=== PATIENT | female | born 1940 | race Caucasian/White ===

== ENCOUNTER → 2017-06-14 | Outpatient (CLI) | payer MEDICARE, BC ==
[2017-06-14 16:27] LABS: Blood Urea Nitrogen 26 mg/dL (7-17)
--- NOTE | 2017-06-14 17:20 | CT ---
EXAMINATION TYPE: CT angio chest DATE OF EXAM: 06/14/2017 4:57 PM COMPARISON: NONE HISTORY: BP discrepancy, hx of COPD CT DLP: 424.7 mGycm Automated exposure control for dose reduction was used. CONTRAST: CTA scan of the thorax is performed with IV Contrast, patient injected with 69 mL of Omnipaque 350, p ulmonary embolism protocol. There are 3-D post processed images.. FINDINGS: The lungs are clear of consolidation. There is a mild 1.5 cm reticular subpleural density in the supe rior segment left lower lobe adjacent to the pleura. There is mild linear density in the lingula left upper lobe and in the right middle lobe. There is no pleural effusion. There is no pericardial effus ion. Heart size is normal. There is a small hiatal hernia. I see no filling defects in the pulmonary arteries. There is no evidence of aortic aneurysm or dissec tion. There is no mediastinal adenopathy. There is mild atherosclerotic calcification in the thoracic aorta. There is some spurring in the thoracic spine. IMPRESSION: ATHEROSCLEROTIC VASCULAR DISEASE. NO EVIDENCE OF PULMONARY EMBOLISM. MILD PULMONARY DENSITIES CONSIST ENT WITH FIBROSIS.
== END | disposition home or self-care (01) ==
LOC: RADCTMAIN 15:34
PROVIDERS: ATTEND Family Medicine
DX: I25.10 Atherosclerotic heart disease of native coronary artery without angina pectoris (principal); R91.8 Other nonspecific abnormal finding of lung field; R03.0 Elevated blood-pressure reading, without diagnosis of hypertension
CPT/HCPCS: 82565; 84520; 71275; 36415; Q9967

== ENCOUNTER → 2018-01-23 | Outpatient (CLI) | payer MEDICARE, BC ==
--- NOTE | 2018-01-23 22:46 | BD ---
EXAMINATION TYPE: Axial Bone Density DATE OF EXAM: 01/23/2018 CLINICAL HISTORY: Postmenopausal female. Height: 60 inches Weight: 180 FRAX RISK QUESTIONS: Alcohol (3 or more units per day): no Family History (Parent hip fracture): yes, father Glucocorticoids (More than 3mos): yes (Ex: prednisone, prednisolone, methylprednisolone, dexamethasone, and hydrocortisone). History of Fracture in Adulthood: no Secondary Osteoporosis: 1. Type 1 Diabetes: no 2. Hyperthyroidism: no 3. Menopause before 45: yes 4. Malnutrition: no 5. Chronic liver disease: no Rheumatoid Arthritis: no Current Tobacco Use: no RISK FACTORS HISTORY OF: Surgery to Spine: yes, lower back bone graft & fusion about area of L-5 When: 1970 Family History of Osteoporosis: unsure Active: somewhat Diet low in dairy products/other sources of calcium: at least one serving a day Postmenopausal woman: yes Take estrogen and/or progesterone medications: no Lost more than 2 inches in height since high school: no Frequent falls: no Poor Health: somewhat Hyperparathyroidism: unsure Adrenal Insufficiency: no MEDICATIONS: Prednisone or other steroids: yes, inhaler-Albuterol How Long: about 3-4 years Thyroid Medications: no Osteoporosis Medications: no Additional Medications: multivitamin, lovastatin, singular, blood pressure meds Additional History: COPD & asthma EXAM MEASUREMENTS: Bone mineral densitometry was performed using the [employer] System. Bone mineral density NOT measured about the Lumbar spine due to previous Lumbar Spine surgery Bone mineral density about the R hip (g/cm2): 0.759 Bone mineral density about the L hip (g/cm2): 0.762 T Score values are as follows: -----R Neck: -2.0 -----L Neck: -2.0 -----R Total: -1.0 -----L Total: -0.8 Bone mineral density not previously done at this facility-previous at physician office Bone mineral density about the L Wrist (g/cm2): 0.519 T Score values are as follows: -----Dist. R+U: -1.7 -----Prox. R+U: -2.0 -----Radius total: -2.6 Bone mineral density not previously done at this facility IMPRESSION: Osteopenia (T Score between -2.5 and -1) in the left forearm and bilateral hips. There is slightly increased risk of fracture and the patient may be considered for treatment. Re-Screen 2-5 years. NOTE: T-SCORE=SD OF THE YOUNG ADULT MEAN.
--- NOTE | 2018-01-24 10:44 | ECHOF ---
Referral Reason:H34.832 G45.3 MEASUREMENTS -------- HEIGHT: 152.4 cm WEIGHT: 82.1 kg BP: 138/66 RVIDd: 3.6 cm (< 3.3) IVSd: 0.8 cm (0.6 - 1.1) LVIDd: 3.7 cm (3.9 - 5.3) LVPWd: 1.1 cm (0.6 - 1.1) IVSs: 1.7 cm LVIDs: 2.3 cm LVPWs: 1.5 cm LA Diam: 3.0 cm (2.7 - 3.8) LAESV Index (A-L): 20.64 ml/m Ao Diam: 3.2 cm (2.0 - 3.7) AV Cusp: 2.2 cm (1.5 - 2.6) MV EXCURSION: 14.230 mm (> 18.000) MV EF SLOPE: 31 mm/s (70 - 150) EPSS: 0.8 cm MV E Clinton: 0.55 m/s MV DecT: 236 ms MV A Clinton: 0.92 m/s MV E/A Ratio: 0.60 RAP: 5.00 mmHg RVSP: 73.18 mmHg FINDINGS -------- Undetermined rhythm. This was a technically adequate study. The left ventricular size is normal. There is borderline concentric left ventricular hypertrophy. Overall left ventricular systolic function is normal with, an EF between 60 - 65 %. The right ventricle is mildly enlarged. Normal LA size by volume 22+/-6 ml/m2. The right atrium is normal in size. The aortic valve is trileaflet and appears structurally normal. There is trace to mild mitral regurgitation. Mild tricuspid regurgitation present. There is moderate to severe pulmonary hypertension. The rig ht ventricular systolic pressure, as measured by Doppler, is about 60 mm of Hg. Trace/mild (physiologic) pulmonic regurgitation. The aortic root size is normal. Normal inferior vena cava with normal inspiratory collapse consistent with estimated right atrial pre ssure of 5 mmHg. There is no pericardial effusion. CONCLUSIONS -------- 1. Undetermined rhythm. 2. This was a technically adequate study. 3. The left ventricular size is normal. 4. There is borderline concentric left ventricular hypertrophy. 5. Overall left ventricular systolic function is normal with, an EF between 60 - 65 %. 6. The right ventricle is mildly enlarged. 7. Normal LA size by volume 22+/-6 ml/m2. 8. The right atrium is normal in size. 9. The aortic valve is trileaflet and appears structurally normal. 10. There is trace to mild mitral regurgitation. 11. Mild tricuspid regurgitation present. 12. The right ventricular systolic pressure, as measured by Doppler, is 73.18mmHg. 13. Trace/mild (physiologic) pulmonic regurgitation. 14. The aortic root size is normal. 15. Normal inferior vena cava with normal inspiratory collapse consistent with estimated right atrial pressure of 5 mmHg. 16. There is no pericardial effusion. LEATHER SPRAYER: Maylin Lemus RDCS
--- NOTE | 2018-01-24 11:38 | MM ---
Reason for exam: screening (asymptomatic). Last mammogram was performed 2 years and 11 months ago. History: Patient is postmenopausal and history of other cancer. Physical Findings: A clinical breast exam by your physician is recommended on an annual basis and results should be correlated with mammographic findings. MG 3D Screening Mammo W/Cad Bilateral CC and MLO view(s) were taken. Prior study comparison: February 26, 2015, right breast MG 3d work up w/cad RT. February 18, 2015, bilateral MG screening mammo w CAD. There are scattered fibroglandular densities. No significant changes when compared with prior studies. ASSESSMENT: Benign, BI-RAD 2 RECOMMENDATION: Routine screening mammogram of both breasts in 1 year.
== END ==
LOC: RADMAMWWP 13:25
PROVIDERS: ATTEND Family Medicine
DX: Z12.31 Encounter for screening mammogram for malignant neoplasm of breast (principal); M85.832 Other specified disorders of bone density and structure, left forearm; M85.851 Other specified disorders of bone density and structure, right thigh; M85.852 Other specified disorders of bone density and structure, left thigh
CPT/HCPCS: 77063; 77067; 77080; 93306

== ENCOUNTER 2018-04-12 14:12 | Inpatient (IN) | payer MEDICARE, BC ==
[2018-04-12] MEDS ORDERED: IPRATROPIUM 0.5 MG/2.5 ML NEBU INHALATION STA (14:52)
[2018-04-12] MEDS ORDERED: ALBUTEROL NEBULIZED 2.5 MG/3 ML INHALATION STA (14:52)
[2018-04-12] MEDS ORDERED: DEXAMETHASONE SOD PHOSPHATE 10 MG/ML 1 ML VIAL IV STA (14:52)
--- NOTE | 2018-04-12 15:06 | ED ---
General Adult HPI - General Chief complaint: Shortness of Breath Stated complaint: SOB Time Seen by Provider: 04/12/18 14:32 Source: patient, RN notes reviewed, old records reviewed Mode of arrival: ambulatory Limitations: no limitations - History of Present Illness Initial comments: 77-year-old female history of COPD on home oxygen presents for 3 days of worsening cough and dyspnea. Patient's cough is productive white yellow sputum. Patient has had some URI symptoms and known sick contacts. Denies fever or chills. Denies significant chest pain. She hasn't mild chest pain with cough. No abdominal pain nausea vomiting. No lower extremity swelling or pain. - Related Data Home Medications Medication Instructions Recorded Confirmed Acyclovir [Zovirax] 400 mg PO BID 04/12/18 04/12/18 Albuterol Inhaler [Ventolin Hfa 2 puff INHALATION RT-Q6H PRN 04/12/18 04/12/18 Inhaler] Albuterol Nebulized [Ventolin 2.5 mg INHALATION RT-TID 04/12/18 04/12/18 Nebulized] Budesonide [Pulmicort] 0.5 mg INHALATION RT-BID 04/12/18 04/12/18 Calcium Carbonate [Calcium] 600 mg PO BID 04/12/18 04/12/18 Furosemide [Lasix] 20 mg PO DAILY 04/12/18 04/12/18 L.acidoph,Paracasei, B.lactis 1 cap PO DAILY 04/12/18 04/12/18 [Probiotic] Lovastatin [Mevacor] 20 mg PO HS 04/12/18 04/12/18 Montelukast [Singulair] 10 mg PO DAILY 04/12/18 04/12/18 Multivitamins, Thera [Multivitamin 1 tab PO DAILY 04/12/18 04/12/18 (formulary)] Omeprazole 20 mg PO DAILY 04/12/18 04/12/18 Potassium Chloride ER [K-Dur 10] 10 meq PO DAILY 04/12/18 04/12/18 Roflumilast [Daliresp] 250 mcg PO DAILY 04/12/18 04/12/18 predniSONE See Taper PO DAILY 04/12/18 04/12/18 Allergies Allergy/AdvReac Type Severity Reaction Status Date / Time amoxicillin [From Augmentin] Allergy Unknown Verified 04/12/18 15:14 clavulanic acid Allergy Unknown Verified 04/12/18 15:14 [From Augmentin] erythromycin base Allergy Unknown Verified 04/12/18 15:14 Review of Systems ROS Statement: Those systems with pertinent positive or pertinent negative responses have been documented in the HPI. ROS Other: All systems not noted in ROS Statement are negative. Past Medical History Past Medical History: Coronary Artery Disease (CAD), Heart Failure, COPD, GERD/ Reflux, Hyperlipidemia History of Any Multi-Drug Resistant Organisms: None Reported Past Surgical History: Back Surgery Past Psychological History: No Psychological Hx Reported Smoking Status: Former smoker Past Alcohol Use History: None Reported Past Drug Use History: None Reported General Exam Limitations: no limitations General appearance: alert, in no apparent distress Head exam: Present: atraumatic, normocephalic Eye exam: Present: normal appearance, PERRL ENT exam: Present: normal exam Neck exam: Present: normal inspection. Absent: tenderness, meningismus Respiratory exam: Present: respiratory distress, wheezes, rhonchi, accessory muscle use, decreased breath sounds, prolonged expiratory Cardiovascular Exam: Present: regular rate, normal rhythm GI/Abdominal exam: Present: soft. Absent: distended, tenderness, guarding Extremities exam: Present: normal inspection, normal capillary refill. Absent: pedal edema, calf tenderness Neurological exam: Present: alert, oriented X3, CN II-XII intact. Absent: motor sensory deficit Psychiatric exam: Present: normal affect, normal mood Skin exam: Present: warm, intact, diaphoretic Course Vital Signs 04/12/18 04/12/18 04/12/18 14:25 14:46 15:12 Temperature 97.7 F Pulse Rate 100 Respiratory 32 H 46 H 30 H Rate Blood Pressure 93/63 O2 Sat by Pulse 80 L 78 L Oximetry 04/12/18 04/12/18 04/12/18 15:17 15:27 15:38 Temperature Pulse Rate 96 94 95 Respiratory 24 Rate Blood Pressure O2 Sat by Pulse Oximetry 04/12/18 04/12/18 15:50 16:00 Temperature Pulse Rate 96 96 Respiratory 22 28 H Rate Blood Pressure 132/71 O2 Sat by Pulse 97 Oximetry EKG Findings - EKG Comments: EKG Findings:: EKG: Normal sinus rhythm, right bundle branch block, no definitive signs of ischemia, there is no ST segment elevation, poor baseline secondary to artifact, ventricular rate 97, VA interval 114, QRS duration 118, QTC 457 Medical Decision Making - Medical Decision Making 77-year-old female presenting with cough and dyspnea. X-rays obtained, negative for focal pneumonia, findings consistent with COPD. Patient has normal CBC, CMP shows elevated CO2 consistent with chronic retention. No elevated troponin, normal BNP. Patient will be admitted for further treatment of COPD exacerbation. Case discussed with Dr. Del Rio who will accept admission. - Lab Data Result diagrams: 04/12/18 15:01 04/12/18 15:01 Lab Results 04/12/18 04/12/18 04/12/18 Range/Units 15:01 15: 15:01 WBC 7.9 (3.8-10.6) k/uL RBC 4.29 (3.80-5.40) m/uL Hgb 13.9 (11.4-16.0) gm/dL Hct 43.8 (34.0-46.0) % MCV 102.1 H (80.0-100.0) fL MCH 32.4 (25.0-35.0) pg MCHC 31.8 (31.0-37.0) g/dL RDW 14.6 (11.5-15.5) % Plt Count 201 (150-450) k/uL Neutrophils % 89 % Lymphocytes % 4 % Monocytes % 5 % Eosinophils % 1 % Basophils % 0 % Neutrophils # 7.0 (1.3-7.7) k/uL Lymphocytes # 0.3 L (1.0-4.8) k/uL Monocytes # 0.4 (0-1.0) k/uL Eosinophils # 0.0 (0-0.7) k/uL Basophils # 0.0 (0-0.2) k/uL Hypochromasia Slight Macrocytosis Slight PT (9.0-12.0) sec INR (<1.2) APTT (22.0-30.0) sec Sodium 144 (137-145) mmol/L Potassium 4.4 (3.5-5.1) mmol/L Chloride 99 (98-107) mmol/L Carbon Dioxide 36 H (22-30) mmol/L Anion Gap 9 mmol/L BUN 32 H (7-17) mg/dL Creatinine 0.48 L (0.52-1.04) mg/dL Est GFR (CKD-EPI)AfAm >90 (>60 ml/min/1.73 sqM) Est GFR (CKD-EPI)NonAf >90 (>60 ml/min/1.73 sqM) Glucose 177 H (74-99) mg/dL Plasma Lactic Acid Marlo (0.7-2.0) mmol/L Calcium 9.6 (8.4-10.2) mg/dL Magnesium 2.1 (1.6-2.3) mg/dL Total Bilirubin 0.8 (0.2-1.3) mg/dL AST 24 (14-36) U/L ALT 29 (9-52) U/L Alkaline Phosphatase 85 (38-126) U/L Total Creatine Kinase 30 (30-135) U/L CK-MB (CK-2) 1.0 (0.0-2.4) ng/mL CK-MB (CK-2) Rel Index 3.3 Troponin I <0.012 (0.000-0.034) ng/mL NT-Pro-B Natriuret Pep pg/mL Total Protein 6.8 (6.3-8.2) g/dL Albumin 3.9 (3.5-5.0) g/dL Influenza Type A RNA (Not Detectd) Influenza Type B (PCR) (Not Detectd) 04/12/18 04/12/18 04/12/18 Range/Units 15:01 15:01 15:01 WBC (3.8-10.6) k/uL RBC (3.80-5.40) m/uL Hgb (11.4-16.0) gm/dL Hct (34.0-46.0) % MCV (80.0-100.0) fL MCH (25.0-35.0) pg MCHC (31.0-37.0) g/dL RDW (11.5-15.5) % Plt Count (150-450) k/uL Neutrophils % % Lymphocytes % % Monocytes % % Eosinophils % % Basophils % % Neutrophils # (1.3-7.7) k/uL Lymphocytes # (1.0-4.8) k/uL Monocytes # (0-1.0) k/uL Eosinophils # (0-0.7) k/uL Basophils # (0-0.2) k/uL Hypochromasia Macrocytosis PT 10.5 (9.0-12.0) sec INR 1.0 (<1.2) APTT 22.3 (22.0-30.0) sec Sodium (137-145) mmol/L Potassium (3.5-5.1) mmol/L Chloride (98-107) mmol/L Carbon Dioxide (22-30) mmol/L Anion Gap mmol/L BUN (7-17) mg/dL Creatinine (0.52-1.04) mg/dL Est GFR (CKD-EPI)AfAm (>60 ml/min/1.73 sqM) Est GFR (CKD-EPI)NonAf (>60 ml/min/1.73 sqM) Glucose (74-99) mg/dL Plasma Lactic Acid Marlo 1.4 (0.7-2.0) mmol/L Calcium (8.4-10.2) mg/dL Magnesium (1.6-2.3) mg/dL Total Bilirubin (0.2-1.3) mg/dL AST (14-36) U/L ALT (9-52) U/L Alkaline Phosphatase (38-126) U/L Total Creatine Kinase (30-135) U/L CK-MB (CK-2) (0.0-2.4) ng/mL CK-MB (CK-2) Rel Index Troponin I (0.000-0.034) ng/mL NT-Pro-B Natriuret Pep 84 pg/mL Total Protein (6.3-8.2) g/dL Albumin (3.5-5.0) g/dL Influenza Type A RNA (Not Detectd) Influenza Type B (PCR) (Not Detectd) 04/12/18 Range/Units 16:15 WBC (3.8-10.6) k/uL RBC (3.80-5.40) m/uL Hgb (11.4-16.0) gm/dL Hct (34.0-46.0) % MCV (80.0-100.0) fL MCH (25.0-35.0) pg MCHC (31.0-37.0) g/dL RDW (11.5-15.5) % Plt Count (150-450) k/uL Neutrophils % % Lymphocytes % % Monocytes % % Eosinophils % % Basophils % % Neutrophils # (1.3-7.7) k/uL Lymphocytes # (1.0-4.8) k/uL Monocytes # (0-1.0) k/uL Eosinophils # (0-0.7) k/uL Basophils # (0-0.2) k/uL Hypochromasia Macrocytosis PT (9.0-12.0) sec INR (<1.2) APTT (22.0-30.0) sec Sodium (137-145) mmol/L Potassium (3.5-5.1) mmol/L Chloride (98-107) mmol/L Carbon Dioxide (22-30) mmol/L Anion Gap mmol/L BUN (7-17) mg/dL Creatinine (0.52-1.04) mg/dL Est GFR (CKD-EPI)AfAm (>60 ml/min/1.73 sqM) Est GFR (CKD-EPI)NonAf (>60 ml/min/1.73 sqM) Glucose (74-99) mg/dL Plasma Lactic Acid Marlo (0.7-2.0) mmol/L Calcium (8.4-10.2) mg/dL Magnesium (1.6-2.3) mg/dL Total Bilirubin (0.2-1.3) mg/dL AST (14-36) U/L ALT (9-52) U/L Alkaline Phosphatase (38-126) U/L Total Creatine Kinase (30-135) U/L CK-MB (CK-2) (0.0-2.4) ng/mL CK-MB (CK-2) Rel Index Troponin I (0.000-0.034) ng/mL NT-Pro-B Natriuret Pep pg/mL Total Protein (6.3-8.2) g/dL Albumin (3.5-5.0) g/dL Influenza Type A RNA Not Detected (Not Detectd) Influenza Type B (PCR) Not Detected (Not Detectd) Critical Care Time Critical Care Time: Yes Total Critical Care Time: 35 Disposition Clinical Impression: Acute exacerbation of chronic obstructive airways disease Disposition: ADMITTED IP TO THIS HOSP Condition: Stable Is patient prescribed a controlled substance at d/c from ED?: No Referrals: Lori Cortze DO [Primary Care Provider] - 1-2 days Decision to Admit Reason: Admit from EC Decision Date: 04/12/18 Decision Time: 17:36
[2018-04-12 15:37] LABS: ALT 29 U/L (9-52); AST 24 U/L (14-36); Albumin 3.9 g/dL (3.5-5.0); Alkaline Phosphatase 85 U/L (38-126); Anion Gap 9 mmol/L; Blood Urea Nitrogen 32 mg/dL (7-17); Calcium 9.6 mg/dL (8.4-10.2); Carbon Dioxide 36 mmol/L (22-30); Chloride 99 mmol/L (98-107); Glucose 177 mg/dL (74-99); Magnesium 2.1 mg/dL (1.6-2.3); Potassium 4.4 mmol/L (3.5-5.1); Sodium 144 mmol/L (137-145); Total Bilirubin 0.8 mg/dL (0.2-1.3); Total Protein 6.8 g/dL (6.3-8.2)
[2018-04-12 15:43] LABS: Basophils % (A) 0 %; Creatine Kinase 30 U/L (30-135); Eosinophils % (A) 1 %; HCT 43.8 % (34.0-46.0); HGB 13.9 gm/dL (11.4-16.0); Hypochromasia Slight; Lymphocytes # (A) 0.3 k/uL (1.0-4.8); Lymphocytes % (A) 4 %; MCH 32.4 pg (25.0-35.0); MCHC 31.8 g/dL (31.0-37.0); MCV 102.1 fL (80.0-100.0); Macrocytosis Slight; Monocytes # (A) 0.4 k/uL (0-1.0); Monocytes % (A) 5 %; Neutrophils % (A) 89 %; Platelet Count 201 k/uL (150-450); RBC 4.29 m/uL (3.80-5.40); RDW 14.6 % (11.5-15.5); WBC 7.9 k/uL (3.8-10.6)
[2018-04-12 15:56] LABS: Troponin I <0.012 ng/mL (0.000-0.034)
[2018-04-12 16:14] LABS: Partial Thromboplastin Time 22.3 sec (22.0-30.0); Prothrombin Time 10.5 sec (9.0-12.0)
--- NOTE | 2018-04-12 16:18 | XR ---
EXAMINATION TYPE: XR chest 2V DATE OF EXAM: 04/12/2018 COMPARISON: None HISTORY: 77 year-old female shortness of breath, difficulty breathing TECHNIQUE: AP and lateral views FINDINGS: Heart upper limits of normal in size. Diffuse interstitial changes and increased AP chest diameter. L arge bilateral lolita. Some patchy bibasilar densities are present. No pleural effusion. IMPRESSION: Chronic appearing changes with underlying COPD and pulmonary arterial hypertension suspected. Interst itial changes may reflect superimposed bronchitis or asthma.
[2018-04-12] MEDS ORDERED: IPRATROPIUM-ALBUTEROL 3 ML NEB INHALATION PRN (17:33)
[2018-04-12] MEDS ORDERED: ALBUTEROL NEBULIZED 2.5 MG/3 ML INHALATION PRN (17:34)
[2018-04-12] MEDS ORDERED: LEVOFLOXACIN 500 MG TAB PO STA (17:34)
[2018-04-12] MEDS: methylPREDNISolone SOD SUCCI 125 MG/2 ML VIAL IV SCH (18:06)
--- NOTE | 2018-04-12 20:12 | P.HPIM ---
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 as well as chronic hypoxic respiratory failure, patient the has not been feeling well for almost week to 10 days have progressive shortness of breath she has been treated with the oral antibiotics as well as prednisone her outpatient setting without any significant relief she continued to have problems associated with shortness of breath worsening of symptoms and eventually was brought into emergency department for further evaluation on arrival her oxygen saturation was only in 70s family present at bedside they were requesting for portable home oxygen as she consumes multiple tanks in a short period time being on home oxygen 3 L nasal cannula a prescription has been provided, patient sees Dr. Lori Cortez for primary care activity and Dr. ERICA Choi for pulmonary related problems and issues, I have discussed with her about the obtaining a pulmonary consult, she express her wishes to see her primary sales development specialist on outpatient setting, her chest x-ray failed to reveal a pneumonia however prominent interstitium suggestive of ongoing bronchitis as well as COPD-like changes pulmonary vasculature appears to be very prominent suggestive of pulmonary hypertension as well, with supplemental oxygen oxygen saturation improving to low 90s, patient is being started on IV steroids antibiotics from the emergency department supplemental oxygen and breathing treatment and admitted onto the medical floor Review of Systems All systems: negative Past Medical History Past Medical History: Coronary Artery Disease (CAD), Heart Failure, COPD, GERD/ Reflux, Hyperlipidemia History of Any Multi-Drug Resistant Organisms: None Reported Past Surgical History: Back Surgery Past Psychological History: No Psychological Hx Reported Smoking Status: Former smoker Past Alcohol Use History: None Reported Past Drug Use History: None Reported Medications and Allergies Home Medications Medication Instructions Recorded Confirmed Type Acyclovir [Zovirax] 400 mg PO BID 04/12/18 04/12/18 History Albuterol Inhaler [Ventolin Hfa 2 puff INHALATION RT-Q6H PRN 04/12/18 04/12/18 History Inhaler] Albuterol Nebulized [Ventolin 2.5 mg INHALATION RT-TID 04/12/18 04/12/18 History Nebulized] Budesonide [Pulmicort] 0.5 mg INHALATION RT-BID 04/12/18 04/12/18 History Calcium Carbonate [Calcium] 600 mg PO BID 04/12/18 04/12/18 History Furosemide [Lasix] 20 mg PO DAILY 04/12/18 04/12/18 History L.acidoph,Paracasei, B.lactis 1 cap PO DAILY 04/12/18 04/12/18 History [Probiotic] Lovastatin [Mevacor] 20 mg PO HS 04/12/18 04/12/18 History Montelukast [Singulair] 10 mg PO DAILY 04/12/18 04/12/18 History Multivitamins, Thera [Multivitamin 1 tab PO DAILY 04/12/18 04/12/18 History (formulary)] Omeprazole 20 mg PO DAILY 04/12/18 04/12/18 History Potassium Chloride ER [K-Dur 10] 10 meq PO DAILY 04/12/18 04/12/18 History Roflumilast [Daliresp] 250 mcg PO DAILY 04/12/18 04/12/18 History predniSONE See Taper PO DAILY 04/12/18 04/12/18 History Allergies Allergy/AdvReac Type Severity Reaction Status Date / Time amoxicillin [From Augmentin] Allergy Unknown Verified 04/12/18 15:14 clavulanic acid Allergy Unknown Verified 04/12/18 15:14 [From Augmentin] erythromycin base Allergy Unknown Verified 04/12/18 15:14 Physical Exam Vitals: Vital Signs Temp Pulse Pulse Resp BP BP Pulse Ox 04/12/18 19:30 98.2 F 91 18 144/81 93 L 04/12/18 18:44 97.9 F 94 L 04/12/18 18:00 93 20 135/71 94 L 04/12/18 17:00 97 22 132/77 91 L 04/12/18 16:00 96 28 H 132/71 97 04/12/18 15:50 96 22 04/12/18 15:38 95 04/12/18 15:27 94 04/12/18 15:17 96 24 04/12/18 15:12 30 H 04/12/18 14:46 46 H 78 L 04/12/18 14:25 97.7 F 100 32 H 93/63 80 L Intake and Output 04/12/18 04/12/18 04/12/18 06:59 14:59 22:59 Other: Weight 80.739 kg - Constitutional General appearance: average body habitus, cooperative, disheveled, mild distress - EENT Eyes: EOMI, PERRLA, poor dentition, normal appearance ENT: normal oropharynx Ears: bilateral: normal - Neck Neck: normal ROM Carotids: bilateral: upstroke normal Thyroid: bilateral: normal size - Respiratory Respiratory: bilateral: diminished, wheezing, prolonged expiration, negative: dullness, rales, rhonchi - Cardiovascular Rhythm: regular Heart sounds: normal: S1, S2 - Gastrointestinal General gastrointestinal: normal bowel sounds, soft - Integumentary Integumentary: normal turgor - Neurologic Neurologic: CNII-XII intact - Musculoskeletal Musculoskeletal: gait normal, generalized weakness, strength equal bilaterally - Psychiatric Psychiatric: A&O x's 3, appropriate affect, intact judgment & insight Results CBC & Chem 7: 04/12/18 15:01 04/12/18 15:01 Labs: Abnormal Lab Results - Last 24 Hours (Table) 04/12/18 04/12/18 Range/Units 15:01 15:01 MCV 102.1 H (80.0-100.0) fL Lymphocytes # 0.3 L (1.0-4.8) k/uL Carbon Dioxide 36 H (22-30) mmol/L BUN 32 H (7-17) mg/dL Creatinine 0.48 L (0.52-1.04) mg/dL Glucose 177 H (74-99) mg/dL Chest x-ray: report reviewed, image reviewed Assessment and Plan Assessment: Acute COPD exacerbation Purulent tracheobronchitis Acute on chronic hypoxic respiratory failure Cor pulmonale and pulmonary hypertension Severe degree of kyphoscoliosis Steroid-related hyperglycemia Metabolic alkalosis likely multifactorial related to contraction alkalosis Plan: Gentle rehydration Antibiotics to be continued from emergency department IV steroids Breathing treatment Resume home medications Further recommendations pending plan of care as per clinical response of the patient Time with Patient: Greater than 30
[2018-04-12] MEDS: IPRATROPIUM-ALBUTEROL 3 ML NEB INHALATION SCH (20:53)
[2018-04-12] MEDS ORDERED: ALBUTEROL INHALER 60 PUFF/8 GM INHALER INHALATION PRN (21:24)
[2018-04-12] MEDS: ATORVASTATIN 10 MG TAB PO SCH (22:14)
[2018-04-12] MEDS: ACYCLOVIR 200 MG CAP PO SCH (22:14)
[2018-04-13] MEDS: methylPREDNISolone SOD SUCCI 125 MG/2 ML VIAL IV SCH ×5 (00:24→23:05)
[2018-04-13] MEDS: PANTOPRAZOLE 40 MG TABLET PO SCH (07:33)
[2018-04-13 07:51] LABS: Glucose,Whole Blood 133 mg/dL (75-99)
[2018-04-13] MEDS: ACYCLOVIR 200 MG CAP PO SCH ×2 (08:04→20:34)
[2018-04-13] MEDS: MONTELUKAST 10 MG TAB PO SCH (08:04)
[2018-04-13] MEDS: FUROSEMIDE 20 MG TAB PO SCH (08:04)
[2018-04-13] MEDS: POTASSIUM CHLORIDE ER 10 MEQ TAB.ER.PRT PO SCH (08:04)
[2018-04-13] MEDS: ROFLUMILAST 250 MCG PO SCH (08:06)
[2018-04-13] MEDS: BUDESONIDE 0.5 MG/2 ML NEBU INHALATION SCH ×2 (08:45→19:45)
[2018-04-13] MEDS: IPRATROPIUM-ALBUTEROL 3 ML NEB INHALATION SCH ×4 (08:47→19:45)
[2018-04-13 11:20] LABS: Glucose,Whole Blood 177 mg/dL (75-99)
[2018-04-13] MEDS: MULTIVITAMINS, THERA 1 EACH TAB PO SCH (11:52)
[2018-04-13] MEDS: INSULIN ASPART 100 UNIT/ML 1 ML 10 ML VIAL SQ SCH ×3 (11:53→20:41)
--- NOTE | 2018-04-13 16:25 | P.PN ---
Subjective Progress Note Date: 04/13/18 Principal diagnosis: Acute COPD exacerbation, purulent tracheobronchitis, acute on chronic hypoxic respiratory failure, cor pulmonale, pulmonary hypertension, severe degree of kyphoscoliosis, steroid-induced hyperglycemia, metabolic alkalosis 04/13/2018, patient seen eval examined during the rounds clinically patient remains short of breath is still of ongoing cough congestion severe D however slightly improved though, patient is still complaining of severe weakness not ready for discharge, labs reviewed medications reviewed Objective - Vital Signs Vital signs: Vital Signs Temp 97.5 F L 04/13/18 14:40 Pulse 88 04/13/18 15:58 Resp 18 04/13/18 16:00 BP 120/74 04/13/18 14:40 Pulse Ox 98 04/13/18 14:40 Intake & Output 04/12/18 04/13/18 04/13/18 18:59 06:59 18:59 Intake Total 600 Balance 600 Weight 80.739 kg Intake: Oral 600 Other: Voiding Method Toilet Toilet # Voids 1 4 - Exam Constitutional General appearance: average body habitus, cooperative, disheveled, mild distress - EENT Eyes: EOMI, PERRLA, poor dentition, normal appearance ENT: normal oropharynx Ears: bilateral: normal - Neck Neck: normal ROM Carotids: bilateral: upstroke normal Thyroid: bilateral: normal size - Respiratory Respiratory: bilateral: diminished, wheezing, prolonged expiration, negative: dullness, rales, rhonchi - Cardiovascular Rhythm: regular Heart sounds: normal: S1, S2 - Gastrointestinal General gastrointestinal: normal bowel sounds, soft - Integumentary Integumentary: normal turgor - Neurologic Neurologic: CNII-XII intact - Musculoskeletal Musculoskeletal: gait normal, generalized weakness, strength equal bilaterally - Psychiatric Psychiatric: A&O x's 3, appropriate affect, intact judgment & insight - Labs CBC & Chem 7: 04/12/18 15:01 04/12/18 15:01 Labs: Abnormal Lab Results - Last 24 Hours (Table) 04/13/18 04/13/18 Range/Units 07:41 11:10 POC Glucose (mg/dL) 133 H 177 H (75-99) mg/dL Assessment and Plan Assessment: Acute COPD exacerbation Purulent tracheobronchitis Acute on chronic hypoxic respiratory failure Cor pulmonale and pulmonary hypertension Severe degree of kyphoscoliosis Steroid-related hyperglycemia Metabolic alkalosis likely multifactorial related to contraction alkalosis Plan: Gentle rehydration Antibiotics to be continued from emergency department IV steroids Breathing treatment Resume home medications Further recommendations pending plan of care as per clinical response of the patient Time with Patient: Greater than 30
[2018-04-13 16:35] LABS: Hemoglobin A1C 5.9 % (4.0-6.0)
[2018-04-13 17:07] LABS: Glucose,Whole Blood 193 mg/dL (75-99)
[2018-04-13] MEDS: LEVOFLOXACIN 500 MG TAB PO SCH (18:10)
[2018-04-13] MEDS: ATORVASTATIN 10 MG TAB PO SCH (20:34)
[2018-04-13 20:38] LABS: Glucose,Whole Blood 175 mg/dL (75-99)
[2018-04-14] MEDS: methylPREDNISolone SOD SUCCI 125 MG/2 ML VIAL IV SCH ×3 (06:03→17:49)
[2018-04-14 07:11] LABS: Glucose,Whole Blood 142 mg/dL (75-99)
[2018-04-14] MEDS: IPRATROPIUM-ALBUTEROL 3 ML NEB INHALATION SCH ×4 (07:39→20:17)
[2018-04-14] MEDS: BUDESONIDE 0.5 MG/2 ML NEBU INHALATION SCH ×2 (07:40→20:17)
[2018-04-14] MEDS: FUROSEMIDE 20 MG TAB PO SCH (07:56)
[2018-04-14] MEDS: PANTOPRAZOLE 40 MG TABLET PO SCH (07:56)
[2018-04-14] MEDS: MONTELUKAST 10 MG TAB PO SCH (07:56)
[2018-04-14] MEDS: ACYCLOVIR 200 MG CAP PO SCH ×2 (07:56→22:05)
[2018-04-14] MEDS: INSULIN ASPART 100 UNIT/ML 1 ML 10 ML VIAL SQ SCH ×4 (07:56→22:06)
[2018-04-14] MEDS: POTASSIUM CHLORIDE ER 10 MEQ TAB.ER.PRT PO SCH (07:56)
[2018-04-14] MEDS: ROFLUMILAST 250 MCG PO SCH (07:57)
[2018-04-14 11:51] LABS: Glucose,Whole Blood 164 mg/dL (75-99)
[2018-04-14] MEDS: MULTIVITAMINS, THERA 1 EACH TAB PO SCH (12:06)
[2018-04-14 17:03] LABS: Glucose,Whole Blood 162 mg/dL (75-99)
[2018-04-14] MEDS: LEVOFLOXACIN 500 MG TAB PO SCH (17:49)
[2018-04-14 20:15] LABS: Glucose,Whole Blood 241 mg/dL (75-99)
--- NOTE | 2018-04-14 21:33 | P.PN ---
Subjective Progress Note Date: 04/14/18 Principal diagnosis: Acute COPD exacerbation, purulent tracheobronchitis, acute on chronic hypoxic respiratory failure, cor pulmonale, pulmonary hypertension, severe degree of kyphoscoliosis, steroid-induced hyperglycemia, metabolic alkalosis 04/14/2018, patient seen eval reexamined during the rounds the still get short of breath however severity has improved, patient is breathing K more comfortably care plan discussed with her and staff at length 04/13/2018, patient seen eval examined during the rounds clinically patient remains short of breath is still of ongoing cough congestion severe D however slightly improved though, patient is still complaining of severe weakness not ready for discharge, labs reviewed medications reviewed Objective - Vital Signs Vital signs: Vital Signs Temp 97.8 F 04/14/18 14:45 Pulse 72 04/14/18 20:30 Resp 16 04/14/18 16:00 BP 129/80 04/14/18 14:45 Pulse Ox 98 04/14/18 14:58 Intake & Output 04/14/18 04/14/18 04/15/18 06:59 18:59 06:59 Intake Total 1200 Balance 1200 Intake: Oral 1200 Other: Voiding Method Toilet # Voids 1 1 - Exam Constitutional General appearance: average body habitus, cooperative, disheveled, mild distress - EENT Eyes: EOMI, PERRLA, poor dentition, normal appearance ENT: normal oropharynx Ears: bilateral: normal - Neck Neck: normal ROM Carotids: bilateral: upstroke normal Thyroid: bilateral: normal size - Respiratory Respiratory: bilateral: diminished, wheezing, prolonged expiration, negative: dullness, rales, rhonchi - Cardiovascular Rhythm: regular Heart sounds: normal: S1, S2 - Gastrointestinal General gastrointestinal: normal bowel sounds, soft - Integumentary Integumentary: normal turgor - Neurologic Neurologic: CNII-XII intact - Musculoskeletal Musculoskeletal: gait normal, generalized weakness, strength equal bilaterally - Psychiatric Psychiatric: A&O x's 3, appropriate affect, intact judgment & insight - Labs CBC & Chem 7: 04/12/18 15:01 04/12/18 15:01 Labs: Abnormal Lab Results - Last 24 Hours (Table) 04/14/18 04/14/18 04/14/18 Range/Units 06:59 11:47 17:01 POC Glucose (mg/dL) 142 H 164 H 162 H (75-99) mg/dL 04/14/18 Range/Units 20:14 POC Glucose (mg/dL) 241 H (75-99) mg/dL Microbiology - Last 24 Hours (Table) 04/12/18 15:01 Blood Culture - Preliminary Blood No Growth after 48 hours Assessment and Plan Assessment: Acute COPD exacerbation Purulent tracheobronchitis Acute on chronic hypoxic respiratory failure Cor pulmonale and pulmonary hypertension Severe degree of kyphoscoliosis Steroid-related hyperglycemia Metabolic alkalosis likely multifactorial related to contraction alkalosis Plan: Gentle rehydration Antibiotics to be continued from emergency department IV steroids Breathing treatment Resume home medications Further recommendations pending plan of care as per clinical response of the patient Time with Patient: Greater than 30
[2018-04-14] MEDS: ATORVASTATIN 10 MG TAB PO SCH (22:06)
[2018-04-15] MEDS: methylPREDNISolone SOD SUCCI 125 MG/2 ML VIAL IV SCH ×5 (00:34→23:26)
[2018-04-15] MEDS: BUDESONIDE 0.5 MG/2 ML NEBU INHALATION SCH ×2 (07:21→20:10)
[2018-04-15] MEDS: IPRATROPIUM-ALBUTEROL 3 ML NEB INHALATION SCH ×4 (07:21→20:10)
[2018-04-15 07:30] LABS: Glucose,Whole Blood 130 mg/dL (75-99)
[2018-04-15] MEDS: INSULIN ASPART 100 UNIT/ML 1 ML 10 ML VIAL SQ SCH ×4 (07:41→21:22)
[2018-04-15] MEDS: POTASSIUM CHLORIDE ER 10 MEQ TAB.ER.PRT PO SCH (08:04)
[2018-04-15] MEDS: PANTOPRAZOLE 40 MG TABLET PO SCH (08:04)
[2018-04-15] MEDS: ACYCLOVIR 200 MG CAP PO SCH ×2 (08:04→21:21)
[2018-04-15] MEDS: FUROSEMIDE 20 MG TAB PO SCH (08:04)
[2018-04-15] MEDS: MONTELUKAST 10 MG TAB PO SCH (08:04)
[2018-04-15] MEDS: ROFLUMILAST 250 MCG PO SCH (08:05)
[2018-04-15 11:48] LABS: Glucose,Whole Blood 291 mg/dL (75-99)
[2018-04-15] MEDS: MULTIVITAMINS, THERA 1 EACH TAB PO SCH (13:03)
[2018-04-15 17:08] LABS: Glucose,Whole Blood 148 mg/dL (75-99)
[2018-04-15] MEDS: LEVOFLOXACIN 500 MG TAB PO SCH (17:37)
--- NOTE | 2018-04-15 18:30 | HP ---
HISTORY AND PHYSICAL DATE OF SERVICE: 03/19/2018 She continues to have shortness of breath and wheezing, though she is doing somewhat better overall. On physical examination, respiratory rate is 18, pulse rate is 76, temperature 98, blood pressure 117/70, O2 saturation on room is 98%. HEENT is unremarkable. Chest reveals decreased breath sounds, prolonged expiration with expiratory wheeze. Cardiovascular system with an S1, S2. Abdomen is soft. There is no pedal edema. IMPRESSION: 1. Severe asthma with chronic obstructive pulmonary disease with acute exacerbation. 2. Acute on chronic respiratory failure. 3. Severe kyphoscoliosis. Keep her on GI and DVT prophylaxis. Keep her on IV and aerosolized steroids. Continue bronchodilators. Consider switching her to oral steroids tomorrow if she is otherwise stable. MMODL / IJN: [id number] /
[2018-04-15 20:27] LABS: Glucose,Whole Blood 223 mg/dL (75-99)
[2018-04-15] MEDS: HEPARIN SODIUM,PORCINE 5,000 UNIT/ML 1 ML VIAL SQ SCH (21:21)
[2018-04-15] MEDS: ATORVASTATIN 10 MG TAB PO SCH (21:21)
[2018-04-16] MEDS: methylPREDNISolone SOD SUCCI 125 MG/2 ML VIAL IV SCH ×2 (05:38→11:28)
[2018-04-16 07:28] LABS: Glucose,Whole Blood 157 mg/dL (75-99)
[2018-04-16] MEDS: HEPARIN SODIUM,PORCINE 5,000 UNIT/ML 1 ML VIAL SQ SCH ×2 (07:52→21:42)
[2018-04-16] MEDS: POTASSIUM CHLORIDE ER 10 MEQ TAB.ER.PRT PO SCH (07:53)
[2018-04-16] MEDS: ACYCLOVIR 200 MG CAP PO SCH ×2 (07:53→21:42)
[2018-04-16] MEDS: FUROSEMIDE 20 MG TAB PO SCH (07:53)
[2018-04-16] MEDS: MONTELUKAST 10 MG TAB PO SCH (07:53)
[2018-04-16] MEDS: PANTOPRAZOLE 40 MG TABLET PO SCH (07:53)
[2018-04-16] MEDS: INSULIN ASPART 100 UNIT/ML 1 ML 10 ML VIAL SQ SCH ×4 (07:53→21:42)
[2018-04-16] MEDS: BUDESONIDE 0.5 MG/2 ML NEBU INHALATION SCH ×2 (08:05→20:07)
[2018-04-16] MEDS: IPRATROPIUM-ALBUTEROL 3 ML NEB INHALATION SCH ×4 (08:05→20:07)
[2018-04-16] MEDS: ROFLUMILAST 250 MCG PO SCH (08:18)
[2018-04-16 11:28] LABS: Glucose,Whole Blood 148 mg/dL (75-99)
[2018-04-16] MEDS: MULTIVITAMINS, THERA 1 EACH TAB PO SCH (11:29)
--- NOTE | 2018-04-16 13:18 | P.PN ---
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 as well as chronic hypoxic respiratory failure, patient the has not been feeling well for almost week to 10 days have progressive shortness of breath she has been treated with the oral antibiotics as well as prednisone her outpatient setting without any significant relief she continued to have problems associated with shortness of breath worsening of symptoms and eventually was brought into emergency department for further evaluation on arrival her oxygen saturation was only in 70s family present at bedside they were requesting for portable home oxygen as she consumes multiple tanks in a short period time being on home oxygen 3 L nasal cannula a prescription has been provided, patient sees Dr. Lori Cortez for primary care activity and Dr. MALDONADO Ready for pulmonary related problems and issues, I have discussed with her about the obtaining a pulmonary consult, she express her wishes to see her primary leadership recruiter on outpatient setting, her chest x-ray failed to reveal a pneumonia however prominent interstitium suggestive of ongoing bronchitis as well as COPD-like changes pulmonary vasculature appears to be very prominent suggestive of pulmonary hypertension as well, with supplemental oxygen oxygen saturation improving to low 90s, patient is being started on IV steroids antibiotics from the emergency department supplemental oxygen and breathing treatment and admitted onto the medical floor 04/16/2018 patient reports that she is showing improvement in her cough and shortness of breath. She still does not feel ready for discharge. She's currently on IV site Medrol bronchodilators and Levaquin. Pulmonary is following. Denies any chest pain. Denies any nausea vomiting. Denies any bowel movement changes or urinary symptoms. Does have mild shortness of breath with ambulating. Objective - Vital Signs Vital signs: Vital Signs Temp 97.1 F L 04/16/18 07:07 Pulse 70 04/16/18 12:30 Resp 16 04/16/18 07:07 BP 102/68 04/16/18 07:07 Pulse Ox 97 04/16/18 07:07 Intake & Output 04/15/18 04/16/18 04/16/18 18:59 06:59 18:59 Other: Voiding Method Toilet Diaper # Voids 2 1 - Exam Head normocephalic Neck supple Lungs slightly diminished bilaterally no wheezing or crackles Heart regular rate and rhythm S1-S2, no rub or gallop Abdomen is soft nontender nondistended positive bowel sounds no hepatosplenomegaly Extremities no edema Neuro alert and orientated to 3 - Labs CBC & Chem 7: 04/12/18 15:01 04/12/18 15:01 Labs: Abnormal Lab Results - Last 24 Hours (Table) 04/15/18 04/15/18 04/16/18 Range/Units 16:58 20:26 07:22 POC Glucose (mg/dL) 148 H 223 H 157 H (75-99) mg/dL 04/16/18 Range/Units 11:26 POC Glucose (mg/dL) 148 H (75-99) mg/dL Microbiology - Last 24 Hours (Table) 04/12/18 15:01 Blood Culture - Preliminary Blood No Growth after 72 hours Assessment and Plan Assessment: 1. Acute COPD exacerbation: Continue IV Solu-Medrol and bronchodilators. Pulmonary following 2. Acute tracheobronchitis. No evidence of pneumonia on chest x-ray. Continue Levaquin 3. Acute on chronic hypoxic respiratory failure. On 2 L oxygen at home 4. Steroid related hyperglycemia continue sliding scale coverage 5. Metabolic alkalosis likely multifactorial related to contraction alkalosis. Repeat CO2 level. GI prophylaxis Protonix and DVT prophylaxis subcu heparin I performed an examination of the patient and discussed their management with the physician Dip Tanker. I have reviewed the Physician Dip Tanker's notes and agree with the documented findings and plan of care
--- NOTE | 2018-04-16 13:45 | P.CNPUL ---
History of Present Illness Consult date: 04/16/18 Requesting physician: Shamika Sears Reason for consult: COPD Chief complaint: shortness of breath History of present illness: HPI: Patient is being seen examined and evaluated today for consultation. This patient came in to the emergency room after not feeling well for almost 7-10 days with progressive shortness of breath. She was treated in the outpatient setting with oral antibiotics and prednisone without any relief. Her shortness of breath continued to worsen when she came into the emergency room for further evaluation and treatment. Her oxygen saturations were only in the 70s upon arrival. The patient does use home oxygen 3 L nasal cannula at all times. Her chest x-ray did not show any pneumonia however did show prominent interstitial changes and bronchitis and COPD. Upon examination the patient is resting up in bed on supplemental oxygen via nasal cannula. She states her breathing is improving. Her cough is improving as well. She continues on antibiotics and IV Solu-Medrol. She states she is getting her appetite back. She is starting to feel better however is not ready to go home. All labs and reports have been reviewed. She is afebrile no further complaints. Review of Systems 14 point review of systems was completed and is negative unless noted above in the HPI Past Medical History Past Medical History: Coronary Artery Disease (CAD), Heart Failure, COPD, GERD/ Reflux, Hyperlipidemia History of Any Multi-Drug Resistant Organisms: None Reported Past Surgical History: Back Surgery Past Anesthesia/Blood Transfusion Reactions: No Reported Reaction Past Psychological History: No Psychological Hx Reported Smoking Status: Former smoker Past Alcohol Use History: None Reported Past Drug Use History: None Reported - Past Family History Mother Family Medical History: Myocardial Infarction ([place]) Brother(s) Family Medical History: Cancer, Myocardial Infarction ([place]) Additional Family Medical History / Comment(s): colon ca, 2 brother with ca Medications and Allergies Home Medications Medication Instructions Recorded Confirmed Type Acyclovir [Zovirax] 400 mg PO BID 04/12/18 04/12/18 History Albuterol Inhaler [Ventolin Hfa 2 puff INHALATION RT-Q6H PRN 04/12/18 04/12/18 History Inhaler] Albuterol Nebulized [Ventolin 2.5 mg INHALATION RT-TID 04/12/18 04/12/18 History Nebulized] Budesonide [Pulmicort] 0.5 mg INHALATION RT-BID 04/12/18 04/12/18 History Furosemide [Lasix] 20 mg PO DAILY 04/12/18 04/12/18 History Lovastatin [Mevacor] 20 mg PO HS 04/12/18 04/12/18 History Montelukast [Singulair] 10 mg PO DAILY 04/12/18 04/12/18 History Multivitamins, Thera [Multivitamin 1 tab PO DAILY 04/12/18 04/12/18 History (formulary)] Omeprazole 20 mg PO DAILY 04/12/18 04/12/18 History Potassium Chloride ER [K-Dur 10] 10 meq PO DAILY 04/12/18 04/12/18 History Roflumilast [Daliresp] 250 mcg PO DAILY 04/12/18 04/12/18 History predniSONE See Taper PO DAILY 04/12/18 04/12/18 History Allergies Allergy/AdvReac Type Severity Reaction Status Date / Time amoxicillin [From Augmentin] AdvReac Unknown Verified 04/12/18 20:31 clavulanic acid AdvReac Unknown Verified 04/12/18 20:31 [From Augmentin] erythromycin base AdvReac Unknown Verified 04/12/18 20:31 Physical Exam Vitals: Vital Signs Temp Pulse Pulse Resp BP Pulse Ox 04/16/18 12:30 70 04/16/18 12:21 72 04/16/18 08:24 70 04/16/18 08:05 74 04/16/18 07:07 97.1 F L 73 16 102/68 97 04/15/18 22:33 96.8 F L 79 18 114/75 94 L 04/15/18 20:36 78 04/15/18 20:14 78 96 04/15/18 16:00 18 04/15/18 15:45 76 04/15/18 15:32 68 04/15/18 14:53 98 F 78 18 117/70 98 Intake and Output 04/15/18 04/16/18 04/16/18 22:59 06:59 14:59 Other: Voiding Method Toilet Diaper # Voids 1 1 GENERAL EXAM: Alert, active, comfortable in no apparent distress. HEAD: Normocephalic. EYES: Normal reaction of pupils, equal size. NOSE: Clear with pink turbinates. THROAT: No erythema or exudates. NECK: No masses, no JVD. CHEST: No chest wall deformity. LUNGS: Equal air entry, bases diminished with faint expiratory wheeze CVS: S1 and S2 normal with no audible mumurs, regular rhythm. ABDOMEN: No hepatosplenomegaly, normal bowel sounds, no guarding or rigidity. EXTREMITIES: No edema noted, pedal pulses palpable. CENTRAL NERVOUS SYSTEM: No focal deficits, tone is normal in all 4 extremities. Results - Laboratory Findings CBC and BMP: 04/12/18 15:01 04/12/18 15:01 PT/INR, D-dimer PT 10.5 sec (9.0-12.0) 04/12/18 15:01 INR 1.0 (<1.2) 04/12/18 15:01 Abnormal lab findings: Abnormal Labs 04/12/18 04/12/18 04/13/18 15:01 15:01 07:41 MCV 102.1 H Lymphocytes # 0.3 L Carbon Dioxide 36 H BUN 32 H Creatinine 0.48 L Glucose 177 H POC Glucose (mg/dL) 133 H 04/13/18 04/13/18 04/13/18 11:10 17:04 20:37 MCV Lymphocytes # Carbon Dioxide BUN Creatinine Glucose POC Glucose (mg/dL) 177 H 193 H 175 H 04/14/18 04/14/18 04/14/18 06:59 11:47 17:01 MCV Lymphocytes # Carbon Dioxide BUN Creatinine Glucose POC Glucose (mg/dL) 142 H 164 H 162 H 04/14/18 04/15/18 04/15/18 20:14 07:26 11:40 MCV Lymphocytes # Carbon Dioxide BUN Creatinine Glucose POC Glucose (mg/dL) 241 H 130 H 291 H 04/15/18 04/15/18 04/16/18 16:58 20:26 07:22 MCV Lymphocytes # Carbon Dioxide BUN Creatinine Glucose POC Glucose (mg/dL) 148 H 223 H 157 H 04/16/18 11:26 MCV Lymphocytes # Carbon Dioxide BUN Creatinine Glucose POC Glucose (mg/dL) 148 H - Diagnostic Findings Chest x-ray: report reviewed, image reviewed Assessment and Plan Assessment: Assessment Acute exacerbation of COPD Acute exacerbation of chronic persistent severe asthma Acute on chronic hypoxic respiratory failure requiring supplemental oxygen Steroid-induced hyperglycemia Plan Medications have been reviewed and will be continued as ordered. Antibiotics as ordered IV Solu-Medrol has been transitioned to oral prednisone Continue with pulmonary hygiene, coughing and deep breathing exercises, and supportive care. Supplemental oxygen to maintain oxygen saturations of 92% or better. Continue nebulizer treatments. Initiate and encourage incentive spirometer GI and DVT prophylaxis. We will continue to monitor labs/results and adjust treatment as necessary. Further recommendations pending. I, the signing physician performed an examination of the patient, discussed and directed their management with the nurse practitioner. I have reviewed the nurse practitioner's note and agree with the documented findings, orders and plan of care.
[2018-04-16 14:09] LABS: Anion Gap 6 mmol/L; Blood Urea Nitrogen 35 mg/dL (7-17); Calcium 9.1 mg/dL (8.4-10.2); Carbon Dioxide 39 mmol/L (22-30); Chloride 96 mmol/L (98-107); Glucose 202 mg/dL (74-99); Sodium 141 mmol/L (137-145)
[2018-04-16 14:17] LABS: Potassium 4.2 mmol/L (3.5-5.1)
[2018-04-16] MEDS: predniSONE 20 MG TAB PO SCH (14:47)
[2018-04-16 17:01] LABS: Glucose,Whole Blood 158 mg/dL (75-99)
[2018-04-16] MEDS: LEVOFLOXACIN 500 MG TAB PO SCH (17:28)
[2018-04-16] MEDS ORDERED: methylPREDNISolone SOD SUCCI 40 MG/ML 1 ML VIAL IV SCH (18:00)
[2018-04-16 20:35] LABS: Glucose,Whole Blood 227 mg/dL (75-99)
[2018-04-16] MEDS: ATORVASTATIN 10 MG TAB PO SCH (21:42)
[2018-04-17] MEDS: BUDESONIDE 0.5 MG/2 ML NEBU INHALATION SCH (07:18)
[2018-04-17] MEDS: IPRATROPIUM-ALBUTEROL 3 ML NEB INHALATION SCH ×3 (07:19→16:25)
[2018-04-17] MEDS: INSULIN ASPART 100 UNIT/ML 1 ML 10 ML VIAL SQ SCH ×2 (07:24→13:05)
[2018-04-17 07:25] LABS: Glucose,Whole Blood 102 mg/dL (75-99)
[2018-04-17] MEDS: POTASSIUM CHLORIDE ER 10 MEQ TAB.ER.PRT PO SCH (07:33)
[2018-04-17] MEDS: FUROSEMIDE 20 MG TAB PO SCH (07:33)
[2018-04-17] MEDS: predniSONE 20 MG TAB PO SCH (07:33)
[2018-04-17] MEDS: HEPARIN SODIUM,PORCINE 5,000 UNIT/ML 1 ML VIAL SQ SCH (07:33)
[2018-04-17] MEDS: ACYCLOVIR 200 MG CAP PO SCH (07:34)
[2018-04-17] MEDS: PANTOPRAZOLE 40 MG TABLET PO SCH (07:34)
[2018-04-17] MEDS: ROFLUMILAST 250 MCG PO SCH (07:34)
[2018-04-17] MEDS: MONTELUKAST 10 MG TAB PO SCH (07:34)
[2018-04-17 10:35] LABS: Albumin 3.5 g/dL (3.5-5.0); Anion Gap 10 mmol/L; Blood Urea Nitrogen 34 mg/dL (7-17); Carbon Dioxide 32 mmol/L (22-30); Chloride 98 mmol/L (98-107); Glucose 155 mg/dL (74-99); Sodium 140 mmol/L (137-145); Total Bilirubin 0.6 mg/dL (0.2-1.3); Total Protein 6.2 g/dL (6.3-8.2)
[2018-04-17 10:37] LABS: Basophils # (A) 0.1 k/uL (0-0.2); Basophils % (A) 1 %; Eosinophils % (A) 0 %; HCT 39.8 % (34.0-46.0); HGB 12.4 gm/dL (11.4-16.0); Hypochromasia Slight; Lymphocytes # (A) 0.9 k/uL (1.0-4.8); Lymphocytes % (A) 6 %; MCH 32.2 pg (25.0-35.0); MCHC 31.3 g/dL (31.0-37.0); Macrocytosis Slight; Mean Platelet Volume 8.3; Monocytes # (A) 1.1 k/uL (0-1.0); Monocytes % (A) 7 %; Neutrophils # (A) 12.4 k/uL (1.3-7.7); Neutrophils % (A) 85 %; Platelet Count 188 k/uL (150-450); RBC 3.87 m/uL (3.80-5.40); RDW 14.8 % (11.5-15.5); WBC 14.6 k/uL (3.8-10.6)
[2018-04-17 10:40] LABS: ALT 31 U/L (9-52); AST 30 U/L (14-36); Alkaline Phosphatase 60 U/L (38-126); Potassium 3.9 mmol/L (3.5-5.1)
[2018-04-17 10:54] LABS: Polychromasia Present
[2018-04-17 12:26] LABS: Glucose,Whole Blood 138 mg/dL (75-99)
[2018-04-17] MEDS: MULTIVITAMINS, THERA 1 EACH TAB PO SCH (13:05)
--- NOTE | 2018-04-17 15:08 | P.DS ---
Providers Date of admission: 04/12/18 17:33 Expected date of discharge: 04/17/18 Attending physician: Shamika Sears Consults: 04/16/18 11:50 Consult Physician Routine Consulting Provider: Joe Rod Consult Reason/Comments: copd Do you want consulting provider notified?: Yes Primary care physician: Lori Cortez Hospital Course: Discharge diagnosis 2. Acute tracheobronchitis. No evidence of pneumonia on chest x-ray. Patient will be DC'd home on prednisone taper and Levaquin antibiotic 3. Acute on chronic hypoxic respiratory failure. On 2 L oxygen at home 4. Steroid related hyperglycemia continue sliding scale coverage 5. Metabolic alkalosis likely multifactorial related to contraction alkalosis. Repeat CO2 level. 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 as well as chronic hypoxic respiratory failure, patient the has not been feeling well for almost week to 10 days have progressive shortness of breath she has been treated with the oral antibiotics as well as prednisone her outpatient setting without any significant relief she continued to have problems associated with shortness of breath worsening of symptoms and eventually was brought into emergency department for further evaluation on arrival her oxygen saturation was only in 70s family present at bedside they were requesting for portable home oxygen as she consumes multiple tanks in a short period time being on home oxygen 3 L nasal cannula a prescription has been provided, patient sees Dr. Lori Cortez for primary care activity and Dr. MALDONADO Ready for pulmonary related problems and issues, I have discussed with her about the obtaining a pulmonary consult, she express her wishes to see her primary nursing student on outpatient setting, her chest x-ray failed to reveal a pneumonia however prominent interstitium suggestive of ongoing bronchitis as well as COPD-like changes pulmonary vasculature appears to be very prominent suggestive of pulmonary hypertension as well, with supplemental oxygen oxygen saturation improving to low 90s, patient is being started on IV steroids antibiotics from the emergency department supplemental oxygen and breathing treatment and admitted onto the medical floor 04/16/2018 patient reports that she is showing improvement in her cough and shortness of breath. She still does not feel ready for discharge. She's currently on IV site Medrol bronchodilators and Levaquin. Pulmonary is following. Denies any chest pain. Denies any nausea vomiting. Denies any bowel movement changes or urinary symptoms. Does have mild shortness of breath with ambulating. On 04/17/2017 patient is currently sitting up in bed. Patient states significant improvement with cough and shortness of breath. Patient does express she feels ready to be DC'd home. Patient will be DC'd home on prednisone taper and Levaquin for 5 more days. Patient has been cleared from pulmonary services. Patient denies chest pain or shortness breath. Patient denies nausea vomiting or diarrhea. Patient denies any urinary burning or frequency. Patient is back to her baseline. Patient does wear home O2. I performed an examination of the patient and discussed their management with the Nurse Practitioner. I have reviewed the Nurse Practitioner's notes and agree with the documented findings and plan of care Patient Condition at Discharge: Stable Plan - Discharge Summary Discharge Rx Participant: No New Discharge Prescriptions: New predniSONE 10 mg PO DIRECTED #30 tab Levofloxacin [Levaquin] 500 mg PO DAILY 5 Days #5 tab Continue Albuterol Inhaler [Ventolin Hfa Inhaler] 2 puff INHALATION RT-Q6H PRN PRN Reason: Shortness Of Breath Budesonide [Pulmicort] 0.5 mg INHALATION RT-BID Albuterol Nebulized [Ventolin Nebulized] 2.5 mg INHALATION RT-TID Multivitamins, Thera [Multivitamin (formulary)] 1 tab PO DAILY Potassium Chloride ER [K-Dur 10] 10 meq PO DAILY Omeprazole 20 mg PO DAILY Montelukast [Singulair] 10 mg PO DAILY Lovastatin [Mevacor] 20 mg PO HS Roflumilast [Daliresp] 250 mcg PO DAILY Furosemide [Lasix] 20 mg PO DAILY Acyclovir [Zovirax] 400 mg PO BID Discontinued predniSONE See Taper PO DAILY Discharge Medication List Acyclovir [Zovirax] 400 mg PO BID 04/12/18 [History] Albuterol Inhaler [Ventolin Hfa Inhaler] 2 puff INHALATION RT-Q6H PRN 04/12/18 [ History] Albuterol Nebulized [Ventolin Nebulized] 2.5 mg INHALATION RT-TID 04/12/18 [ History] Budesonide [Pulmicort] 0.5 mg INHALATION RT-BID 04/12/18 [History] Furosemide [Lasix] 20 mg PO DAILY 04/12/18 [History] Lovastatin [Mevacor] 20 mg PO HS 04/12/18 [History] Montelukast [Singulair] 10 mg PO DAILY 04/12/18 [History] Multivitamins, Thera [Multivitamin (formulary)] 1 tab PO DAILY 04/12/18 [History ] Omeprazole 20 mg PO DAILY 04/12/18 [History] Potassium Chloride ER [K-Dur 10] 10 meq PO DAILY 04/12/18 [History] Roflumilast [Daliresp] 250 mcg PO DAILY 04/12/18 [History] Levofloxacin [Levaquin] 500 mg PO DAILY 5 Days #5 tab 04/17/18 [Rx] predniSONE 10 mg PO DIRECTED #30 tab 04/17/18 [Rx] Follow up Appointment(s)/Referral(s): [facility], [NON-STAFF] - Lori Cortez DO [Primary Care Provider] - 1-2 days Joe Rod MD [STAFF PHYSICIAN] - 1 Week Patient Instructions/Handouts: COPD (Chronic Obstructive Pulmonary Disease) (DC ) Discharge Disposition: HOME SELF-CARE
[2018-04-17 15:27] VITALS: BP 144/79; RESP 20; TEMP 98.1
[2018-04-17 16:35] VITALS: PULSE 82
[2018-04-17] MEDS: LEVOFLOXACIN 500 MG TAB PO SCH (17:00)
[2018-04-17 17:21] LABS: Glucose,Whole Blood 180 mg/dL (75-99)
--- NOTE | 2018-04-17 17:50 | PN ---
PROGRESS NOTE DATE OF SERVICE: 04/17/2018 She was seen again on 04/17/2018. She is back to her baseline as far as shortness of breath is concerned and is doing relatively well. PHYSICAL EXAMINATION: Respiratory rate is 20, pulse rate 89, temperature 98.1, blood pressure 144/79, O2 saturation on room air is 98%. HEENT unremarkable. Chest reveals prolonged expiration. No clear wheeze. Cardiovascular system reveals an S1, S2. Abdomen is soft. There is no pedal edema. IMPRESSION: At this time: 1. Severe asthma with acute exacerbation. 2. Baseline chronic obstructive pulmonary disease. Agree with possible discharge planning on a slow prednisone taper. She does have scripts as an outpatient. She will follow up in the outpatient setting within 2 or 3 days time. Depending on how she does, we should make further changes to her care. JORDY / KEVIN: [id number] /
== END 2018-04-17 18:06 | disposition home or self-care (01) | DRG 190 ==
LOC: EC 14:12 → 4MS4W 17:33
PROVIDERS: ADMIT Internal Medicine; ATTEND Internal Medicine
DX: J43.9 Emphysema, unspecified (principal); J96.21 Acute and chronic respiratory failure with hypoxia; J45.51 Severe persistent asthma with (acute) exacerbation; E87.3 Alkalosis; J20.9 Acute bronchitis, unspecified; K21.9 Gastro-esophageal reflux disease without esophagitis; E78.5 Hyperlipidemia, unspecified; I25.10 Atherosclerotic heart disease of native coronary artery without angina pectoris; I50.9 Heart failure, unspecified; M41.9 Scoliosis, unspecified; I27.81 Cor pulmonale (chronic); R73.9 Hyperglycemia, unspecified; T38.0X5A Adverse effect of glucocorticoids and synthetic analogues, initial encounter; I27.29 Other secondary pulmonary hypertension; Z99.81 Dependence on supplemental oxygen; Z87.891 Personal history of nicotine dependence; Z80.0 Family history of malignant neoplasm of digestive organs; Z82.49 Family history of ischemic heart disease and other diseases of the circulatory system; Z88.1 Allergy status to other antibiotic agents; Z88.0 Allergy status to penicillin; Z79.51 Long term (current) use of inhaled steroids; Z79.899 Other long term (current) drug therapy
CPT/HCPCS: 36415; 71046; 80048; 80053; 82550; 82553; 83036; 83605; 83735; 83880; 84484; 85025; 85610; 85730; 87040; 87150; 87502; 93005; 94640; 94644; 94760; 96374; 99291

== ENCOUNTER 2018-04-29 21:21 | Inpatient (IN) | payer MEDICARE, BC ==
[2018-04-29] MEDS ORDERED: ALBUTEROL NEBULIZED 2.5 MG/3 ML INHALATION STA (22:29)
--- NOTE | 2018-04-29 22:31 | ED ---
General Adult HPI - General Chief complaint: Weakness Stated complaint: Difficulty Breathing Time Seen by Provider: 04/29/18 22:03 Source: patient, family, EMS, RN notes reviewed, old records reviewed Mode of arrival: EMS Limitations: no limitations - History of Present Illness Initial comments: Chief complaint history of present illness this is a 77-year-old female who was recently in hospital up until approximately 10 days ago. She is sent home on antibiotics for her pneumonia. She does have COPD. She states she is unable to walk 5 feet. She also states that because she's not feeling well she has not given herself updrafts, she been urinating on herself because she coughs and it comes out on its own. Patient also states she's not been eating very much in the last 3 days. Family states on discharge she refused to go to a nursing facility for rehabilitation. She does agree to allow us to treat her here at this time. - Related Data Home Medications Medication Instructions Recorded Confirmed Acyclovir [Zovirax] 400 mg PO BID 04/12/18 04/12/18 Albuterol Inhaler [Ventolin Hfa 2 puff INHALATION RT-Q6H PRN 04/12/18 04/12/18 Inhaler] Albuterol Nebulized [Ventolin 2.5 mg INHALATION RT-TID 04/12/18 04/12/18 Nebulized] Budesonide [Pulmicort] 0.5 mg INHALATION RT-BID 04/12/18 04/12/18 Furosemide [Lasix] 20 mg PO DAILY 04/12/18 04/12/18 Lovastatin [Mevacor] 20 mg PO HS 04/12/18 04/12/18 Montelukast [Singulair] 10 mg PO DAILY 04/12/18 04/12/18 Multivitamins, Thera [Multivitamin 1 tab PO DAILY 04/12/18 04/12/18 (formulary)] Omeprazole 20 mg PO DAILY 04/12/18 04/12/18 Potassium Chloride ER [K-Dur 10] 10 meq PO DAILY 04/12/18 04/12/18 Roflumilast [Daliresp] 250 mcg PO DAILY 04/12/18 04/12/18 Previous Rx's Medication Instructions Recorded Levofloxacin [Levaquin] 500 mg PO DAILY 5 Days #5 tab 04/17/18 predniSONE 10 mg PO DIRECTED #30 tab 04/17/18 Allergies Allergy/AdvReac Type Severity Reaction Status Date / Time amoxicillin [From Augmentin] AdvReac Unknown Verified 04/29/18 21:41 clavulanic acid AdvReac Unknown Verified 04/29/18 21:41 [From Augmentin] erythromycin base AdvReac Unknown Verified 04/29/18 21:41 Review of Systems ROS Statement: Those systems with pertinent positive or pertinent negative responses have been documented in the HPI. Review of systems patient denies headache or visual acuity changes. She does appear dyspneic with pursed lip breathing. History of COPD. Reports she's had on-again off-again abdominal discomfort. She has been incontinent cause when she coughs she urinates on herself. Patient states she has difficulty walking even 5 feet. Past medical problems significant for COPD, CHF, CAD, GERD, hyperlipidemia. Surgeries include back surgery. Denies smoking denies drinking. ROS Other: All systems not noted in ROS Statement are negative. Past Medical History Past Medical History: Coronary Artery Disease (CAD), Heart Failure, COPD, GERD/ Reflux, Hyperlipidemia History of Any Multi-Drug Resistant Organisms: None Reported Past Surgical History: Back Surgery Past Anesthesia/Blood Transfusion Reactions: No Reported Reaction Past Psychological History: No Psychological Hx Reported Smoking Status: Former smoker Past Alcohol Use History: None Reported Past Drug Use History: None Reported - Past Family History Mother Family Medical History: Myocardial Infarction ([place]) Brother(s) Family Medical History: Cancer, Myocardial Infarction ([place]) Additional Family Medical History / Comment(s): colon ca, 2 brother with ca General Exam - General Exam Comments Initial Comments: General: The patient is awake and alert, presents to the emergency room with shortness of breath. The patient's not been able to give Rocephin updrafts or uterine drink very much for the last several days. Her vital signs show temperature 99.6 pulse 93 respiratory rate 24 pulse ox 94% on 2 L. Blood pressure 111/61 Eye: Pupils are equal, round and reactive to light, extra-ocular movements are intact ; there is normal conjunctiva bilaterally. No signs of icterus. Ears, nose, mouth and throat: There are moist mucous membranes Neck: The neck is supple, no complaint of neck pain Cardiovascular: No murmur appreciated heart rate 93. Respiratory: History of COPD. Patient is struggling to breathe. She has not given Rocephin updrafts for 3 days ago she's not been able to get to the material nor has she wanted to do that. She had received an updraft and IV site Medrol and emergency room. Lungs harsh breath sounds Gastrointestinal: Soft, non-distended, active bowel sounds, no guarding Back: Denies back pain Has significant difficulty walking because of shortness of breath. Bruising lower extremities Neurological: Able to move upper and lower extremities but generally complains of being extremely weak also associated with COPD Skin: Bruising lower extremities Psychiatric: Cooperative, Limitations: no limitations Course Vital Signs 04/29/18 04/29/18 04/29/18 21:36 22:44 22:54 Temperature 99.6 F Pulse Rate 93 92 88 Respiratory 24 26 H Rate Blood Pressure 111/61 133/72 O2 Sat by Pulse 94 L 93 L Oximetry 04/29/18 04/29/18 22:59 23:40 Temperature 98.6 F Pulse Rate 89 89 Respiratory 22 Rate Blood Pressure 124/61 O2 Sat by Pulse 95 Oximetry EKG Findings - EKG Comments: EKG Findings:: EKG was done and reviewed at 2152 showing normal sinus rhythm with a right bundle branch block no acute ST elevation no ectopy appreciated. Rate 90. AR interval was 114 QRS 120 QT [address] Burrell Medical Decision Making - Medical Decision Making medical decision making; this 77-year-old female who has been living essentially at home with a son that is mentally challenged. She states she's not been eating or drinking or taking her medications for 3 days. She was recently discharged from the hospital diagnosis pneumonia. She does have COPD. She presented with a very wet diaper which appeared to have been on for several days. The patient reports she is unable to walk even 10 feet. She declined going to a nursing facility for rehabilitation after discharge 2 weeks ago from the hospital. Family wants her to do this after discharge. Patient's labs show white count of 15.6 hemoglobin 12.8 hematocrit of 41. Potassium 4.6. BNP is 1590. Patient's BUN is 35 creatinine 0.59 GFR 89. Blood sugars 123. Lactic acid is 2.5. Patient is getting hydrated. Troponin 0.107. Chest x-ray is done and reviewed by radiologist his impression is increasing mild infiltrate at the lung bases compared to last exam. No heart failure seen. Infiltrates more on the right side. As read by Dr. Osorio The patient be admitted to hospital started on Levaquin. She has ALLERGIES to amoxicillin and erythromycin. Patient is drinking water without difficulty. She was given an updraft and started on site Medrol. - Lab Data Result diagrams: 04/29/18 22:17 04/29/18 22:17 Lab Results 04/29/18 04/29/18 04/29/18 Range/Units 22:09 22:17 22:17 WBC 15.6 H (3.8-10.6) k/uL RBC 3.99 (3.80-5.40) m/uL Hgb 12.8 (11.4-16.0) gm/dL Hct 41.0 (34.0-46.0) % MCV 103.0 H (80.0-100.0) fL MCH 32.2 (25.0-35.0) pg MCHC 31.3 (31.0-37.0) g/dL RDW 15.6 H (11.5-15.5) % Plt Count 190 (150-450) k/uL Neutrophils % 85 % Lymphocytes % 3 % Monocytes % 10 % Eosinophils % 0 % Basophils % 1 % Neutrophils # 13.3 H (1.3-7.7) k/uL Lymphocytes # 0.5 L (1.0-4.8) k/uL Monocytes # 1.5 H (0-1.0) k/uL Eosinophils # 0.1 (0-0.7) k/uL Basophils # 0.1 (0-0.2) k/uL Hypochromasia Slight Macrocytosis Slight PT (9.0-12.0) sec INR (<1.2) APTT (22.0-30.0) sec Sodium (137-145) mmol/L Potassium (3.5-5.1) mmol/L Chloride (98-107) mmol/L Carbon Dioxide (22-30) mmol/L Anion Gap mmol/L BUN (7-17) mg/dL Creatinine (0.52-1.04) mg/dL Est GFR (CKD-EPI)AfAm (>60 ml/min/1.73 sqM) Est GFR (CKD-EPI)NonAf (>60 ml/min/1.73 sqM) Glucose (74-99) mg/dL Plasma Lactic Acid Marlo (0.7-2.0) mmol/L Calcium (8.4-10.2) mg/dL Magnesium (1.6-2.3) mg/dL Total Bilirubin (0.2-1.3) mg/dL AST (14-36) U/L ALT (9-52) U/L Alkaline Phosphatase (38-126) U/L Total Creatine Kinase 40 (30-135) U/L CK-MB (CK-2) 1.3 (0.0-2.4) ng/mL CK-MB (CK-2) Rel Index 3.3 Troponin I 0.107 H* (0.000-0.034) ng/mL NT-Pro-B Natriuret Pep pg/mL Total Protein (6.3-8.2) g/dL Albumin (3.5-5.0) g/dL Urine Color Yellow Urine Appearance Clear (Clear) Urine pH 5.5 (5.0-8.0) Ur Specific [place] 1.028 (1.001-1.035) Urine Protein 2+ H (Negative) Urine Glucose (UA) Negative (Negative) Urine Ketones 3+ H (Negative) Urine Blood Negative (Negative) Urine Nitrite Negative (Negative) Urine Bilirubin 1+ H (Negative) Urine Urobilinogen 4.0 (<2.0) mg/dL Ur Leukocyte Esterase Negative (Negative) Urine RBC <1 (0-5) /hpf Urine WBC 1 (0-5) /hpf Ur Squamous Epith Cells <1 (0-4) /hpf Urine Bacteria Rare H (None) /hpf Urine Mucus Few H (None) /hpf 04/29/18 04/29/18 04/29/18 Range/Units 22:17 22:17 22:17 WBC (3.8-10.6) k/uL RBC (3.80-5.40) m/uL Hgb (11.4-16.0) gm/dL Hct (34.0-46.0) % MCV (80.0-100.0) fL MCH (25.0-35.0) pg MCHC (31.0-37.0) g/dL RDW (11.5-15.5) % Plt Count (150-450) k/uL Neutrophils % % Lymphocytes % % Monocytes % % Eosinophils % % Basophils % % Neutrophils # (1.3-7.7) k/uL Lymphocytes # (1.0-4.8) k/uL Monocytes # (0-1.0) k/uL Eosinophils # (0-0.7) k/uL Basophils # (0-0.2) k/uL Hypochromasia Macrocytosis PT (9.0-12.0) sec INR (<1.2) APTT (22.0-30.0) sec Sodium 140 (137-145) mmol/L Potassium 4.6 (3.5-5.1) mmol/L Chloride 100 (98-107) mmol/L Carbon Dioxide 28 (22-30) mmol/L Anion Gap 12 mmol/L BUN 35 H (7-17) mg/dL Creatinine 0.59 (0.52-1.04) mg/dL Est GFR (CKD-EPI)AfAm >90 (>60 ml/min/1.73 sqM) Est GFR (CKD-EPI)NonAf 89 (>60 ml/min/1.73 sqM) Glucose 123 H (74-99) mg/dL Plasma Lactic Acid Marlo 2.5 H* (0.7-2.0) mmol/L Calcium 8.3 L (8.4-10.2) mg/dL Magnesium 2.3 (1.6-2.3) mg/dL Total Bilirubin 1.4 H (0.2-1.3) mg/dL AST 26 (14-36) U/L ALT 22 (9-52) U/L Alkaline Phosphatase 72 (38-126) U/L Total Creatine Kinase (30-135) U/L CK-MB (CK-2) (0.0-2.4) ng/mL CK-MB (CK-2) Rel Index Troponin I (0.000-0.034) ng/mL NT-Pro-B Natriuret Pep 1590 pg/mL Total Protein 6.4 (6.3-8.2) g/dL Albumin 3.3 L (3.5-5.0) g/dL Urine Color Urine Appearance (Clear) Urine pH (5.0-8.0) Ur Specific [place] (1.001-1.035) Urine Protein (Negative) Urine Glucose (UA) (Negative) Urine Ketones (Negative) Urine Blood (Negative) Urine Nitrite (Negative) Urine Bilirubin (Negative) Urine Urobilinogen (<2.0) mg/dL Ur Leukocyte Esterase (Negative) Urine RBC (0-5) /hpf Urine WBC (0-5) /hpf Ur Squamous Epith Cells (0-4) /hpf Urine Bacteria (None) /hpf Urine Mucus (None) /hpf 04/29/18 Range/Units 22:17 WBC (3.8-10.6) k/uL RBC (3.80-5.40) m/uL Hgb (11.4-16.0) gm/dL Hct (34.0-46.0) % MCV (80.0-100.0) fL MCH (25.0-35.0) pg MCHC (31.0-37.0) g/dL RDW (11.5-15.5) % Plt Count (150-450) k/uL Neutrophils % % Lymphocytes % % Monocytes % % Eosinophils % % Basophils % % Neutrophils # (1.3-7.7) k/uL Lymphocytes # (1.0-4.8) k/uL Monocytes # (0-1.0) k/uL Eosinophils # (0-0.7) k/uL Basophils # (0-0.2) k/uL Hypochromasia Macrocytosis PT 10.7 (9.0-12.0) sec INR 1.0 (<1.2) APTT 21.0 L (22.0-30.0) sec Sodium (137-145) mmol/L Potassium (3.5-5.1) mmol/L Chloride (98-107) mmol/L Carbon Dioxide (22-30) mmol/L Anion Gap mmol/L BUN (7-17) mg/dL Creatinine (0.52-1.04) mg/dL Est GFR (CKD-EPI)AfAm (>60 ml/min/1.73 sqM) Est GFR (CKD-EPI)NonAf (>60 ml/min/1.73 sqM) Glucose (74-99) mg/dL Plasma Lactic Acid Marlo (0.7-2.0) mmol/L Calcium (8.4-10.2) mg/dL Magnesium (1.6-2.3) mg/dL Total Bilirubin (0.2-1.3) mg/dL AST (14-36) U/L ALT (9-52) U/L Alkaline Phosphatase (38-126) U/L Total Creatine Kinase (30-135) U/L CK-MB (CK-2) (0.0-2.4) ng/mL CK-MB (CK-2) Rel Index Troponin I (0.000-0.034) ng/mL NT-Pro-B Natriuret Pep pg/mL Total Protein (6.3-8.2) g/dL Albumin (3.5-5.0) g/dL Urine Color Urine Appearance (Clear) Urine pH (5.0-8.0) Ur Specific [place] (1.001-1.035) Urine Protein (Negative) Urine Glucose (UA) (Negative) Urine Ketones (Negative) Urine Blood (Negative) Urine Nitrite (Negative) Urine Bilirubin (Negative) Urine Urobilinogen (<2.0) mg/dL Ur Leukocyte Esterase (Negative) Urine RBC (0-5) /hpf Urine WBC (0-5) /hpf Ur Squamous Epith Cells (0-4) /hpf Urine Bacteria (None) /hpf Urine Mucus (None) /hpf Disposition Clinical Impression: Pneumonia, COPD with exacerbation Disposition: ADMITTED IP TO THIS HOSP Condition: Serious Referrals: Lori Cortez DO [Primary Care Provider] - 1-2 days
[2018-04-29 22:36] LABS: Basophils # (A) 0.1 k/uL (0-0.2); Basophils % (A) 1 %; Eosinophils # (A) 0.1 k/uL (0-0.7); Eosinophils % (A) 0 %; HGB 12.8 gm/dL (11.4-16.0); Hypochromasia Slight; Lymphocytes # (A) 0.5 k/uL (1.0-4.8); Lymphocytes % (A) 3 %; MCH 32.2 pg (25.0-35.0); MCHC 31.3 g/dL (31.0-37.0); Macrocytosis Slight; Mean Platelet Volume 7.7; Monocytes # (A) 1.5 k/uL (0-1.0); Monocytes % (A) 10 %; Neutrophils # (A) 13.3 k/uL (1.3-7.7); Neutrophils % (A) 85 %; Platelet Count 190 k/uL (150-450); RBC 3.99 m/uL (3.80-5.40); RDW 15.6 % (11.5-15.5); WBC 15.6 k/uL (3.8-10.6)
[2018-04-29 22:38] LABS: Appearance,Urine Clear (Clear); Bacteria,Urine Rare /hpf; Bilirubin,Urine 1+ (Negative); Blood,Urine Negative (Negative); Color,Urine Yellow; Glucose,Urine (UA) Negative (Negative); Ketones,Urine 3+ (Negative); Leukocyte Esterase,Urine Negative (Negative); Mucus,Urine Few /hpf; Nitrite,Urine Negative (Negative); PH, Urine 5.5 (5.0-8.0); Protein,Urine 2+ (Negative); RBC,Urine <1 /hpf (0-5); Specific Gravity,Urine 1.028 (1.001-1.035); Squamous Epithelial Cell,Urine <1 /hpf (0-4)
[2018-04-29] MEDS: methylPREDNISolone SOD SUCCI 125 MG/2 ML VIAL IV SCH (22:43)
--- NOTE | 2018-04-29 22:53 | XR ---
EXAMINATION TYPE: XR chest 2V DATE OF EXAM: 04/29/2018 COMPARISON: 04/12/2018 HISTORY: COPD asthma short of breath TECHNIQUE: Frontal and lateral views of the chest are obtained. FINDINGS: There are mild infiltrates at the lung bases. Heart size is normal. There is no heart fail ure. There is slight blunting of the costophrenic angles. IMPRESSION: Increasing mild infiltrates at the lung bases compared to last exam. No heart failure se en. Infiltrate more on the right sign.
[2018-04-29 22:58] LABS: ALT 22 U/L (9-52); AST 26 U/L (14-36); Albumin 3.3 g/dL (3.5-5.0); Alkaline Phosphatase 72 U/L (38-126); Anion Gap 12 mmol/L; Blood Urea Nitrogen 35 mg/dL (7-17); Calcium 8.3 mg/dL (8.4-10.2); Carbon Dioxide 28 mmol/L (22-30); Chloride 100 mmol/L (98-107); Glucose 123 mg/dL (74-99); Magnesium 2.3 mg/dL (1.6-2.3); Potassium 4.6 mmol/L (3.5-5.1); Sodium 140 mmol/L (137-145); Total Bilirubin 1.4 mg/dL (0.2-1.3); Total Protein 6.4 g/dL (6.3-8.2)
[2018-04-29 22:59] LABS: Prothrombin Time 10.7 sec (9.0-12.0)
[2018-04-29 23:28] LABS: Creatine Kinase MB 1.3 ng/mL (0.0-2.4)
[2018-04-29 23:55] LABS: Troponin I 0.107 ng/mL (0.000-0.034)
[2018-04-30] MEDS ORDERED: LEVOFLOXACIN 500MG-D5W PMX 500 MG in DEXTROSE/WATER 1 100ML.BAG IVPB STA (00:11)
[2018-04-30] MEDS ORDERED: NALOXONE 0.4 MG/ML 1 ML VIAL IV PRN (00:12)
[2018-04-30] MEDS: SODIUM CHLORIDE 0.9% 1,000 ML IV SCH ×2 (01:15→16:19)
[2018-04-30 04:36] LABS: Creatine Kinase MB 1.4 ng/mL (0.0-2.4)
[2018-04-30 04:38] LABS: Troponin I 0.083 ng/mL (0.000-0.034)
[2018-04-30] MEDS: methylPREDNISolone SOD SUCCI 125 MG/2 ML VIAL IV SCH ×4 (04:49→21:56)
[2018-04-30 06:30] LABS: Glucose,Whole Blood 138 mg/dL (75-99)
[2018-04-30] MEDS: INSULIN ASPART 100 UNIT/ML 1 ML 10 ML VIAL SQ SCH ×4 (06:56→21:47)
[2018-04-30] MEDS ORDERED: ALBUTEROL NEBULIZED 1.25 MG/3 ML INHALATION SCH (08:00)
[2018-04-30] MEDS: FAMOTIDINE 20 MG TAB PO SCH ×2 (08:51→21:47)
[2018-04-30] MEDS: ALBUTEROL NEBULIZED 2.5 MG/3 ML INHALATION SCH ×4 (08:58→20:07)
[2018-04-30] MEDS ORDERED: ALBUTEROL NEBULIZED 2.5 MG/3 ML INHALATION PRN (09:39)
--- NOTE | 2018-04-30 09:56 | P.HPIM ---
History of Present Illness H&P Date: 04/30/18 This is a 77-year-old female patient of Dr. Cortez. Patient presented to the emergency room with complaints of increased difficulty breathing and weakness. Patient was recently admitted and discharged personally 10 days ago for COPD and pneumonia in which she was discharged on prednisone and antibiotic. Patient states she was doing well until completion of medication when she started to decline again. Patient has significant past medical history for CAD , heart failure, COPD, GERD, hyperlipidemia and ex-smoker. 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 Per ED report patient was found to be in soiled brief. Chest x-ray completed showing increasing mild infiltrates at the lung bases compared to last exam. No heart failure seen. Infiltrate more on the right side. Dr. ERICA Rod has been consulted for pulmonary services. EKG showing normal sinus rhythm. Right bundle branch block. Initial lactic acid 2.6. Repeat lactic 1.6. Patient has been started on Levaquin IV antibiotics and Solu-Medrol IV steroids. Patient also started on bronchodilators. Patient reports that she does feel significantly improved already. This time patient denies chest pain or shortness breath. Patient denies nausea vomiting or diarrhea. Patient denies any urinary burning or frequency Review of Systems Please refer to HPI otherwise unremarkable Past Medical History Past Medical History: Coronary Artery Disease (CAD), Heart Failure, COPD, GERD/ Reflux, Hyperlipidemia History of Any Multi-Drug Resistant Organisms: None Reported Past Surgical History: Back Surgery Past Anesthesia/Blood Transfusion Reactions: No Reported Reaction Past Psychological History: No Psychological Hx Reported Smoking Status: Former smoker Past Alcohol Use History: None Reported Past Drug Use History: None Reported - Past Family History Mother Family Medical History: Myocardial Infarction ([place]) Brother(s) Family Medical History: Cancer, Myocardial Infarction ([place]) Additional Family Medical History / Comment(s): colon ca, 2 brother with ca Medications and Allergies Home Medications Medication Instructions Recorded Confirmed Type Acyclovir [Zovirax] 400 mg PO BID 04/12/18 04/30/18 History Albuterol Inhaler [Ventolin Hfa 2 puff INHALATION RT-Q6H PRN 04/12/18 04/30/18 History Inhaler] Albuterol Nebulized [Ventolin 2.5 mg INHALATION RT-TID 04/12/18 04/30/18 History Nebulized] Budesonide [Pulmicort] 0.5 mg INHALATION RT-BID 04/12/18 04/30/18 History Furosemide [Lasix] 20 mg PO DAILY 04/12/18 04/30/18 History Lovastatin [Mevacor] 20 mg PO HS 04/12/18 04/30/18 History Montelukast [Singulair] 10 mg PO DAILY 04/12/18 04/30/18 History Multivitamins, Thera [Multivitamin 1 tab PO DAILY 04/12/18 04/30/18 History (formulary)] Omeprazole 20 mg PO DAILY 04/12/18 04/30/18 History Potassium Chloride ER [K-Dur 10] 10 meq PO DAILY 04/12/18 04/30/18 History Roflumilast [Daliresp] 250 mcg PO DAILY 04/12/18 04/30/18 History Benzonatate 150mg 1 cap PO TID 04/30/18 04/30/18 History Allergies Allergy/AdvReac Type Severity Reaction Status Date / Time amoxicillin [From Augmentin] AdvReac Unknown Verified 04/30/18 09:05 clavulanic acid AdvReac Unknown Verified 04/30/18 09:05 [From Augmentin] erythromycin base AdvReac Unknown Verified 04/30/18 09:05 Physical Exam Vitals: Vital Signs Temp Pulse Pulse Resp BP BP Pulse Ox 04/30/18 09:11 86 04/30/18 08:58 84 04/30/18 08:50 98.1 F 80 18 125/58 94 L 04/30/18 04:00 98.3 F 81 18 123/70 93 L 04/30/18 01:52 98.2 F 98 20 143/70 93 L 04/29/18 23:40 98.6 F 89 22 124/61 95 04/29/18 22:59 89 04/29/18 22:54 88 04/29/18 22:44 92 26 H 133/72 93 L 04/29/18 21:36 99.6 F 93 24 111/61 94 L Intake and Output 04/29/18 04/30/18 04/30/18 22:59 06:59 14:59 Intake Total 350 240 Balance 350 240 Intake: Intake, IV Titration 350 Amount Levofloxacin 500Mg-D5w 100 Pmx 500 mg In Dextrose/ Water 1 100ml.bag @ 100 mls/hr IVPB ONCE STA Rx#: [id number] Sodium Chloride 0.9% 1, 250 000 ml @ 80 mls/hr IV . [id number] [facility] Rx#:[id number] Oral 240 Other: Voiding Method Toilet Diaper Weight 80.739 kg 73.1 kg Head normocephalic Neck supple Lungs diminished bilaterally with expiratory wheezing Heart regular rate and rhythm S1-S2, no rub or gallop Abdomen is soft nontender nondistended positive bowel sounds no hepatosplenomegaly Extremities no edema Neuro alert and orientated to 3 Results CBC & Chem 7: 04/29/18 22:17 04/29/18 22:17 Labs: Abnormal Lab Results - Last 24 Hours (Table) 04/29/18 04/29/18 04/29/18 Range/Units 22:09 22:17 22:17 WBC 15.6 H (3.8-10.6) k/uL MCV 103.0 H (80.0-100.0) fL RDW 15.6 H (11.5-15.5) % Neutrophils # 13.3 H (1.3-7.7) k/uL Lymphocytes # 0.5 L (1.0-4.8) k/uL Monocytes # 1.5 H (0-1.0) k/uL APTT (22.0-30.0) sec BUN (7-17) mg/dL Glucose (74-99) mg/dL POC Glucose (mg/dL) (75-99) mg/dL Plasma Lactic Acid Marlo (0.7-2.0) mmol/L Calcium (8.4-10.2) mg/dL Total Bilirubin (0.2-1.3) mg/dL Troponin I 0.107 H* (0.000-0.034) ng/mL Albumin (3.5-5.0) g/dL Urine Protein 2+ H (Negative) Urine Ketones 3+ H (Negative) Urine Bilirubin 1+ H (Negative) Urine Bacteria Rare H (None) /hpf Urine Mucus Few H (None) /hpf 04/29/18 04/29/18 04/29/18 Range/Units 22:17 22:17 22:17 WBC (3.8-10.6) k/uL MCV (80.0-100.0) fL RDW (11.5-15.5) % Neutrophils # (1.3-7.7) k/uL Lymphocytes # (1.0-4.8) k/uL Monocytes # (0-1.0) k/uL APTT 21.0 L (22.0-30.0) sec BUN 35 H (7-17) mg/dL Glucose 123 H (74-99) mg/dL POC Glucose (mg/dL) (75-99) mg/dL Plasma Lactic Acid Marlo 2.5 H* (0.7-2.0) mmol/L Calcium 8.3 L (8.4-10.2) mg/dL Total Bilirubin 1.4 H (0.2-1.3) mg/dL Troponin I (0.000-0.034) ng/mL Albumin 3.3 L (3.5-5.0) g/dL Urine Protein (Negative) Urine Ketones (Negative) Urine Bilirubin (Negative) Urine Bacteria (None) /hpf Urine Mucus (None) /hpf 04/30/18 04/30/18 Range/Units 03:06 06:28 WBC (3.8-10.6) k/uL MCV (80.0-100.0) fL RDW (11.5-15.5) % Neutrophils # (1.3-7.7) k/uL Lymphocytes # (1.0-4.8) k/uL Monocytes # (0-1.0) k/uL APTT (22.0-30.0) sec BUN (7-17) mg/dL Glucose (74-99) mg/dL POC Glucose (mg/dL) 138 H (75-99) mg/dL Plasma Lactic Acid Mar[place] (0.7-2.0) mmol/L Calcium (8.4-10.2) mg/dL Total Bilirubin (0.2-1.3) mg/dL Troponin I 0.083 H* (0.000-0.034) ng/mL Albumin (3.5-5.0) g/dL Urine Protein (Negative) Urine Ketones (Negative) Urine Bilirubin (Negative) Urine Bacteria (None) /hpf Urine Mucus (None) /hpf Thrombosis Risk Factor Assmnt - Choose All That Apply Any of the Below Risk Factors Present?: Yes Each Factor Represents 1 point: Abnormal pulmonary function (COPD), Obesity ( BMI >25), Swollen legs (current) Other Risk Factors: Yes Each Risk Factor Represents 3 Points: Age 75 years or older Thrombosis Risk Factor Assessment Total Risk Factor Score: 6 Thrombosis Risk Factor Assessment Level: High Risk Assessment and Plan Assessment: 1. Pneumonia. Patient started on IV Levaquin. Dr. ERICA Rod consulted for infectious disease. Chest x-ray completed showing increasing mild infiltrates at the lung bases compared to last exam. No heart failure seen. Infiltrate on the right side. Sputum and blood culture has been ordered 2. COPD exacerbation. Patient started on IV Solu-Medrol. Dr. ERICA Rod has been consulted for pulmonary care 3. Acute on chronic hypoxic respiratory failure. Maintain on 2 L oxygen at home 4. History of coronary artery disease 5. History of GERD 6. History of hyperlipidemia 7. Mildly elevated troponin level. troponin 0.107, 0.083. Repeat serial troponins ordered. DVT prophylaxis heparin. GI prophylaxis Protonix Time with Patient: Greater than 30 (Greater than 60% of the total time spent in counseling and coordination of care. I performed an examination of the patient and discussed their management with the Nurse Practitioner. I have reviewed the Nurse Practitioner's notes and agree with the documented findings and plan of care)
[2018-04-30 10:16] LABS: ALT 22 U/L (9-52); AST 20 U/L (14-36); Alkaline Phosphatase 70 U/L (38-126); Anion Gap 6 mmol/L; Blood Urea Nitrogen 30 mg/dL (7-17); Calcium 8.5 mg/dL (8.4-10.2); Carbon Dioxide 34 mmol/L (22-30); Chloride 100 mmol/L (98-107); Glucose 155 mg/dL (74-99); Potassium 4.1 mmol/L (3.5-5.1); Sodium 140 mmol/L (137-145); Total Protein 5.9 g/dL (6.3-8.2)
[2018-04-30 10:35] LABS: Creatine Kinase MB 1.7 ng/mL (0.0-2.4)
[2018-04-30 10:36] LABS: Troponin I 0.06 ng/mL (0.000-0.034)
[2018-04-30 11:24] LABS: Glucose,Whole Blood 150 mg/dL (75-99)
--- NOTE | 2018-04-30 11:50 | CONS ---
CONSULTATION Shaunna Keys is a 77-year-old female who presented to the ED with increasing shortness of breath of about 3 to 4 days duration. She had recently been admitted to the hospital for asthma with exacerbation and started to deteriorate after she went home. She was treated with antibiotics and steroids by her primary care physician and once she got off the steroids, she actually started to get worse. She subsequently was seen in the ER and admitted for further evaluation and management. PAST MEDICAL HISTORY: Positive for severe asthma with COPD. Past medical history is positive also for coronary artery disease, congestive heart failure, gastroesophageal reflux disease and hyperlipidemia. FAMILY HISTORY: Positive for UT in her mother. Brother had a history of UT. One brother had a history of colon cancer. SOCIAL HISTORY: Patient is an ex smoker. Does not drink alcohol excessively. MEDICATIONS PRIOR TO ADMISSION: Zovirax, albuterol, budesonide, Lasix, Mevacor, Singulair, multivitamin, potassium, Daliresp. Recently she had been on prednisone taper and antibiotics. REVIEW OF SYSTEMS: Noncontributory. PHYSICAL EXAMINATION: Respiratory rate is 18, pulse rate of 84, temperature 98.1, O2 saturation on 2 L by nasal cannula is 94% with a blood pressure 120/58. HEENT reveals pupils that are equal. Chest with decreased breath sounds, prolonged expiration with expiratory wheeze. Cardiovascular system revealsS1, S2. Abdomen is soft. There is trace pedal edema. Sodium is 140, potassium 4.6, chloride 100, bicarb 28, BUN 35, creatinine 0.59. White count of 15.6, hemoglobin of 12.8, eosinophil count of 0.1000. Chest x-ray shows increasing infiltrates of the lung bases. No overt heart failure. IMPRESSION: 1. Asthma with acute exacerbation. 2. Chronic obstructive pulmonary disease. 3. Possible aspiration type pneumonia as infiltrates are in lower zones. Would continue Levaquin, bronchodilators add aerosolized steroids, continue montelukast and high-dose IV steroids. Keep her on GI and DVT prophylaxis. Her prognosis at this time is guarded. She was counseled regarding her condition and this approach and may be a candidate for a biologic as an outpatient. MMODL / IJN: [id number] /
[2018-04-30] MEDS ORDERED: ALBUTEROL NEBULIZED 2.5 MG/3 ML INHALATION SCH (13:00)
[2018-04-30] MEDS: BENZONATATE 100 MG CAP PO SCH ×2 (16:16→21:46)
[2018-04-30 16:26] LABS: Glucose,Whole Blood 208 mg/dL (75-99)
--- NOTE | 2018-04-30 18:23 | CONS ---
CONSULTATION CHIEF COMPLAINT: Elevated troponin. HISTORY OF PRESENT ILLNESS: Shaunna is a 73-year-old lady with a history of COPD who has recently been discharge from the hospital, comes in complaining of progressively worsening shortness of breath of 3-4 days duration. She was treated with antibiotics and steroids in the outpatient setting. As symptoms were getting worse, she came to the ER from where she is admitted to the hospital. Cardiology had been consulted because troponins were done and they came back slightly elevated. She denies any chest pain. PAST MEDICAL HISTORY: Significant for coronary artery disease, congestive heart failure, dyslipidemia. FAMILY HISTORY: Significant for coronary artery disease in her mother and brother. SOCIAL HISTORY: She is an ex-smoker. There is no history of EtOH abuse. MEDICATIONS: At home includes Zovirax, albuterol, Lasix, Mevacor, Singulair, potassium. REVIEW OF SYSTEMS: HEENT is unremarkable. CARDIAC as described above. RESPIRATORY as described above. GI negative. GENITOURINARY: Negative. ALLERGY none. SKIN negative. MUSCULOSKELETAL significant for arthritis. PSYCHOSOCIAL negative. ENDOCRINE negative. DERM negative. CONSTITUTIONAL negative. ONCOLOGICAL negative. Rest of the system review is not relevant. EXAM: The patient is comfortable at rest. Afebrile. Vital signs are stable. Chest exam reveals diffuse bilateral rhonchi. Heart exam reveals first and second heart sounds. No gallop. No murmur. Abdomen is soft. Exam of extremities did not reveal any edema. Peripheral pulses are felt. LABS: Show that the troponin is elevated at 0.1, 0.08 and 0.06. Potassium is 4.1 creatinine is 0.6. CBC shows an elevated white cell count, hemoglobin is 12.8. EKG shows sinus rhythm with right bundle branch block. A recent echocardiogram showed normal LV function with severe pulmonary hypertension. ASSESSMENT: 1. Elevated troponin, probably secondary to supply-demand mismatch related to severe chronic obstructive pulmonary disease exacerbation and hypoxia. 2. History of dyslipidemia. PLAN: I will continue the Mevacor that the patient is on. Obtain a 2D echo to assess LV function and wall motion. No further workup for the elevated troponins at this time. Once respiratory status becomes stable, we can consider an outpatient stress test on her. We will follow the patient with you with great interest. MMODL / IJN: [id number] /
[2018-04-30 19:08] LABS: Hemoglobin A1C 6.2 % (4.0-6.0)
[2018-04-30] MEDS: BUDESONIDE 0.5 MG/2 ML NEBU INHALATION SCH (20:07)
[2018-04-30 20:37] LABS: Glucose,Whole Blood 140 mg/dL (75-99)
[2018-04-30] MEDS: ACYCLOVIR 200 MG CAP PO SCH (21:47)
[2018-04-30] MEDS: HEPARIN SODIUM,PORCINE 5,000 UNIT/ML 1 ML VIAL SQ SCH (21:47)
[2018-04-30] MEDS ORDERED: LEVOFLOXACIN 500MG-D5W PMX 500 MG in DEXTROSE/WATER 1 100ML.BAG IVPB SCH (23:00)
[2018-05-01] MEDS: SODIUM CHLORIDE 0.9% 1,000 ML IV SCH ×2 (05:33→16:20)
[2018-05-01] MEDS: methylPREDNISolone SOD SUCCI 125 MG/2 ML VIAL IV SCH (05:33)
[2018-05-01 05:53] LABS: Glucose,Whole Blood 143 mg/dL (75-99)
[2018-05-01] MEDS: INSULIN ASPART 100 UNIT/ML 1 ML 10 ML VIAL SQ SCH ×4 (06:24→21:53)
[2018-05-01] MEDS: PANTOPRAZOLE 40 MG TABLET PO SCH (06:25)
[2018-05-01 06:47] LABS: Basophils % (A) 0 %; Eosinophils # (A) 0.1 k/uL (0-0.7); Eosinophils % (A) 1 %; HCT 34.5 % (34.0-46.0); HGB 10.5 gm/dL (11.4-16.0); Hypochromasia Slight; Lymphocytes # (A) 0.3 k/uL (1.0-4.8); Lymphocytes % (A) 4 %; MCH 31.5 pg (25.0-35.0); MCHC 30.3 g/dL (31.0-37.0); Macrocytosis Moderate; Mean Platelet Volume 7.7; Monocytes # (A) 0.2 k/uL (0-1.0); Monocytes % (A) 3 %; Neutrophils % (A) 91 %; Platelet Count 148 k/uL (150-450); RBC 3.31 m/uL (3.80-5.40); RDW 15.4 % (11.5-15.5); WBC 7.7 k/uL (3.8-10.6)
[2018-05-01 07:13] LABS: ALT 25 U/L (9-52); AST 19 U/L (14-36); Albumin 2.8 g/dL (3.5-5.0); Alkaline Phosphatase 59 U/L (38-126); Anion Gap 3 mmol/L; Blood Urea Nitrogen 30 mg/dL (7-17); Calcium 8.4 mg/dL (8.4-10.2); Carbon Dioxide 31 mmol/L (22-30); Chloride 106 mmol/L (98-107); Glucose 148 mg/dL (74-99); Potassium 4.2 mmol/L (3.5-5.1); Sodium 140 mmol/L (137-145); Total Bilirubin 0.7 mg/dL (0.2-1.3); Total Protein 5.7 g/dL (6.3-8.2)
[2018-05-01] MEDS: ALBUTEROL NEBULIZED 2.5 MG/3 ML INHALATION SCH ×4 (08:06→19:49)
[2018-05-01] MEDS: BUDESONIDE 0.5 MG/2 ML NEBU INHALATION SCH ×2 (08:11→19:50)
[2018-05-01] MEDS: MONTELUKAST 10 MG TAB PO SCH (09:01)
[2018-05-01] MEDS: MULTIVITAMINS, THERA 1 EACH TAB PO SCH (09:01)
[2018-05-01] MEDS: BENZONATATE 100 MG CAP PO SCH ×3 (09:01→21:54)
[2018-05-01] MEDS: FAMOTIDINE 20 MG TAB PO SCH (09:01)
[2018-05-01] MEDS: ACYCLOVIR 200 MG CAP PO SCH ×2 (09:01→20:38)
[2018-05-01] MEDS: HEPARIN SODIUM,PORCINE 5,000 UNIT/ML 1 ML VIAL SQ SCH ×2 (09:02→20:39)
[2018-05-01] MEDS: POTASSIUM CHLORIDE ER 10 MEQ TAB.ER.PRT PO SCH (09:02)
[2018-05-01] MEDS: FUROSEMIDE 20 MG TAB PO SCH (09:02)
[2018-05-01] MEDS: DALIRESP 250 MCG PO SCH (09:15)
--- NOTE | 2018-05-01 09:34 | P.PN ---
Subjective Progress Note Date: 05/01/18 HPI: This is a 77-year-old female who presented to the emergency department with increasing shortness of breath for about 3-4 days duration. She had recently been admitted to the hospital for asthma with exacerbation and started to deteriorate after she went home. She was treated with antibiotics and steroids by her primary care physician and when she office. She started to get worse. She subsequently was seen in the ER and admitted for further evaluation and management. She does have a past medical history for chronic severe asthma , COPD, CAD, CHF, GERD and hyperlipidemia. She is ex-smoker Interval history: 05/01/2017patient is being seen examined and evaluated today on rounds. She is resting up in bed on 2 L of supplemental oxygen via nasal cannula which is what she wears at home as well. Her chest x-ray is reviewed and does show infiltrates in the bilateral lung bases. She does have a cough with occasional wheeze. Sputum is clear. Echocardiogram is pending. She does feel like her breathing is better today compared to yesterday. All labs and reports have been reviewed. Objective - Vital Signs Vital signs: Vital Signs Temp 97.4 F L 04/30/18 20:00 Pulse 80 05/01/18 09:11 Resp 20 05/01/18 08:12 BP 125/61 05/01/18 04:00 Pulse Ox 92 L 05/01/18 08:12 Intake & Output 04/30/18 05/01/18 05/01/18 18:59 06:59 18:59 Intake Total 1360 880 240 Balance 1360 880 240 Weight 80.1 kg Intake: IV 640 880 Sodium Chloride 0.9% 1, 640 880 000 ml @ 80 mls/hr IV . [id number] [facility] Rx#:[id number] Oral 720 240 Other: Voiding Method Toilet Toilet Diaper Diaper - Exam GENERAL EXAM: Alert, active, comfortable in no apparent distress. HEAD: Normocephalic. EYES: Normal reaction of pupils, equal size. NOSE: Clear with pink turbinates. THROAT: No erythema or exudates. NECK: No masses, no JVD. CHEST: No chest wall deformity. LUNGS: Lungs noted to have some diminished breath sounds with an occasional expiratory wheeze. CVS: S1 and S2 normal with no audible mumurs, regular rhythm. ABDOMEN: No hepatosplenomegaly, normal bowel sounds, no guarding or rigidity. EXTREMITIES: Trace edema noted, pedal pulses palpable. CENTRAL NERVOUS SYSTEM: No focal deficits, tone is normal in all 4 extremities. - Labs CBC & Chem 7: 05/01/18 05:59 05/01/18 05:59 Labs: Abnormal Lab Results - Last 24 Hours (Table) 04/30/18 04/30/18 04/30/18 Range/Units 09:19 09:19 09:19 RBC (3.80-5.40) m/uL Hgb (11.4-16.0) gm/dL MCV (80.0-100.0) fL MCHC (31.0-37.0) g/dL Plt Count (150-450) k/uL Lymphocytes # (1.0-4.8) k/uL Carbon Dioxide 34 H (22-30) mmol/L BUN 30 H (7-17) mg/dL Glucose 155 H (74-99) mg/dL POC Glucose (mg/dL) (75-99) mg/dL Hemoglobin A1c 6.2 H (4.0-6.0) % Troponin I 0.060 H* (0.000-0.034) ng/mL Total Protein 5.9 L (6.3-8.2) g/dL Albumin 3.0 L (3.5-5.0) g/dL 04/30/18 04/30/18 04/30/18 Range/Units 11:22 16:21 20:36 RBC (3.80-5.40) m/uL Hgb (11.4-16.0) gm/dL MCV (80.0-100.0) fL MCHC (31.0-37.0) g/dL Plt Count (150-450) k/uL Lymphocytes # (1.0-4.8) k/uL Carbon Dioxide (22-30) mmol/L BUN (7-17) mg/dL Glucose (74-99) mg/dL POC Glucose (mg/dL) 150 H 208 H 140 H (75-99) mg/dL Hemoglobin A1c (4.0-6.0) % Troponin I (0.000-0.034) ng/mL Total Protein (6.3-8.2) g/dL Albumin (3.5-5.0) g/dL 05/01/18 05/01/18 05/01/18 Range/Units 05:51 05:59 05:59 RBC 3.31 L (3.80-5.40) m/uL Hgb 10.5 L (11.4-16.0) gm/dL MCV 104.0 H (80.0-100.0) fL MCHC 30.3 L (31.0-37.0) g/dL Plt Count 148 L (150-450) k/uL Lymphocytes # 0.3 L (1.0-4.8) k/uL Carbon Dioxide 31 H (22-30) mmol/L BUN 30 H (7-17) mg/dL Glucose 148 H (74-99) mg/dL POC Glucose (mg/dL) 143 H (75-99) mg/dL Hemoglobin A1c (4.0-6.0) % Troponin I (0.000-0.034) ng/mL Total Protein 5.7 L (6.3-8.2) g/dL Albumin 2.8 L (3.5-5.0) g/dL Microbiology - Last 24 Hours (Table) 04/29/18 22:17 Blood Culture - Preliminary Blood No Growth after 24 hours 04/30/18 12:10 Gram Stain - Preliminary Sputum Assessment and Plan Assessment: Assessment Acute on chronic hypoxic respiratory failure requiring supplemental oxygen Acute exacerbation of moderate persistent asthma Acute exacerbation of COPD Possible pneumonia cannot be ruled out Plan Medications have been reviewed and will be continued as ordered. Continue with antibiotics and steroid taper Obtain chest x-ray Sputum culture pending Continue with pulmonary hygiene, coughing and deep breathing exercises, and supportive care. Supplemental oxygen to maintain oxygen saturations of 92% or better. Continue nebulizer treatments. GI and DVT prophylaxis. We will continue to monitor labs/results and adjust treatment as necessary. Further recommendations pending. I, the signing physician performed an examination of the patient, discussed and directed their management with the nurse practitioner. I have reviewed the nurse practitioner's note and agree with the documented findings, orders and plan of care. Nurse practitioner acting as a scribe for the signing physician.
--- NOTE | 2018-05-01 10:13 | XR ---
EXAMINATION TYPE: XR chest 2V DATE OF EXAM: 05/01/2018 COMPARISON: Prior chest x-ray 04/29/2017 HISTORY: Shortness of breath TECHNIQUE: Frontal and lateral views of the chest are obtained. FINDINGS: Prominent lung volumes are compatible with underlying COPD. Patchy basilar density is agai n noted. No evident pneumothorax or pleural effusion. Patient is rotated. Aorta is dense and possibly ectatic. IMPRESSION: Persistent basilar increased density may reflect atelectasis, airspace disease.
--- NOTE | 2018-05-01 10:28 | ECHOF ---
Referral Reason:LV function MEASUREMENTS -------- HEIGHT: 154.9 cm WEIGHT: 79.8 kg BP: 125/61 IVSd: 1.2 cm (0.6 - 1.1) LVIDd: 3.9 cm (3.9 - 5.3) LVPWd: 1.1 cm (0.6 - 1.1) IVSs: 1.9 cm LVIDs: 1.5 cm LVPWs: 1.6 cm Ao Diam: 3.0 cm (2.0 - 3.7) AV Cusp: 1.8 cm (1.5 - 2.6) LA Diam: 3.2 cm (2.7 - 3.8) MV EXCURSION: 16.312 mm (> 18.000) MV EF SLOPE: 83 mm/s (70 - 150) EPSS: 0.8 cm MV E Clinton: 0.55 m/s MV DecT: 307 ms MV A Clinton: 0.93 m/s MV E/A Ratio: 0.59 RAP: 5.00 mmHg RVSP: 15.95 mmHg FINDINGS -------- Sinus rhythm. This was a technically difficult study with suboptimal views. The left ventricular size is normal. Left ventricular wall thickness is normal. Overall left vent ricular systolic function is normal with, an EF between 55 - 60 %. The right ventricle is normal in size. The left atrium is normal in size. The right atrium is normal in size. Lumason used Aortic valve is trileaflet and is mildly thickened. The mitral valve leaflets are mildly thickened. There is trace mitral regurgitation. Mild tricuspid regurgitation present. The right ventricular systolic pressure, as measured by Doppl er, is 15.95mmHg. The pulmonic valve was not well visualized. The aortic root size is normal. IVC Not well visulized. The pericardium is normal. CONCLUSIONS -------- 1. Sinus rhythm. 2. This was a technically difficult study with suboptimal views. 3. The left ventricular size is normal. 4. Left ventricular wall thickness is normal. 5. Overall left ventricular systolic function is normal with, an EF between 55 - 60 %. 6. The right ventricle is normal in size. 7. The left atrium is normal in size. 8. The right atrium is normal in size. 9. Lumason used 10. Aortic valve is trileaflet and is mildly thickened. 11. The mitral valve leaflets are mildly thickened. 12. There is trace mitral regurgitation. 13. Mild tricuspid regurgitation present. 14. The right ventricular systolic pressure, as measured by Doppler, is 15.95mmHg. 15. The pulmonic valve was not well visualized. 16. The aortic root size is normal. 17. IVC Not well visulized. 18. The pericardium is normal. BAR PILOT: Marlene Martini RDCS
--- NOTE | 2018-05-01 11:02 | P.PN ---
Subjective Progress Note Date: 05/01/18 This is a 77-year-old female patient of Dr. Cortez. Patient presented to the emergency room with complaints of increased difficulty breathing and weakness. Patient was recently admitted and discharged personally 10 days ago for COPD and pneumonia in which she was discharged on prednisone and antibiotic. Patient states she was doing well until completion of medication when she started to decline again. Patient has significant past medical history for CAD , heart failure, COPD, GERD, hyperlipidemia and ex-smoker. 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 Per ED report patient was found to be in soiled brief. Chest x-ray completed showing increasing mild infiltrates at the lung bases compared to last exam. No heart failure seen. Infiltrate more on the right side. Dr. ERICA Rod has been consulted for pulmonary services. EKG showing normal sinus rhythm. Right bundle branch block. Initial lactic acid 2.6. Repeat lactic 1.6. Patient has been started on Levaquin IV antibiotics and Solu-Medrol IV steroids. Patient also started on bronchodilators. Patient reports that she does feel significantly improved already. This time patient denies chest pain or shortness breath. Patient denies nausea vomiting or diarrhea. Patient denies any urinary burning or frequency On 05/01/2018 patient is alert and oriented 3 currently sitting up on side of bed. Patient states she feels significantly improved from yesterday. IV antibiotics. Patient being followed by cardiology and pulmonary services. 2-D echo completed. At this time patient denies chest pain. Patient denies any nausea vomiting or diarrhea. Patient denies any urinary burning or frequency Objective - Vital Signs Vital signs: Vital Signs Temp 97.1 F L 05/01/18 08:50 Pulse 80 05/01/18 09:11 Resp 20 05/01/18 08:50 BP 103/50 05/01/18 08:50 Pulse Ox 93 L 05/01/18 08:50 Intake & Output 04/30/18 05/01/18 05/01/18 18:59 06:59 18:59 Intake Total 1360 880 240 Balance 1360 880 240 Weight 80.1 kg Intake: IV 640 880 Sodium Chloride 0.9% 1, 640 880 000 ml @ 80 mls/hr IV . [id number] [facility] Rx#:[id number] Oral 720 240 Other: Voiding Method Toilet Toilet Toilet Diaper Diaper Diaper - Exam Head normocephalic Neck supple Lungs diminished bilaterally Heart regular rate and rhythm S1-S2, no rub or gallop Abdomen is soft nontender nondistended positive bowel sounds no hepatosplenomegaly Extremities no edema Neuro alert and orientated to 3 - Labs CBC & Chem 7: 05/01/18 05:59 05/01/18 05:59 Labs: Abnormal Lab Results - Last 24 Hours (Table) 04/30/18 04/30/18 04/30/18 Range/Units 09:19 11:22 16:21 RBC (3.80-5.40) m/uL Hgb (11.4-16.0) gm/dL MCV (80.0-100.0) fL MCHC (31.0-37.0) g/dL Plt Count (150-450) k/uL Lymphocytes # (1.0-4.8) k/uL Carbon Dioxide (22-30) mmol/L BUN (7-17) mg/dL Glucose (74-99) mg/dL POC Glucose (mg/dL) 150 H 208 H (75-99) mg/dL Hemoglobin A1c 6.2 H (4.0-6.0) % Total Protein (6.3-8.2) g/dL Albumin (3.5-5.0) g/dL 04/30/18 05/01/18 05/01/18 Range/Units 20:36 05:51 05:59 RBC 3.31 L (3.80-5.40) m/uL Hgb 10.5 L (11.4-16.0) gm/dL MCV 104.0 H (80.0-100.0) fL MCHC 30.3 L (31.0-37.0) g/dL Plt Count 148 L (150-450) k/uL Lymphocytes # 0.3 L (1.0-4.8) k/uL Carbon Dioxide (22-30) mmol/L BUN (7-17) mg/dL Glucose (74-99) mg/dL POC Glucose (mg/dL) 140 H 143 H (75-99) mg/dL Hemoglobin A1c (4.0-6.0) % Total Protein (6.3-8.2) g/dL Albumin (3.5-5.0) g/dL 05/01/18 Range/Units 05:59 RBC (3.80-5.40) m/uL Hgb (11.4-16.0) gm/dL MCV (80.0-100.0) fL MCHC (31.0-37.0) g/dL Plt Count (150-450) k/uL Lymphocytes # (1.0-4.8) k/uL Carbon Dioxide 31 H (22-30) mmol/L BUN 30 H (7-17) mg/dL Glucose 148 H (74-99) mg/dL POC Glucose (mg/dL) (75-99) mg/dL Hemoglobin A1c (4.0-6.0) % Total Protein 5.7 L (6.3-8.2) g/dL Albumin 2.8 L (3.5-5.0) g/dL Microbiology - Last 24 Hours (Table) 04/29/18 22:17 Blood Culture - Preliminary Blood No Growth after 24 hours 04/30/18 12:10 Gram Stain - Preliminary Sputum Assessment and Plan Assessment: 1. Pneumonia. Patient started on IV Levaquin. Dr. ERICA Rod consulted for infectious disease. Chest x-ray completed showing increasing mild infiltrates at the lung bases compared to last exam. No heart failure seen. Infiltrate on the right side. Sputum and blood culture pending. Chest x-ray ordered 2. COPD exacerbation. Patient started on IV Solu-Medrol. Dr. ERICA Rod has been consulted for pulmonary care 3. Acute on chronic hypoxic respiratory failure. Maintain on 2 L oxygen at home 4. History of coronary artery disease 5. History of GERD 6. History of hyperlipidemia 7. Mildly elevated troponin level. troponin 0.107, 0.083. 2-D echo completed showing EF of 55-60%. Per cardiology services elevated troponin likely secondary to supply demand mismatch related to severe COPD exacerbation and hypoxia. Possible outpatient stress test 8. Increased weakness. Will consult physical therapy and occupational therapy DVT prophylaxis heparin. GI prophylaxis Protonix I performed an examination of the patient and discussed their management with the Nurse Practitioner. I have reviewed the Nurse Practitioner's notes and agree with the documented findings and plan of care
[2018-05-01 11:41] LABS: Glucose,Whole Blood 230 mg/dL (75-99)
[2018-05-01] MEDS: ALBUTEROL NEBULIZED 2.5 MG/3 ML INHALATION PRN (13:38)
--- NOTE | 2018-05-01 16:09 | PN ---
PROGRESS NOTE This is a 77-year-old lady that is admitted to hospital with COPD exacerbation and we have been consulted because of mildly elevated troponin. This morning she is feeling better, still short of breath, but the shortness of breath has improved compared to where she was yesterday. She had mild troponin elevation. Echocardiogram showed normal LV function and wall motion. CURRENT MEDICATIONS: Include insulin, Lasix, Pulmicort, and Ventolin. Please resume the lovastatin that she was on at home. PHYSICAL EXAMINATION: On exam comfortable at rest. Vital signs are stable. Chest exam reveals occasional rhonchi bilaterally. Heart exam reveals first and second heart sounds. No gallop. No murmur. Abdomen is soft. Exam of the extremities reveals trace edema. Peripheral pulses are felt. LABS: Show a hemoglobin of 10.5, white cell count is 7.7, potassium is 4.2. Creatinine is 0.5. ASSESSMENT: Elevated troponin probably due to supply-demand mismatch in a patient with severe chronic obstructive pulmonary disease exacerbation. Echo shows normal LV function and wall motion. No further cardiac workup at this time. On discharge please arrange followup with me and when her respiratory status is stable, I will consider doing an outpatient stress test on her. Thank you for allowing me to participate in this pleasant lady. MMODL / IJN: [id number] /
[2018-05-01] MEDS: methylPREDNISolone SOD SUCCI 40 MG/ML 1 ML VIAL IV SCH ×2 (16:20→23:06)
[2018-05-01 16:25] LABS: Glucose,Whole Blood 191 mg/dL (75-99)
[2018-05-01 21:50] LABS: Glucose,Whole Blood 118 mg/dL (75-99)
[2018-05-01] MEDS ORDERED: LEVOFLOXACIN 500 MG TAB PO SCH (23:00)
[2018-05-02 06:14] LABS: Glucose,Whole Blood 113 mg/dL (75-99)
[2018-05-02] MEDS: INSULIN ASPART 100 UNIT/ML 1 ML 10 ML VIAL SQ SCH ×4 (06:19→20:38)
[2018-05-02] MEDS: PANTOPRAZOLE 40 MG TABLET PO SCH (06:26)
[2018-05-02 07:14] LABS: ALT 26 U/L (9-52); AST 17 U/L (14-36); Albumin 2.8 g/dL (3.5-5.0); Alkaline Phosphatase 61 U/L (38-126); Anion Gap 1 mmol/L; Blood Urea Nitrogen 30 mg/dL (7-17); Calcium 8.6 mg/dL (8.4-10.2); Carbon Dioxide 34 mmol/L (22-30); Chloride 106 mmol/L (98-107); Glucose 117 mg/dL (74-99); Potassium 4.1 mmol/L (3.5-5.1); Sodium 141 mmol/L (137-145); Total Bilirubin 0.4 mg/dL (0.2-1.3); Total Protein 5.7 g/dL (6.3-8.2)
[2018-05-02] MEDS: ALBUTEROL NEBULIZED 2.5 MG/3 ML INHALATION SCH ×4 (07:34→21:07)
[2018-05-02] MEDS: BUDESONIDE 0.5 MG/2 ML NEBU INHALATION SCH ×2 (07:34→21:07)
[2018-05-02] MEDS: FUROSEMIDE 20 MG TAB PO SCH (08:02)
[2018-05-02] MEDS: MULTIVITAMINS, THERA 1 EACH TAB PO SCH (08:02)
[2018-05-02] MEDS: ACYCLOVIR 200 MG CAP PO SCH ×2 (08:02→20:37)
[2018-05-02] MEDS: HEPARIN SODIUM,PORCINE 5,000 UNIT/ML 1 ML VIAL SQ SCH ×2 (08:03→20:38)
[2018-05-02] MEDS: methylPREDNISolone SOD SUCCI 40 MG/ML 1 ML VIAL IV SCH (08:03)
[2018-05-02] MEDS: POTASSIUM CHLORIDE ER 10 MEQ TAB.ER.PRT PO SCH (08:03)
[2018-05-02] MEDS: BENZONATATE 100 MG CAP PO SCH ×3 (08:03→20:37)
[2018-05-02] MEDS: MONTELUKAST 10 MG TAB PO SCH (08:03)
[2018-05-02] MEDS: DALIRESP 250 MCG PO SCH (08:04)
--- NOTE | 2018-05-02 10:14 | P.PN ---
Subjective Progress Note Date: 05/02/18 HPI: This is a 77-year-old female who presented to the emergency department with increasing shortness of breath for about 3-4 days duration. She had recently been admitted to the hospital for asthma with exacerbation and started to deteriorate after she went home. She was treated with antibiotics and steroids by her primary care physician and when she office. She started to get worse. She subsequently was seen in the ER and admitted for further evaluation and management. She does have a past medical history for chronic severe asthma , COPD, CAD, CHF, GERD and hyperlipidemia. She is ex-smoker Interval history: 05/01/2018patient is being seen examined and evaluated today on rounds. She is resting up in bed on 2 L of supplemental oxygen via nasal cannula which is what she wears at home as well. Her chest x-ray is reviewed and does show infiltrates in the bilateral lung bases. She does have a cough with occasional wheeze. Sputum is clear. Echocardiogram is pending. She does feel like her breathing is better today compared to yesterday. All labs and reports have been reviewed. 05/02/2018: Patient seen and examined. Patient states she is starting to feel better. She denies chest pain. She states she did get short of breath when she ambulated to the bathroom this morning. Per nursing her oxygen saturation decreased to 84% with ambulation. The patient denies fevers and chills. She states she still has an occasional cough. Objective - Vital Signs Vital signs: Vital Signs Temp 97 F L 05/02/18 07:59 Pulse 78 05/02/18 07:59 Resp 19 05/02/18 07:59 BP 132/62 05/02/18 07:59 Pulse Ox 90 L 05/02/18 07:59 Intake & Output 05/01/18 05/02/18 05/02/18 18:59 06:59 18:59 Intake Total 720 240 240 Output Total 800 Balance -80 240 240 Weight 80.9 kg Intake: IV 240 Sodium Chloride 0.9% 1, 240 000 ml @ 20 mls/hr IV . Q24H [facility] Rx#:[id number] Oral 720 240 Output: Urine 800 Other: Voiding Method Toilet Toilet Toilet Diaper Diaper Diaper # Voids 1 - Exam GENERAL EXAM: Alert, active, comfortable in no apparent distress. HEAD: Normocephalic. EYES: Normal reaction of pupils, equal size. NOSE: Clear with pink turbinates. THROAT: No erythema or exudates. NECK: No masses, no JVD. CHEST: No chest wall deformity. LUNGS: Lungs noted to have some diminished breath sounds with an occasional expiratory wheeze, bibasilar crackles CVS: S1 and S2 normal with no audible mumurs, regular rhythm. ABDOMEN: No hepatosplenomegaly, normal bowel sounds, no guarding or rigidity. EXTREMITIES: Trace edema noted, pedal pulses palpable. CENTRAL NERVOUS SYSTEM: No focal deficits, tone is normal in all 4 extremities. - Labs CBC & Chem 7: 05/01/18 05:59 05/02/18 06:10 Labs: Abnormal Lab Results - Last 24 Hours (Table) 05/01/18 05/01/18 05/01/18 Range/Units 11:40 16:23 21:47 Carbon Dioxide (22-30) mmol/L BUN (7-17) mg/dL Glucose (74-99) mg/dL POC Glucose (mg/dL) 230 H 191 H 118 H (75-99) mg/dL Total Protein (6.3-8.2) g/dL Albumin (3.5-5.0) g/dL 05/02/18 05/02/18 Range/Units 06:10 06:12 Carbon Dioxide 34 H (22-30) mmol/L BUN 30 H (7-17) mg/dL Glucose 117 H (74-99) mg/dL POC Glucose (mg/dL) 113 H (75-99) mg/dL Total Protein 5.7 L (6.3-8.2) g/dL Albumin 2.8 L (3.5-5.0) g/dL Microbiology - Last 24 Hours (Table) 04/29/18 22:17 Blood Culture - Preliminary Blood No Growth after 48 hours 04/30/18 12:10 Gram Stain - Preliminary Sputum Sputum Culture - Preliminary Gram Neg Bacilli Assessment and Plan Assessment: Acute on chronic hypoxic respiratory failure requiring supplemental oxygen Acute exacerbation of moderate persistent asthma Acute exacerbation of COPD Bibasilar community-acquired pneumonia Bicytopenia Moderate protein calorie malnutrition Plan Medications have been reviewed and will be continued as ordered. Continue with antibiotics and steroid taper Repeat CXR reviewed, likely some mild improvement in bibasilar infiltrates Continue with pulmonary hygiene, coughing and deep breathing exercises, and supportive care. Supplemental oxygen to maintain oxygen saturations of 92% or better. Continue nebulizer treatments. GI and DVT prophylaxis. We will continue to monitor labs/results and adjust treatment as necessary. Further recommendations pending. DC Solumedrol, initiate Prednisone taper Add Mucinex
[2018-05-02] MEDS: predniSONE 20 MG TAB PO SCH (10:43)
[2018-05-02] MEDS: guaiFENesin 600 MG TABLET.ER PO SCH ×2 (11:31→20:37)
--- NOTE | 2018-05-02 12:04 | P.PN ---
Subjective Progress Note Date: 05/02/18 This is a 77-year-old female patient of Dr. Cortez. Patient presented to the emergency room with complaints of increased difficulty breathing and weakness. Patient was recently admitted and discharged personally 10 days ago for COPD and pneumonia in which she was discharged on prednisone and antibiotic. Patient states she was doing well until completion of medication when she started to decline again. Patient has significant past medical history for CAD , heart failure, COPD, GERD, hyperlipidemia and ex-smoker. 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 Per ED report patient was found to be in soiled brief. Chest x-ray completed showing increasing mild infiltrates at the lung bases compared to last exam. No heart failure seen. Infiltrate more on the right side. Dr. ERICA Rod has been consulted for pulmonary services. EKG showing normal sinus rhythm. Right bundle branch block. Initial lactic acid 2.6. Repeat lactic 1.6. Patient has been started on Levaquin IV antibiotics and Solu-Medrol IV steroids. Patient also started on bronchodilators. Patient reports that she does feel significantly improved already. This time patient denies chest pain or shortness breath. Patient denies nausea vomiting or diarrhea. Patient denies any urinary burning or frequency On 05/01/2018 patient is alert and oriented 3 currently sitting up on side of bed. Patient states she feels significantly improved from yesterday. IV antibiotics. Patient being followed by cardiology and pulmonary services. 2-D echo completed. At this time patient denies chest pain. Patient denies any nausea vomiting or diarrhea. Patient denies any urinary burning or frequency On 05/02/2018 patient is alert and oriented 3 sitting up in chair. Patient is still feeling improved. Patient remains on IV antibiotics and steroids time. Sputum culture growing Pseudomonas aeruginosa. Infectious disease is following. This time patient denies chest pain or shortness of breath. Patient denies nausea vomiting or diarrhea. Patient denies any urinary burning or frequency Objective - Vital Signs Vital signs: Vital Signs Temp 97 F L 05/02/18 07:59 Pulse 79 05/02/18 11:30 Resp 19 05/02/18 11:30 BP 149/67 05/02/18 11:30 Pulse Ox 96 05/02/18 11:30 Intake & Output 05/01/18 05/02/18 05/02/18 18:59 06:59 18:59 Intake Total 720 240 240 Output Total 800 Balance -80 240 240 Weight 80.9 kg Intake: IV 240 Sodium Chloride 0.9% 1, 240 000 ml @ 20 mls/hr IV . Q24H [facility] Rx#:[id number] Oral 720 240 Output: Urine 800 Other: Voiding Method Toilet Toilet Toilet Diaper Diaper Diaper # Voids 1 - Exam Head normocephalic Neck supple Lungs diminished bilaterally Heart regular rate and rhythm S1-S2, no rub or gallop Abdomen is soft nontender nondistended positive bowel sounds no hepatosplenomegaly Extremities no edema Neuro alert and orientated to 3 - Labs CBC & Chem 7: 05/01/18 05:59 05/02/18 06:10 Labs: Abnormal Lab Results - Last 24 Hours (Table) 05/01/18 05/01/18 05/02/18 Range/Units 16:23 21:47 06:10 Carbon Dioxide 34 H (22-30) mmol/L BUN 30 H (7-17) mg/dL Glucose 117 H (74-99) mg/dL POC Glucose (mg/dL) 191 H 118 H (75-99) mg/dL Total Protein 5.7 L (6.3-8.2) g/dL Albumin 2.8 L (3.5-5.0) g/dL 05/02/18 Range/Units 06:12 Carbon Dioxide (22-30) mmol/L BUN (7-17) mg/dL Glucose (74-99) mg/dL POC Glucose (mg/dL) 113 H (75-99) mg/dL Total Protein (6.3-8.2) g/dL Albumin (3.5-5.0) g/dL Microbiology - Last 24 Hours (Table) 04/30/18 12:10 Gram Stain - Final Sputum Sputum Culture - Final Pseudomonas aeruginosa 04/29/18 22:17 Blood Culture - Preliminary Blood No Growth after 48 hours Assessment and Plan Assessment: 1. Pneumonia. Patient started on IV Levaquin. Dr. ERICA Rod consulted for infectious disease. Chest x-ray completed showing increasing mild infiltrates at the lung bases compared to last exam. No heart failure seen. Infiltrate on the right side. Sputum culture growing Pseudomonas aeruginosa. Dr. Fisher has been consulted for infectious disease antibiotics will be switched to cover appropriately 2. COPD exacerbation. Patient started on IV Solu-Medrol. Dr. ERICA Rod has been consulted for pulmonary care 3. Acute on chronic hypoxic respiratory failure. Maintain on 2 L oxygen at home 4. History of coronary artery disease 5. History of GERD 6. History of hyperlipidemia 7. Mildly elevated troponin level. troponin 0.107, 0.083. 2-D echo completed showing EF of 55-60%. Per cardiology services elevated troponin likely secondary to supply demand mismatch related to severe COPD exacerbation and hypoxia. Possible outpatient stress test 8. Increased weakness. Will consult physical therapy and occupational therapy DVT prophylaxis heparin. GI prophylaxis Protonix I performed an examination of the patient and discussed their management with the Nurse Practitioner. I have reviewed the Nurse Practitioner's notes and agree with the documented findings and plan of care
[2018-05-02 12:34] LABS: Glucose,Whole Blood 130 mg/dL (75-99)
[2018-05-02] MEDS: SODIUM CHLORIDE 0.9% 1,000 ML IV SCH (15:22)
[2018-05-02 17:02] LABS: Glucose,Whole Blood 149 mg/dL (75-99)
--- NOTE | 2018-05-02 17:38 | CT ---
EXAMINATION TYPE: CT chest wo con DATE OF EXAM: 05/02/2018 COMPARISON: 06/06/2017 HISTORY: Cough, trouble breathing, COPD CT DLP: 372.5 mGycm. Automated Exposure Control for Dose Reduction was Utilized. TECHNIQUE: CT scan of the thorax is performed without IV contrast. FINDINGS: There is pulmonary hyperinflation with flattening of the diaphragm. There is a 5 mm low density nodul e in the subpleural left lateral lung field along the major fissure. There is mild linear density in the lingula left upper lobe. There is coarse infiltrate in the right lower lobe. There is no pleural effusion. Thoracic aorta is atheromatous. There is no mediastinal adenopathy. There are no hilar mass es. Heart size is normal. There is no pericardial effusion. There is 15% anterior wedging of T10 vert ebra. IMPRESSION: There is new right lower lobe pneumonia compared to old exam. COPD. Mild pulmonary fibrot ic changes similar to old exam. Old T10 compression fracture unchanged. No suspicious pulmonary mass.
[2018-05-02 20:34] LABS: Glucose,Whole Blood 182 mg/dL (75-99)
--- NOTE | 2018-05-02 23:40 | CONS ---
CONSULTATION DATE OF SERVICE: 05/02/2018. REASON FOR CONSULTATION: Positive sputum culture with Pseudomonas aeruginosa. HISTORY OF PRESENT ILLNESS: The patient is a 77-year-old female with past medical history significant for COPD, who recently was admitted to this facility and treated for pneumonia. However, the patient is not sure about the name of the antibiotic that she received on her last admission. The patient was brought into the ER at [facility] on 04/29/2018 by the EMS with the patient complaining of feeling weak and tired, not feeling well, and no appetite for the 3 days before she was brought into the hospital. 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 Coughing intensity 4 to 5 out of 10, no radiation, with associated shortness of breath. The patient has been complaining of some rigors and chills. With these symptoms, the patient was evaluated by the ER physician. The patient did have a chest x-ray on April 29, which shows increasing mild infiltrate in the lung bases compared to the last exam. The patient has been treated with steroids, bronchodilator and oral Levaquin. The patient did have blood cultures done which have been negative so far. She did have a sputum cultures obtained which were finalized today with Pseudomonas aeruginosa that has been resistant to levofloxacin. Infectious Disease was consulted for further recommendation regarding antibiotic therapy. REVIEW OF SYSTEMS: Positive points have been mentioned in HPI. The rest of the 14 systems are negative. PAST MEDICAL HISTORY: COPD, heart failure, disease, hyperlipidemia, and history of pneumonia. PAST SURGICAL HISTORY: Back surgery. SOCIAL HISTORY: Remote history of smoking. No drinking or drug use. FAMILY HISTORY: Father history of OR. Mother history of colon cancer and OR. ALLERGIES: AMOXICILLIN, , ERYTHROMYCIN mostly with a rash, no history of anaphylaxis. MEDICATION: Include the patient currently on: 1. Tylenol. 2. Zovirax. 3. Ventolin. 4. Tessalon Perles. 5. Pulmicort. 6. Lasix. 7. Mucinex. 8. Heparin. 9. NovoLog. 10.Singulair. 11.Theragran. 12.Narcan. 13.Prednisone. 14.Levofloxacin 500 mg daily. PHYSICAL EXAMINATION: Blood pressure is 115/66, pulse of 80, temperature 98, she is 95% on 2 L nasal cannula. GENERAL DESCRIPTION: An elderly female up in the chair in no distress. No tachypnea or accessory muscle of respiration use. HEENT: Shows slight pallor. No scleral icterus. Oral mucosa is dry. No pharyngeal erythema or thrush. NECK: Trachea central. No thyromegaly. LUNGS: Unlabored breathing. Coarse breath sounds in the bases bilaterally. No wheeze. HEART: S1, S2. Regular rate and rhythm. ABDOMEN: Soft, no tenderness. No guarding. No rigidity. No organomegaly. EXTREMITIES: Trace edema of the feet. SKIN: No rash or mass palpable. NEUROLOGIC: The patient is awake, alert, oriented x3. PSYCH: Mood and affect normal. LABS: Hemoglobin 7.5, white count on admission was 16.6, BUN of 30, creatinine 0.59. Electrolytes have been normal. Liver enzymes are normal. UA has been negative. Blood culture negative. Sputum report as mentioned above. DIAGNOSTIC IMPRESSION AND PLAN: Patient presented to the hospital with increasing shortness of breath. She did have a cough in with minimal sputum production. No hemoptysis. Some increased infiltrate on the x-ray, now with sputum showing Pseudomonas aeruginosa suspicious likely for a gram- negative pneumonia failing outpatient as well as inpatient oral Levaquin therapy. PLAN: 1. We will obtain a CT of the chest with contrast to determine the extent of this pneumonia and how aggressive the treatment should be. 2. We will discontinue Levaquin. 3. Start the patient on Fortaz 2 g every 8 hours. 4. The patient will likely need a midline for outpatient IV antibiotic therapy as the patient is currently no oral option available. Thank you for this consultation. Will follow this patient along with you. MMODL / IJN: [id number] /
[2018-05-03 06:22] LABS: Glucose,Whole Blood 85 mg/dL (75-99)
[2018-05-03] MEDS: INSULIN ASPART 100 UNIT/ML 1 ML 10 ML VIAL SQ SCH ×4 (06:25→21:19)
[2018-05-03] MEDS: PANTOPRAZOLE 40 MG TABLET PO SCH (06:27)
[2018-05-03] MEDS: ALBUTEROL NEBULIZED 2.5 MG/3 ML INHALATION SCH ×4 (07:12→20:37)
[2018-05-03] MEDS: BUDESONIDE 0.5 MG/2 ML NEBU INHALATION SCH ×2 (07:12→20:37)
[2018-05-03 07:21] LABS: ALT 30 U/L (9-52); AST 19 U/L (14-36); Albumin 2.8 g/dL (3.5-5.0); Alkaline Phosphatase 65 U/L (38-126); Anion Gap 1 mmol/L; Blood Urea Nitrogen 25 mg/dL (7-17); Calcium 8.8 mg/dL (8.4-10.2); Carbon Dioxide 37 mmol/L (22-30); Chloride 102 mmol/L (98-107); Glucose 85 mg/dL (74-99); Sodium 140 mmol/L (137-145); Total Bilirubin 0.5 mg/dL (0.2-1.3); Total Protein 5.5 g/dL (6.3-8.2)
[2018-05-03 08:47] LABS: Basophils % (A) 1 %; Eosinophils % (A) 0 %; HCT 34.7 % (34.0-46.0); HGB 10.9 gm/dL (11.4-16.0); Hypochromasia Moderate; Lymphocytes # (A) 0.7 k/uL (1.0-4.8); Lymphocytes % (A) 8 %; MCH 32.9 pg (25.0-35.0); MCHC 31.5 g/dL (31.0-37.0); MCV 104.6 fL (80.0-100.0); Macrocytosis Moderate; Mean Platelet Volume 8.9; Monocytes # (A) 0.6 k/uL (0-1.0); Monocytes % (A) 7 %; Neutrophils # (A) 7.5 k/uL (1.3-7.7); Neutrophils % (A) 83 %; Platelet Count 165 k/uL (150-450); RBC 3.32 m/uL (3.80-5.40); RDW 15.3 % (11.5-15.5)
--- NOTE | 2018-05-03 09:24 | P.PN ---
Subjective Progress Note Date: 05/03/18 HPI: This is a 77-year-old female who presented to the emergency department with increasing shortness of breath for about 3-4 days duration. She had recently been admitted to the hospital for asthma with exacerbation and started to deteriorate after she went home. She was treated with antibiotics and steroids by her primary care physician and when she office. She started to get worse. She subsequently was seen in the ER and admitted for further evaluation and management. She does have a past medical history for chronic severe asthma , COPD, CAD, CHF, GERD and hyperlipidemia. She is ex-smoker Interval history: 05/01/2017patient is being seen examined and evaluated today on rounds. She is resting up in bed on 2 L of supplemental oxygen via nasal cannula which is what she wears at home as well. Her chest x-ray is reviewed and does show infiltrates in the bilateral lung bases. She does have a cough with occasional wheeze. Sputum is clear. Echocardiogram is pending. She does feel like her breathing is better today compared to yesterday. All labs and reports have been reviewed. 05/02/2018: Patient seen and examined. Patient states she is starting to feel better. She denies chest pain. She states she did get short of breath when she ambulated to the bathroom this morning. Per nursing her oxygen saturation decreased to 84% with ambulation. The patient denies fevers and chills. She states she still has an occasional cough. 05/03/2017patient is being seen examined and evaluated today on rounds. She continues to slowly feel better. She does continue to complain of weakness. She does have an occasional wheeze and occasional cough. Her sputum is growing Pseudomonas. Infectious diseases adjusting antibiotics. It does appear that the pathogen will require IV antibiotics at this time. And she will be going for a PICC line. She is afebrile no further complaints. Objective - Vital Signs Vital signs: Vital Signs Temp 97.5 F L 05/03/18 04:00 Pulse 84 05/03/18 07:28 Resp 20 05/03/18 04:00 BP 111/72 05/03/18 04:00 Pulse Ox 95 05/03/18 04:00 Intake & Output 05/02/18 05/03/18 05/03/18 18:59 06:59 18:59 Intake Total 480 240 240 Balance 480 240 240 Weight 81.5 kg Intake: IV 240 Sodium Chloride 0.9% 1, 240 000 ml @ 20 mls/hr IV . Q24H [facility] Rx#:[id number] Oral 480 240 Other: Voiding Method Toilet Toilet Diaper Diaper # Voids 1 - Exam GENERAL EXAM: Alert, active, comfortable in no apparent distress. HEAD: Normocephalic. EYES: Normal reaction of pupils, equal size. NOSE: Clear with pink turbinates. THROAT: No erythema or exudates. NECK: No masses, no JVD. CHEST: No chest wall deformity. LUNGS: Lungs noted to have some diminished breath sounds with an occasional expiratory wheeze. CVS: S1 and S2 normal with no audible mumurs, regular rhythm. ABDOMEN: No hepatosplenomegaly, normal bowel sounds, no guarding or rigidity. EXTREMITIES: Trace edema noted, pedal pulses palpable. CENTRAL NERVOUS SYSTEM: No focal deficits, tone is normal in all 4 extremities. - Labs CBC & Chem 7: 05/03/18 05:48 05/03/18 05:48 Labs: Abnormal Lab Results - Last 24 Hours (Table) 05/02/18 05/02/18 05/02/18 Range/Units 12:32 16:41 20:33 RBC (3.80-5.40) m/uL Hgb (11.4-16.0) gm/dL MCV (80.0-100.0) fL Lymphocytes # (1.0-4.8) k/uL Carbon Dioxide (22-30) mmol/L BUN (7-17) mg/dL POC Glucose (mg/dL) 130 H 149 H 182 H (75-99) mg/dL Total Protein (6.3-8.2) g/dL Albumin (3.5-5.0) g/dL 05/03/18 05/03/18 Range/Units 05:48 05:48 RBC 3.32 L (3.80-5.40) m/uL Hgb 10.9 L (11.4-16.0) gm/dL MCV 104.6 H (80.0-100.0) fL Lymphocytes # 0.7 L (1.0-4.8) k/uL Carbon Dioxide 37 H (22-30) mmol/L BUN 25 H (7-17) mg/dL POC Glucose (mg/dL) (75-99) mg/dL Total Protein 5.5 L (6.3-8.2) g/dL Albumin 2.8 L (3.5-5.0) g/dL Microbiology - Last 24 Hours (Table) 04/29/18 22:17 Blood Culture Gram Stain - Preliminary Blood 04/29/18 22:17 Blood Culture - Final Blood 04/30/18 12:10 Gram Stain - Final Sputum Sputum Culture - Final Pseudomonas aeruginosa Assessment and Plan Assessment: Assessment Acute on chronic hypoxic respiratory failure requiring supplemental oxygen Acute exacerbation of moderate persistent asthma Acute exacerbation of COPD Bibasilar community-acquired pneumonia Bicytopenia Moderate protein calorie malnutrition 5 mm low-density nodule subpleural left lateral lung field Plan Medications have been reviewed and will be continued as ordered. Continue with antibiotics and steroid taper- prednisone Infectious disease on consult and adjusting antibiotics Patient may require a PICC line for IV therapy Chest x-ray likely some mild improvement in bibasilar infiltrates CT of the chest does show right lower lobe pneumonia, COPD mild pulmonary fibrotic changes and a 5 mm low density nodule in the subpleural left lateral lung field. Sputum culture growing Pseudomonas Continue with pulmonary hygiene, coughing and deep breathing exercises, and supportive care. Supplemental oxygen to maintain oxygen saturations of 92% or better. Continue nebulizer treatments. GI and DVT prophylaxis. We will continue to monitor labs/results and adjust treatment as necessary. Further recommendations pending. I, the signing physician performed an examination of the patient, discussed and directed their management with the nurse practitioner. I have reviewed the nurse practitioner's note and agree with the documented findings, orders and plan of care. Nurse practitioner acting as a scribe for the signing physician.
[2018-05-03] MEDS: MONTELUKAST 10 MG TAB PO SCH (09:56)
[2018-05-03] MEDS: FUROSEMIDE 20 MG TAB PO SCH (09:56)
[2018-05-03] MEDS: POTASSIUM CHLORIDE ER 10 MEQ TAB.ER.PRT PO SCH (09:56)
[2018-05-03] MEDS: guaiFENesin 600 MG TABLET.ER PO SCH ×2 (09:56→21:00)
[2018-05-03] MEDS: BENZONATATE 100 MG CAP PO SCH ×3 (09:56→22:05)
[2018-05-03] MEDS: HEPARIN SODIUM,PORCINE 5,000 UNIT/ML 1 ML VIAL SQ SCH ×2 (09:57→21:00)
[2018-05-03] MEDS: predniSONE 20 MG TAB PO SCH (09:57)
[2018-05-03] MEDS: ACYCLOVIR 200 MG CAP PO SCH ×2 (10:00→21:00)
[2018-05-03 11:27] LABS: Glucose,Whole Blood 101 mg/dL (75-99)
[2018-05-03] MEDS: DALIRESP 250 MCG PO SCH (11:33)
[2018-05-03] MEDS: MULTIVITAMINS, THERA 1 EACH TAB PO SCH (11:40)
--- NOTE | 2018-05-03 12:09 | P.PN ---
Subjective Progress Note Date: 05/03/18 This is a 77-year-old female patient of Dr. Cortez. Patient presented to the emergency room with complaints of increased difficulty breathing and weakness. Patient was recently admitted and discharged personally 10 days ago for COPD and pneumonia in which she was discharged on prednisone and antibiotic. Patient states she was doing well until completion of medication when she started to decline again. Patient has significant past medical history for CAD , heart failure, COPD, GERD, hyperlipidemia and ex-smoker. 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 Per ED report patient was found to be in soiled brief. Chest x-ray completed showing increasing mild infiltrates at the lung bases compared to last exam. No heart failure seen. Infiltrate more on the right side. Dr. ERICA Rod has been consulted for pulmonary services. EKG showing normal sinus rhythm. Right bundle branch block. Initial lactic acid 2.6. Repeat lactic 1.6. Patient has been started on Levaquin IV antibiotics and Solu-Medrol IV steroids. Patient also started on bronchodilators. Patient reports that she does feel significantly improved already. This time patient denies chest pain or shortness breath. Patient denies nausea vomiting or diarrhea. Patient denies any urinary burning or frequency On 05/01/2018 patient is alert and oriented 3 currently sitting up on side of bed. Patient states she feels significantly improved from yesterday. IV antibiotics. Patient being followed by cardiology and pulmonary services. 2-D echo completed. At this time patient denies chest pain. Patient denies any nausea vomiting or diarrhea. Patient denies any urinary burning or frequency On 05/02/2018 patient is alert and oriented 3 sitting up in chair. Patient is still feeling improved. Patient remains on IV antibiotics and steroids time. Sputum culture growing Pseudomonas aeruginosa. Infectious disease is following. This time patient denies chest pain or shortness of breath. Patient denies nausea vomiting or diarrhea. Patient denies any urinary burning or frequency On 05/03/2018 patient is alert and oriented 3 sitting up in chair. Patient used to. Improved. Infectious disease following and has switched antibiotics based on cultures to IV in the. Patient remains on by mouth steroids at this time. At this time patient denies chest pain or shortness of breath. Patient denies nausea vomiting or diarrhea. Patient denies any urinary burning or frequency. Will consult social work to start discharge planning. Patient may need IV antibiotics per infectious disease recommendation Objective - Vital Signs Vital signs: Vital Signs Temp 97.5 F L 05/03/18 04:00 Pulse 76 05/03/18 11:24 Resp 22 05/03/18 08:00 BP 137/63 05/03/18 08:00 Pulse Ox 95 05/03/18 04:00 Intake & Output 05/02/18 05/03/18 05/03/18 18:59 06:59 18:59 Intake Total 480 240 240 Balance 480 240 240 Weight 81.5 kg Intake: IV 240 Sodium Chloride 0.9% 1, 240 000 ml @ 20 mls/hr IV . Q24H [facility] Rx#:[id number] Oral 480 240 Other: Voiding Method Toilet Toilet Toilet Diaper Diaper Diaper # Voids 1 - Exam Head normocephalic Neck supple Lungs diminished bilaterally Heart regular rate and rhythm S1-S2, no rub or gallop Abdomen is soft nontender nondistended positive bowel sounds no hepatosplenomegaly Extremities no edema Neuro alert and orientated to 3 - Labs CBC & Chem 7: 05/03/18 05:48 05/03/18 05:48 Labs: Abnormal Lab Results - Last 24 Hours (Table) 05/02/18 05/02/18 05/02/18 Range/Units 12:32 16:41 20:33 RBC (3.80-5.40) m/uL Hgb (11.4-16.0) gm/dL MCV (80.0-100.0) fL Lymphocytes # (1.0-4.8) k/uL Carbon Dioxide (22-30) mmol/L BUN (7-17) mg/dL POC Glucose (mg/dL) 130 H 149 H 182 H (75-99) mg/dL Total Protein (6.3-8.2) g/dL Albumin (3.5-5.0) g/dL 05/03/18 05/03/18 05/03/18 Range/Units 05:48 05:48 11:26 RBC 3.32 L (3.80-5.40) m/uL Hgb 10.9 L (11.4-16.0) gm/dL MCV 104.6 H (80.0-100.0) fL Lymphocytes # 0.7 L (1.0-4.8) k/uL Carbon Dioxide 37 H (22-30) mmol/L BUN 25 H (7-17) mg/dL POC Glucose (mg/dL) 101 H (75-99) mg/dL Total Protein 5.5 L (6.3-8.2) g/dL Albumin 2.8 L (3.5-5.0) g/dL Microbiology - Last 24 Hours (Table) 04/29/18 22:17 Blood Culture Gram Stain - Preliminary Blood 04/29/18 22:17 Blood Culture - Final Blood 04/30/18 12:10 Gram Stain - Final Sputum Sputum Culture - Final Pseudomonas aeruginosa Assessment and Plan Assessment: 1. Pneumonia. Patient started on IV Levaquin. Dr. ERICA Rod consulted for infectious disease. Chest x-ray completed showing increasing mild infiltrates at the lung bases compared to last exam. No heart failure seen. Infiltrate on the right side. Sputum culture growing Pseudomonas aeruginosa. Per Dr. Bonilla with infectious disease. Patient has been switched to Invanz. Per infectious disease patient will likely need a midline for outpatient IV antibiotic therapy as patient is currently no oral option available. 2. COPD exacerbation. Patient started on IV Solu-Medrol. Dr. ERICA Rod has been consulted for pulmonary care. Patient has been switched over to by mouth prednisone per pulmonary 3. Acute on chronic hypoxic respiratory failure. Maintain on 2 L oxygen at home 4. History of coronary artery disease 5. History of GERD 6. History of hyperlipidemia 7. Mildly elevated troponin level. troponin 0.107, 0.083. 2-D echo completed showing EF of 55-60%. Per cardiology services elevated troponin likely secondary to supply demand mismatch related to severe COPD exacerbation and hypoxia. Possible outpatient stress test 8. Increased weakness. Will consult physical therapy and occupational therapy DVT prophylaxis heparin. GI prophylaxis Protonix Social work consult placed for DC planning. Patient may need IV antibiotics upon discharge I performed an examination of the patient and discussed their management with the Nurse Practitioner. I have reviewed the Nurse Practitioner's notes and agree with the documented findings and plan of care
[2018-05-03] MEDS: SODIUM CHLORIDE 0.9% 1,000 ML IV SCH (16:15)
[2018-05-03 21:15] LABS: Glucose,Whole Blood 276 mg/dL (75-99)
--- NOTE | 2018-05-03 23:38 | PN ---
PROGRESS NOTE DATE OF SERVICE: 05/03/2018. REASON FOR FOLLOW UP: Pseudomonas aeruginosa pneumonia. INTERVAL HISTORY: The patient is afebrile. She is breathing more comfortably today. The patient continues to have a cough, though have decreased intensity. Remains to be dry in nature. No chest pain. No nausea, no vomiting. No abdominal pain. No diarrhea. PHYSICAL EXAMINATION: Blood pressure is 141/63 with a pulse of 83, temperature 98.5. She is 97% on 2 L nasal cannula. General description is an elderly female up in the chair in no distress. Respiratory system: Unlabored breathing with decreased breath sounds at the bases. No wheeze. Heart S1-S2 regular rate and rhythm. Abdomen soft. No tenderness. LABS: Hemoglobin 10.2, white count 9.3, BUN of 25, creatinine 0.57. Blood culture with micrococcus species. Sputum with Pseudomonas aeruginosa. DIAGNOSTIC IMPRESSION AND PLAN: 1. Patient with Pseudomonas aeruginosa pneumonia as seen on the CT of the chest in this patient who did have failing outpatient Levaquin therapy. The patient is currently on . She will get a midline with a plan to finish therapy with oral IV cefepime 2 g q.12 hours for about 2 weeks to 10 days depending upon clinical response. 2. Positive blood cultures micrococcus species, more likely contaminant. Blood culture repeat has been ordered. No need to add vancomycin. MMODL / IJN: [id number] /
[2018-05-04] MEDS: ALBUTEROL NEBULIZED 2.5 MG/3 ML INHALATION PRN (00:07)
[2018-05-04 05:46] LABS: Glucose,Whole Blood 185 mg/dL (75-99)
[2018-05-04] MEDS: ALBUTEROL NEBULIZED 2.5 MG/3 ML INHALATION SCH (07:15)
[2018-05-04] MEDS: BUDESONIDE 0.5 MG/2 ML NEBU INHALATION SCH ×2 (07:15→19:00)
[2018-05-04] MEDS: INSULIN ASPART 100 UNIT/ML 1 ML 10 ML VIAL SQ SCH ×3 (07:36→17:44)
[2018-05-04 07:45] LABS: Glucose,Whole Blood 79 mg/dL (75-99)
[2018-05-04] MEDS: BENZONATATE 100 MG CAP PO SCH ×3 (07:54→20:53)
[2018-05-04] MEDS: ACYCLOVIR 200 MG CAP PO SCH ×2 (07:54→20:54)
[2018-05-04] MEDS: PANTOPRAZOLE 40 MG TABLET PO SCH (07:54)
[2018-05-04] MEDS: FUROSEMIDE 20 MG TAB PO SCH ×2 (07:55→07:56)
[2018-05-04] MEDS: MONTELUKAST 10 MG TAB PO SCH (07:55)
[2018-05-04] MEDS: predniSONE 20 MG TAB PO SCH (07:55)
[2018-05-04] MEDS: MULTIVITAMINS, THERA 1 EACH TAB PO SCH (07:55)
[2018-05-04] MEDS: POTASSIUM CHLORIDE ER 10 MEQ TAB.ER.PRT PO SCH (07:55)
[2018-05-04] MEDS: HEPARIN SODIUM,PORCINE 5,000 UNIT/ML 1 ML VIAL SQ SCH ×2 (07:56→20:55)
[2018-05-04] MEDS: guaiFENesin 600 MG TABLET.ER PO SCH ×2 (08:03→20:54)
[2018-05-04] MEDS: DALIRESP 250 MCG PO SCH (08:07)
[2018-05-04 09:15] LABS: Basophils % (A) 1 %; Eosinophils % (A) 0 %; HGB 11.2 gm/dL (11.4-16.0); Hypochromasia Moderate; Lymphocytes # (A) 0.7 k/uL (1.0-4.8); Lymphocytes % (A) 8 %; MCH 33.1 pg (25.0-35.0); MCHC 31.2 g/dL (31.0-37.0); MCV 106.3 fL (80.0-100.0); Macrocytosis Moderate; Mean Platelet Volume 8.1; Monocytes # (A) 0.4 k/uL (0-1.0); Monocytes % (A) 5 %; Neutrophils # (A) 7.5 k/uL (1.3-7.7); Neutrophils % (A) 86 %; Platelet Count 163 k/uL (150-450); RBC 3.38 m/uL (3.80-5.40); RDW 15.3 % (11.5-15.5); WBC 8.7 k/uL (3.8-10.6)
--- NOTE | 2018-05-04 09:21 | P.PN ---
Subjective Progress Note Date: 05/04/18 HPI: This is a 77-year-old female who presented to the emergency department with increasing shortness of breath for about 3-4 days duration. She had recently been admitted to the hospital for asthma with exacerbation and started to deteriorate after she went home. She was treated with antibiotics and steroids by her primary care physician and when she office. She started to get worse. She subsequently was seen in the ER and admitted for further evaluation and management. She does have a past medical history for chronic severe asthma , COPD, CAD, CHF, GERD and hyperlipidemia. She is ex-smoker Interval history: 05/01/2017patient is being seen examined and evaluated today on rounds. She is resting up in bed on 2 L of supplemental oxygen via nasal cannula which is what she wears at home as well. Her chest x-ray is reviewed and does show infiltrates in the bilateral lung bases. She does have a cough with occasional wheeze. Sputum is clear. Echocardiogram is pending. She does feel like her breathing is better today compared to yesterday. All labs and reports have been reviewed. 05/02/2018: Patient seen and examined. Patient states she is starting to feel better. She denies chest pain. She states she did get short of breath when she ambulated to the bathroom this morning. Per nursing her oxygen saturation decreased to 84% with ambulation. The patient denies fevers and chills. She states she still has an occasional cough. 05/03/2017patient is being seen examined and evaluated today on rounds. She continues to slowly feel better. She does continue to complain of weakness. She does have an occasional wheeze and occasional cough. Her sputum is growing Pseudomonas. Infectious diseases adjusting antibiotics. It does appear that the pathogen will require IV antibiotics at this time. And she will be going for a PICC line. She is afebrile no further complaints. 05/04/18- patient is being seen examined and evaluated today on rounds. Patient states she feels relatively the same as yesterday. She continues to have some weakness. Continues to have her cough which is congested however she is unable to bring up any sputum. She does have the occasional wheezes well. The patient is supposed to go for a PICC line hopefully today. Her blood cultures came back positive however this is likely contamination per infectious disease. All labs and reports reviewed. Breathing treatments are helping her. Objective - Vital Signs Vital signs: Vital Signs Temp 97.7 F 05/04/18 04:46 Pulse 71 05/04/18 08:00 Resp 18 05/04/18 08:00 BP 140/73 05/04/18 04:46 Pulse Ox 98 05/04/18 04:46 Intake & Output 05/03/18 05/04/18 05/04/18 18:59 06:59 18:59 Intake Total 480 1000 Balance 480 1000 Intake: Intake, IV Titration 240 Amount Sodium Chloride 0.9% 1, 140 000 ml @ 20 mls/hr IV . Q24H [facility] Rx#:[id number] cefTAZidime 2 gm In 100 Sodium Chloride 0.9% 100 ml @ 100 mls/hr IVPB Q8H [facility] Rx#:[id number] Oral 480 760 Other: Voiding Method Toilet Toilet Toilet Diaper Diaper Diaper # Voids 3 1 # Bowel Movements 1 1 - Exam GENERAL EXAM: Alert, comfortable in no apparent distress. HEAD: Normocephalic. EYES: Normal reaction of pupils, equal size. NOSE: Clear with pink turbinates. THROAT: No erythema or exudates. NECK: No masses, no JVD. CHEST: No chest wall deformity. LUNGS: Lungs noted to have some diminished breath sounds with an occasional expiratory wheeze. congested cough CVS: S1 and S2 normal with no audible mumurs, regular rhythm. ABDOMEN: No hepatosplenomegaly, normal bowel sounds, no guarding or rigidity. EXTREMITIES: no edema noted, pedal pulses palpable. CENTRAL NERVOUS SYSTEM: No focal deficits, tone is normal in all 4 extremities. - Labs CBC & Chem 7: 05/03/18 05:48 05/03/18 05:48 Labs: Abnormal Lab Results - Last 24 Hours (Table) 05/03/18 05/03/18 05/03/18 Range/Units 11:26 17:23 21:13 POC Glucose (mg/dL) 101 H 185 H 276 H (75-99) mg/dL Microbiology - Last 24 Hours (Table) 04/29/18 22:17 Blood Culture Gram Stain - Final Blood Blood Culture - Final Micrococcus species Assessment and Plan Assessment: Assessment Acute on chronic hypoxic respiratory failure requiring supplemental oxygen Acute exacerbation of moderate persistent asthma Acute exacerbation of COPD Bibasilar community-acquired pneumonia, Pseudomonas Bicytopenia Moderate protein calorie malnutrition 5 mm low-density nodule subpleural left lateral lung field Plan Medications have been reviewed and will be continued as ordered. Continue with antibiotics and steroid taper- prednisone Infectious disease on consult and adjusting antibiotics Patient may require a PICC line for IV therapy Chest x-ray likely some mild improvement in bibasilar infiltrates CT of the chest does show right lower lobe pneumonia, COPD mild pulmonary fibrotic changes and a 5 mm low density nodule in the subpleural left lateral lung field. Sputum culture growing Pseudomonas Continue with pulmonary hygiene, coughing and deep breathing exercises, and supportive care. Supplemental oxygen to maintain oxygen saturations of 92% or better. Continue with incentive spirometer and flutter valve. Continue nebulizer treatments. GI and DVT prophylaxis. We will continue to monitor labs/results and adjust treatment as necessary. Further recommendations pending. I, the signing physician performed an examination of the patient, discussed and directed their management with the nurse practitioner. I have reviewed the nurse practitioner's note and agree with the documented findings, orders and plan of care. Nurse practitioner acting as a scribe for the signing physician.
[2018-05-04 09:57] LABS: ALT 33 U/L (9-52); AST 19 U/L (14-36); Albumin 2.8 g/dL (3.5-5.0); Alkaline Phosphatase 65 U/L (38-126); Anion Gap 3 mmol/L; Blood Urea Nitrogen 22 mg/dL (7-17); Calcium 8.6 mg/dL (8.4-10.2); Carbon Dioxide 38 mmol/L (22-30); Chloride 100 mmol/L (98-107); Glucose 119 mg/dL (74-99); Potassium 3.5 mmol/L (3.5-5.1); Sodium 141 mmol/L (137-145); Total Bilirubin 0.7 mg/dL (0.2-1.3); Total Protein 5.6 g/dL (6.3-8.2)
[2018-05-04] MEDS: IPRATROPIUM-ALBUTEROL 3 ML NEB INHALATION SCH ×3 (11:12→19:00)
[2018-05-04 11:17] LABS: Glucose,Whole Blood 166 mg/dL (75-99)
--- NOTE | 2018-05-04 12:32 | P.PN ---
Subjective Progress Note Date: 05/04/18 This is a 77-year-old female patient of Dr. Cortez. Patient presented to the emergency room with complaints of increased difficulty breathing and weakness. Patient was recently admitted and discharged personally 10 days ago for COPD and pneumonia in which she was discharged on prednisone and antibiotic. Patient states she was doing well until completion of medication when she started to decline again. Patient has significant past medical history for CAD , heart failure, COPD, GERD, hyperlipidemia and ex-smoker. 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 Per ED report patient was found to be in soiled brief. Chest x-ray completed showing increasing mild infiltrates at the lung bases compared to last exam. No heart failure seen. Infiltrate more on the right side. Dr. ERICA Rod has been consulted for pulmonary services. EKG showing normal sinus rhythm. Right bundle branch block. Initial lactic acid 2.6. Repeat lactic 1.6. Patient has been started on Levaquin IV antibiotics and Solu-Medrol IV steroids. Patient also started on bronchodilators. Patient reports that she does feel significantly improved already. This time patient denies chest pain or shortness breath. Patient denies nausea vomiting or diarrhea. Patient denies any urinary burning or frequency On 05/01/2018 patient is alert and oriented 3 currently sitting up on side of bed. Patient states she feels significantly improved from yesterday. IV antibiotics. Patient being followed by cardiology and pulmonary services. 2-D echo completed. At this time patient denies chest pain. Patient denies any nausea vomiting or diarrhea. Patient denies any urinary burning or frequency On 05/02/2018 patient is alert and oriented 3 sitting up in chair. Patient is still feeling improved. Patient remains on IV antibiotics and steroids time. Sputum culture growing Pseudomonas aeruginosa. Infectious disease is following. This time patient denies chest pain or shortness of breath. Patient denies nausea vomiting or diarrhea. Patient denies any urinary burning or frequency On 05/03/2018 patient is alert and oriented 3 sitting up in chair. Patient used to. Improved. Infectious disease following and has switched antibiotics based on cultures to IV in the. Patient remains on by mouth steroids at this time. At this time patient denies chest pain or shortness of breath. Patient denies nausea vomiting or diarrhea. Patient denies any urinary burning or frequency. Will consult social work to start discharge planning. Patient may need IV antibiotics per infectious disease recommendation On 05/04/2018 patient alert and oriented 3 sitting up in chair. Patient is still short of breath but is feeling slightly improved. Patient will need IV antibiotics upon discharge per infectious disease. Patient will be likely discharged on Monday home with midline and Invanz for IV antibiotics. At this time patient denies chest pain. Patient denies nausea vomiting or diarrhea. Patient denies any urinary burning or frequency. Objective - Vital Signs Vital signs: Vital Signs Temp 97.7 F 05/04/18 04:46 Pulse 88 05/04/18 11:27 Resp 18 05/04/18 08:00 BP 140/73 05/04/18 04:46 Pulse Ox 98 05/04/18 04:46 Intake & Output 05/03/18 05/04/18 05/04/18 18:59 06:59 18:59 Intake Total 480 1000 Balance 480 1000 Intake: Intake, IV Titration 240 Amount Sodium Chloride 0.9% 1, 140 000 ml @ 20 mls/hr IV . Q24H [facility] Rx#:[id number] cefTAZidime 2 gm In 100 Sodium Chloride 0.9% 100 ml @ 100 mls/hr IVPB Q8H [facility] Rx#:[id number] Oral 480 760 Other: Voiding Method Toilet Toilet Toilet Diaper Diaper Diaper # Voids 3 1 # Bowel Movements 1 1 - Exam Head normocephalic Neck supple Lungs diminished bilaterally Heart regular rate and rhythm S1-S2, no rub or gallop Abdomen is soft nontender nondistended positive bowel sounds no hepatosplenomegaly Extremities no edema Neuro alert and orientated to 3 - Labs CBC & Chem 7: 05/04/18 08:31 05/04/18 08:31 Labs: Abnormal Lab Results - Last 24 Hours (Table) 05/03/18 05/03/18 05/04/18 Range/Units 17:23 21:13 08:31 RBC (3.80-5.40) m/uL Hgb (11.4-16.0) gm/dL MCV (80.0-100.0) fL Lymphocytes # (1.0-4.8) k/uL Carbon Dioxide 38 H (22-30) mmol/L BUN 22 H (7-17) mg/dL Creatinine 0.49 L (0.52-1.04) mg/dL Glucose 119 H (74-99) mg/dL POC Glucose (mg/dL) 185 H 276 H (75-99) mg/dL Total Protein 5.6 L (6.3-8.2) g/dL Albumin 2.8 L (3.5-5.0) g/dL 05/04/18 05/04/18 Range/Units 08:31 11:16 RBC 3.38 L (3.80-5.40) m/uL Hgb 11.2 L (11.4-16.0) gm/dL MCV 106.3 H (80.0-100.0) fL Lymphocytes # 0.7 L (1.0-4.8) k/uL Carbon Dioxide (22-30) mmol/L BUN (7-17) mg/dL Creatinine (0.52-1.04) mg/dL Glucose (74-99) mg/dL POC Glucose (mg/dL) 166 H (75-99) mg/dL Total Protein (6.3-8.2) g/dL Albumin (3.5-5.0) g/dL Microbiology - Last 24 Hours (Table) 04/29/18 22:17 Blood Culture Gram Stain - Final Blood Blood Culture - Final Micrococcus species Assessment and Plan Assessment: 1. Pneumonia sputum culture positive for Pseudomonas heparin also. Patient started on IV Levaquin. Dr. ERICA Rod consulted for infectious disease. Chest x -ray completed showing increasing mild infiltrates at the lung bases compared to last exam. No heart failure seen. Infiltrate on the right side. Per Dr. Bonilla with infectious disease. Patient has been switched to Invanz. Per infectious disease progress note patient will need IV cefepime 2 g every 12 hours for about 2 weeks to 10 days depending upon 2. COPD exacerbation. Patient started on IV Solu-Medrol. Dr. ERICA Rod has been consulted for pulmonary care. Patient has been switched over to by mouth prednisone per pulmonary 3. Acute on chronic hypoxic respiratory failure. Maintained on 2 L oxygen at home 4. History of coronary artery disease 5. History of GERD 6. History of hyperlipidemia 7. Mildly elevated troponin level. troponin 0.107, 0.083. 2-D echo completed showing EF of 55-60%. Per cardiology services elevated troponin likely secondary to supply demand mismatch related to severe COPD exacerbation and hypoxia. Possible outpatient stress test 8. Increased weakness. Will consult physical therapy and occupational therapy 9. Positive blood culture with micrococci species. Infectious disease is following. Infectious disease most likely contaminant repeat blood culture has been ordered no need for vancomycin at this time DVT prophylaxis heparin. GI prophylaxis Protonix Social work consult placed for DC planning. Patient may need IV antibiotics upon discharge Patient will most likely stay until Monday. Patient to get midline placed on Monday per infectious disease and DC'd with IV antibiotics I performed an examination of the patient and discussed their management with the Nurse Practitioner. I have reviewed the Nurse Practitioner's notes and agree with the documented findings and plan of care
--- NOTE | 2018-05-04 16:21 | PN ---
PROGRESS NOTE DATE OF SERVICE: 05/04/2018 REASON FOR FOLLOWUP: Pseudomonas aeruginosa pneumonia. INTERVAL HISTORY: The patient is currently afebrile. The patient's breathing has slightly improved. She continues to have a cough; not bringing up any sputum. The patient denies having any chest pain. No nausea. No vomiting. No abdominal pain and no diarrhea. PHYSICAL EXAMINATION: Her blood pressure is 107/58 with a pulse of 88, temperature 98. She is 92% on 2 L nasal cannula. General description is an elderly female up in the chair in no distress. RESPIRATORY SYSTEM: Unlabored breathing. Clear to auscultation anteriorly. HEART: S1, S2. Regular rate and rhythm. ABDOMEN: Soft. No tenderness. LABS: Hemoglobin 11.2, white count 8.7, BUN of 22, creatinine 0.49. DIAGNOSTIC IMPRESSION AND PLAN: Patient with Pseudomonas aeruginosa pneumonia. The patient is currently on Fortaz; to continue. That will be transitioned to cefepime 2 grams q.12 for about a week. Total duration of antibiotics should be from 10 days to 2 weeks, depending upon clinical response. Midline to be placed on Monday. No need for a PICC line. Plan of care was discussed with the admitting team and the patient's RN. JORDY / KEVIN: [id number] /
[2018-05-04 17:24] LABS: Glucose,Whole Blood 215 mg/dL (75-99)
[2018-05-04] MEDS: SODIUM CHLORIDE 0.9% 1,000 ML IV SCH (17:44)
[2018-05-04 20:26] LABS: Glucose,Whole Blood 124 mg/dL (75-99)
[2018-05-05] MEDS: INSULIN ASPART 100 UNIT/ML 1 ML 10 ML VIAL SQ SCH ×5 (03:01→20:43)
[2018-05-05] MEDS: ALBUTEROL NEBULIZED 2.5 MG/3 ML INHALATION PRN (05:33)
[2018-05-05 07:08] LABS: Glucose,Whole Blood 84 mg/dL (75-99)
[2018-05-05 07:25] LABS: Basophils % (A) 0 %; Eosinophils # (A) 0.1 k/uL (0-0.7); Eosinophils % (A) 1 %; HCT 34.4 % (34.0-46.0); HGB 10.7 gm/dL (11.4-16.0); Hypochromasia Slight; Lymphocytes # (A) 1.1 k/uL (1.0-4.8); Lymphocytes % (A) 12 %; MCH 32.6 pg (25.0-35.0); MCHC 31.3 g/dL (31.0-37.0); MCV 104.2 fL (80.0-100.0); Macrocytosis Moderate; Mean Platelet Volume 8.1; Monocytes # (A) 0.5 k/uL (0-1.0); Monocytes % (A) 5 %; Neutrophils # (A) 7.7 k/uL (1.3-7.7); Neutrophils % (A) 81 %; Platelet Count 198 k/uL (150-450); RDW 15.3 % (11.5-15.5); WBC 9.6 k/uL (3.8-10.6)
[2018-05-05] MEDS: IPRATROPIUM-ALBUTEROL 3 ML NEB INHALATION SCH ×4 (08:25→19:58)
[2018-05-05] MEDS: BUDESONIDE 0.5 MG/2 ML NEBU INHALATION SCH ×2 (08:25→19:58)
[2018-05-05] MEDS: MONTELUKAST 10 MG TAB PO SCH (08:39)
[2018-05-05] MEDS: guaiFENesin 600 MG TABLET.ER PO SCH ×2 (08:39→20:42)
[2018-05-05] MEDS: FUROSEMIDE 20 MG TAB PO SCH (08:39)
[2018-05-05] MEDS: ACYCLOVIR 200 MG CAP PO SCH ×2 (08:39→20:42)
[2018-05-05] MEDS: PANTOPRAZOLE 40 MG TABLET PO SCH (08:39)
[2018-05-05] MEDS: BENZONATATE 100 MG CAP PO SCH ×3 (08:39→20:43)
[2018-05-05] MEDS: MULTIVITAMINS, THERA 1 EACH TAB PO SCH (08:39)
[2018-05-05] MEDS: DALIRESP 250 MCG PO SCH (08:40)
[2018-05-05] MEDS: HEPARIN SODIUM,PORCINE 5,000 UNIT/ML 1 ML VIAL SQ SCH ×2 (08:40→20:42)
[2018-05-05] MEDS: POTASSIUM CHLORIDE ER 10 MEQ TAB.ER.PRT PO SCH (08:40)
[2018-05-05 11:52] LABS: Glucose,Whole Blood 105 mg/dL (75-99)
[2018-05-05] MEDS: SODIUM CHLORIDE 0.9% 1,000 ML IV SCH (12:46)
[2018-05-05] MEDS: ACETAMINOPHEN TAB 325 MG TAB PO PRN (12:47)
--- NOTE | 2018-05-05 16:56 | P.PN ---
Subjective Progress Note Date: 05/05/18 This is a 77-year-old female patient of Dr. Cortez. Patient presented to the emergency room with complaints of increased difficulty breathing and weakness. Patient was recently admitted and discharged personally 10 days ago for COPD and pneumonia in which she was discharged on prednisone and antibiotic. Patient states she was doing well until completion of medication when she started to decline again. Patient has significant past medical history for CAD , heart failure, COPD, GERD, hyperlipidemia and ex-smoker. 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 Per ED report patient was found to be in soiled brief. Chest x-ray completed showing increasing mild infiltrates at the lung bases compared to last exam. No heart failure seen. Infiltrate more on the right side. Dr. ERICA Rod has been consulted for pulmonary services. EKG showing normal sinus rhythm. Right bundle branch block. Initial lactic acid 2.6. Repeat lactic 1.6. Patient has been started on Levaquin IV antibiotics and Solu-Medrol IV steroids. Patient also started on bronchodilators. Patient reports that she does feel significantly improved already. This time patient denies chest pain or shortness breath. Patient denies nausea vomiting or diarrhea. Patient denies any urinary burning or frequency On 05/01/2018 patient is alert and oriented 3 currently sitting up on side of bed. Patient states she feels significantly improved from yesterday. IV antibiotics. Patient being followed by cardiology and pulmonary services. 2-D echo completed. At this time patient denies chest pain. Patient denies any nausea vomiting or diarrhea. Patient denies any urinary burning or frequency On 05/02/2018 patient is alert and oriented 3 sitting up in chair. Patient is still feeling improved. Patient remains on IV antibiotics and steroids time. Sputum culture growing Pseudomonas aeruginosa. Infectious disease is following. This time patient denies chest pain or shortness of breath. Patient denies nausea vomiting or diarrhea. Patient denies any urinary burning or frequency On 05/03/2018 patient is alert and oriented 3 sitting up in chair. Patient used to. Improved. Infectious disease following and has switched antibiotics based on cultures to IV in the. Patient remains on by mouth steroids at this time. At this time patient denies chest pain or shortness of breath. Patient denies nausea vomiting or diarrhea. Patient denies any urinary burning or frequency. Will consult social work to start discharge planning. Patient may need IV antibiotics per infectious disease recommendation On 05/04/2018 patient alert and oriented 3 sitting up in chair. Patient is still short of breath but is feeling slightly improved. Patient will need IV antibiotics upon discharge per infectious disease. Patient will be likely discharged on Monday home with Kris for IV antibiotics. At this time patient denies chest pain. Patient denies nausea vomiting or diarrhea. Patient denies any urinary burning or frequency. On 05/05/2018 patient is alert and oriented 3 in no apparent distress she is still having some cough and shortness of breath with activity otherwise she denies any complaints there is no fever or chills no headache or dizziness no chest pain no nausea or vomiting no abdominal pain no diarrhea and no urinary symptoms, she is still maintained on ceftazidime Objective - Vital Signs Vital signs: Vital Signs Temp 98.1 F 05/05/18 12:53 Pulse 76 05/05/18 15:45 Resp 18 05/05/18 12:53 BP 110/57 05/05/18 12:53 Pulse Ox 95 05/05/18 12:53 Intake & Output 05/04/18 05/05/18 05/05/18 18:59 06:59 18:59 Intake Total 550 Balance 550 Weight 81.5 kg Intake: Intake, IV Titration 100 Amount cefTAZidime 2 gm In 100 Sodium Chloride 0.9% 100 ml @ 100 mls/hr IVPB Q8H [facility] Rx#:[id number] Oral 450 Other: Voiding Method Toilet Toilet Toilet Diaper Diaper Diaper # Voids 2 4 - Exam Head normocephalic and atraumatic Neck supple no JVD no goiter Lungs diminished bilaterally with scattered crackles in bases Heart regular rate and rhythm S1-S2, no rub or gallop Abdomen is soft nontender nondistended positive bowel sounds no hepatosplenomegaly Extremities no edema no cyanosis or clubbing Neuro alert and orientated to 3 - Labs CBC & Chem 7: 05/05/18 06:29 05/04/18 08:31 Labs: Abnormal Lab Results - Last 24 Hours (Table) 05/04/18 05/04/18 05/05/18 Range/Units 17:21 20:13 06:29 RBC 3.30 L (3.80-5.40) m/uL Hgb 10.7 L (11.4-16.0) gm/dL MCV 104.2 H (80.0-100.0) fL POC Glucose (mg/dL) 215 H 124 H (75-99) mg/dL 05/05/18 Range/Units 11:51 RBC (3.80-5.40) m/uL Hgb (11.4-16.0) gm/dL MCV (80.0-100.0) fL POC Glucose (mg/dL) 105 H (75-99) mg/dL Microbiology - Last 24 Hours (Table) 05/03/18 17:18 Blood Culture - Preliminary Blood No Growth after 24 hours Assessment and Plan Plan: 1. Pneumonia sputum culture positive for Pseudomonas heparin also. Patient started on IV Levaquin. Dr. ERICA Rod consulted for infectious disease. Chest x -ray completed showing increasing mild infiltrates at the lung bases compared to last exam. No heart failure seen. Infiltrate on the right side. Per Dr. Bonilla with infectious disease. Patient has been switched to Ceftazidime. Per infectious disease progress note patient will need IV cefepime 2 g every 12 hours for about 2 weeks to 10 days depending upon 2. COPD exacerbation. Patient started on IV Solu-Medrol. Dr. ERICA Rod has been consulted for pulmonary care. Patient has been switched over to by mouth prednisone per pulmonary 3. Acute on chronic hypoxic respiratory failure. Maintained on 2 L oxygen at home 4. History of coronary artery disease 5. History of GERD 6. History of hyperlipidemia 7. Mildly elevated troponin level. troponin 0.107, 0.083. 2-D echo completed showing EF of 55-60%. Per cardiology services elevated troponin likely secondary to supply demand mismatch related to severe COPD exacerbation and hypoxia. Possible outpatient stress test 8. Increased weakness. Will consult physical therapy and occupational therapy 9. Positive blood culture with micrococci species. Infectious disease is following. Infectious disease most likely contaminant repeat blood culture has been ordered no need for vancomycin at this time DVT prophylaxis heparin. GI prophylaxis Protonix Social work consult placed for DC planning. Patient may need IV antibiotics upon discharge Patient will most likely stay until Monday. Patient to get midline placed on Monday per infectious disease and DC'd with IV antibiotics
[2018-05-05 17:05] LABS: Glucose,Whole Blood 179 mg/dL (75-99)
--- NOTE | 2018-05-05 19:34 | PN ---
PROGRESS NOTE DATE OF SERVICE: May 05, 2018 She is less short of breath. She has less urine production. On physical examination, 2 L by nasal cannula is 95%. HEENT is unremarkable. Chest revealed expiratory wheeze. Cardiovascular system: S1, S2. Abdomen is soft. There is no pedal edema. IMPRESSION: . Chronic obstructive pulmonary disease exacerbation. debility. aerosolized steroids. Her prognosis at this time is fair. MMODL / IJN: [id number] /
[2018-05-05 20:38] LABS: Glucose,Whole Blood 68 mg/dL (75-99)
[2018-05-05 20:53] LABS: Glucose,Whole Blood 81 mg/dL (75-99)
--- NOTE | 2018-05-05 22:49 | PN ---
PROGRESS NOTE DATE OF SERVICE: 05/05/2018. REASON FOR FOLLOW UP: Pseudomonas aeruginosa pneumonia. INTERVAL HISTORY: The patient is currently afebrile. She is breathing more comfortably. She continued to have a cough with no decreased intensity and admits to drainage. No chest pain. No nausea, no vomiting. No abdominal pain no diarrhea. PHYSICAL EXAMINATION: Blood pressure 108/67 with a pulse of 80, temperature of 98, she is 95% on 2 L nasal cannula. GENERAL DESCRIPTION: An elderly female up in the chair in no distress. RESPIRATORY SYSTEM: Unlabored breathing. Clear to auscultation anteriorly. HEART: S1, S2. Regular rate and rhythm. ABDOMEN: Soft, no tenderness. LABS: Hemoglobin is 10.7, white count 9.6, BUN of 22, creatinine 0.49. DIAGNOSTIC IMPRESSION AND PLAN: 1. Patient with pseudomonas aeruginosa pneumonia, currently responding for Fortaz, transitioned to cefepime on discharge to finish a total of 2 week course of therapy. 2. Positive blood culture, micrococcus species likely contamination. Repeat blood culture has been negative. No need for any management for the same. MMODL / IJN: [id number] /
[2018-05-06] MEDS: ALBUTEROL NEBULIZED 2.5 MG/3 ML INHALATION PRN (04:14)
[2018-05-06] MEDS: INSULIN ASPART 100 UNIT/ML 1 ML 10 ML VIAL SQ SCH ×4 (07:13→21:44)
[2018-05-06 07:14] LABS: Glucose,Whole Blood 129 mg/dL (75-99)
[2018-05-06 07:40] LABS: Basophils % (A) 0 %; Eosinophils # (A) 0.1 k/uL (0-0.7); Eosinophils % (A) 1 %; HGB 11.6 gm/dL (11.4-16.0); Hypochromasia Moderate; Lymphocytes # (A) 0.8 k/uL (1.0-4.8); Lymphocytes % (A) 10 %; MCHC 31.4 g/dL (31.0-37.0); MCV 105.1 fL (80.0-100.0); Macrocytosis Moderate; Mean Platelet Volume 7.7; Monocytes # (A) 0.4 k/uL (0-1.0); Monocytes % (A) 5 %; Neutrophils % (A) 83 %; Platelet Count 215 k/uL (150-450); RBC 3.52 m/uL (3.80-5.40); RDW 15.3 % (11.5-15.5); WBC 8.4 k/uL (3.8-10.6)
[2018-05-06] MEDS: MONTELUKAST 10 MG TAB PO SCH (07:47)
[2018-05-06] MEDS: PANTOPRAZOLE 40 MG TABLET PO SCH (07:47)
[2018-05-06] MEDS: guaiFENesin 600 MG TABLET.ER PO SCH ×2 (07:47→21:43)
[2018-05-06] MEDS: HEPARIN SODIUM,PORCINE 5,000 UNIT/ML 1 ML VIAL SQ SCH ×2 (07:47→21:43)
[2018-05-06] MEDS: MULTIVITAMINS, THERA 1 EACH TAB PO SCH (07:47)
[2018-05-06] MEDS: ACYCLOVIR 200 MG CAP PO SCH ×2 (07:47→21:43)
[2018-05-06] MEDS: FUROSEMIDE 20 MG TAB PO SCH (07:47)
[2018-05-06] MEDS: POTASSIUM CHLORIDE ER 10 MEQ TAB.ER.PRT PO SCH (07:47)
[2018-05-06] MEDS: BENZONATATE 100 MG CAP PO SCH ×3 (07:47→21:43)
[2018-05-06] MEDS: DALIRESP 250 MCG PO SCH (07:48)
[2018-05-06 07:50] LABS: ALT 30 U/L (9-52); AST 16 U/L (14-36); Albumin 2.9 g/dL (3.5-5.0); Alkaline Phosphatase 63 U/L (38-126); Anion Gap 2 mmol/L; Blood Urea Nitrogen 18 mg/dL (7-17); Calcium 8.8 mg/dL (8.4-10.2); Carbon Dioxide 37 mmol/L (22-30); Chloride 100 mmol/L (98-107); Glucose 128 mg/dL (74-99); Sodium 139 mmol/L (137-145); Total Bilirubin 0.7 mg/dL (0.2-1.3); Total Protein 5.7 g/dL (6.3-8.2)
[2018-05-06] MEDS: BUDESONIDE 0.5 MG/2 ML NEBU INHALATION SCH ×2 (08:43→19:55)
[2018-05-06] MEDS: IPRATROPIUM-ALBUTEROL 3 ML NEB INHALATION SCH ×4 (08:43→19:55)
[2018-05-06 11:23] LABS: Glucose,Whole Blood 129 mg/dL (75-99)
[2018-05-06] MEDS: SODIUM CHLORIDE 0.9% 1,000 ML IV SCH (11:58)
[2018-05-06] MEDS ORDERED: FUROSEMIDE 10 MG/ML 2 ML VIAL IV ONE (12:58)
--- NOTE | 2018-05-06 13:26 | P.PN ---
Subjective Progress Note Date: 05/06/18 This is a 77-year-old female patient of Dr. Cortez. Patient presented to the emergency room with complaints of increased difficulty breathing and weakness. Patient was recently admitted and discharged personally 10 days ago for COPD and pneumonia in which she was discharged on prednisone and antibiotic. Patient states she was doing well until completion of medication when she started to decline again. Patient has significant past medical history for CAD , heart failure, COPD, GERD, hyperlipidemia and ex-smoker. 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 Per ED report patient was found to be in soiled brief. Chest x-ray completed showing increasing mild infiltrates at the lung bases compared to last exam. No heart failure seen. Infiltrate more on the right side. Dr. ERICA Rod has been consulted for pulmonary services. EKG showing normal sinus rhythm. Right bundle branch block. Initial lactic acid 2.6. Repeat lactic 1.6. Patient has been started on Levaquin IV antibiotics and Solu-Medrol IV steroids. Patient also started on bronchodilators. Patient reports that she does feel significantly improved already. This time patient denies chest pain or shortness breath. Patient denies nausea vomiting or diarrhea. Patient denies any urinary burning or frequency On 05/01/2018 patient is alert and oriented 3 currently sitting up on side of bed. Patient states she feels significantly improved from yesterday. IV antibiotics. Patient being followed by cardiology and pulmonary services. 2-D echo completed. At this time patient denies chest pain. Patient denies any nausea vomiting or diarrhea. Patient denies any urinary burning or frequency On 05/02/2018 patient is alert and oriented 3 sitting up in chair. Patient is still feeling improved. Patient remains on IV antibiotics and steroids time. Sputum culture growing Pseudomonas aeruginosa. Infectious disease is following. This time patient denies chest pain or shortness of breath. Patient denies nausea vomiting or diarrhea. Patient denies any urinary burning or frequency On 05/03/2018 patient is alert and oriented 3 sitting up in chair. Patient used to. Improved. Infectious disease following and has switched antibiotics based on cultures to IV in the. Patient remains on by mouth steroids at this time. At this time patient denies chest pain or shortness of breath. Patient denies nausea vomiting or diarrhea. Patient denies any urinary burning or frequency. Will consult social work to start discharge planning. Patient may need IV antibiotics per infectious disease recommendation On 05/04/2018 patient alert and oriented 3 sitting up in chair. Patient is still short of breath but is feeling slightly improved. Patient will need IV antibiotics upon discharge per infectious disease. Patient will be likely discharged on Monday home with Kris for IV antibiotics. At this time patient denies chest pain. Patient denies nausea vomiting or diarrhea. Patient denies any urinary burning or frequency. On 05/05/2018 patient is alert and oriented 3 in no apparent distress she is still having some cough and shortness of breath with activity otherwise she denies any complaints there is no fever or chills no headache or dizziness no chest pain no nausea or vomiting no abdominal pain no diarrhea and no urinary symptoms, she is still maintained on ceftazidime. On 05/06/2018 patient was seen and examined on the medical floor she is alert and oriented 3 she is complaining of worsening shortness of breath today she is still having cough otherwise she denies any complaints there is no fever or chills no headache or dizziness no chest pain no nausea or vomiting no abdominal pain no diarrhea or no urinary symptoms Objective - Vital Signs Vital signs: Vital Signs Temp 97.7 F 05/06/18 12:10 Pulse 82 05/06/18 12:10 Resp 17 05/06/18 12:10 BP 114/72 05/06/18 12:10 Pulse Ox 99 05/06/18 12:10 Intake & Output 05/05/18 05/06/18 05/06/18 18:59 06:59 18:59 Intake Total 550 1300 Output Total 800 Balance 550 500 Weight 78.6 kg Intake: Intake, IV Titration 100 80 Amount Sodium Chloride 0.9% 1, 80 000 ml @ 20 mls/hr IV . Q24H [facility] Rx#:[id number] cefTAZidime 2 gm In 100 Sodium Chloride 0.9% 100 ml @ 100 mls/hr IVPB Q8H [facility] Rx#:[id number] Oral 450 1220 Output: Urine 800 Other: Voiding Method Toilet Toilet Toilet Diaper Diaper Diaper # Voids 4 1 - Exam Head normocephalic and atraumatic Neck supple no JVD no goiter Lungs diminished bilaterally with scattered crackles in bases Heart regular rate and rhythm S1-S2, no rub or gallop Abdomen is soft nontender nondistended positive bowel sounds no hepatosplenomegaly Extremities no edema no cyanosis or clubbing Neuro alert and orientated to 3 - Labs CBC & Chem 7: 05/06/18 07:13 05/06/18 07:13 Labs: Abnormal Lab Results - Last 24 Hours (Table) 05/05/18 05/05/18 05/06/18 Range/Units 17:04 20:33 07:13 RBC 3.52 L (3.80-5.40) m/uL MCV 105.1 H (80.0-100.0) fL Lymphocytes # 0.8 L (1.0-4.8) k/uL Carbon Dioxide (22-30) mmol/L BUN (7-17) mg/dL Creatinine (0.52-1.04) mg/dL Glucose (74-99) mg/dL POC Glucose (mg/dL) 179 H 68 L (75-99) mg/dL Total Protein (6.3-8.2) g/dL Albumin (3.5-5.0) g/dL 05/06/18 05/06/18 05/06/18 Range/Units 07:13 07:13 11:22 RBC (3.80-5.40) m/uL MCV (80.0-100.0) fL Lymphocytes # (1.0-4.8) k/uL Carbon Dioxide 37 H (22-30) mmol/L BUN 18 H (7-17) mg/dL Creatinine 0.46 L (0.52-1.04) mg/dL Glucose 128 H (74-99) mg/dL POC Glucose (mg/dL) 129 H 129 H (75-99) mg/dL Total Protein 5.7 L (6.3-8.2) g/dL Albumin 2.9 L (3.5-5.0) g/dL Microbiology - Last 24 Hours (Table) 05/03/18 17:18 Blood Culture - Preliminary Blood No Growth after 48 hours Assessment and Plan Plan: 1. Pneumonia sputum culture positive for Pseudomonas heparin also. Patient started on IV Levaquin. Dr. ERICA Rod consulted for infectious disease. Chest x -ray completed showing increasing mild infiltrates at the lung bases compared to last exam. No heart failure seen. Infiltrate on the right side. Per Dr. Bonilla with infectious disease. Patient has been switched to Ceftazidime. Per infectious disease progress note patient will need IV cefepime 2 g every 12 hours for about 2 weeks to 10 days depending upon 2. COPD exacerbation. Patient started on IV Solu-Medrol. Dr. ERICA Rod has been consulted for pulmonary care. Patient has been switched over to by mouth prednisone per pulmonary 3. Acute on chronic hypoxic respiratory failure. Maintained on 2 L oxygen at home 4. History of coronary artery disease 5. History of GERD 6. History of hyperlipidemia 7. Mildly elevated troponin level. troponin 0.107, 0.083. 2-D echo completed showing EF of 55-60%. Per cardiology services elevated troponin likely secondary to supply demand mismatch related to severe COPD exacerbation and hypoxia. Possible outpatient stress test 8. Increased weakness. Will consult physical therapy and occupational therapy 9. Positive blood culture with micrococci species. Infectious disease is following. Infectious disease most likely contaminant repeat blood culture has been ordered no need for vancomycin at this time DVT prophylaxis heparin. GI prophylaxis Protonix Social work consult placed for DC planning. Patient may need IV antibiotics upon discharge Today with worsening shortness of breath patient was given 1 dose of IV Lasix will reassess later in the day Patient will most likely stay until Monday. Patient to get midline placed on Monday per infectious disease and DC'd with IV antibiotics
[2018-05-06] MEDS: ACETAMINOPHEN TAB 325 MG TAB PO PRN (17:05)
[2018-05-06 17:11] LABS: Glucose,Whole Blood 111 mg/dL (75-99)
--- NOTE | 2018-05-06 18:17 | PN ---
PROGRESS NOTE DATE OF SERVICE: 05/06/2018 She has been hemodynamically stable. She did not sleep well last night. She continues to have a cough. On physical examination, blood pressure is 114/72, respiratory rate of 17, pulse rate of 82, temperature 97.7, O2 saturation on 2 L by nasal cannula is 99%. HEENT reveals pupils that are equal. No jugular venous distention. Chest reveals decreased breath sounds, prolonged expiration. Cardiovascular system reveals an S1, S2. Abdomen is soft. There is no pedal edema. IMPRESSION: 1. Asthma with chronic obstructive pulmonary disease with acute exacerbation. 2. Pseudomonas aeruginosa positive sputum with the Pseudomonas being resistant to quinolones. Continue Fortaz and await final recommendations by ID. Continue bronchodilators. Consider systemic steroids if her cough and shortness of breath becomes worsened, but in view off Pseudomonas being present, we will try to see if we can hold off on systemic steroids. MMODL / IJN: [id number] /
[2018-05-06 19:52] LABS: Glucose,Whole Blood 158 mg/dL (75-99)
--- NOTE | 2018-05-06 23:49 | PN ---
PROGRESS NOTE DATE OF SERVICE: 05/06/2018. REASON FOR FOLLOWUP: Pseudomonas aeruginosa pneumonia. INTERVAL HISTORY: The patient is afebrile. She is breathing more comfortably. The patient's cough has decreased in intensity and is dry in nature. The patient denies having any chest pain. No nausea, no vomiting. No abdominal pain. No diarrhea. PHYSICAL EXAMINATION: Blood pressure is 134/68, with a pulse of 83, temperature 98.3. She is 93% on 3 L nasal cannula. General description is an elderly female up in the chair in no distress. Respiratory system: Unlabored breathing with decreased breath sounds in the base, with no wheeze. Heart S1, S2. Regular rate and rhythm. ABDOMEN: Soft. No tenderness. LABS: Hemoglobin 11.8, white count 8.4. BUN of 18, creatinine 0.43. DIAGNOSTIC IMPRESSION AND PLAN: Patient with Pseudomonas aeruginosa pneumonia for which the patient is currently covered with Fortaz, transition to cefepime 2 g every 12 hours for another seven to ten days depending on clinical response to get a mid line tomorrow. Continue supportive care. MMODL / IJN: [id number] /
[2018-05-07 07:18] LABS: Glucose,Whole Blood 103 mg/dL (75-99)
[2018-05-07] MEDS: INSULIN ASPART 100 UNIT/ML 1 ML 10 ML VIAL SQ SCH ×4 (07:26→21:49)
[2018-05-07 07:52] LABS: HCT 37.2 % (34.0-46.0); HGB 11.6 gm/dL (11.4-16.0); Hypochromasia Moderate; MCH 32.8 pg (25.0-35.0); MCHC 31.2 g/dL (31.0-37.0); MCV 105.1 fL (80.0-100.0); Macrocytosis Moderate; Mean Platelet Volume 7.8; Platelet Count 234 k/uL (150-450); RBC 3.54 m/uL (3.80-5.40); RDW 15.3 % (11.5-15.5); WBC 7.5 k/uL (3.8-10.6)
[2018-05-07] MEDS: HEPARIN SODIUM,PORCINE 5,000 UNIT/ML 1 ML VIAL SQ SCH ×2 (08:16→20:45)
[2018-05-07] MEDS: guaiFENesin 600 MG TABLET.ER PO SCH ×2 (08:16→20:45)
[2018-05-07] MEDS: MONTELUKAST 10 MG TAB PO SCH (08:16)
[2018-05-07] MEDS: ACYCLOVIR 200 MG CAP PO SCH ×2 (08:16→20:44)
[2018-05-07] MEDS: MULTIVITAMINS, THERA 1 EACH TAB PO SCH (08:16)
[2018-05-07] MEDS: PANTOPRAZOLE 40 MG TABLET PO SCH (08:17)
[2018-05-07] MEDS: POTASSIUM CHLORIDE ER 10 MEQ TAB.ER.PRT PO SCH (08:17)
[2018-05-07] MEDS: FUROSEMIDE 20 MG TAB PO SCH (08:18)
[2018-05-07] MEDS: DALIRESP 250 MCG PO SCH (08:18)
[2018-05-07] MEDS: BENZONATATE 100 MG CAP PO SCH ×3 (08:19→20:44)
[2018-05-07 08:20] LABS: ALT 35 U/L (9-52); AST 19 U/L (14-36); Albumin 2.9 g/dL (3.5-5.0); Alkaline Phosphatase 62 U/L (38-126); Anion Gap 3 mmol/L; Blood Urea Nitrogen 19 mg/dL (7-17); Calcium 8.9 mg/dL (8.4-10.2); Carbon Dioxide 39 mmol/L (22-30); Chloride 100 mmol/L (98-107); Glucose 99 mg/dL (74-99); Sodium 142 mmol/L (137-145); Total Bilirubin 0.7 mg/dL (0.2-1.3); Total Protein 5.6 g/dL (6.3-8.2)
[2018-05-07 08:24] LABS: Band Neutrophils % 3 %; Eosinophils # (M) 0.08 k/uL (0-0.7); Lymphocytes # (M) 1.13 k/uL (1.0-4.8); Metamyelocytes # (M) 0.15 k/uL (0); Metamyelocytes % 2 %; Monocytes # (M) 0.75 k/uL (0-1.0); Myelocytes # (M) 0.08 k/uL (0); Myelocytes % 1 %; Neutrophils % (M) 71 %; Nucleated Red Blood Cells 0 /100 WBC (0-0); Total Cells Counted 200
[2018-05-07] MEDS: BUDESONIDE 0.5 MG/2 ML NEBU INHALATION SCH ×2 (08:44→20:10)
[2018-05-07] MEDS: IPRATROPIUM-ALBUTEROL 3 ML NEB INHALATION SCH ×4 (08:45→20:10)
--- NOTE | 2018-05-07 10:04 | P.PN ---
Subjective Progress Note Date: 05/07/18 HPI: This is a 77-year-old female who presented to the emergency department with increasing shortness of breath for about 3-4 days duration. She had recently been admitted to the hospital for asthma with exacerbation and started to deteriorate after she went home. She was treated with antibiotics and steroids by her primary care physician and when she office. She started to get worse. She subsequently was seen in the ER and admitted for further evaluation and management. She does have a past medical history for chronic severe asthma , COPD, CAD, CHF, GERD and hyperlipidemia. She is ex-smoker Interval history: 05/01/2018patient is being seen examined and evaluated today on rounds. She is resting up in bed on 2 L of supplemental oxygen via nasal cannula which is what she wears at home as well. Her chest x-ray is reviewed and does show infiltrates in the bilateral lung bases. She does have a cough with occasional wheeze. Sputum is clear. Echocardiogram is pending. She does feel like her breathing is better today compared to yesterday. All labs and reports have been reviewed. 05/02/2018: Patient seen and examined. Patient states she is starting to feel better. She denies chest pain. She states she did get short of breath when she ambulated to the bathroom this morning. Per nursing her oxygen saturation decreased to 84% with ambulation. The patient denies fevers and chills. She states she still has an occasional cough. 05/03/2018patient is being seen examined and evaluated today on rounds. She continues to slowly feel better. She does continue to complain of weakness. She does have an occasional wheeze and occasional cough. Her sputum is growing Pseudomonas. Infectious diseases adjusting antibiotics. It does appear that the pathogen will require IV antibiotics at this time. And she will be going for a PICC line. She is afebrile no further complaints. 05/04/18- patient is being seen examined and evaluated today on rounds. Patient states she feels relatively the same as yesterday. She continues to have some weakness. Continues to have her cough which is congested however she is unable to bring up any sputum. She does have the occasional wheezes well. The patient is supposed to go for a PICC line hopefully today. Her blood cultures came back positive however this is likely contamination per infectious disease. All labs and reports reviewed. Breathing treatments are helping her. 05/07/18- patient is being seen examined and evaluated today on rounds. She is resting up in bed on 2 L of supplemental oxygen via nasal cannula. She does get short of breath with exertion and activity. She continues to have a cough that has been nonproductive. She continues to have occasional wheeze. The patient will be getting a PICC line today for home IV antibiotics for her Pseudomonas pneumonia. She does not feel like she is at her baseline. All labs and reports reviewed. Objective - Vital Signs Vital signs: Vital Signs Temp 97.9 F 05/07/18 05:00 Pulse 92 05/07/18 09:03 Resp 16 05/07/18 05:00 BP 106/66 05/07/18 05:00 Pulse Ox 96 05/07/18 05:00 Intake & Output 05/06/18 05/07/18 05/07/18 18:59 06:59 18:59 Intake Total 580 480 240 Balance 580 480 240 Intake: Intake, IV Titration 180 Amount Sodium Chloride 0.9% 1, 80 000 ml @ 20 mls/hr IV . Q24H [facility] Rx#:[id number] cefTAZidime 2 gm In 100 Sodium Chloride 0.9% 100 ml @ 100 mls/hr IVPB Q8H [facility] Rx#:[id number] Oral 400 480 240 Other: Voiding Method Toilet Toilet Toilet Diaper Diaper Diaper # Voids 2 2 - Exam GENERAL EXAM: Alert, comfortable in no apparent distress. HEAD: Normocephalic. EYES: Normal reaction of pupils, equal size. NOSE: Clear with pink turbinates. THROAT: No erythema or exudates. NECK: No masses, no JVD. CHEST: No chest wall deformity. LUNGS: Lungs noted to have some diminished breath sounds with an occasional expiratory wheeze. congested cough CVS: S1 and S2 normal with no audible mumurs, regular rhythm. ABDOMEN: No hepatosplenomegaly, normal bowel sounds, no guarding or rigidity. EXTREMITIES: no edema noted, pedal pulses palpable. CENTRAL NERVOUS SYSTEM: No focal deficits, tone is normal in all 4 extremities. - Labs CBC & Chem 7: 05/07/18 06:51 05/07/18 06:51 Labs: Abnormal Lab Results - Last 24 Hours (Table) 05/06/18 05/06/18 05/06/18 Range/Units 11:22 17:10 19:51 RBC (3.80-5.40) m/uL MCV (80.0-100.0) fL Metamyelocytes # (Man) (0) k/uL Myelocytes # (Manual) (0) k/uL Carbon Dioxide (22-30) mmol/L BUN (7-17) mg/dL Creatinine (0.52-1.04) mg/dL POC Glucose (mg/dL) 129 H 111 H 158 H (75-99) mg/dL Total Protein (6.3-8.2) g/dL Albumin (3.5-5.0) g/dL 05/07/18 05/07/18 05/07/18 Range/Units 06:51 06:51 07:16 RBC 3.54 L (3.80-5.40) m/uL MCV 105.1 H (80.0-100.0) fL Metamyelocytes # (Man) 0.15 H (0) k/uL Myelocytes # (Manual) 0.08 H (0) k/uL Carbon Dioxide 39 H (22-30) mmol/L BUN 19 H (7-17) mg/dL Creatinine 0.48 L (0.52-1.04) mg/dL POC Glucose (mg/dL) 103 H (75-99) mg/dL Total Protein 5.6 L (6.3-8.2) g/dL Albumin 2.9 L (3.5-5.0) g/dL Microbiology - Last 24 Hours (Table) 05/03/18 17:18 Blood Culture - Preliminary Blood No Growth after 72 hours Assessment and Plan Assessment: Assessment Acute on chronic hypoxic respiratory failure requiring supplemental oxygen Acute exacerbation of moderate persistent asthma Acute exacerbation of COPD Bibasilar community-acquired pneumonia, Pseudomonas Bicytopenia Moderate protein calorie malnutrition 5 mm low-density nodule subpleural left lateral lung field Plan Medications have been reviewed and will be continued as ordered. Continue with antibiotics Infectious disease on consult and adjusting antibiotics Patient does require a PICC line for IV therapy CT of the chest does show right lower lobe pneumonia, COPD mild pulmonary fibrotic changes and a 5 mm low density nodule in the subpleural left lateral lung field. Sputum culture growing Pseudomonas Continue with pulmonary hygiene, coughing and deep breathing exercises, and supportive care. Supplemental oxygen to maintain oxygen saturations of 92% or better. Continue with incentive spirometer and flutter valve. Patient will require home oxygen assessment prior to discharge Continue nebulizer treatments. GI and DVT prophylaxis. We will continue to monitor labs/results and adjust treatment as necessary. Further recommendations pending. I, the signing physician performed an examination of the patient, discussed and directed their management with the nurse practitioner. I have reviewed the nurse practitioner's note and agree with the documented findings, orders and plan of care. Nurse practitioner acting as a scribe for the signing physician.
--- NOTE | 2018-05-07 10:17 | P.PN ---
Subjective Progress Note Date: 05/07/18 This is a 77-year-old female patient of Dr. Cortez. Patient presented to the emergency room with complaints of increased difficulty breathing and weakness. Patient was recently admitted and discharged personally 10 days ago for COPD and pneumonia in which she was discharged on prednisone and antibiotic. Patient states she was doing well until completion of medication when she started to decline again. Patient has significant past medical history for CAD , heart failure, COPD, GERD, hyperlipidemia and ex-smoker. 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 Per ED report patient was found to be in soiled brief. Chest x-ray completed showing increasing mild infiltrates at the lung bases compared to last exam. No heart failure seen. Infiltrate more on the right side. Dr. ERICA Rod has been consulted for pulmonary services. EKG showing normal sinus rhythm. Right bundle branch block. Initial lactic acid 2.6. Repeat lactic 1.6. Patient has been started on Levaquin IV antibiotics and Solu-Medrol IV steroids. Patient also started on bronchodilators. Patient reports that she does feel significantly improved already. This time patient denies chest pain or shortness breath. Patient denies nausea vomiting or diarrhea. Patient denies any urinary burning or frequency On 05/01/2018 patient is alert and oriented 3 currently sitting up on side of bed. Patient states she feels significantly improved from yesterday. IV antibiotics. Patient being followed by cardiology and pulmonary services. 2-D echo completed. At this time patient denies chest pain. Patient denies any nausea vomiting or diarrhea. Patient denies any urinary burning or frequency On 05/02/2018 patient is alert and oriented 3 sitting up in chair. Patient is still feeling improved. Patient remains on IV antibiotics and steroids time. Sputum culture growing Pseudomonas aeruginosa. Infectious disease is following. This time patient denies chest pain or shortness of breath. Patient denies nausea vomiting or diarrhea. Patient denies any urinary burning or frequency On 05/03/2018 patient is alert and oriented 3 sitting up in chair. Patient used to. Improved. Infectious disease following and has switched antibiotics based on cultures to IV in the. Patient remains on by mouth steroids at this time. At this time patient denies chest pain or shortness of breath. Patient denies nausea vomiting or diarrhea. Patient denies any urinary burning or frequency. Will consult social work to start discharge planning. Patient may need IV antibiotics per infectious disease recommendation On 05/04/2018 patient alert and oriented 3 sitting up in chair. Patient is still short of breath but is feeling slightly improved. Patient will need IV antibiotics upon discharge per infectious disease. Patient will be likely discharged on Monday home with midline and [facility] for IV antibiotics. At this time patient denies chest pain. Patient denies nausea vomiting or diarrhea. Patient denies any urinary burning or frequency. On 05/05/2018 patient is alert and oriented 3 in no apparent distress she is still having some cough and shortness of breath with activity otherwise she denies any complaints there is no fever or chills no headache or dizziness no chest pain no nausea or vomiting no abdominal pain no diarrhea and no urinary symptoms, she is still maintained on ceftazidime. On 05/06/2018 patient was seen and examined on the medical floor she is alert and oriented 3 she is complaining of worsening shortness of breath today she is still having cough otherwise she denies any complaints there is no fever or chills no headache or dizziness no chest pain no nausea or vomiting no abdominal pain no diarrhea or no urinary symptoms 05/07/2018 patient is scheduled for midline placement for her IV antibiotics. Patient reports that she does not feel ready for discharge. Still having cough. Denies any chest pain. Denies any nausea or vomiting. Reports having bowel movements. Denies any difficulty urinating. Patient was given 1 dose of IV Lasix yesterday. Improvement in her shortness of breath Objective - Vital Signs Vital signs: Vital Signs Temp 97.9 F 05/07/18 05:00 Pulse 92 05/07/18 09:03 Resp 16 05/07/18 05:00 BP 106/66 05/07/18 05:00 Pulse Ox 96 05/07/18 05:00 Intake & Output 05/06/18 05/07/18 05/07/18 18:59 06:59 18:59 Intake Total 580 480 240 Balance 580 480 240 Intake: Intake, IV Titration 180 Amount Sodium Chloride 0.9% 1, 80 000 ml @ 20 mls/hr IV . Q24H [facility] Rx#:[id number] cefTAZidime 2 gm In 100 Sodium Chloride 0.9% 100 ml @ 100 mls/hr IVPB Q8H [facility] Rx#:[id number] Oral 400 480 240 Other: Voiding Method Toilet Toilet Toilet Diaper Diaper Diaper # Voids 2 2 - Exam Head normocephalic Neck supple Lungs diminished bilaterally with a few coarse breath sounds Heart regular rate and rhythm S1-S2, no rub or gallop Abdomen is soft nontender nondistended positive bowel sounds no hepatosplenomegaly Extremities no edema Neuro alert and orientated to 3 - Labs CBC & Chem 7: 05/07/18 06:51 05/07/18 06:51 Labs: Abnormal Lab Results - Last 24 Hours (Table) 05/06/18 05/06/18 05/06/18 Range/Units 11:22 17:10 19:51 RBC (3.80-5.40) m/uL MCV (80.0-100.0) fL Metamyelocytes # (Man) (0) k/uL Myelocytes # (Manual) (0) k/uL Carbon Dioxide (22-30) mmol/L BUN (7-17) mg/dL Creatinine (0.52-1.04) mg/dL POC Glucose (mg/dL) 129 H 111 H 158 H (75-99) mg/dL Total Protein (6.3-8.2) g/dL Albumin (3.5-5.0) g/dL 05/07/18 05/07/18 05/07/18 Range/Units 06:51 06:51 07:16 RBC 3.54 L (3.80-5.40) m/uL MCV 105.1 H (80.0-100.0) fL Metamyelocytes # (Man) 0.15 H (0) k/uL Myelocytes # (Manual) 0.08 H (0) k/uL Carbon Dioxide 39 H (22-30) mmol/L BUN 19 H (7-17) mg/dL Creatinine 0.48 L (0.52-1.04) mg/dL POC Glucose (mg/dL) 103 H (75-99) mg/dL Total Protein 5.6 L (6.3-8.2) g/dL Albumin 2.9 L (3.5-5.0) g/dL Microbiology - Last 24 Hours (Table) 05/03/18 17:18 Blood Culture - Preliminary Blood No Growth after 72 hours Assessment and Plan Assessment: 1. Pseudomonas pneumonia: Patient scheduled for mid line placement today. Per infectious disease progress note patient will need IV cefepime 2 g every 12 hours for about 7 to 10 days 2. COPD exacerbation. Pulmonary following continue oral prednisone 3. Acute on chronic hypoxic respiratory failure. Maintained on 2 L oxygen at home 4. History of coronary artery disease 5. History of GERD 6. History of hyperlipidemia 7. Mildly elevated troponin level. troponin 0.107, 0.083. 2-D echo completed showing EF of 55-60%. Per cardiology services elevated troponin likely secondary to supply demand mismatch related to severe COPD exacerbation and hypoxia. Possible outpatient stress test 8. Increased weakness. Will consult physical therapy and occupational therapy 9. Positive blood culture with micrococci species. Infectious disease is following. Infectious disease most likely contaminant repeat blood culture is negative DVT prophylaxis heparin. GI prophylaxis Protonix Continue physical therapy Encourage patient to increase activity Possible discharge tomorrow I performed an examination of the patient and discussed their management with the physician [employer] Consultant. I have reviewed the Physician [employer] Consultant's notes and agree with the documented findings and plan of care
[2018-05-07 10:19] VITALS: BMI 32.7
[2018-05-07 12:03] LABS: Glucose,Whole Blood 104 mg/dL (75-99)
[2018-05-07] MEDS: SODIUM CHLORIDE 0.9% 1,000 ML IV SCH (14:44)
--- NOTE | 2018-05-07 16:06 | PN ---
PROGRESS NOTE DATE OF SERVICE: 05/07/2018. REASON FOR FOLLOWUP: Pseudomonas aeruginosa pneumonia. INTERVAL HISTORY: The patient is currently afebrile. She is breathing comfortably. The patient's cough has decreased in intensity and is less productive now. No nausea, no vomiting. No abdominal pain. No diarrhea. PHYSICAL EXAMINATION: Blood pressure is 116/73 with a pulse of 92, temperature 98.1. She is 92% on 3 L nasal cannula. General description is an elderly female up in the chair in no distress. RESPIRATORY SYSTEM: Unlabored breathing. Clear to auscultation anteriorly. HEART: S1, S2. Regular rate and rhythm. ABDOMEN: Soft. No tenderness. LABS: Hemoglobin 11.3, white count 7.5. BUN of 19, creatinine 0.48. DIAGNOSTIC IMPRESSION AND PLAN: Patient with Pseudomonas aeruginosa pneumonia in this patient with underlying chronic obstructive pulmonary disease exacerbation. Patient currently on Fortaz. Transition to oral IV cefepime to finish course of therapy. Prescription provided to the pharmacy. Continue supportive care. MMODL / IJN: [id number] /
[2018-05-07 17:15] LABS: Glucose,Whole Blood 94 mg/dL (75-99)
[2018-05-07] MEDS: ACETAMINOPHEN TAB 325 MG TAB PO PRN (19:24)
[2018-05-07 21:07] LABS: Glucose,Whole Blood 191 mg/dL (75-99)
[2018-05-08 07:15] LABS: Glucose,Whole Blood 92 mg/dL (75-99)
[2018-05-08 08:04] LABS: ALT 42 U/L (9-52); AST 31 U/L (14-36); Alkaline Phosphatase 62 U/L (38-126); Anion Gap 1 mmol/L; Blood Urea Nitrogen 21 mg/dL (7-17); Carbon Dioxide 37 mmol/L (22-30); Chloride 101 mmol/L (98-107); Glucose 97 mg/dL (74-99); Potassium 4.2 mmol/L (3.5-5.1); Sodium 139 mmol/L (137-145); Total Bilirubin 0.7 mg/dL (0.2-1.3); Total Protein 5.8 g/dL (6.3-8.2)
[2018-05-08 08:12] LABS: Basophils % (A) 0 %; Eosinophils # (A) 0.1 k/uL (0-0.7); Eosinophils % (A) 2 %; HCT 37.5 % (34.0-46.0); HGB 11.5 gm/dL (11.4-16.0); Hypochromasia Moderate; Lymphocytes # (A) 0.7 k/uL (1.0-4.8); Lymphocytes % (A) 12 %; MCH 32.4 pg (25.0-35.0); MCHC 30.7 g/dL (31.0-37.0); MCV 105.5 fL (80.0-100.0); Macrocytosis Moderate; Mean Platelet Volume 7.7; Monocytes # (A) 0.5 k/uL (0-1.0); Monocytes % (A) 8 %; Neutrophils # (A) 4.7 k/uL (1.3-7.7); Neutrophils % (A) 77 %; Platelet Count 226 k/uL (150-450); RBC 3.55 m/uL (3.80-5.40); RDW 15.5 % (11.5-15.5); WBC 6.1 k/uL (3.8-10.6)
[2018-05-08] MEDS: BUDESONIDE 0.5 MG/2 ML NEBU INHALATION SCH ×2 (08:29→20:53)
[2018-05-08] MEDS: IPRATROPIUM-ALBUTEROL 3 ML NEB INHALATION SCH ×4 (08:29→20:53)
[2018-05-08] MEDS: INSULIN ASPART 100 UNIT/ML 1 ML 10 ML VIAL SQ SCH ×4 (08:31→21:22)
[2018-05-08] MEDS: ACYCLOVIR 200 MG CAP PO SCH ×2 (08:44→21:27)
[2018-05-08] MEDS: PANTOPRAZOLE 40 MG TABLET PO SCH (08:44)
[2018-05-08] MEDS: BENZONATATE 100 MG CAP PO SCH ×3 (08:44→21:27)
[2018-05-08] MEDS: FUROSEMIDE 20 MG TAB PO SCH (08:45)
[2018-05-08] MEDS: HEPARIN SODIUM,PORCINE 5,000 UNIT/ML 1 ML VIAL SQ SCH ×2 (08:45→21:27)
[2018-05-08] MEDS: MONTELUKAST 10 MG TAB PO SCH (08:45)
[2018-05-08] MEDS: MULTIVITAMINS, THERA 1 EACH TAB PO SCH (08:45)
[2018-05-08] MEDS: guaiFENesin 600 MG TABLET.ER PO SCH ×2 (08:45→21:27)
[2018-05-08] MEDS: POTASSIUM CHLORIDE ER 10 MEQ TAB.ER.PRT PO SCH (08:46)
[2018-05-08] MEDS: DALIRESP 250 MCG PO SCH (08:50)
--- NOTE | 2018-05-08 09:43 | P.PN ---
Subjective Progress Note Date: 05/08/18 HPI: This is a 77-year-old female who presented to the emergency department with increasing shortness of breath for about 3-4 days duration. She had recently been admitted to the hospital for asthma with exacerbation and started to deteriorate after she went home. She was treated with antibiotics and steroids by her primary care physician and when she office. She started to get worse. She subsequently was seen in the ER and admitted for further evaluation and management. She does have a past medical history for chronic severe asthma , COPD, CAD, CHF, GERD and hyperlipidemia. She is ex-smoker Interval history: 05/01/2018patient is being seen examined and evaluated today on rounds. She is resting up in bed on 2 L of supplemental oxygen via nasal cannula which is what she wears at home as well. Her chest x-ray is reviewed and does show infiltrates in the bilateral lung bases. She does have a cough with occasional wheeze. Sputum is clear. Echocardiogram is pending. She does feel like her breathing is better today compared to yesterday. All labs and reports have been reviewed. 05/02/2018: Patient seen and examined. Patient states she is starting to feel better. She denies chest pain. She states she did get short of breath when she ambulated to the bathroom this morning. Per nursing her oxygen saturation decreased to 84% with ambulation. The patient denies fevers and chills. She states she still has an occasional cough. 05/03/2018patient is being seen examined and evaluated today on rounds. She continues to slowly feel better. She does continue to complain of weakness. She does have an occasional wheeze and occasional cough. Her sputum is growing Pseudomonas. Infectious diseases adjusting antibiotics. It does appear that the pathogen will require IV antibiotics at this time. And she will be going for a PICC line. She is afebrile no further complaints. 05/04/18- patient is being seen examined and evaluated today on rounds. Patient states she feels relatively the same as yesterday. She continues to have some weakness. Continues to have her cough which is congested however she is unable to bring up any sputum. She does have the occasional wheezes well. The patient is supposed to go for a PICC line hopefully today. Her blood cultures came back positive however this is likely contamination per infectious disease. All labs and reports reviewed. Breathing treatments are helping her. 05/07/18- patient is being seen examined and evaluated today on rounds. She is resting up in bed on 2 L of supplemental oxygen via nasal cannula. She does get short of breath with exertion and activity. She continues to have a cough that has been nonproductive. She continues to have occasional wheeze. The patient will be getting a PICC line today for home IV antibiotics for her Pseudomonas pneumonia. She does not feel like she is at her baseline. All labs and reports reviewed. 05/08/18- patient is being seen examined and evaluated today on rounds. She is resting up in bed on 2 L of supplemental oxygen which is what she wears at home. She did receive her PICC line placement yesterday. Infectious disease has recommended cefepime upon discharge. She feels her breathing is improved. Does have occasional shortness of breath with exertion and activity however that is improving as well. She is afebrile no further complaints Objective - Vital Signs Vital signs: Vital Signs Temp 98.1 F 05/08/18 05:00 Pulse 84 05/08/18 09:13 Resp 17 05/08/18 05:00 BP 121/85 05/08/18 05:00 Pulse Ox 92 L 05/08/18 05:00 Intake & Output 05/07/18 05/08/18 05/08/18 18:59 06:59 18:59 Intake Total 240 960 Balance 240 960 Weight 78.6 kg 77.6 kg Intake: Intake, IV Titration 300 Amount Sodium Chloride 0.9% 1, 100 000 ml @ 20 mls/hr IV . Q24H [facility] Rx#:[id number] cefTAZidime 2 gm In 200 Sodium Chloride 0.9% 100 ml @ 100 mls/hr IVPB Q8H [facility] Rx#:[id number] Oral 240 660 Other: Voiding Method Diaper Diaper Diaper # Voids 3 2 - Exam GENERAL EXAM: Alert, comfortable in no apparent distress. HEAD: Normocephalic. EYES: Normal reaction of pupils, equal size. NOSE: Clear with pink turbinates. THROAT: No erythema or exudates. NECK: No masses, no JVD. CHEST: No chest wall deformity. LUNGS: Lungs noted to have some diminished breath sounds with an occasional expiratory wheeze. congested cough CVS: S1 and S2 normal with no audible mumurs, regular rhythm. ABDOMEN: No hepatosplenomegaly, normal bowel sounds, no guarding or rigidity. EXTREMITIES: no edema noted, pedal pulses palpable. CENTRAL NERVOUS SYSTEM: No focal deficits, tone is normal in all 4 extremities. - Labs CBC & Chem 7: 05/08/18 06:54 05/08/18 06:54 Labs: Abnormal Lab Results - Last 24 Hours (Table) 05/07/18 05/07/18 05/08/18 Range/Units 12:02 20:19 06:54 RBC 3.55 L (3.80-5.40) m/uL MCV 105.5 H (80.0-100.0) fL MCHC 30.7 L (31.0-37.0) g/dL Lymphocytes # 0.7 L (1.0-4.8) k/uL Carbon Dioxide (22-30) mmol/L BUN (7-17) mg/dL Creatinine (0.52-1.04) mg/dL POC Glucose (mg/dL) 104 H 191 H (75-99) mg/dL Total Protein (6.3-8.2) g/dL Albumin (3.5-5.0) g/dL 05/08/18 Range/Units 06:54 RBC (3.80-5.40) m/uL MCV (80.0-100.0) fL MCHC (31.0-37.0) g/dL Lymphocytes # (1.0-4.8) k/uL Carbon Dioxide 37 H (22-30) mmol/L BUN 21 H (7-17) mg/dL Creatinine 0.45 L (0.52-1.04) mg/dL POC Glucose (mg/dL) (75-99) mg/dL Total Protein 5.8 L (6.3-8.2) g/dL Albumin 3.0 L (3.5-5.0) g/dL Microbiology - Last 24 Hours (Table) 05/03/18 17:18 Blood Culture - Preliminary Blood No Growth after 96 hours Assessment and Plan Assessment: Assessment Acute on chronic hypoxic respiratory failure requiring supplemental oxygen Acute exacerbation of moderate persistent asthma Acute exacerbation of COPD Bibasilar community-acquired pneumonia, Pseudomonas Bicytopenia Moderate protein calorie malnutrition 5 mm low-density nodule subpleural left lateral lung field Plan Patient is cleared from pulmonary standpoint for discharge Medications have been reviewed and will be continued as ordered. Continue with antibiotics Infectious disease on consult and adjusting antibiotics Patient has PICC line for IV therapy CT of the chest does show right lower lobe pneumonia, COPD mild pulmonary fibrotic changes and a 5 mm low density nodule in the subpleural left lateral lung field. Sputum culture growing Pseudomonas Continue with pulmonary hygiene, coughing and deep breathing exercises, and supportive care. Supplemental oxygen to maintain oxygen saturations of 92% or better. Continue with incentive spirometer and flutter valve. Patient will require home oxygen assessment prior to discharge Continue nebulizer treatments. GI and DVT prophylaxis. We will continue to monitor labs/results and adjust treatment as necessary. Further recommendations pending. I, the signing physician performed an examination of the patient, discussed and directed their management with the nurse practitioner. I have reviewed the nurse practitioner's note and agree with the documented findings, orders and plan of care. Nurse practitioner acting as a scribe for the signing physician.
--- NOTE | 2018-05-08 10:25 | P.PN ---
Subjective Progress Note Date: 05/08/18 This is a 77-year-old female patient of Dr. Cortez. Patient presented to the emergency room with complaints of increased difficulty breathing and weakness. Patient was recently admitted and discharged personally 10 days ago for COPD and pneumonia in which she was discharged on prednisone and antibiotic. Patient states she was doing well until completion of medication when she started to decline again. Patient has significant past medical history for CAD , heart failure, COPD, GERD, hyperlipidemia and ex-smoker. 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 Per ED report patient was found to be in soiled brief. Chest x-ray completed showing increasing mild infiltrates at the lung bases compared to last exam. No heart failure seen. Infiltrate more on the right side. Dr. ERICA Rod has been consulted for pulmonary services. EKG showing normal sinus rhythm. Right bundle branch block. Initial lactic acid 2.6. Repeat lactic 1.6. Patient has been started on Levaquin IV antibiotics and Solu-Medrol IV steroids. Patient also started on bronchodilators. Patient reports that she does feel significantly improved already. This time patient denies chest pain or shortness breath. Patient denies nausea vomiting or diarrhea. Patient denies any urinary burning or frequency On 05/01/2018 patient is alert and oriented 3 currently sitting up on side of bed. Patient states she feels significantly improved from yesterday. IV antibiotics. Patient being followed by cardiology and pulmonary services. 2-D echo completed. At this time patient denies chest pain. Patient denies any nausea vomiting or diarrhea. Patient denies any urinary burning or frequency On 05/02/2018 patient is alert and oriented 3 sitting up in chair. Patient is still feeling improved. Patient remains on IV antibiotics and steroids time. Sputum culture growing Pseudomonas aeruginosa. Infectious disease is following. This time patient denies chest pain or shortness of breath. Patient denies nausea vomiting or diarrhea. Patient denies any urinary burning or frequency On 05/03/2018 patient is alert and oriented 3 sitting up in chair. Patient used to. Improved. Infectious disease following and has switched antibiotics based on cultures to IV in the. Patient remains on by mouth steroids at this time. At this time patient denies chest pain or shortness of breath. Patient denies nausea vomiting or diarrhea. Patient denies any urinary burning or frequency. Will consult social work to start discharge planning. Patient may need IV antibiotics per infectious disease recommendation On 05/04/2018 patient alert and oriented 3 sitting up in chair. Patient is still short of breath but is feeling slightly improved. Patient will need IV antibiotics upon discharge per infectious disease. Patient will be likely discharged on Monday home with midline and [facility] for IV antibiotics. At this time patient denies chest pain. Patient denies nausea vomiting or diarrhea. Patient denies any urinary burning or frequency. On 05/05/2018 patient is alert and oriented 3 in no apparent distress she is still having some cough and shortness of breath with activity otherwise she denies any complaints there is no fever or chills no headache or dizziness no chest pain no nausea or vomiting no abdominal pain no diarrhea and no urinary symptoms, she is still maintained on ceftazidime. On 05/06/2018 patient was seen and examined on the medical floor she is alert and oriented 3 she is complaining of worsening shortness of breath today she is still having cough otherwise she denies any complaints there is no fever or chills no headache or dizziness no chest pain no nausea or vomiting no abdominal pain no diarrhea or no urinary symptoms 05/07/2018 patient is scheduled for midline placement for her IV antibiotics. Patient reports that she does not feel ready for discharge. Still having cough. Denies any chest pain. Denies any nausea or vomiting. Reports having bowel movements. Denies any difficulty urinating. Patient was given 1 dose of IV Lasix yesterday. Improvement in her shortness of breath 05/08/18 Patient is status post midline placement. She does not feel ready for discharge. She still has cough and SOB after walking. Patient denies any chest pain. Denies any nausea or vomiting. Reports 2 days since last bowel movement. Denies any burning with urination. Patient has been cleared by pulmonary service for discharge. Infectious disease has a written prescription for the cefepime Objective - Vital Signs Vital signs: Vital Signs Temp 98.1 F 05/08/18 05:00 Pulse 84 05/08/18 09:13 Resp 17 05/08/18 05:00 BP 121/85 05/08/18 05:00 Pulse Ox 92 L 05/08/18 05:00 Intake & Output 05/07/18 05/08/18 05/08/18 18:59 06:59 18:59 Intake Total 240 960 Balance 240 960 Weight 78.6 kg 77.6 kg Intake: Intake, IV Titration 300 Amount Sodium Chloride 0.9% 1, 100 000 ml @ 20 mls/hr IV . Q24H [facility] Rx#:[id number] cefTAZidime 2 gm In 200 Sodium Chloride 0.9% 100 ml @ 100 mls/hr IVPB Q8H [facility] Rx#:[id number] Oral 240 660 Other: Voiding Method Diaper Diaper Diaper # Voids 3 2 - Exam Head normocephalic Neck supple Lungs diminished bilaterally with a few coarse breath sounds Heart regular rate and rhythm S1-S2, no rub or gallop Abdomen is soft nontender nondistended positive bowel sounds no hepatosplenomegaly Extremities no edema Neuro alert and orientated to 3 - Labs CBC & Chem 7: 05/08/18 06:54 05/08/18 06:54 Labs: Abnormal Lab Results - Last 24 Hours (Table) 05/07/18 05/07/18 05/08/18 Range/Units 12:02 20:19 06:54 RBC 3.55 L (3.80-5.40) m/uL MCV 105.5 H (80.0-100.0) fL MCHC 30.7 L (31.0-37.0) g/dL Lymphocytes # 0.7 L (1.0-4.8) k/uL Carbon Dioxide (22-30) mmol/L BUN (7-17) mg/dL Creatinine (0.52-1.04) mg/dL POC Glucose (mg/dL) 104 H 191 H (75-99) mg/dL Total Protein (6.3-8.2) g/dL Albumin (3.5-5.0) g/dL 05/08/18 Range/Units 06:54 RBC (3.80-5.40) m/uL MCV (80.0-100.0) fL MCHC (31.0-37.0) g/dL Lymphocytes # (1.0-4.8) k/uL Carbon Dioxide 37 H (22-30) mmol/L BUN 21 H (7-17) mg/dL Creatinine 0.45 L (0.52-1.04) mg/dL POC Glucose (mg/dL) (75-99) mg/dL Total Protein 5.8 L (6.3-8.2) g/dL Albumin 3.0 L (3.5-5.0) g/dL Microbiology - Last 24 Hours (Table) 05/03/18 17:18 Blood Culture - Preliminary Blood No Growth after 96 hours Assessment and Plan Assessment: 1. Pseudomonas pneumonia: Patient is status post midline placement. Per infectious disease progress note patient will need IV cefepime 2 g every 12 hours for about 7 to 10 days . Prescription written per ID. 2. COPD exacerbation. Pulmonary following continue oral prednisone 3. Acute on chronic hypoxic respiratory failure. Maintained on 2 L oxygen at home 4. History of coronary artery disease 5. History of GERD 6. History of hyperlipidemia 7. Mildly elevated troponin level. troponin 0.107, 0.083. 2-D echo completed showing EF of 55-60%. Per cardiology services elevated troponin likely secondary to supply demand mismatch related to severe COPD exacerbation and hypoxia. Possible outpatient stress test 8. Increased weakness. Will consult physical therapy and occupational therapy 9. Positive blood culture with micrococci species. Infectious disease is following. Infectious disease most likely contaminant repeat blood culture is negative DVT prophylaxis heparin. GI prophylaxis Protonix Continue physical therapy Encourage patient to increase activity Possible discharge home with home care tomorrow I performed an examination of the patient and discussed their management with the physician Clinical Trainer. I have reviewed the Physician Clinical Trainer's notes and agree with the documented findings and plan of care
[2018-05-08 11:09] LABS: Glucose,Whole Blood 127 mg/dL (75-99)
[2018-05-08] MEDS: SODIUM CHLORIDE 0.9% 1,000 ML IV SCH (15:19)
[2018-05-08 17:13] LABS: Glucose,Whole Blood 81 mg/dL (75-99)
[2018-05-08 20:36] LABS: Glucose,Whole Blood 126 mg/dL (75-99)
[2018-05-08] MEDS: ALBUTEROL NEBULIZED 2.5 MG/3 ML INHALATION PRN (23:49)
[2018-05-08] MEDS ORDERED: PANTOPRAZOLE 40 MG TABLET PO STA (23:50)
--- NOTE | 2018-05-09 01:22 | PN ---
PROGRESS NOTE DATE OF SERVICE: 05/08/2018. REASON FOR FOLLOWUP: Pseudomonas aeruginosa pneumonia. INTERVAL HISTORY: The patient is afebrile. She is breathing comfortably. However, the patient did mention she had is not going home before. No chest pain. Did have a cough: Not bringing up any sputum. No nausea, no vomiting. No abdominal pain. No diarrhea. PHYSICAL EXAMINATION: Blood pressure is 126/73 with a pulse of 85, temperature 98.4 she is 94% on 2 L nasal cannula. General description is an elderly female up in the chair in no distress. Respiratory system: Unlabored breathing has clear to auscultation anteriorly heart S1, S2. Regular rate and rhythm. ABDOMEN: Soft, no tenderness. LABS: Hemoglobin 11.5, white count 6.1 BUN of 21, creatinine 0.5. DIAGNOSTIC IMPRESSION AND PLAN: Patient with a sodium the surgeon is pneumonia for the patient which the patient will continue on Fortaz transition to cefepime for another week on discharge. The plan is to 2 week course of therapy. Continue supportive care. MMODL / IJN: [id number] /
[2018-05-09 06:49] LABS: Glucose,Whole Blood 93 mg/dL (75-99)
[2018-05-09] MEDS: DALIRESP 250 MCG PO SCH (08:37)
[2018-05-09] MEDS: INSULIN ASPART 100 UNIT/ML 1 ML 10 ML VIAL SQ SCH ×4 (08:37→21:02)
[2018-05-09] MEDS: ACYCLOVIR 200 MG CAP PO SCH ×2 (08:40→20:55)
[2018-05-09] MEDS: MULTIVITAMINS, THERA 1 EACH TAB PO SCH (08:40)
[2018-05-09] MEDS: HEPARIN SODIUM,PORCINE 5,000 UNIT/ML 1 ML VIAL SQ SCH ×2 (08:40→21:01)
[2018-05-09] MEDS: PANTOPRAZOLE 40 MG TABLET PO SCH (08:40)
[2018-05-09] MEDS: MONTELUKAST 10 MG TAB PO SCH (08:40)
[2018-05-09] MEDS: guaiFENesin 600 MG TABLET.ER PO SCH ×2 (08:40→20:56)
[2018-05-09] MEDS: POTASSIUM CHLORIDE ER 10 MEQ TAB.ER.PRT PO SCH (08:40)
[2018-05-09] MEDS: FUROSEMIDE 20 MG TAB PO SCH (08:40)
[2018-05-09 08:41] LABS: Basophils % (A) 0 %; Eosinophils # (A) 0.1 k/uL (0-0.7); Eosinophils % (A) 1 %; HCT 36.9 % (34.0-46.0); HGB 11.7 gm/dL (11.4-16.0); Hypochromasia Moderate; Lymphocytes # (A) 0.7 k/uL (1.0-4.8); Lymphocytes % (A) 11 %; MCHC 31.5 g/dL (31.0-37.0); MCV 104.6 fL (80.0-100.0); Macrocytosis Moderate; Mean Platelet Volume 7.9; Monocytes # (A) 0.6 k/uL (0-1.0); Monocytes % (A) 9 %; Neutrophils # (A) 4.9 k/uL (1.3-7.7); Neutrophils % (A) 78 %; Platelet Count 222 k/uL (150-450); RBC 3.53 m/uL (3.80-5.40); RDW 15.2 % (11.5-15.5); WBC 6.3 k/uL (3.8-10.6)
[2018-05-09] MEDS: BENZONATATE 100 MG CAP PO SCH ×3 (08:42→22:54)
[2018-05-09] MEDS: BUDESONIDE 0.5 MG/2 ML NEBU INHALATION SCH ×2 (08:46→20:12)
[2018-05-09] MEDS: IPRATROPIUM-ALBUTEROL 3 ML NEB INHALATION SCH ×4 (08:46→20:12)
[2018-05-09 08:51] LABS: ALT 41 U/L (9-52); AST 29 U/L (14-36); Albumin 3.1 g/dL (3.5-5.0); Alkaline Phosphatase 63 U/L (38-126); Anion Gap 5 mmol/L; Blood Urea Nitrogen 16 mg/dL (7-17); Calcium 8.8 mg/dL (8.4-10.2); Carbon Dioxide 34 mmol/L (22-30); Chloride 101 mmol/L (98-107); Glucose 103 mg/dL (74-99); Sodium 140 mmol/L (137-145); Total Bilirubin 0.9 mg/dL (0.2-1.3)
--- NOTE | 2018-05-09 10:18 | P.PN ---
Subjective Progress Note Date: 05/09/18 HPI: This is a 77-year-old female who presented to the emergency department with increasing shortness of breath for about 3-4 days duration. She had recently been admitted to the hospital for asthma with exacerbation and started to deteriorate after she went home. She was treated with antibiotics and steroids by her primary care physician and when she office. She started to get worse. She subsequently was seen in the ER and admitted for further evaluation and management. She does have a past medical history for chronic severe asthma , COPD, CAD, CHF, GERD and hyperlipidemia. She is ex-smoker Interval history: 05/01/2018patient is being seen examined and evaluated today on rounds. She is resting up in bed on 2 L of supplemental oxygen via nasal cannula which is what she wears at home as well. Her chest x-ray is reviewed and does show infiltrates in the bilateral lung bases. She does have a cough with occasional wheeze. Sputum is clear. Echocardiogram is pending. She does feel like her breathing is better today compared to yesterday. All labs and reports have been reviewed. 05/02/2018: Patient seen and examined. Patient states she is starting to feel better. She denies chest pain. She states she did get short of breath when she ambulated to the bathroom this morning. Per nursing her oxygen saturation decreased to 84% with ambulation. The patient denies fevers and chills. She states she still has an occasional cough. 05/03/2018patient is being seen examined and evaluated today on rounds. She continues to slowly feel better. She does continue to complain of weakness. She does have an occasional wheeze and occasional cough. Her sputum is growing Pseudomonas. Infectious diseases adjusting antibiotics. It does appear that the pathogen will require IV antibiotics at this time. And she will be going for a PICC line. She is afebrile no further complaints. 05/04/18- patient is being seen examined and evaluated today on rounds. Patient states she feels relatively the same as yesterday. She continues to have some weakness. Continues to have her cough which is congested however she is unable to bring up any sputum. She does have the occasional wheezes well. The patient is supposed to go for a PICC line hopefully today. Her blood cultures came back positive however this is likely contamination per infectious disease. All labs and reports reviewed. Breathing treatments are helping her. 05/07/18- patient is being seen examined and evaluated today on rounds. She is resting up in bed on 2 L of supplemental oxygen via nasal cannula. She does get short of breath with exertion and activity. She continues to have a cough that has been nonproductive. She continues to have occasional wheeze. The patient will be getting a PICC line today for home IV antibiotics for her Pseudomonas pneumonia. She does not feel like she is at her baseline. All labs and reports reviewed. 05/08/18- patient is being seen examined and evaluated today on rounds. She is resting up in bed on 2 L of supplemental oxygen which is what she wears at home. She did receive her PICC line placement yesterday. Infectious disease has recommended cefepime upon discharge. She feels her breathing is improved. Does have occasional shortness of breath with exertion and activity however that is improving as well. She is afebrile no further complaints 05/09/18- patient is being seen examined and evaluated today on rounds. She is resting up in bed on 2 L of supplemental oxygen via nasal cannula. She her breathing continues to improve. She continues to have a congested cough with clear sputum. She has been using her incentive spirometer and flutter valve. Discharge planning underway possibly being discharged tomorrow. All labs and reports have been reviewed. Objective - Vital Signs Vital signs: Vital Signs Temp 96.8 F L 05/09/18 05:00 Pulse 88 05/09/18 09:06 Resp 22 05/09/18 05:00 BP 99/58 05/09/18 05:00 Pulse Ox 92 L 05/09/18 05:00 Intake & Output 05/08/18 05/09/18 05/09/18 18:59 06:59 18:59 Intake Total 550 Balance 550 Intake: Intake, IV Titration 200 Amount cefTAZidime 2 gm In 200 Sodium Chloride 0.9% 100 ml @ 100 mls/hr IVPB Q8H [facility] Rx#:[id number] Oral 350 Other: Voiding Method Incontinent Toilet Toilet Diaper Diaper Incontinent Incontinent # Voids 2 1 - Exam GENERAL EXAM: Alert, comfortable in no apparent distress. HEAD: Normocephalic. EYES: Normal reaction of pupils, equal size. NOSE: Clear with pink turbinates. THROAT: No erythema or exudates. NECK: No masses, no JVD. CHEST: No chest wall deformity. LUNGS: Lungs noted to have some diminished breath sounds with an occasional expiratory wheeze. congested cough CVS: S1 and S2 normal with no audible mumurs, regular rhythm. ABDOMEN: No hepatosplenomegaly, normal bowel sounds, no guarding or rigidity. EXTREMITIES: no edema noted, pedal pulses palpable. CENTRAL NERVOUS SYSTEM: No focal deficits, tone is normal in all 4 extremities. - Labs CBC & Chem 7: 05/09/18 08:13 05/09/18 08:13 Labs: Abnormal Lab Results - Last 24 Hours (Table) 05/08/18 05/08/18 05/09/18 Range/Units 11:08 20:34 08:13 RBC 3.53 L (3.80-5.40) m/uL MCV 104.6 H (80.0-100.0) fL Lymphocytes # 0.7 L (1.0-4.8) k/uL Carbon Dioxide (22-30) mmol/L Creatinine (0.52-1.04) mg/dL Glucose (74-99) mg/dL POC Glucose (mg/dL) 127 H 126 H (75-99) mg/dL Total Protein (6.3-8.2) g/dL Albumin (3.5-5.0) g/dL 05/09/18 Range/Units 08:13 RBC (3.80-5.40) m/uL MCV (80.0-100.0) fL Lymphocytes # (1.0-4.8) k/uL Carbon Dioxide 34 H (22-30) mmol/L Creatinine 0.45 L (0.52-1.04) mg/dL Glucose 103 H (74-99) mg/dL POC Glucose (mg/dL) (75-99) mg/dL Total Protein 6.0 L (6.3-8.2) g/dL Albumin 3.1 L (3.5-5.0) g/dL Microbiology - Last 24 Hours (Table) 05/03/18 17:18 Blood Culture - Preliminary Blood No Growth after 120 hours Assessment and Plan Assessment: Assessment Acute on chronic hypoxic respiratory failure requiring supplemental oxygen Acute exacerbation of moderate persistent asthma Acute exacerbation of COPD Bibasilar community-acquired pneumonia, Pseudomonas Bicytopenia Moderate protein calorie malnutrition 5 mm low-density nodule subpleural left lateral lung field Plan Patient is cleared from pulmonary standpoint for discharge Medications have been reviewed and will be continued as ordered. Continue with antibiotics Infectious disease on consult and adjusting antibiotics Patient has PICC line for IV therapy CT of the chest does show right lower lobe pneumonia, COPD mild pulmonary fibrotic changes and a 5 mm low density nodule in the subpleural left lateral lung field. Sputum culture growing Pseudomonas Continue with pulmonary hygiene, coughing and deep breathing exercises, and supportive care. Supplemental oxygen to maintain oxygen saturations of 92% or better. Continue with incentive spirometer and flutter valve. Patient will require home oxygen assessment prior to discharge Continue nebulizer treatments. GI and DVT prophylaxis. We will continue to monitor labs/results and adjust treatment as necessary. Further recommendations pending. I, the signing physician performed an examination of the patient, discussed and directed their management with the nurse practitioner. I have reviewed the nurse practitioner's note and agree with the documented findings, orders and plan of care. Nurse practitioner acting as a scribe for the signing physician.
--- NOTE | 2018-05-09 10:22 | P.PN ---
Subjective Progress Note Date: 05/09/18 This is a 77-year-old female patient of Dr. Cortez. Patient presented to the emergency room with complaints of increased difficulty breathing and weakness. Patient was recently admitted and discharged personally 10 days ago for COPD and pneumonia in which she was discharged on prednisone and antibiotic. Patient states she was doing well until completion of medication when she started to decline again. Patient has significant past medical history for CAD , heart failure, COPD, GERD, hyperlipidemia and ex-smoker. 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 Per ED report patient was found to be in soiled brief. Chest x-ray completed showing increasing mild infiltrates at the lung bases compared to last exam. No heart failure seen. Infiltrate more on the right side. Dr. ERICA Rod has been consulted for pulmonary services. EKG showing normal sinus rhythm. Right bundle branch block. Initial lactic acid 2.6. Repeat lactic 1.6. Patient has been started on Levaquin IV antibiotics and Solu-Medrol IV steroids. Patient also started on bronchodilators. Patient reports that she does feel significantly improved already. This time patient denies chest pain or shortness breath. Patient denies nausea vomiting or diarrhea. Patient denies any urinary burning or frequency On 05/01/2018 patient is alert and oriented 3 currently sitting up on side of bed. Patient states she feels significantly improved from yesterday. IV antibiotics. Patient being followed by cardiology and pulmonary services. 2-D echo completed. At this time patient denies chest pain. Patient denies any nausea vomiting or diarrhea. Patient denies any urinary burning or frequency On 05/02/2018 patient is alert and oriented 3 sitting up in chair. Patient is still feeling improved. Patient remains on IV antibiotics and steroids time. Sputum culture growing Pseudomonas aeruginosa. Infectious disease is following. This time patient denies chest pain or shortness of breath. Patient denies nausea vomiting or diarrhea. Patient denies any urinary burning or frequency On 05/03/2018 patient is alert and oriented 3 sitting up in chair. Patient used to. Improved. Infectious disease following and has switched antibiotics based on cultures to IV in the. Patient remains on by mouth steroids at this time. At this time patient denies chest pain or shortness of breath. Patient denies nausea vomiting or diarrhea. Patient denies any urinary burning or frequency. Will consult social work to start discharge planning. Patient may need IV antibiotics per infectious disease recommendation On 05/04/2018 patient alert and oriented 3 sitting up in chair. Patient is still short of breath but is feeling slightly improved. Patient will need IV antibiotics upon discharge per infectious disease. Patient will be likely discharged on Monday home with midline and [facility] for IV antibiotics. At this time patient denies chest pain. Patient denies nausea vomiting or diarrhea. Patient denies any urinary burning or frequency. On 05/05/2018 patient is alert and oriented 3 in no apparent distress she is still having some cough and shortness of breath with activity otherwise she denies any complaints there is no fever or chills no headache or dizziness no chest pain no nausea or vomiting no abdominal pain no diarrhea and no urinary symptoms, she is still maintained on ceftazidime. On 05/06/2018 patient was seen and examined on the medical floor she is alert and oriented 3 she is complaining of worsening shortness of breath today she is still having cough otherwise she denies any complaints there is no fever or chills no headache or dizziness no chest pain no nausea or vomiting no abdominal pain no diarrhea or no urinary symptoms 05/07/2018 patient is scheduled for midline placement for her IV antibiotics. Patient reports that she does not feel ready for discharge. Still having cough. Denies any chest pain. Denies any nausea or vomiting. Reports having bowel movements. Denies any difficulty urinating. Patient was given 1 dose of IV Lasix yesterday. Improvement in her shortness of breath 05/08/18 Patient is status post midline placement. She does not feel ready for discharge. She still has cough and SOB after walking. Patient denies any chest pain. Denies any nausea or vomiting. Reports 2 days since last bowel movement. Denies any burning with urination. Patient has been cleared by pulmonary service for discharge. Infectious disease has a written prescription for the cefepime 05/09/2018 patient does not feel ready for discharge. Still having a congested cough. Still having some shortness of breath with ambulating. She is also having issues with constipation. Denies any chest pain. Denies any nausea or vomiting. Denies any abdominal pain. Denies any burning with urination. Objective - Vital Signs Vital signs: Vital Signs Temp 96.8 F L 05/09/18 05:00 Pulse 88 05/09/18 09:06 Resp 22 05/09/18 05:00 BP 99/58 05/09/18 05:00 Pulse Ox 92 L 05/09/18 05:00 Intake & Output 05/08/18 05/09/18 05/09/18 18:59 06:59 18:59 Intake Total 550 Balance 550 Intake: Intake, IV Titration 200 Amount cefTAZidime 2 gm In 200 Sodium Chloride 0.9% 100 ml @ 100 mls/hr IVPB Q8H [facility] Rx#:[id number] Oral 350 Other: Voiding Method Incontinent Toilet Toilet Diaper Diaper Incontinent Incontinent # Voids 2 1 - Exam Head normocephalic Neck supple Lungs diminished bilaterally with a few coarse breath sounds Heart regular rate and rhythm S1-S2, no rub or gallop Abdomen is soft nontender nondistended positive bowel sounds no hepatosplenomegaly Extremities no edema Neuro alert and orientated to 3 - Labs CBC & Chem 7: 05/09/18 08:13 05/09/18 08:13 Labs: Abnormal Lab Results - Last 24 Hours (Table) 05/08/18 05/08/18 05/09/18 Range/Units 11:08 20:34 08:13 RBC 3.53 L (3.80-5.40) m/uL MCV 104.6 H (80.0-100.0) fL Lymphocytes # 0.7 L (1.0-4.8) k/uL Carbon Dioxide (22-30) mmol/L Creatinine (0.52-1.04) mg/dL Glucose (74-99) mg/dL POC Glucose (mg/dL) 127 H 126 H (75-99) mg/dL Total Protein (6.3-8.2) g/dL Albumin (3.5-5.0) g/dL 05/09/18 Range/Units 08:13 RBC (3.80-5.40) m/uL MCV (80.0-100.0) fL Lymphocytes # (1.0-4.8) k/uL Carbon Dioxide 34 H (22-30) mmol/L Creatinine 0.45 L (0.52-1.04) mg/dL Glucose 103 H (74-99) mg/dL POC Glucose (mg/dL) (75-99) mg/dL Total Protein 6.0 L (6.3-8.2) g/dL Albumin 3.1 L (3.5-5.0) g/dL Microbiology - Last 24 Hours (Table) 05/03/18 17:18 Blood Culture - Preliminary Blood No Growth after 120 hours Assessment and Plan Assessment: 1. Pseudomonas pneumonia: Patient is status post midline placement. Per infectious disease progress note patient will need IV cefepime 2 g every 12 hours for about 7 to 10 days . Prescription written per ID. 2. COPD exacerbation. Pulmonary following continue oral prednisone 3. Acute on chronic hypoxic respiratory failure. Maintained on 2 L oxygen at home 4. History of coronary artery disease 5. History of GERD 6. History of hyperlipidemia 7. Mildly elevated troponin level. troponin 0.107, 0.083. 2-D echo completed showing EF of 55-60%. Per cardiology services elevated troponin likely secondary to supply demand mismatch related to severe COPD exacerbation and hypoxia. Possible outpatient stress test 8. Increased weakness. Will consult physical therapy and occupational therapy 9. Positive blood culture with micrococci species. Infectious disease is following. Infectious disease most likely contaminant repeat blood culture is negative 10. Constipation add Colace and MiraLAX DVT prophylaxis heparin. GI prophylaxis Protonix Continue physical therapy Encourage patient to increase activity Possible discharge home with home care tomorrow I performed an examination of the patient and discussed their management with the physician Electrical And Instrument Mechanic. I have reviewed the Physician Electrical And Instrument Mechanic's notes and agree with the documented findings and plan of care
[2018-05-09 11:02] LABS: Glucose,Whole Blood 104 mg/dL (75-99)
[2018-05-09] MEDS: DOCUSATE 100 MG CAP PO SCH ×2 (11:44→20:56)
[2018-05-09] MEDS: SODIUM CHLORIDE 0.9% 1,000 ML IV SCH (11:44)
--- NOTE | 2018-05-09 14:02 | PN ---
PROGRESS NOTE DATE OF SERVICE: 05/09/2018 REASON FOR FOLLOW UP: Pseudomonas aeruginosa pneumonia. INTERVAL HISTORY: The patient is currently afebrile. She is feeling better. Breathing comfortably. Patient states she has been walking around less short of breath. The cough has improved. No nausea, vomiting, abdominal pain, or any diarrhea. PHYSICAL EXAMINATION: Blood pressure 133/76, pulse of 80, temperature 97.1, she is 93% on 2 L nasal cannula. General description is an elderly female, up in the chair in no distress. RESPIRATORY SYSTEM: Unlabored breathing, clear to auscultation anteriorly. No wheeze or crackle. HEART: S1, S2. Regular rate and rhythm. ABDOMEN: Soft, no tenderness. LABS: Hemoglobin is 11.7, white count 6.3, BUN of 15, creatinine 0.45. DIAGNOSTIC IMPRESSION AND PLAN: Patient with pseudomonas aeruginosa pneumonia for which the patient currently responded to Fortaz therapy, will be transitioned to cefepime 2 g q.12 to finish a total 2 week course of therapy including the recent antibiotics she received here. Continue supportive care. MMODL / IJN: [id number] /
[2018-05-09 17:08] LABS: Glucose,Whole Blood 104 mg/dL (75-99)
[2018-05-09 20:30] LABS: Glucose,Whole Blood 159 mg/dL (75-99)
[2018-05-09] MEDS ORDERED: POLYETHYLENE GLYCOL 3350 17 GM POWD.PACK PO SCH (21:00)
[2018-05-09] MEDS: ACETAMINOPHEN TAB 325 MG TAB PO PRN (23:30)
[2018-05-10] MEDS: ALBUTEROL NEBULIZED 2.5 MG/3 ML INHALATION PRN (00:13)
[2018-05-10 07:11] LABS: Glucose,Whole Blood 68 mg/dL (75-99)
[2018-05-10] MEDS: BUDESONIDE 0.5 MG/2 ML NEBU INHALATION SCH (07:12)
[2018-05-10] MEDS: IPRATROPIUM-ALBUTEROL 3 ML NEB INHALATION SCH ×3 (07:12→15:21)
[2018-05-10 07:43] LABS: Glucose,Whole Blood 65 mg/dL (75-99)
[2018-05-10 07:45] LABS: Glucose,Whole Blood 87 mg/dL (75-99)
[2018-05-10] MEDS: INSULIN ASPART 100 UNIT/ML 1 ML 10 ML VIAL SQ SCH (08:04)
[2018-05-10] MEDS: PANTOPRAZOLE 40 MG TABLET PO SCH (08:07)
[2018-05-10] MEDS: BENZONATATE 100 MG CAP PO SCH (08:07)
[2018-05-10] MEDS: ACYCLOVIR 200 MG CAP PO SCH (08:07)
[2018-05-10] MEDS: MULTIVITAMINS, THERA 1 EACH TAB PO SCH (08:07)
[2018-05-10] MEDS: guaiFENesin 600 MG TABLET.ER PO SCH (08:07)
[2018-05-10] MEDS: DOCUSATE 100 MG CAP PO SCH (08:07)
[2018-05-10] MEDS: FUROSEMIDE 20 MG TAB PO SCH (08:07)
[2018-05-10] MEDS: MONTELUKAST 10 MG TAB PO SCH (08:07)
[2018-05-10] MEDS: HEPARIN SODIUM,PORCINE 5,000 UNIT/ML 1 ML VIAL SQ SCH (08:07)
[2018-05-10] MEDS: POTASSIUM CHLORIDE ER 10 MEQ TAB.ER.PRT PO SCH (08:07)
[2018-05-10] MEDS: DALIRESP 250 MCG PO SCH (08:08)
[2018-05-10 09:36] LABS: Basophils % (A) 0 %; Eosinophils # (A) 0.1 k/uL (0-0.7); Eosinophils % (A) 2 %; HCT 35.5 % (34.0-46.0); HGB 10.8 gm/dL (11.4-16.0); Hypochromasia Moderate; Lymphocytes # (A) 0.5 k/uL (1.0-4.8); Lymphocytes % (A) 11 %; MCH 32.2 pg (25.0-35.0); MCHC 30.4 g/dL (31.0-37.0); Macrocytosis Moderate; Mean Platelet Volume 7.6; Monocytes # (A) 0.5 k/uL (0-1.0); Monocytes % (A) 10 %; Neutrophils # (A) 3.7 k/uL (1.3-7.7); Neutrophils % (A) 76 %; Platelet Count 198 k/uL (150-450); RBC 3.34 m/uL (3.80-5.40); RDW 15.4 % (11.5-15.5); WBC 4.8 k/uL (3.8-10.6)
[2018-05-10 09:39] LABS: ALT 42 U/L (9-52); AST 26 U/L (14-36); Albumin 3.1 g/dL (3.5-5.0); Alkaline Phosphatase 62 U/L (38-126); Anion Gap 4 mmol/L; Blood Urea Nitrogen 18 mg/dL (7-17); Calcium 8.7 mg/dL (8.4-10.2); Carbon Dioxide 35 mmol/L (22-30); Chloride 98 mmol/L (98-107); Glucose 140 mg/dL (74-99); Potassium 4.2 mmol/L (3.5-5.1); Sodium 137 mmol/L (137-145); Total Bilirubin 0.6 mg/dL (0.2-1.3); Total Protein 5.8 g/dL (6.3-8.2)
[2018-05-10 10:58] LABS: Glucose,Whole Blood 84 mg/dL (75-99)
[2018-05-10] MEDS ORDERED: CEFEPIME 2 GM in SODIUM CHLORIDE 0.9% 50 ML IVPB SCH (11:00)
--- NOTE | 2018-05-10 11:05 | P.PN ---
Subjective Progress Note Date: 05/10/18 HPI: This is a 77-year-old female who presented to the emergency department with increasing shortness of breath for about 3-4 days duration. She had recently been admitted to the hospital for asthma with exacerbation and started to deteriorate after she went home. She was treated with antibiotics and steroids by her primary care physician and when she office. She started to get worse. She subsequently was seen in the ER and admitted for further evaluation and management. She does have a past medical history for chronic severe asthma , COPD, CAD, CHF, GERD and hyperlipidemia. She is ex-smoker Interval history: 05/01/2018patient is being seen examined and evaluated today on rounds. She is resting up in bed on 2 L of supplemental oxygen via nasal cannula which is what she wears at home as well. Her chest x-ray is reviewed and does show infiltrates in the bilateral lung bases. She does have a cough with occasional wheeze. Sputum is clear. Echocardiogram is pending. She does feel like her breathing is better today compared to yesterday. All labs and reports have been reviewed. 05/02/2018: Patient seen and examined. Patient states she is starting to feel better. She denies chest pain. She states she did get short of breath when she ambulated to the bathroom this morning. Per nursing her oxygen saturation decreased to 84% with ambulation. The patient denies fevers and chills. She states she still has an occasional cough. 05/03/2018patient is being seen examined and evaluated today on rounds. She continues to slowly feel better. She does continue to complain of weakness. She does have an occasional wheeze and occasional cough. Her sputum is growing Pseudomonas. Infectious diseases adjusting antibiotics. It does appear that the pathogen will require IV antibiotics at this time. And she will be going for a PICC line. She is afebrile no further complaints. 05/04/18- patient is being seen examined and evaluated today on rounds. Patient states she feels relatively the same as yesterday. She continues to have some weakness. Continues to have her cough which is congested however she is unable to bring up any sputum. She does have the occasional wheezes well. The patient is supposed to go for a PICC line hopefully today. Her blood cultures came back positive however this is likely contamination per infectious disease. All labs and reports reviewed. Breathing treatments are helping her. 05/07/18- patient is being seen examined and evaluated today on rounds. She is resting up in bed on 2 L of supplemental oxygen via nasal cannula. She does get short of breath with exertion and activity. She continues to have a cough that has been nonproductive. She continues to have occasional wheeze. The patient will be getting a PICC line today for home IV antibiotics for her Pseudomonas pneumonia. She does not feel like she is at her baseline. All labs and reports reviewed. 05/08/18- patient is being seen examined and evaluated today on rounds. She is resting up in bed on 2 L of supplemental oxygen which is what she wears at home. She did receive her PICC line placement yesterday. Infectious disease has recommended cefepime upon discharge. She feels her breathing is improved. Does have occasional shortness of breath with exertion and activity however that is improving as well. She is afebrile no further complaints 05/09/18- patient is being seen examined and evaluated today on rounds. She is resting up in bed on 2 L of supplemental oxygen via nasal cannula. She her breathing continues to improve. She continues to have a congested cough with clear sputum. She has been using her incentive spirometer and flutter valve. Discharge planning underway possibly being discharged tomorrow. All labs and reports have been reviewed. 05/10/18- patient is being seen examined and evaluated today on rounds. She is resting up in bed on 2 L of supplemental oxygen nasal cannula. Breathing continues to improve. Coughing is improved. Discharge planning underway, infectious disease had adjusted her antibiotics via PICC line. Afebrile no further complaints Objective - Vital Signs Vital signs: Vital Signs Temp 97.1 F L 05/10/18 05:00 Pulse 88 05/10/18 07:29 Resp 16 05/10/18 05:00 BP 137/66 05/10/18 05:00 Pulse Ox 97 05/10/18 05:00 Intake & Output 05/09/18 05/10/18 05/10/18 18:59 06:59 18:59 Intake Total 1420 Balance 1420 Weight 77.5 kg Intake: Oral 1420 Other: Voiding Method Toilet Toilet Toilet Diaper Diaper Diaper Incontinent Incontinent Incontinent # Voids 3 2 - Exam GENERAL EXAM: Alert, comfortable in no apparent distress. HEAD: Normocephalic. EYES: Normal reaction of pupils, equal size. NOSE: Clear with pink turbinates. THROAT: No erythema or exudates. NECK: No masses, no JVD. CHEST: No chest wall deformity. LUNGS: Lungs noted to have some diminished breath sounds with an occasional expiratory wheeze. congested cough CVS: S1 and S2 normal with no audible mumurs, regular rhythm. ABDOMEN: No hepatosplenomegaly, normal bowel sounds, no guarding or rigidity. EXTREMITIES: no edema noted, pedal pulses palpable. CENTRAL NERVOUS SYSTEM: No focal deficits, tone is normal in all 4 extremities. - Labs CBC & Chem 7: 05/10/18 08:23 05/10/18 08:23 Labs: Abnormal Lab Results - Last 24 Hours (Table) 05/09/18 05/09/18 05/09/18 Range/Units 10:50 17:06 20:27 RBC (3.80-5.40) m/uL Hgb (11.4-16.0) gm/dL MCV (80.0-100.0) fL MCHC (31.0-37.0) g/dL Lymphocytes # (1.0-4.8) k/uL Carbon Dioxide (22-30) mmol/L BUN (7-17) mg/dL Creatinine (0.52-1.04) mg/dL Glucose (74-99) mg/dL POC Glucose (mg/dL) 104 H 104 H 159 H (75-99) mg/dL Total Protein (6.3-8.2) g/dL Albumin (3.5-5.0) g/dL 05/10/18 05/10/18 05/10/18 Range/Units 07:03 07:24 08:23 RBC 3.34 L (3.80-5.40) m/uL Hgb 10.8 L (11.4-16.0) gm/dL MCV 106.0 H (80.0-100.0) fL MCHC 30.4 L (31.0-37.0) g/dL Lymphocytes # 0.5 L (1.0-4.8) k/uL Carbon Dioxide (22-30) mmol/L BUN (7-17) mg/dL Creatinine (0.52-1.04) mg/dL Glucose (74-99) mg/dL POC Glucose (mg/dL) 68 L 65 L (75-99) mg/dL Total Protein (6.3-8.2) g/dL Albumin (3.5-5.0) g/dL 05/10/18 Range/Units 08:23 RBC (3.80-5.40) m/uL Hgb (11.4-16.0) gm/dL MCV (80.0-100.0) fL MCHC (31.0-37.0) g/dL Lymphocytes # (1.0-4.8) k/uL Carbon Dioxide 35 H (22-30) mmol/L BUN 18 H (7-17) mg/dL Creatinine 0.48 L (0.52-1.04) mg/dL Glucose 140 H (74-99) mg/dL POC Glucose (mg/dL) (75-99) mg/dL Total Protein 5.8 L (6.3-8.2) g/dL Albumin 3.1 L (3.5-5.0) g/dL Microbiology - Last 24 Hours (Table) 05/03/18 17:18 Blood Culture - Final Blood No Growth after 144 hours Assessment and Plan Assessment: Assessment Acute on chronic hypoxic respiratory failure requiring supplemental oxygen Acute exacerbation of moderate persistent asthma Acute exacerbation of COPD Bibasilar community-acquired pneumonia, Pseudomonas Bicytopenia Moderate protein calorie malnutrition 5 mm low-density nodule subpleural left lateral lung field Plan Patient is cleared from pulmonary standpoint for discharge Medications have been reviewed and will be continued as ordered. Continue with antibiotics Infectious disease on consult and adjusting antibiotics Patient has PICC line for IV therapy CT of the chest does show right lower lobe pneumonia, COPD mild pulmonary fibrotic changes and a 5 mm low density nodule in the subpleural left lateral lung field. Sputum culture growing Pseudomonas Continue with pulmonary hygiene, coughing and deep breathing exercises, and supportive care. Supplemental oxygen to maintain oxygen saturations of 92% or better. Continue with incentive spirometer and flutter valve. Patient will require home oxygen assessment prior to discharge Continue nebulizer treatments. GI and DVT prophylaxis. We will continue to monitor labs/results and adjust treatment as necessary. Further recommendations pending. I, the signing physician performed an examination of the patient, discussed and directed their management with the nurse practitioner. I have reviewed the nurse practitioner's note and agree with the documented findings, orders and plan of care. Nurse practitioner acting as a scribe for the signing physician.
--- NOTE | 2018-05-10 13:17 | P.DS ---
Providers Date of admission: 04/30/18 00:12 Expected date of discharge: 05/10/18 Attending physician: Shamika Seasr Consults: 04/30/18 00:12 Consult Physician Stat Consulting Provider: Joe Rod Consult Reason/Comments: COPD, pneumonia Do you want consulting provider notified?: Yes 04/30/18 13:40 Consult Physician Routine Consulting Provider: Norm Valentin Consult Reason/Comments: elevated troponin Do you want consulting provider notified?: Yes 05/02/18 13:38 Consult Physician Routine Consulting Provider: Abhishek Bonilla Consult Reason/Comments: positive sputum Do you want consulting provider notified?: Yes Primary care physician: Lori Cortez Hospital Course: Discharge diagnosis 1. Pseudomonas pneumonia: Patient is status post midline placement. Per infectious disease progress note patient will need IV cefepime 2 g every 12 hours for 4 more days. Patient does have home care arranged for the IV antibiotics. 2. Acute COPD exacerbation. Completed steroids during hospital was station. Continue bronchodilators at home 3. Acute on chronic hypoxic respiratory failure. Maintained on 2 L oxygen at home 4. History of coronary artery disease 5. History of GERD 6. History of hyperlipidemia 7. Mildly elevated troponin level. troponin 0.107, 0.083. 2-D echo completed showing EF of 55-60%. Per cardiology services elevated troponin likely secondary to supply demand mismatch related to severe COPD exacerbation and hypoxia. Possible outpatient stress test 8. Increased weakness. Will consult physical therapy and occupational therapy 9. Positive blood culture with micrococci species. Infectious disease is following. Infectious disease most likely contaminant repeat blood culture is negative 10. Constipation continue stool softeners at home. 11. Anemia hemoglobin 10.8 at discharge. No evidence of bleeding. MCV is elevated check B12 and folate level prior to discharge. Results are still pending we'll have her follow-up with her PCP in the office for further evaluation. Hospital course This is a 77-year-old female patient of Dr. Cortez. Patient presented to the emergency room with complaints of increased difficulty breathing and weakness. Patient was recently admitted and discharged personally 10 days ago for COPD and pneumonia in which she was discharged on prednisone and antibiotic. Patient states she was doing well until completion of medication when she started to decline again. Patient has significant past medical history for CAD , heart failure, COPD, GERD, hyperlipidemia and ex-smoker. 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 Per ED report patient was found to be in soiled brief. Chest x-ray completed showing increasing mild infiltrates at the lung bases compared to last exam. No heart failure seen. Infiltrate more on the right side. Dr. ERICA Rod has been consulted for pulmonary services. EKG showing normal sinus rhythm. Right bundle branch block. Initial lactic acid 2.6. Repeat lactic 1.6. Patient has been started on Levaquin IV antibiotics and Solu-Medrol IV steroids. Patient also started on bronchodilators. Patient reports that she does feel significantly improved already. This time patient denies chest pain or shortness breath. Patient denies nausea vomiting or diarrhea. Patient denies any urinary burning or frequency On 05/01/2018 patient is alert and oriented 3 currently sitting up on side of bed. Patient states she feels significantly improved from yesterday. IV antibiotics. Patient being followed by cardiology and pulmonary services. 2-D echo completed. At this time patient denies chest pain. Patient denies any nausea vomiting or diarrhea. Patient denies any urinary burning or frequency On 05/02/2018 patient is alert and oriented 3 sitting up in chair. Patient is still feeling improved. Patient remains on IV antibiotics and steroids time. Sputum culture growing Pseudomonas aeruginosa. Infectious disease is following. This time patient denies chest pain or shortness of breath. Patient denies nausea vomiting or diarrhea. Patient denies any urinary burning or frequency On 05/03/2018 patient is alert and oriented 3 sitting up in chair. Patient used to. Improved. Infectious disease following and has switched antibiotics based on cultures to IV in the. Patient remains on by mouth steroids at this time. At this time patient denies chest pain or shortness of breath. Patient denies nausea vomiting or diarrhea. Patient denies any urinary burning or frequency. Will consult social work to start discharge planning. Patient may need IV antibiotics per infectious disease recommendation On 05/04/2018 patient alert and oriented 3 sitting up in chair. Patient is still short of breath but is feeling slightly improved. Patient will need IV antibiotics upon discharge per infectious disease. Patient will be likely discharged on [facility]. At this time patient denies chest pain. Patient denies nausea vomiting or diarrhea. Patient denies any urinary burning or frequency. On 05/05/2018 patient is alert and oriented 3 in no apparent distress she is still having some cough and shortness of breath with activity otherwise she denies any complaints there is no fever or chills no headache or dizziness no chest pain no nausea or vomiting no abdominal pain no diarrhea and no urinary symptoms, she is still maintained on ceftazidime. On 05/06/2018 patient was seen and examined on the medical floor she is alert and oriented 3 she is complaining of worsening shortness of breath today she is still having cough otherwise she denies any complaints there is no fever or chills no headache or dizziness no chest pain no nausea or vomiting no abdominal pain no diarrhea or no urinary symptoms 05/07/2018 patient is scheduled for midline placement for her IV antibiotics. Patient reports that she does not feel ready for discharge. Still having cough. Denies any chest pain. Denies any nausea or vomiting. Reports having bowel movements. Denies any difficulty urinating. Patient was given 1 dose of IV Lasix yesterday. Improvement in her shortness of breath 05/08/18 Patient is status post midline placement. She does not feel ready for discharge. She still has cough and SOB after walking. Patient denies any chest pain. Denies any nausea or vomiting. Reports 2 days since last bowel movement. Denies any burning with urination. Patient has been cleared by pulmonary service for discharge. Infectious disease has a written prescription for the cefepime 05/09/2018 patient does not feel ready for discharge. Still having a congested cough. Still having some shortness of breath with ambulating. She is also having issues with constipation. Denies any chest pain. Denies any nausea or vomiting. Denies any abdominal pain. Denies any burning with urination. 05/10/2018 patient is medically stable for discharge. She has been clinically consulting physicians for discharge. Patient feels that she is now ready for discharge. Her shortness of breath and cough are showing improvement. She'll continue cefepime through the midline for 4 more days per infectious disease recommendations. Infectious disease had sent a prescription for cefepime to the pharmacy. Patient does not have a bowel movement yesterday. She reports that she has constipation issues and continue her bowel regimen at home. She has no abdominal pain or nausea. Patient did have episode of hypoglycemia blood sugar 65 but she had received insulin the night before. The insulin was only while she was on steroids. Insulin discontinued and she had improvement in her blood sugars. Her A1c is 6.2 which is known for an increased risk of diabetes. Recommend to continue to monitor outpatient. I performed an examination of the patient and discussed their management with the physician Straight Cutter. I have reviewed the Physician Straight Cutter's notes and agree with the documented findings and plan of care Patient Condition at Discharge: Stable Plan - Discharge Summary Discharge Rx Participant: No New Discharge Prescriptions: New guaiFENesin [Mucinex] 1,200 mg PO Q12HR #8 tablet.er Continue Albuterol Inhaler [Ventolin Hfa Inhaler] 2 puff INHALATION RT-Q6H PRN PRN Reason: Shortness Of Breath Budesonide [Pulmicort] 0.5 mg INHALATION RT-BID Albuterol Nebulized [Ventolin Nebulized] 2.5 mg INHALATION RT-TID Multivitamins, Thera [Multivitamin (formulary)] 1 tab PO DAILY Potassium Chloride ER [K-Dur 10] 10 meq PO DAILY Omeprazole 20 mg PO DAILY Montelukast [Singulair] 10 mg PO DAILY Lovastatin [Mevacor] 20 mg PO HS Roflumilast [Daliresp] 250 mcg PO DAILY Furosemide [Lasix] 20 mg PO DAILY Acyclovir [Zovirax] 400 mg PO BID Benzonatate 150mg 1 cap PO TID Discharge Medication List Acyclovir [Zovirax] 400 mg PO BID 04/12/18 [History] Albuterol Inhaler [Ventolin Hfa Inhaler] 2 puff INHALATION RT-Q6H PRN 04/12/18 [ History] Albuterol Nebulized [Ventolin Nebulized] 2.5 mg INHALATION RT-TID 04/12/18 [ History] Budesonide [Pulmicort] 0.5 mg INHALATION RT-BID 04/12/18 [History] Furosemide [Lasix] 20 mg PO DAILY 04/12/18 [History] Lovastatin [Mevacor] 20 mg PO HS 04/12/18 [History] Montelukast [Singulair] 10 mg PO DAILY 04/12/18 [History] Multivitamins, Thera [Multivitamin (formulary)] 1 tab PO DAILY 04/12/18 [History ] Omeprazole 20 mg PO DAILY 04/12/18 [History] Potassium Chloride ER [K-Dur 10] 10 meq PO DAILY 12/27/18 [History] Roflumilast [Daliresp] 250 mcg PO DAILY 04/12/18 [History] Benzonatate 150mg 1 cap PO TID 04/30/18 [History] guaiFENesin [Mucinex] 1,200 mg PO Q12HR #8 tablet.er 05/10/18 [Rx] Follow up Appointment(s)/Referral(s): [facility], [NON-STAFF] - [facility], [REFERRING] - 1 Week Lori Cortez DO [Primary Care Provider] - 05/08/18 10:00 am (Monday with [facility] in [place]) Joe Rod MD [STAFF PHYSICIAN] - 05/04/18 3:45 pm (Monday [address] office -previously scheduled appointment) Franki Lyman MD [STAFF PHYSICIAN] - 4 Weeks Ambulatory/Diagnostic Orders: Complete Blood Count w/diff [LAB.AMB] Time Frame: 3 Days, Location: None Selected Patient Instructions/Handouts: COPD (Chronic Obstructive Pulmonary Disease) (DC ), Pneumonia (DC), Chronic Lung Disease and Infection Prevention (DC) Activity/Diet/Wound Care/Special Instructions: Diet: cardiac Activity: as tolerated Discharge Disposition: HOME WITH HOME HEALTH SERVICES
[2018-05-10] MEDS: SODIUM CHLORIDE 0.9% 1,000 ML IV SCH (13:23)
[2018-05-10 13:42] VITALS: BP 130/79; RESP 20; TEMP 98
[2018-05-10 15:31] VITALS: PULSE 81
[2018-05-10 18:53] LABS: Folate, Serum 22.9 ng/mL
--- NOTE | 2018-05-10 21:51 | PN ---
PROGRESS NOTE DATE OF SERVICE: 05/10/2018 REASON FOR FOLLOWUP: Pseudomonas aeruginosa pneumonia. INTERVAL HISTORY: The patient was seen on rounds early this afternoon. The patient has been afebrile. She is breathing comfortably. Denies having any chest pain or shortness of breath or cough. No abdominal pain or any diarrhea. PHYSICAL EXAMINATION: Blood pressure is 130/79 with a pulse of 78, temperature 98. She is 94% on 2 L nasal cannula. General description is an elderly female up in the chair in no distress. RESPIRATORY SYSTEM: Unlabored breathing. Clear to auscultation anteriorly. HEART: S1, S2. Regular rate and rhythm. ABDOMEN: Soft. No tenderness. LABS: White count 4.8, creatinine 0.48. DIAGNOSTIC IMPRESSION AND PLAN: Patient with Pseudomonas aeruginosa pneumonia, for which the patient was switched over to cefepime 2 grams q.12 that she will continue for another few days to finish a total 2-week course of therapy. Continue with supportive care. Plan of care was discussed with the nurse practitioner as well as the assistant case manager. MMHILL / KEVIN: [id number] /
--- NOTE | 2018-05-11 08:13 | CDI ---
Documentation Clarification Form Date: 05/11/18 From: Malka Eliot Megan Jacquelyn, Information Strategist Hours-8:30 am & 5 pm M-[place]ina Admit Date: 04/30/2018 12:12:00 AM Patient Name: Shaunna Keys Visit Number: [id number] Discharge Date: 05/10/2018 5:25:00 PM ATTENTION: The Clinical Documentation Specialists (CDI) and [facility] Coding Staff appreciate your assistance in clarifying documentation. Please respond to the clarification below the line at the bottom and electronically sign. The CDI & [facility] Coding staff will review the response and follow-up if needed. Please note: Queries are made part of the Legal Health Record. If you have any questions, please contact the author of this message via ITS. Dr. Franki Lyman, CHF is documented in the ED note, H&P, consults, PNs and DS. History/Risk Factors: Pseudomonas pneumonia, ac on chr hypoxic resp failure, AECOPD,AE of mod persistent asthma, mod PCM VS/Pulse OX: T-99.6, P-93, R-24/, BP-111/61, O2 sat - 94/93 BNP: 1590 Echocardiogram Results: left ventricular systolic function is normal w EF between 55-60% Chest X Ray: no heart failure Treatment: Lasix 20 mg IV on 05/06, Lasix 20 mg po the other days In your professional opinion, can you please clarify the acuity and type of CHF if known? Systolic Heart Failure: Acute Chronic Acute on Chronic Diastolic Heart Failure: Acute Chronic Acute on Chronic Systolic & Diastolic Heart Failure: Acute Chronic Acute on Chronic Heart Failure Unable to Determine Other, please specify MTDD
--- NOTE | 2018-05-11 08:26 | CDI ---
Documentation Clarification Form Date: 05/11/18 From: Malka Eliot Megan Valladares, Shear Operator Helper Hours-8:30 am & 5 pm [place] Admit Date: 04/30/2018 12:12:00 AM Patient Name: Shaunna Keys Visit Number: [id number] Discharge Date: 05/10/2018 5:25:00 PM ATTENTION: The Clinical Documentation Specialists (CDI) and [facility] Coding Staff appreciate your assistance in clarifying documentation. Please respond to the clarification below the line at the bottom and electronically sign. The CDI & [facility] Coding staff will review the response and follow-up if needed. Please note: Queries are made part of the Legal Health Record. If you have any questions, please contact the author of this message via ITS. Dr. Shamika Sears The patient presented with the following: pneumonia (pseudomonas), ac on chr hypoxia resp failure, AECOPD, AE mod persistent asthma, and mod PCM. WBC: 15.6, Neutrophils: 13.3 Lactic acid: 2.5 Lactic Ac Sepsis Rflx: yes Total Bilirubin: 1.4 Blood cultures: contaminant Vitals signs on admission: T-99.6, R-23/26, BP- 111/61, O2 sat-94/93 ID Consult: Yes Antibiotics: IV Levofloxacin then IV Fortaz IV Bolus: Yes In your professional opinion, please clarify if these findings signify one of the following conditions, whether the condition is POA, and cause, if known: Condition Sepsis ruled out Sepsis ruled in SIRS, without underlying infectious process Severe Sepsis Septic Shock Other, please specify Unable to determine Present on Admission Yes No Identify the (suspected) organism Link or clarify if there is associated (due to/with): Organ failure Shock SIRS Criteria (2 or more of the following may indicate SIRS): -Temperature < 96.8F (36C) or > 101.0F (38.3C) -Heart Rate > 90 bpm -Respiratory Rate > 20 breaths/min or PaCO2 < 32 mmHg -White Blood Cell Count > 12,000 or < 4,000 cells/mm3 or > 10% bands -Lactate >2.0 mmol/L (>4.0 is equivalent to septic shock) sepsis ruled out MTDD
== END 2018-05-10 17:25 | disposition home health service (06) | DRG 177 ==
LOC: EC 21:21 → 3SCARD 04-30 00:12 → 3NMEDONC 05-03 15:49
PROVIDERS: ADMIT Internal Medicine; ATTEND Internal Medicine
PROC: 3E03329 Introduction of Other Anti-infective into Peripheral Vein, Percutaneous Approach (ICD-10-PCS; 2018-05-07)
PROC: 05HC33Z Insertion of Infusion Device into Left Basilic Vein, Percutaneous Approach (ICD-10-PCS; principal; 2018-05-07 09:45)
DX: J15.1 Pneumonia due to Pseudomonas (principal); J96.21 Acute and chronic respiratory failure with hypoxia; J44.0 Chronic obstructive pulmonary disease with (acute) lower respiratory infection; J44.1 Chronic obstructive pulmonary disease with (acute) exacerbation; J45.41 Moderate persistent asthma with (acute) exacerbation; E44.0 Moderate protein-calorie malnutrition; I27.20 Pulmonary hypertension, unspecified; I45.10 Unspecified right bundle-branch block; D64.9 Anemia, unspecified; K59.00 Constipation, unspecified; E16.2 Hypoglycemia, unspecified; R32 Unspecified urinary incontinence; K21.9 Gastro-esophageal reflux disease without esophagitis; I25.10 Atherosclerotic heart disease of native coronary artery without angina pectoris; E78.5 Hyperlipidemia, unspecified; R91.1 Solitary pulmonary nodule; R77.8 Other specified abnormalities of plasma proteins; R26.2 Difficulty in walking, not elsewhere classified; Z16.23 Resistance to quinolones and fluoroquinolones; I50.9 Heart failure, unspecified; Z99.81 Dependence on supplemental oxygen; Z87.891 Personal history of nicotine dependence; Z79.51 Long term (current) use of inhaled steroids; Z79.899 Other long term (current) drug therapy; Z87.01 Personal history of pneumonia (recurrent); Z88.1 Allergy status to other antibiotic agents; Z88.0 Allergy status to penicillin; Z88.8 Allergy status to other drugs, medicaments and biological substances; Z82.49 Family history of ischemic heart disease and other diseases of the circulatory system; Z80.0 Family history of malignant neoplasm of digestive organs
CPT/HCPCS: 36415; 36569; 51701; 71046; 71250; 80053; 81001; 82550; 82553; 82607; 82746; 83036; 83605; 83735; 83880; 84484; 85025; 85610; 85730; 87040; 87070; 87077; 87186; 87205; 93005; 93306; 94640; 94667; 94760; 96374; 99285

== ENCOUNTER 2019-08-12 20:43 | Inpatient (IN) | payer MEDICARE, BC ==
[2019-08-12] MEDS ORDERED: LIDOCAINE 2%-EPI 1:100,000 20 ML VIAL SQ STA (21:19)
[2019-08-12] MEDS ORDERED: MORPHINE SULFATE 2 MG/ML SYRINGE IVP STA (21:20)
[2019-08-12] MEDS ORDERED: ONDANSETRON 4 MG/2 ML VIAL IVP STA (21:20)
[2019-08-12] MEDS ORDERED: WATER FOR IRRIG, STERILE 1,000 ML BTL IRRIGATION ONE (21:20)
[2019-08-12 22:02] LABS: Basophils % (A) 0 %; Eosinophils # (A) 0.1 k/uL (0-0.7); Eosinophils % (A) 1 %; HCT 37.5 % (34.0-46.0); HGB 11.7 gm/dL (11.4-16.0); Hypochromasia Moderate; Lymphocytes # (A) 0.6 k/uL (1.0-4.8); Lymphocytes % (A) 7 %; MCH 31.8 pg (25.0-35.0); MCHC 31.2 g/dL (31.0-37.0); Macrocytosis Slight; Monocytes # (A) 1.3 k/uL (0-1.0); Monocytes % (A) 14 %; Neutrophils # (A) 7.3 k/uL (1.3-7.7); Neutrophils % (A) 78 %; Platelet Count 168 k/uL (150-450); RBC 3.68 m/uL (3.80-5.40); RDW 14.1 % (11.5-15.5); WBC 9.4 k/uL (3.8-10.6)
[2019-08-12] MEDS ORDERED: LIDOCAINE 1% INJ 10MG/ML (20 ML MDV) SQ ONE (22:24)
[2019-08-12 22:38] LABS: Partial Thromboplastin Time 21.5 sec (22.0-30.0)
[2019-08-12] MEDS ORDERED: NALOXONE 0.4 MG/ML 1 ML VIAL IV PRN (22:47)
[2019-08-12] MEDS ORDERED: ONDANSETRON 4 MG/2 ML VIAL IVP PRN (22:47)
--- NOTE | 2019-08-12 22:51 | ED ---
Wound/Laceration HPI - General Chief Complaint: Wound/Laceration Stated Complaint: Leg lac, Time Seen by Provider: 08/12/19 20:59 Source: patient, EMS Mode of arrival: ambulatory Limitations: no limitations - History of Present Illness Initial Comments: 79-year-old female patient presents to the emergency department today for evaluation of a laceration to the right lower leg. Patient states that she is going to get into the tub when she lost her balance, her leg hit the side of the tub causing a laceration. Patient does not take any blood thinning medications. States she did have to call ambulance. She denies hitting her head or losing consciousness. Denies any other injuries. She is unsure when her last tetanus vaccine was given. Patient denies any recent rash, fever, chills, cough, shortness of breath, chest pain, abdominal pain, nausea, vomiting, diarrhea, constipation, back pain, numbness, tingling, dizziness, weakness, hematuria, dy suria, urinary urgency, urinary frequency, headache, visual changes, or any other complaints. - Related Data Home Medications Medication Instructions Recorded Confirmed Acyclovir [Zovirax] 400 mg PO BID 04/12/18 04/30/18 Albuterol Inhaler (Mhu) [Ventolin 2 puff INHALATION RT-Q6H PRN 04/12/18 04/30/18 Hfa Inhaler (Mhu)] Albuterol Nebulized [Ventolin 2.5 mg INHALATION RT-TID 04/12/18 04/30/18 Nebulized] Budesonide [Pulmicort] 0.5 mg INHALATION RT-BID 04/12/18 04/30/18 Furosemide [Lasix] 20 mg PO DAILY 04/12/18 04/30/18 Lovastatin [Mevacor] 20 mg PO HS 04/12/18 04/30/18 Montelukast [Singulair] 10 mg PO DAILY 04/12/18 04/30/18 Multivitamins, Thera [Multivitamin 1 tab PO DAILY 04/12/18 04/30/18 (formulary)] Omeprazole 20 mg PO DAILY 04/12/18 04/30/18 Potassium Chloride ER [K-Dur 10] 10 meq PO DAILY 04/12/18 04/30/18 Roflumilast [Daliresp] 250 mcg PO DAILY 04/12/18 04/30/18 Benzonatate 150mg 1 cap PO TID 04/30/18 04/30/18 Previous Rx's Medication Instructions Recorded guaiFENesin [Mucinex] 1,200 mg PO Q12HR #8 tablet.er 05/10/18 Allergies Allergy/AdvReac Type Severity Reaction Status Date / Time amoxicillin [From Augmentin] AdvReac Unknown Verified 08/12/19 20:54 clavulanic acid AdvReac Unknown Verified 08/12/19 20:54 [From Augmentin] erythromycin base AdvReac Unknown Verified 08/12/19 20:54 Review of Systems ROS Statement: Those systems with pertinent positive or pertinent negative responses have been documented in the HPI. ROS Other: All systems not noted in ROS Statement are negative. Past Medical History Past Medical History: Coronary Artery Disease (CAD), Heart Failure, COPD, GERD/Reflux, Hyperlipidemia History of Any Multi-Drug Resistant Organisms: None Reported Past Surgical History: Back Surgery Past Anesthesia/Blood Transfusion Reactions: No Reported Reaction Past Psychological History: No Psychological Hx Reported Smoking Status: Former smoker Past Alcohol Use History: None Reported Past Drug Use History: None Reported - Past Family History Mother Family Medical History: Myocardial Infarction (CT) Brother(s) Family Medical History: Cancer, Myocardial Infarction (CT) Additional Family Medical History / Comment(s): colon ca, 2 brother with ca General Exam Limitations: no limitations General appearance: alert, in no apparent distress, other (This is a well- developed, well-nourished adult female patient in no acute distress. Vital signs upon presentation are temperature 98.7F, pulse 57, respirations 18, blood pressure 139/91, pulse ox 98% on room air.) Neck exam: Present: normal inspection, full ROM, other (Nontender, no step-off, no deformity to firm midline palpation of the posterior cervical spine. Full r yuko of motion without pain or limitation.). Absent: tenderness, meningismus, lymphadenopathy Respiratory exam: Present: normal lung sounds bilaterally. Absent: respiratory distress, wheezes, rales, rhonchi, stridor Cardiovascular Exam: Present: regular rate, normal rhythm, normal heart sounds. Absent: systolic murmur, diastolic murmur, rubs, gallop, clicks GI/Abdominal exam: Present: soft, normal bowel sounds. Absent: distended, tenderness, guarding, rebound, rigid Extremities exam: Present: full ROM, normal capillary refill, other (There is large flap laceration note to the right lateral calf measuring approximately 20 cm in length and gaping approximately 5cm. There is exposure of the underlying bone sheath. ). Absent: normal inspection, tenderness, pedal edema, joint swelling, calf tenderness Neurological exam: Present: alert, oriented X3, CN II-XII intact Psychiatric exam: Present: normal affect, normal mood Skin exam: Present: warm, dry, intact, normal color. Absent: rash Course Vital Signs 08/12/19 20:48 Temperature 98.7 F Pulse Rate 57 L Respiratory 18 Rate Blood Pressure 139/91 O2 Sat by Pulse 98 Oximetry Medical Decision Making - Medical Decision Making 79-year-old female patient presented to the emergency department today for evaluation of right lower leg laceration. Physical examination did reveal a flap-like laceration to the right lateral calf measuring approximately 20 cm and gaping open approximately 4-5 cm. The/duration is deep and exposing the bone she's. Wound was anesthetized using lidocaine, did irrigate with 1000 mL of sterile water. Saline dressings were applied. My attending Dr. Dillard spoke to the release specialist personal fitness trainer who agrees to take patient for surgical closure tomorrow. We updated tetanus vaccine and started patient on antibiotics. Patient tolerated this well. She verbalizes understanding of the plan. - Lab Data Result diagrams: 08/12/19 21:48 Lab Results 08/12/19 08/12/19 Range/Units 21:48 21:48 WBC 9.4 (3.8-10.6) k/uL RBC 3.68 L (3.80-5.40) m/uL Hgb 11.7 (11.4-16.0) gm/dL Hct 37.5 (34.0-46.0) % MCV 102.0 H (80.0-100.0) fL MCH 31.8 (25.0-35.0) pg MCHC 31.2 (31.0-37.0) g/dL RDW 14.1 (11.5-15.5) % Plt Count 168 (150-450) k/uL Neutrophils % 78 % Lymphocytes % 7 % Monocytes % 14 % Eosinophils % 1 % Basophils % 0 % Neutrophils # 7.3 (1.3-7.7) k/uL Lymphocytes # 0.6 L (1.0-4.8) k/uL Monocytes # 1.3 H (0-1.0) k/uL Eosinophils # 0.1 (0-0.7) k/uL Basophils # 0.0 (0-0.2) k/uL Hypochromasia Moderate Macrocytosis Slight PT 10.0 (9.0-12.0) sec INR 1.0 (<1.2) APTT 21.5 L (22.0-30.0) sec Disposition Clinical Impression: Laceration of right lower leg Disposition: ADMITTED IP TO THIS [facility] Condition: Serious Referrals: Lori Cortez DO [Primary Care Provider] - 1-2 days Decision to Admit Reason: Admit from EC Decision Date: 08/12/19 Decision Time: 22:50
[2019-08-12] MEDS ORDERED: DIPH,PERTUS(ACELL)TETVAC-LF 0.5 ML VIAL IM ONE (23:22)
[2019-08-12] MEDS: SODIUM CHLORIDE 0.9% 1,000 ML IV SCH (23:36)
--- NOTE | 2019-08-12 23:51 | ED ---
Medical Decision Making - Lab Data Result diagrams: 08/12/19 21:48 Lab Results 08/12/19 08/12/19 08/12/19 Range/Units 21:48 21:48 23:08 WBC 9.4 (3.8-10.6) k/uL RBC 3.68 L (3.80-5.40) m/uL Hgb 11.7 (11.4-16.0) gm/dL Hct 37.5 (34.0-46.0) % MCV 102.0 H (80.0-100.0) fL MCH 31.8 (25.0-35.0) pg MCHC 31.2 (31.0-37.0) g/dL RDW 14.1 (11.5-15.5) % Plt Count 168 (150-450) k/uL Neutrophils % 78 % Lymphocytes % 7 % Monocytes % 14 % Eosinophils % 1 % Basophils % 0 % Neutrophils # 7.3 (1.3-7.7) k/uL Lymphocytes # 0.6 L (1.0-4.8) k/uL Monocytes # 1.3 H (0-1.0) k/uL Eosinophils # 0.1 (0-0.7) k/uL Basophils # 0.0 (0-0.2) k/uL Hypochromasia Moderate Macrocytosis Slight PT 10.0 (9.0-12.0) sec INR 1.0 (<1.2) APTT 21.5 L (22.0-30.0) sec Coronavirus (PCR) Not Detected (Not Detectd) Disposition Clinical Impression: Laceration of right lower leg Disposition: ADMITTED IP TO THIS [facility] Condition: Serious Procedures - Laceration Laceration #1 Consent Obtained: verbal consent Indication: laceration Site: lower extremity Size (cm): 20 Description: flap Anesthetic Used: lidocaine 1% Anesthesia Technique: local infiltration Amount (mls): 24 Pre-repair: irrigated extensively (Irrigated with 1000ml sterile water) Patient Tolerated Procedure: well, no complications Additional Comments: Suture repair was not performed, patient will be evaluated by orthopedics for repair in the morning.
[2019-08-13] MEDS: IPRATROPIUM-ALBUTEROL 3 ML NEB INHALATION PRN (00:43)
[2019-08-13] MEDS: IPRATROPIUM-ALBUTEROL 3 ML NEB INHALATION SCH ×4 (07:06→19:24)
--- NOTE | 2019-08-13 10:28 | P.HPOR ---
<John Nunez - Last Filed: 08/13/19 10:19> History of Present Illness H&P Date: 08/13/19 Chief Complaint: Right lower leg laceration Patient is a 79-year-old female patient seen at bedside this morning. She was admitted through the emergency department yesterday for evaluation of a laceration to the right lower leg. Patient states that she was going to get into the tub when she lost her balance, her leg hit the side of the tub where a sharp piece caused a laceration of her right lower leg. She was transported to the ED via ambulance. She denies hitting her head or losing consciousness. Denies any other injuries. She is having some tingling down the front of the leg and foot. She has no other new complaints. She has a history of asthma and COPD. Patient currently denies any recent rash, fever, chills, cough, shortness of breath, chest pain, abdominal pain, nausea, vomiting, diarrhea, constipation, back pain, dizziness, weakness, hematuria, dysuria, urinary urgency, urinary f requency, headache, visual changes, or any other complaints. Review of Systems All systems: negative Constitutional: Denies chills, Denies fever Eyes: denies blurred vision, denies pain Ears, nose, mouth and throat: Denies headache, Denies sore throat Cardiovascular: Denies chest pain, Denies shortness of breath Respiratory: Denies cough Gastrointestinal: Denies abdominal pain, Denies diarrhea, Denies nausea, Denies vomiting Genitourinary: Denies dysuria, Denies hematuria Musculoskeletal: Denies myalgias Integumentary: Denies pruritus, Denies rash Neurological: Denies numbness, Denies weakness Psychiatric: Denies anxiety, Denies depression Endocrine: Denies fatigue, Denies weight change Past Medical History Past Medical History: Coronary Artery Disease (CAD), Heart Failure, COPD, GERD/Reflux, Hyperlipidemia History of Any Multi-Drug Resistant Organisms: None Reported Past Surgical History: Back Surgery Past Anesthesia/Blood Transfusion Reactions: No Reported Reaction Past Psychological History: No Psychological Hx Reported Smoking Status: Former smoker Past Alcohol Use History: None Reported Past Drug Use History: None Reported - Past Family History Mother Family Medical History: Myocardial Infarction ([place]) Brother(s) Family Medical History: Cancer, Myocardial Infarction ([place]) Additional Family Medical History / Comment(s): colon ca, 2 brother with ca Medications and Allergies Home Medications Medication Instructions Recorded Confirmed Type Acyclovir [Zovirax] 400 mg PO BID 04/12/18 08/12/19 History Albuterol Inhaler (Mhu) [Ventolin 2 puff INHALATION RT-Q6H PRN 04/12/18 08/12/19 History Hfa Inhaler (Mhu)] Albuterol Nebulized [Ventolin 2.5 mg INHALATION RT-TID 04/12/18 08/12/19 History Nebulized] Budesonide [Pulmicort] 0.5 mg INHALATION RT-BID 04/12/18 08/12/19 History Furosemide [Lasix] 20 mg PO BID 04/12/18 08/12/19 History Lovastatin [Mevacor] 20 mg PO HS 04/12/18 08/12/19 History Montelukast [Singulair] 10 mg PO DAILY 04/12/18 08/12/19 History Multivitamins, Thera [Multivitamin 1 tab PO DAILY 04/12/18 08/12/19 History (formulary)] Omeprazole 20 mg PO DAILY 04/12/18 08/12/19 History Potassium Chloride ER [K-Dur 10] 10 meq PO DAILY 04/12/18 08/12/19 History Aspirin EC [Ecotrin Low Dose] 81 mg PO DAILY 08/12/19 08/12/19 History Allergies Allergy/AdvReac Type Severity Reaction Status Date / Time naproxen Allergy Unknown Verified 08/12/19 23:30 amoxicillin [From Augmentin] AdvReac Unknown Verified 08/12/19 20:54 clavulanic acid AdvReac Unknown Verified 08/12/19 20:54 [From Augmentin] erythromycin base AdvReac Unknown Verified 08/12/19 20:54 Physical Examination Inspection of the right lower extremity shows no deformity. There is a oblique/longitudinal deep laceration along the anterior aspect of the right lower leg measuring approximately 12 inches. There does not appear to be muscle or bone involvement There is no uncontrolled bleeding. There is no drainage. There is no erythema of the skin or signs of infection. Neurovascular status intact with motor and sensation to light touch intact throughout the right lower extremity, foot and toes. 2+ dorsalis pedis pulses present as well as less than 2 second capillary refill in all digits. Calf is soft and nontender.. Results - Labs Labs: Abnormal Lab Results - Last 24 Hours (Table) 08/12/19 08/12/19 Range/Units 21:48 21:48 RBC 3.68 L (3.80-5.40) m/uL MCV 102.0 H (80.0-100.0) fL Lymphocytes # 0.6 L (1.0-4.8) k/uL Monocytes # 1.3 H (0-1.0) k/uL APTT 21.5 L (22.0-30.0) sec H & H 08/12/19 Range/Units 21:48 Hgb 11.7 (11.4-16.0) gm/dL Hct 37.5 (34.0-46.0) % Coagulation 08/12/19 Range/Units 21:48 INR 1.0 (<1.2) Result Diagrams: 08/12/19 21:48 Assessment and Plan (1) Laceration of right lower leg Narrative/Plan: Patient has been reviewed with Dr. De La Vega. Plan is to proceed with surgical intervention including irrigation and debridement with wound closure of the right lower leg laceration. She has been nothing by mouth. Procedure and consent has been ordered. Plan is to proceed today at earliest availability. Current Visit: Yes Status: Acute Priority: Medium Code(s): S81.811A - LACERATION W/O FOREIGN BODY, RIGHT LOWER LEG, INIT ENCNTR SNOMED Code(s): 59494187153668348 Time with Patient: Less than 30 <Jacob De La Vega - Last Filed: 08/13/19 14:31> Results - Labs Labs: Abnormal Lab Results - Last 24 Hours (Table) 08/12/19 08/12/19 08/13/19 Range/Units 21:48 21:48 11:11 RBC 3.68 L (3.80-5.40) m/uL MCV 102.0 H (80.0-100.0) fL Lymphocytes # 0.6 L (1.0-4.8) k/uL Monocytes # 1.3 H (0-1.0) k/uL APTT 21.5 L (22.0-30.0) sec Carbon Dioxide 36 H (22-30) mmol/L BUN 23 H (7-17) mg/dL Glucose 133 H (74-99) mg/dL Total Protein 6.1 L (6.3-8.2) g/dL Albumin 3.2 L (3.5-5.0) g/dL H & H 08/12/19 Range/Units 21:48 Hgb 11.7 (11.4-16.0) gm/dL Hct 37.5 (34.0-46.0) % Coagulation 08/12/19 Range/Units 21:48 INR 1.0 (<1.2) Result Diagrams: 08/12/19 21:48 08/13/19 11:11 Assessment and Plan Plan: Reviewed and agree with above (amendments/corrections noted below). The patient was subsequently seen and examined by me as well. S: The patient states that she has COPD and is not able to stand very long. She went to sit down on her shower chair which wasn't in its usual position and she fell, cutting her leg on a sharp edge. She presented to the emergency department where the wound was evaluated and provisionally washed and dressed. She denies any other associated injuries. She denies any numbness or tingling. She does admit to a history of delayed healing. She denies diabetes. She lives at home with her son. She denies fevers, chills or recent illness. O: Large degloving flap wound on the lateral aspect of the mid/distal right leg, approximately 20 cm in length. This extends to the fascia over the lateral compartment muscles and distal tibia. No obvious injury to either one. No active bleeding. Subjectively normal sensation circumferentially around the foot and ankle. Intact active dorsiflexion and plantarflexion. A: Traumatic laceration/degloving injury to the right leg status post fall on 08/12/19. P: I discussed the clinical findings in detail with the patient. We reviewed the pertinent anatomy and pathophysiology of the injury. We discussed treatment options and I explained the rationale behind surgical intervention. Given the extent of the wound, I recommended formal surgical debridement and wound closure, with possible application of a wound VAC. We discussed the surgical plan. Risks and benefits were reviewed including (but not limited to) the risks of infection, bleeding, blood clots, seroma, wound breakdown/necrosis and possible need for additional surgery. Questions were invited and answered. The patient expressed understanding and wishes to proceed with surgery. The patient will be NPO. Continue PRN pain management. We will plan for surgery as soon as possible. Thank you for allowing me to participate in the care of this patient. Jacob De La Vega D.O. [facility]
[2019-08-13 11:35] LABS: ALT 13 U/L (4-34); AST 21 U/L (14-36); African American GFR (CKD) >90 (>60 ml/min/1.73 sqM); Albumin 3.2 g/dL (3.5-5.0); Alkaline Phosphatase 71 U/L (38-126); Anion Gap 2 mmol/L; Blood Urea Nitrogen 23 mg/dL (7-17); Calcium 8.6 mg/dL (8.4-10.2); Carbon Dioxide 36 mmol/L (22-30); Chloride 100 mmol/L (98-107); Glucose 133 mg/dL (74-99); Non-African American GFR(CKD) 89 (>60 ml/min/1.73 sqM); Potassium 4.8 mmol/L (3.5-5.1); Sodium 138 mmol/L (137-145); Total Bilirubin 0.4 mg/dL (0.2-1.3); Total Protein 6.1 g/dL (6.3-8.2)
[2019-08-13] MEDS ORDERED: IV FLUID CONTINUATION 250 ML IV ONE (14:48)
[2019-08-13] MEDS ORDERED: KETAMINE 10 MG/ML 20 ML VIAL ONE (15:15)
[2019-08-13] MEDS ORDERED: MIDAZOLAM 2 MG/2 ML VIAL ONE (15:15)
[2019-08-13] MEDS ORDERED: PHENYLEPHRINE-0.9% NACL SYG 1 MG/10 ML SYRINGE ONE (15:15)
[2019-08-13] MEDS ORDERED: LACTATED RINGERS 1,000 ML IV ONE (17:13)
[2019-08-13] MEDS ORDERED: HYDROmorphone 1 MG/ML 1 ML SYRINGE IVP ONE ×2 (17:57→18:05)
[2019-08-13] MEDS: SODIUM CHLORIDE 0.9% 1,000 ML IV SCH (20:10)
[2019-08-13] MEDS: ENOXAPARIN 40 MG/0.4 ML SYRINGE SQ SCH (20:12)
[2019-08-14] MEDS: HYDROmorphone 0.5 MG/0.5 ML SYRINGE IVP PRN ×2 (00:47→10:21)
[2019-08-14] MEDS: IPRATROPIUM-ALBUTEROL 3 ML NEB INHALATION PRN (01:06)
[2019-08-14] MEDS: HYDROcodone/APAP 5-325MG 1 EACH TAB PO PRN ×2 (06:04→20:52)
[2019-08-14 06:57] LABS: Basophils % (A) 0 %; Eosinophils # (A) 0.1 k/uL (0-0.7); Eosinophils % (A) 1 %; HCT 31.3 % (34.0-46.0); Hypochromasia Marked; Lymphocytes # (A) 0.8 k/uL (1.0-4.8); Lymphocytes % (A) 9 %; MCH 32.8 pg (25.0-35.0); MCHC 31.1 g/dL (31.0-37.0); MCV 105.4 fL (80.0-100.0); Macrocytosis Moderate; Monocytes # (A) 1.8 k/uL (0-1.0); Monocytes % (A) 20 %; Neutrophils # (A) 6.2 k/uL (1.3-7.7); Neutrophils % (A) 69 %; Platelet Count 162 k/uL (150-450); RBC 2.97 m/uL (3.80-5.40); RDW 14.2 % (11.5-15.5)
[2019-08-14 07:04] LABS: HGB 9.7 gm/dL (11.4-16.0)
[2019-08-14] MEDS: IPRATROPIUM-ALBUTEROL 3 ML NEB INHALATION SCH ×4 (08:22→20:19)
[2019-08-14] MEDS ORDERED: ALBUTEROL HFA INHALER INHALATION PRN (14:24)
[2019-08-14] MEDS ORDERED: MONTELUKAST 10 MG TAB PO SCH (14:30)
[2019-08-14] MEDS: POTASSIUM CHLORIDE ER 10 MEQ TAB.ER.PRT PO SCH (15:09)
[2019-08-14] MEDS: FUROSEMIDE 20 MG TAB PO SCH (15:09)
[2019-08-14] MEDS: MULTIVITAMINS, THERA 1 EACH TAB PO SCH (15:09)
[2019-08-14] MEDS: PANTOPRAZOLE 40 MG TABLET PO SCH (15:09)
[2019-08-14] MEDS: ASPIRIN 81 MG PO SCH (15:09)
--- NOTE | 2019-08-14 15:20 | P.OP ---
Date of Procedure: 08/13/19 Preoperative Diagnosis: Traumatic right leg wound with partially avulsed skin and subcutaneous tissue flap Postoperative Diagnosis: Traumatic right leg wound with partially avulsed skin and subcutaneous tissue flap Procedure(s) Performed: 1. Irrigation and sharp excisional debridement of right leg wound 2. Right leg wound closure 3. Application of negative pressure wound therapy (e.g. vacuum-assisted drainage collection) Anesthesia: spinal (w/sedation) Surgeon: Jacob De La Vega Estimated Blood Loss (ml): 10 Condition: stable Disposition: PACU Indications for Procedure: The patient is a pleasant 79-year-old female who fell in her shower, creating a large open wound in her right leg. This was provisionally debrided and dressed by the ER team and the orthopedic service was consulted for definitive management. Treatment options (and associated risks and benefits) were discussed and recommended surgical debridement and wound closure. Specific risks were addressed, including infection (early or late), seroma, delayed healing, flap necrosis and possible need for secondary surgeries. She expressed understanding and wished to proceed with surgery. Consent forms were signed. The operative site was confirmed and marked in preop. Operative Findings: 20.5 cm crescentic laceration through the skin and subcutaneous tissue down to the lateral compartment fascia with a large, partially avulsed flap of skin and adipose tissue. When flapped open, the wound measured 16 cm at its widest dimension. The fascia over the anterior tibia was visible but there is no obvious osseous injury. No purulence or obvious foreign debris. No appreciable neurovascular injuries (with the exception of superficial bleeders). Description of Procedure: The patient was positioned supine with a bump under the right hip. A tourniquet was applied but was not inflated. Anesthesia was administered uneventfully. A time-out was performed, confirming patient identifiers, the operative side, site and the procedure to be performed: all team members expressed agreement. The wound was opened and explored. The trauma cut obliquely through the skin and subcutaneous tissue, leaving only epidermis along the edge of the flap centrally. The avulsed flap was still solidly fixed posteriorly. A large branch of the superficial peroneal nerve was identified exiting the fascia in the center of the wound. It appeared uninjured. No obvious trauma to the surr ounding muscle or bone. A sharp excisional debridement was performed, utilizing scalpels, scissors and curettes to debride the wound and resect hematoma and unhealthy tissue, including skin, subcutaneous tissue, fat and fascia. Resection proceeded until healthy-appearing tissues with bleeding edges were obtained. The total area of debridement measured 20.5 cm x 16 cm. The wound was copiously irrigated with 6 L of normal saline using pulse lavage as well as gravity inflow with cystoscopy tubing. The surrounding soft tissues were mechanically debrided with a curette. The subcutaneous tissues at the distal apex of the flap were slightly undermined to allow mobilization and proximal advancement of the flap. This was closed in layers with 3-0 PDS for the deep and superficial subcutaneous tissue. The traumatized skin edges were sharply revised back to healthy margins. Her skin was very thin and friable: Simple sutures pulled through easily. The wound was repaired and closed with interrupted 3-0 Prolene horizontal mattress sutures. The wound closed completely and without tension. Good hemostasis was maintained throughout the case without the need for a tourniquet. With the size of the flap, there was concern for seroma formation. Given that and her fragile skin, the decision was made to apply an incisional wound VAC to keep pressure on the flap and neutralize any shear forces. The VAC dressing completely covered the laceration and flap. A good seal was achieved. All sponge, needle and instrument counts were correct at the end of the case. The patient tolerated the procedure well and was taken to recovery in stable condition.
[2019-08-14] MEDS: SODIUM CHLORIDE 0.9% 1,000 ML IV SCH (19:23)
[2019-08-14] MEDS ORDERED: ALBUTEROL NEBULIZED 2.5 MG/3 ML INHALATION SCH (20:00)
[2019-08-14] MEDS: BUDESONIDE 0.5 MG/2 ML NEBU INHALATION SCH (20:19)
[2019-08-14] MEDS: ATORVASTATIN 10 MG TAB PO SCH (20:51)
[2019-08-14] MEDS: ENOXAPARIN 40 MG/0.4 ML SYRINGE SQ SCH (20:52)
[2019-08-14] MEDS: MONTELUKAST 10 MG TAB PO SCH (20:52)
[2019-08-14] MEDS: ACYCLOVIR 200 MG CAP PO SCH (20:52)
--- NOTE | 2019-08-14 21:45 | P.PN ---
Subjective Progress Note Date: 08/14/19 The patient reports pain with weightbearing. Pain at rest is well controlled with medication. She had difficulty ambulating with therapy. She does not feel she can go home with her present functional level. She denies any other specific issues or concerns. Objective - Vital Signs Vital signs: Vital Signs Temp 98.3 F 08/14/19 05:00 Pulse 86 08/14/19 20:38 Resp 20 08/14/19 16:40 BP 127/74 08/14/19 12:25 Pulse Ox 93 L 08/14/19 16:04 Intake & Output 08/14/19 08/14/19 08/15/19 06:59 18:59 06:59 Intake Total 1600 240 Output Total 700 600 Balance 900 -360 Intake: Intake, IV Titration 700 Amount Sodium Chloride 0.9% 1, 600 000 ml @ 50 mls/hr IV . Q20H COUNTS INCLUDE 234 BEDS AT THE [facility] Rx#:[id number] ceFAZolin 2 gm In Sodium 100 Chloride 0.9% 50 ml @ 100 mls/hr IVPB Q8H RADHA Rx#: [id number] Oral 900 240 Output: Urine 700 600 Straight 700 Other: Voiding Method Diaper Diaper Incontinent Incontinent - Exam The patient was sitting in the bedside chair. Alert, oriented and pleasantly interactive. The VAC dressing appears clean and dry with no visible bleeding/strikethrough. There still appears to be a good seal with the sponges noncompressed due to the device being discharged (battery exhausted). No surrounding ecchymosis or erythema. Mild pitting edema distally. Subjectively normal sensation throughout the foot. - Labs CBC & Chem 7: 08/14/19 05:58 08/13/19 11:11 Labs: Abnormal Lab Results - Last 24 Hours (Table) 08/14/19 Range/Units 05:58 RBC 2.97 L (3.80-5.40) m/uL Hgb 9.7 L D (11.4-16.0) gm/dL Hct 31.3 L (34.0-46.0) % MCV 105.4 H (80.0-100.0) fL Lymphocytes # 0.8 L (1.0-4.8) k/uL Monocytes # 1.8 H (0-1.0) k/uL Assessment and Plan Assessment: Postoperative day #1 status post I&D and closure of traumatic right leg wound with application of incisional wound VAC. COPD Chronic low back pain. Generalized deconditioning. Plan: I reviewed the clinical and intraoperative findings with the patient. I feel she would benefit from interval placement in a subacute rehabilitation facility prior to returning home. Continue weightbearing as tolerated, though the patient was encouraged not to ambulate excessively in the first few days postoperatively. Begin aspirin 325 mg twice a day for DVT prophylaxis. Given the duration of the wound was open, I recommended continuing with a few days of oral antibiotics. Keflex 500 mg t.i.d. for 3 days. Reestablish negative pressure on the Vac. The vac dressing may be removed after 3 days. Continue PRN pain management. DC planning.
[2019-08-14] MEDS: CEPHALEXIN 500 MG CAP PO SCH (22:10)
[2019-08-15] MEDS: IPRATROPIUM-ALBUTEROL 3 ML NEB INHALATION SCH ×4 (07:28→19:53)
[2019-08-15] MEDS: BUDESONIDE 0.5 MG/2 ML NEBU INHALATION SCH ×2 (07:28→19:53)
[2019-08-15] MEDS: CEPHALEXIN 500 MG CAP PO SCH ×3 (09:03→21:23)
[2019-08-15] MEDS: ASPIRIN 81 MG PO SCH ×2 (09:04→09:13)
[2019-08-15] MEDS: ASPIRIN 325 MG TAB PO SCH ×2 (09:04→20:10)
[2019-08-15] MEDS: FUROSEMIDE 20 MG TAB PO SCH ×2 (09:04→20:10)
[2019-08-15] MEDS: MULTIVITAMINS, THERA 1 EACH TAB PO SCH (09:04)
[2019-08-15] MEDS: POTASSIUM CHLORIDE ER 10 MEQ TAB.ER.PRT PO SCH (09:04)
[2019-08-15] MEDS: PANTOPRAZOLE 40 MG TABLET PO SCH (09:05)
[2019-08-15] MEDS: ACYCLOVIR 200 MG CAP PO SCH ×2 (09:05→20:10)
--- NOTE | 2019-08-15 12:24 | P.PN ---
Subjective Progress Note Date: 08/15/19 This patient is a 79-year-old female that is status-post I&D and closure of traumatic right leg wound with application of incisional wound VAC, post- operative day #2. She is seen and examined bedside. She states the pain in her right leg is well-controlled. She has been transferring to the bedside chair wi th assistance of her walker. She uses a walker at baseline. She states her right leg becomes painful when she bears weight. She otherwise is feeling well today. She denies chest pain, nausea, vomiting, fevers, chills. Vital signs stable. Objective - Vital Signs Vital signs: Vital Signs Temp 98.5 F 08/15/19 11:52 Pulse 89 08/15/19 11:52 Resp 17 08/15/19 11:52 BP 133/63 08/15/19 11:52 Pulse Ox 93 L 08/15/19 11:52 Intake & Output 08/14/19 08/15/19 08/15/19 18:59 06:59 18:59 Intake Total 240 1900 Output Total 600 Balance -360 1900 Intake: Intake, IV Titration 600 Amount Sodium Chloride 0.9% 1, 600 000 ml @ 50 mls/hr IV . Q20H [facility] Rx#:[id number] Oral 240 1300 Output: Urine 600 Other: Voiding Method Diaper Diaper Diaper Incontinent Incontinent Incontinent - Exam On examination, the patient is sitting up in a bedside chair in no apparent distress. She is alert and on the template. Inspection of the right lower extremity, there is a wound VAC in place of the right lower leg. The wound VAC dressing is intact and the wound VAC appears to be functioning properly. Dorsalis pedis pulse palpable. The right lower extremity is warm and well perfused with brisk capillary refill distally. Motor and sensory function appear to be intact of the right lower extremity. Patient has good strength and range of motion of the right ankle. - Labs CBC & Chem 7: 08/14/19 05:58 08/13/19 11:11 Assessment and Plan Assessment: Postoperative day #2. Status-post I&D and closure of traumatic right leg wound with application of incisional wound VAC. Plan: - Continue wound vac for 3 days. May be removed tomorrow. - Continue Keflex 500 TID for 3 days post-op. - Aspirin 325mg BID for DVT prophylaxis. - Patient may weight bear as tolerated on the operative leg, although should not ambulate excessively in first few days post-op. - Anticipate discharge to [facility] on Monday. She will follow-up with Dr. De La Vega via Telehealth in one week following discharge.
--- NOTE | 2019-08-15 13:17 | P.PN ---
Progress Note - Text Progress Note Date: 08/14/19 Wed 9am, 08/14/19 ORTHO Hx: This is routine ortho rounds for her left leg laceration by Dr. De La Vega. This extensive wound was repaired recently and she remains hospitalized for wound care and mobilization. She states she hasnt been out of bed. PE: Using full COVID & PPE precautions, her leg was examined. A wound vac is in place which was left undisturbed. There is no adjacent redness to suggest an infection. The remainder of her leg exam is unremarkable. IMP: Post OP repair extensive leg laceration Obesity, difficulty with ambulation. PLAN: There was a possibility of discharge today, but the patient is unwilling. She hasn't mobilized much which hopefully PT can assist. Her obesity is a significant factor and she needs more work to regain ambulation. She is also unsure of wound care and further instructions would be helpful. Possible disharge tomorrow. Sourav Min D.O.
[2019-08-15] MEDS: SODIUM CHLORIDE 0.9% 1,000 ML IV SCH (18:12)
[2019-08-15] MEDS: MONTELUKAST 10 MG TAB PO SCH (20:10)
[2019-08-15] MEDS: ATORVASTATIN 10 MG TAB PO SCH (20:12)
[2019-08-16] MEDS: IPRATROPIUM-ALBUTEROL 3 ML NEB INHALATION PRN (03:27)
[2019-08-16] MEDS: IPRATROPIUM-ALBUTEROL 3 ML NEB INHALATION SCH ×4 (07:18→19:19)
[2019-08-16] MEDS: BUDESONIDE 0.5 MG/2 ML NEBU INHALATION SCH ×2 (07:18→19:19)
[2019-08-16 07:25] LABS: Basophils % (A) 0 %; Eosinophils # (A) 0.1 k/uL (0-0.7); Eosinophils % (A) 2 %; HCT 28.5 % (34.0-46.0); HGB 8.9 gm/dL (11.4-16.0); Hypochromasia Marked; Lymphocytes # (A) 0.6 k/uL (1.0-4.8); Lymphocytes % (A) 11 %; MCH 32.2 pg (25.0-35.0); MCHC 31.3 g/dL (31.0-37.0); MCV 102.9 fL (80.0-100.0); Macrocytosis Slight; Mean Platelet Volume 9.2; Monocytes # (A) 1.1 k/uL (0-1.0); Monocytes % (A) 19 %; Neutrophils # (A) 3.9 k/uL (1.3-7.7); Neutrophils % (A) 67 %; Platelet Count 163 k/uL (150-450); RBC 2.77 m/uL (3.80-5.40); RDW 14.4 % (11.5-15.5); WBC 5.8 k/uL (3.8-10.6)
[2019-08-16] MEDS: CEPHALEXIN 500 MG CAP PO SCH ×3 (09:53→22:33)
[2019-08-16] MEDS: PANTOPRAZOLE 40 MG TABLET PO SCH (09:53)
[2019-08-16] MEDS: POTASSIUM CHLORIDE ER 10 MEQ TAB.ER.PRT PO SCH (09:54)
[2019-08-16] MEDS: ACYCLOVIR 200 MG CAP PO SCH ×2 (09:54→19:15)
[2019-08-16] MEDS: SODIUM CHLORIDE 0.9% 1,000 ML IV SCH (09:54)
[2019-08-16] MEDS: ASPIRIN 325 MG TAB PO SCH ×2 (09:54→19:16)
[2019-08-16] MEDS: ASPIRIN 81 MG PO SCH (09:54)
[2019-08-16] MEDS: FUROSEMIDE 20 MG TAB PO SCH ×2 (09:54→19:16)
[2019-08-16] MEDS: MULTIVITAMINS, THERA 1 EACH TAB PO SCH (09:54)
--- NOTE | 2019-08-16 12:29 | P.PN ---
<Jamie Hills - Last Filed: 08/16/19 12:28> Progress Note - Text Progress Note Date: 08/16/19 Orthopedics: History of present illness: Patient is a very pleasant 79-year-old female who is seen and examined at bedside for follow-up evaluation following irrigation and debridement with wound closure of a large traumatic right lower extremity leg wound performed on 08/13/2019. She has continued to keep a wound VAC intact postoperatively. She feels her right lower extremity leg pain has been medically controlled. She discontinued has some difficulty with mobilization. She has been able to transfer to a bedside chair with the assistance of a walker. She ambulated with a walker at baseline. She is eating and voiding without difficulty. She is planning for discharge to [facility] tomorrow, 08/17/2019. She continues to receive oral Keflex. Physical Exam: Patient is awake, alert, and oriented 3 Vital signs stable Good chest excursion with deep inspiration and expiration Wound VAC in place over the right lower extremity Wound VAC is removed during physical examination Evidence of a large wound over the right anterior lateral lower extremity in which sutures remain intact Some evidence of bruising around the wound site Mild drainage at the superior portion of the wound No purulent discharge or obvious infection at the wound site Evidence of small superficial skin tear over the right lateral lower extremity Dorsiflexion and plantarflexion positive sustained right lower extremity Palpation over the right calf Neurovascularly intact right lower extremity Dressing is reapplied with nonstick Telfa, ABDs, Kerlix, and Romero wrap Assessment: Status post irrigation and debridement with wound closure for right traumatic right lower extremity wound Right lower extremity leg pain Difficulty with ambulation History of coronary artery disease COPD Hyperlipidemia History of heart failure Plan: 1. Patient will continue with conservative treatment postoperatively following incision and debridement with wound closure over her right lower extremity traumatic wound injury. Wound VAC has been discontinued. New dressing has been applied over the wound site. She should keep this dressing clean, dry, and intact. Patient may continue to work with therapy to increase mobilization and ambulation. Patient is weightbearing as tolerated on the right lower extremity. She may use a walker to aid in ambulation. We are currently planning for discharge to a rehabilitation facility tomorrow, 08/17/2019. Patient may continue to eat a regular diet. She will continue with Keflex 500 mg as prescribed prior to her discharge tomorrow. She will continue with aspirin 325 mg daily and will be given a prescription for this medication at discharge. She may continue with oral [place] as prescribed as needed for pain control. We may plan for discharge with pain medication as well as depending on the patient's pain at the time of discharge. We will continue to follow the patient closely. Following discharge, we will plan to keep the sutures intact over the wound of the right lower extremity until her follow-up appointment and we will plan to have the sutures removed in the office setting. Patient will follow up at [facility] with Dr. Jacob Conti in 2 weeks following discharge. <Jacob De La Vega - Last Filed: 08/17/19 09:25> Progress Note - Text Reviewed and agree with above (amendments/corrections noted below). I subsequently saw and examined the patient. S: She states that there is very little pain in the leg. She feels that she is getting around easier. Denies SOB or TAMARA. She denies specific issues or concerns. O: Dressing is in place with no shadowing or strikethrough. Minimal tenderness to palpation. No pain with active dorsiflexion and plantar flexion. Pedal edema noted. The foot is warm and well-perfused. A: POD #3 status post I&D of traumatic right leg laceration with wound closure and incisional vac placement P: The patient is doing well. She may progress ambulation as tolerated. Monitor for redness or fluid accumulation at the wound site. Plan for DC to rehab. Follow up outpatient in 2 weeks. Call sooner with que stions or concerns. Jacob De La Vega D.O. [facility] Jacob De La Vega D.O. [facility]
--- NOTE | 2019-08-16 15:04 | CDI ---
Documentation Clarification Form Date: 08/16/2019 02:49:28 PM From: Radha Aquino RN, CCDS Admit Date: 08/14/2019 10:03:00 AM Patient Name: Shaunna Keys Visit Number: [id number] ATTENTION: The Clinical Documentation Specialists (CDI) and [facility] Coding Staff appreciate your assistance in clarifying documentation. Please respond to the clarification below the line at the bottom and electronically sign. The CDI & [facility] Coding staff will review the response and follow-up if needed. Please note: Queries are made part of the Legal Health Record. If you have any questions, please contact the author of this message via ITS. Dr. Jacob De La Vega Coronavirus (PCR) screening was preformed on this patient. All patients receiving Coronavirus screening require documentation of results. Patient history/risk factors: COPD, CHF, CAD Clinical Indicators: 08/11 Coronavirus (PCR) not detected 08/12 2047 Vital Signs: Temp 98.7, HR 57, RR 18, B?P 139/91, Spo2 98% 2L NC Treatment: Zovirax 400 mg PO BID Keflex 500 mg PO TID 09%NS @ 50 cc/hr In order to capture the severity of condition, please clarify if the above treatment/clinical indicators signify: COVID-19 ruled out Other, please specify (Last Form Revision: June 2019) With the patient's recent history, present clinical exam and a negative test result, there is low probability for Coronavirus infection. MTDD
[2019-08-16] MEDS: ATORVASTATIN 10 MG TAB PO SCH (19:16)
[2019-08-16] MEDS: MONTELUKAST 10 MG TAB PO SCH (19:16)
[2019-08-16] MEDS: ALPRAZolam 0.25 MG TAB PO PRN (22:33)
--- NOTE | 2019-08-16 22:41 | CT ---
EXAMINATION TYPE: CT angio chest DATE OF EXAM: 08/16/2019 COMPARISON: 06/14/2017 HISTORY: Shortness of breath. CT DLP: 816.2 mGycm Automated exposure control for dose reduction was used. CONTRAST: Performed with IV Contrast, patient injected with 100 mL of Isovue 370. There are 3-D post processed images. FINDINGS: There is some mild nodular infiltrate with calcification at the lung bases more likely related to old granulomatous disease. Heart is borderline enlarged. Thoracic aorta is atheromatous. There is no ane urysm or dissection. There is suboptimal contrast in the pulmonary arteries. Exam is nondiagnostic fo r the presence of emboli in the lobar branch pulmonary arteries. There is no mediastinal adenopathy. There are no hilar masses. The bony thorax shows some osteopenia. There is 15% wedging of T10 vertebra. IMPRESSION: Exam is nondiagnostic for pulmonary embolism detection. Recommend lung scan or repeat exam with impro troy timing. There is some patchy nodular infiltrate in the lower lung [place] that appears new compared to old exa m and more likely related to inflammatory disease.
--- NOTE | 2019-08-16 23:29 | CT ---
EXAMINATION TYPE: CT angio chest DATE OF EXAM: 08/16/2019 COMPARISON: 06/14/2017 HISTORY: SOB CT DLP: 574.6 mGycm Automated exposure control for dose reduction was used. CONTRAST: Performed with IV Contrast, patient injected with 55cc mL of Isovue 370. There are 3-D post processed images. There is some patchy peripheral reticular nodular infiltrate in the lower lung tejada. There is no pl eural effusion. There is no pericardial effusion. There is coronary artery calcification. There are n o hilar masses. There is no mediastinal adenopathy. Thoracic aorta is atheromatous. There is no aneur ysm or dissection. Upper abdominal soft tissues are intact. I see no filling defects in the pulmonary arteries. The bony thorax is intact. There is T10 15% wedgi ng that appears old. Unchanged compared to old exam. IMPRESSION: No evidence of pulmonary embolism. Patchy peripheral reticular nodular pulmonary infiltrates are new compared to old exam and more likely related to inflammatory disease.
--- NOTE | 2019-08-17 00:05 | US ---
EXAMINATION TYPE: US venous doppler duplex LE DATE OF EXAM: 08/16/2019 11:05 PM COMPARISON: US 2016 CLINICAL HISTORY: rule out DVT. Bilateral leg swelling SIDE PERFORMED: Bilateral TECHNIQUE: The lower extremity deep venous system is examined utilizing real time linear array sonog annelise with graded compression, doppler sonography and color-flow sonography. VESSELS IMAGED: External Iliac Vein (EIV) Common Femoral Vein Deep Femoral Vein Greater Saphenous Vein * Femoral Vein Popliteal Vein Small Saphenous Vein * Proximal Calf Veins (* superficial vessels) Difficult and limited study due to patient body habitus Right Leg: Appears negative for DVT Left Leg: Appears negative for DVT IMPRESSION: Negative exam. No sign of deep vein thrombosis in both legs.
[2019-08-17] MEDS: HEPARIN SODIUM,PORCINE 5,000 UNIT/ML 1 ML VIAL SQ SCH ×3 (00:28→20:00)
[2019-08-17] MEDS: BUDESONIDE 0.5 MG/2 ML NEBU INHALATION SCH ×2 (08:01→19:05)
[2019-08-17] MEDS: IPRATROPIUM-ALBUTEROL 3 ML NEB INHALATION SCH ×4 (08:01→19:05)
[2019-08-17] MEDS: ACYCLOVIR 200 MG CAP PO SCH ×2 (09:04→20:01)
[2019-08-17] MEDS: MULTIVITAMINS, THERA 1 EACH TAB PO SCH (09:04)
[2019-08-17] MEDS: PANTOPRAZOLE 40 MG TABLET PO SCH (09:04)
[2019-08-17] MEDS: ASPIRIN 325 MG TAB PO SCH ×2 (09:04→20:01)
[2019-08-17] MEDS: FUROSEMIDE 20 MG TAB PO SCH (09:04)
[2019-08-17] MEDS: ASPIRIN 81 MG PO SCH (09:05)
[2019-08-17] MEDS: CEPHALEXIN 500 MG CAP PO SCH (09:05)
[2019-08-17] MEDS: SODIUM CHLORIDE 0.9% 1,000 ML IV SCH (09:05)
[2019-08-17] MEDS: POTASSIUM CHLORIDE ER 10 MEQ TAB.ER.PRT PO SCH (09:05)
[2019-08-17] MEDS: ALPRAZolam 0.25 MG TAB PO PRN (09:18)
[2019-08-17] MEDS ORDERED: FUROSEMIDE 10 MG/ML 4 ML VIAL IV STA (09:26)
--- NOTE | 2019-08-17 10:00 | XR ---
EXAMINATION TYPE: XR chest 1V portable DATE OF EXAM: 08/17/2019 HISTORY: dyspnea. REFERENCE: Previous study dated 05/01/2018. FINDINGS: Lung volumes are prominent. The heart is upper limits of normal in size. There are senescen t changes in the lungs. I do not see evidence of pneumonia or edema. There is some bibasilar atelecta sis. Pleural spaces are clear. IMPRESSION: 1. COPD. 2. MILD CARDIOMEGALY. 3. BIBASILAR ATELECTASIS.
[2019-08-17 10:21] LABS: African American GFR (CKD) >90 (>60 ml/min/1.73 sqM); Anion Gap 3 mmol/L; Blood Urea Nitrogen 13 mg/dL (7-17); Calcium 8.6 mg/dL (8.4-10.2); Carbon Dioxide 40 mmol/L (22-30); Chloride 94 mmol/L (98-107); Glucose 181 mg/dL (74-99); Non-African American GFR(CKD) >90 (>60 ml/min/1.73 sqM); Potassium 3.7 mmol/L (3.5-5.1); Sodium 137 mmol/L (137-145)
--- NOTE | 2019-08-17 11:54 | P.PN ---
Progress Note - Text Progress Note Date: 08/17/19 Orthopedics: History of present illness: Patient is a very pleasant 79-year-old female who is seen and examined at bedside for follow-up evaluation following irrigation and debridement with wound closure of a large traumatic right lower extremity leg wound performed on 08/13/2019. Her wound VAC was discontinued yesterday. She feels her right lower extremity leg pain has been medically controlled. She is not currently complaining of any pain at the right lower extremity. She continues to have some difficulty with mobilization. She has been able to transfer to a bedside chair with the assistance of a walker. She ambulated with a walker at baseline. She is eating and voiding without difficulty. Since being seen and examined yesterday, patient has been experiencing some increased shortness of breath. Medicine has been consulted. She also has evidence of bilateral lower extremity pitting edema. Medicine is planning to prescribe a dose of Lasix. Patient was originally planning for discharge to [facility] today, 08/17/2019. We will hold at discharge. Patient will continue to remain in the hospital until she is medically cleared from a medicine standpoint. She continues to receive oral Keflex. Physical Exam: Postoperative day #4 Patient is awake, alert, and oriented 3 Vital signs stable Adequate chest excursion with deep inspiration and expiration; patient currently on O2 nasal cannula Dressing with nonstick Telfa, ABDs, Kerlix, and Romero wrap remains intact Dressing is clean and dry over the right lower extremity Dorsiflexion and plantarflexion positive sustained right lower extremity No pain with palpation over the calves bilaterally Neurovascularly intact bilateral lower extremities Evidence of of 2+ pitting edema bilateral lower extremities Assessment: Status post irrigation and debridement with wound closure for right traumatic right lower extremity wound Right lower extremity leg pain Difficulty with ambulation Shortness of breath Bilateral lower extremity edema History of coronary artery disease COPD Hyperlipidemia History of heart failure Plan: 1. Patient will continue with conservative treatment postoperatively following incision and debridement with wound closure over her right lower extremity traumatic wound injury. Wound VAC has been discontinued. Dressing remains intact over the right lower extremity and is clean and dry. She should keep this dressing clean, dry, and intact. Patient may continue to work with therapy to increase mobilization and ambulation. Patient is weightbearing as tolerated on the right lower extremity. She may use a walker to aid in ambulation. We were originally planning for discharge to a rehabilitation facility today, 08/17/2019. Patient has had some increased shortness of breath and evidence of bilateral lower extremity edema. Medicine has been consulted. Medicine may plan to provide the patient with a dose of Lasix. We discussed patient will continue to remain in the hospital until cleared from a medicine standpoint. Patient may continue to eat a regular diet. She will continue with Keflex 500 mg as prescribed prior to her discharge tomorrow. She will continue with aspirin 325 mg daily and will be given a prescription for this medication at discharge. She may continue with oral [place] as prescribed as needed for pain control. We may plan for discharge with pain medication as well as depending on the patient's pain at the time of discharge. We will continue to follow the patient closely. Following discharge, we will plan to keep the sutures intact over the wound of the right lower extremity until her follow-up appointment and we will plan to have the sutures removed in the office setting. Patient will follow up at [facility] with Dr. Jacob Conti in 2 weeks following discharge. 2. Medicine has been consulted and will see and examine the patient for evaluation of her other medical diagnoses including increased shortness of breath and bilateral lower extremity edema
--- NOTE | 2019-08-17 14:33 | P.CNPUL ---
History of Present Illness Consult date: 08/17/19 Reason for consult: dyspnea, cough, COPD, hypoxemia Chief complaint: Shortness of breath History of present illness: This is a 79-year-old morbidly obese female of Dr. ERICA anand patient seen and evaluated examined on fifth floor patient was recently admitted on August 12 for a irrigation and deep abdomen and wound closure of a large traumatic right lower extremity leg wound, wound VAC was discontinued yesterday patient has chronic lower extremity swelling of +3 edema patient has been noted to have slightly increased shortness of breath lower extremity Doppler ultrasound has been negative for DVT computed tomography scan ALAN for pulmonary embolism was also negative chronic interstitial tear changes and the bottom with chronic limited disease was noted patient likely has component of fluid overload responded well with Lasix right now, hemodynamically stable afebrile heart rate is 80, blood pressure is stable, her saturation is 98% on 4 L chest x-ray cardiomegaly interstitial edema, patient at home is 2 L nasal cannula, on stretcher questioning denies any chest pain or sputum production or cough mild shortness of breath is present, she denies any urinary symptoms Review of Systems All systems: negative Past Medical History Past Medical History: Coronary Artery Disease (CAD), Heart Failure, COPD, GERD/Reflux, Hyperlipidemia History of Any Multi-Drug Resistant Organisms: None Reported Past Surgical History: Back Surgery Past Anesthesia/Blood Transfusion Reactions: No Reported Reaction Past Psychological History: No Psychological Hx Reported Smoking Status: Former smoker Past Alcohol Use History: None Reported Past Drug Use History: None Reported - Past Family History Mother Family Medical History: Myocardial Infarction ([place]) Brother(s) Family Medical History: Cancer, Myocardial Infarction ([place]) Additional Family Medical History / Comment(s): colon ca, 2 brother with ca Medications and Allergies Home Medications Medication Instructions Recorded Confirmed Type Acyclovir [Zovirax] 400 mg PO BID 04/12/18 08/12/19 History Albuterol Inhaler (Mhu) [Ventolin 2 puff INHALATION RT-Q6H PRN 04/12/18 08/12/19 History Hfa Inhaler (Mhu)] Albuterol Nebulized [Ventolin 2.5 mg INHALATION RT-TID 04/12/18 08/12/19 History Nebulized] Budesonide [Pulmicort] 0.5 mg INHALATION RT-BID 04/12/18 08/12/19 History Furosemide [Lasix] 20 mg PO BID 04/12/18 08/12/19 History Lovastatin [Mevacor] 20 mg PO HS 04/12/18 08/12/19 History Montelukast [Singulair] 10 mg PO DAILY 04/12/18 08/12/19 History Multivitamins, Thera [Multivitamin 1 tab PO DAILY 04/12/18 08/12/19 History (formulary)] Omeprazole 20 mg PO DAILY 04/12/18 08/12/19 History Potassium Chloride ER [K-Dur 10] 10 meq PO DAILY 04/12/18 08/12/19 History Aspirin EC [Ecotrin Low Dose] 81 mg PO DAILY 08/12/19 08/12/19 History Allergies Allergy/AdvReac Type Severity Reaction Status Date / Time naproxen Allergy Unknown Verified 08/13/19 15:06 amoxicillin [From Augmentin] AdvReac Unknown Verified 08/13/19 15:06 clavulanic acid AdvReac Unknown Verified 08/13/19 15:06 [From Augmentin] erythromycin base AdvReac Unknown Verified 08/13/19 15:06 Physical Exam Vitals: Vital Signs Temp Pulse Pulse Pulse Resp BP Pulse Ox 08/17/19 11:52 98.4 F 89 20 118/75 98 08/17/19 11:40 80 08/17/19 11:27 78 08/17/19 08:19 80 08/17/19 08:01 80 08/17/19 04:35 98.1 F 77 16 137/84 96 08/16/19 21:00 97.9 F 95 22 164/70 94 L 08/16/19 19:30 90 08/16/19 19:20 90 08/16/19 16:00 86 90 18 08/16/19 15:17 90 08/16/19 15:06 88 Intake and Output 08/16/19 08/17/19 08/17/19 22:59 06:59 14:59 Intake Total 400 Balance 400 Intake: Intake, IV Titration 400 Amount Sodium Chloride 0.9% 1, 400 000 ml @ 50 mls/hr IV . Q20H [facility] Rx#:[id number] Other: Voiding Method Bedside Commode Bedside Commode Bedside Commode Diaper Diaper Diaper Incontinent Incontinent Incontinent # Voids 1 2 Weight 98.6 kg - Constitutional General appearance: disheveled, mild distress, morbidly obese - EENT Eyes: EOMI, PERRLA Ears: bilateral: normal - Neck Neck: normal ROM Carotids: bilateral: upstroke normal Thyroid: bilateral: normal size - Respiratory Respiratory: bilateral: diminished, rales - Cardiovascular Rhythm: regular Heart sounds: normal: S1, S2 - Gastrointestinal General gastrointestinal: normal bowel sounds - Neurologic Neurologic: CNII-XII intact - Musculoskeletal Musculoskeletal: gait normal, generalized weakness, strength equal bilaterally - Psychiatric Psychiatric: A&O x's 3, appropriate affect, intact judgment & insight (Chronic lower extremity edema with ischemic changes and +3 edema) Results - Laboratory Findings CBC and BMP: 08/16/19 06:06 08/17/19 09:45 PT/INR, D-dimer PT 10.0 sec (9.0-12.0) 08/12/19 21:48 INR 1.0 (<1.2) 08/12/19 21:48 Abnormal lab findings: Abnormal Labs 08/12/19 08/12/19 08/13/19 21:48 21:48 11:11 RBC 3.68 L Hgb Hct MCV 102.0 H Lymphocytes # 0.6 L Monocytes # 1.3 H APTT 21.5 L Chloride Carbon Dioxide 36 H BUN 23 H Glucose 133 H Total Protein 6.1 L Albumin 3.2 L 08/14/19 08/16/19 08/17/19 05:58 06:06 09:45 RBC 2.97 L 2.77 L Hgb 9.7 L D 8.9 L Hct 31.3 L 28.5 L MCV 105.4 H 102.9 H Lymphocytes # 0.8 L 0.6 L Monocytes # 1.8 H 1.1 H APTT Chloride 94 L Carbon Dioxide 40 H BUN Glucose 181 H Total Protein Albumin - Diagnostic Findings Chest x-ray: report reviewed, image reviewed CT scan - chest: report reviewed, image reviewed (Finding as noted above) Assessment and Plan Assessment: Shortness of breath likely related to fluid overload and congestive heart failure and agree with Lasix Baseline severe COPD oxygen dependent Morbid obesity Right lower extremity open wound Dyslipidemia Hypertension hypertensive cardiovascular disease Chronic persistent asthma mild to moderate Plan: Agree with diuresis Continue to taper oxygen try to bring it back to 2 L nasal cannula We'll check a BNP level Continue bronchodilator Hold on steroids Time with Patient: Greater than 30
[2019-08-17] MEDS ORDERED: FUROSEMIDE 10 MG/ML 4 ML VIAL IV SCH (15:00)
[2019-08-17] MEDS: HYDROcodone/APAP 5-325MG 1 EACH TAB PO PRN (19:11)
[2019-08-17] MEDS: ATORVASTATIN 10 MG TAB PO SCH (20:01)
[2019-08-17] MEDS: MONTELUKAST 10 MG TAB PO SCH (20:01)
--- NOTE | 2019-08-17 20:07 | CONS ---
CONSULTATION DATE OF SERVICE: 08/17/2019 REASON FOR CONSULTATION: Shortness of breath. I am covering for Dr. Byrne. HISTORY OF PRESENT ILLNESS: This 79-year-old woman with a past medical history of multiple medical problems including history of CAD, CHF, COPD, GERD, hyperlipidemia, being followed by Dr. Lori Cortez in the outpatient setting was admitted with was admitted with large traumatic right lower extremity wound which was irrigated and debridement. The patient was continued to have a wound VAC. The patient also had bilateral leg edema. Last night the patient apparently had some shortness of breath increasing in nature. The CTA was done to rule out the possibility of pulmonary embolism, which was nondiagnostic for pulmonary embolism, but repeat CTA was repeated later with adequate protocol, which showed no evidence of pulmonary embolism and patchy peripheral reticular nodular pulmonary infiltrate was new onset was noted in the CT scan. The most recent chest x- ray which was reviewed by me showed some bilateral interstitial shadows and the patient being closely monitored at this time. There is no history of any fever, rigors. No history of headache, loss of consciousness, seizures. The patient has some minimal shortness of breath. The patient is also followed by Dr. Benita Rod from the pulmonary standpoint of view in addition to Dr. Lori Cortez as the primary physician. PAST MEDICAL HISTORY: History of GERD, CAD, CHF, COPD, back surgery. MEDICATIONS: Prior to admission include home medications are: 1. Ecotrin 81 mg p.o. daily. 2. K-Dur 10 mEq p.o. daily. 3. Omeprazole 20 mg. 4. Multivitamins. 5. Singulair 10 mg p.o. 6. Mevacor 20 mg q.h.s. 7. Lasix 20 mg b.i.d. 8. Pulmicort 0.5 b.i.d. 9. Ventolin. 10.Zovirax 400 mg p.o. b.i.d. ALLERGIES: NAPROSYN, AUGMENTIN, ERYTHROMYCIN BASE. FAMILY HISTORY: History of myocardial infarction, colon cancer in the family. SOCIAL HISTORY: Previous history of smoking. No history of current smoking or alcohol intake. REVIEW OF SYSTEMS: ENT diminished vision. Diminished hearing. CARDIOVASCULAR is as mentioned earlier. RESPIRATORY: As mentioned earlier. GI no nausea or vomiting. no dysuria. NERVOUS SYSTEM as mentioned earlier. HEMATOLOGY/ONCOLOGY: As mentioned earlier. ENDOCRINE: No history of diabetes. CONSTITUTIONAL: As mentioned earlier. DERMATOLOGY: Negative. RHEUMATOLOGY: Negative. PSYCHIATRIC: As mentioned earlier. PHYSICAL EXAMINATION: The physical exam reveals patient is alert and oriented times three. Pulse is 89. Blood pressure 118/70, respiration 20, temperature 98.4, pulse ox 98% on 4 L. HEENT: Conjunctivae normal. NECK is jugular venous distention in the root of the neck. CARDIOVASCULAR: S1, S2. No S3, no S4. RESPIRATIONS: A few scattered rhonchi and crackles. ABDOMEN: Soft, obese, nontender. LEGS: Bilateral leg edema and right leg ulcer also present. NERVOUS SYSTEM: Diffusely weak. LABS: WBC 5.8, hemoglobin is 8.9 and sodium 137, potassium 3.7 and troponin less than 0.01. NT proBNP is 140. ASSESSMENT: 1. Shortness of breath, possibly multifactorial, with chronic obstructive pulmonary disease acute exacerbation as well as congestive heart failure acute exacerbation with acute on chronic diastolic dysfunction, ejection fraction 55% to 60%. 2. Possible interstitial pneumonia. 3. Anemia, macrocytic possibly nutritional anemia. 4. Right leg wound status post debridement and wound VAC. 5. History of coronary artery disease. 6. History of congestive heart failure. 7. Chronic obstructive pulmonary disease. 8. Gastroesophageal reflux disease. 9. Hyperlipidemia. 10.History of back surgery, degenerative joint disease. 11.Remote history of nicotine dependence. 12.FULL CODE. 13.Obesity with body mass index 41.1. RECOMMENDATIONS AND DISCUSSION: This 79-year-old woman who presented with multiple complex medical issues, we will monitor the patient closely, continue the current medications, management and symptomatic treatment. I recommend a small dose of Lasix and we will resume the home medications. Monitor fluid/electrolyte balance closely. Fluid restriction 200 mL per 24 hours. A BNP is noted and troponins are negative. We will continue to monitor. I would also recommend course of empiric antibiotics also with Rocephin also. Otherwise, prognosis guarded because of multiple complex medical issues. Further recommendations to follow. MMODL / IJN: [id number] /
[2019-08-17] MEDS: FUROSEMIDE 10 MG/ML 4 ML VIAL IV SCH (22:41)
[2019-08-18 06:31] LABS: African American GFR (CKD) >90 (>60 ml/min/1.73 sqM); Anion Gap 4 mmol/L; Blood Urea Nitrogen 19 mg/dL (7-17); Calcium 8.3 mg/dL (8.4-10.2); Carbon Dioxide 39 mmol/L (22-30); Chloride 93 mmol/L (98-107); Glucose 134 mg/dL (74-99); Non-African American GFR(CKD) 84 (>60 ml/min/1.73 sqM); Sodium 136 mmol/L (137-145)
[2019-08-18 06:33] LABS: HCT 31.3 % (34.0-46.0); HGB 9.7 gm/dL (11.4-16.0); Hypochromasia Marked; MCV 103.2 fL (80.0-100.0); Macrocytosis Slight; Mean Platelet Volume 9.5; Platelet Count 240 k/uL (150-450); RBC 3.03 m/uL (3.80-5.40); RDW 14.3 % (11.5-15.5); WBC 5.3 k/uL (3.8-10.6)
[2019-08-18] MEDS: BUDESONIDE 0.5 MG/2 ML NEBU INHALATION SCH ×2 (07:05→19:40)
[2019-08-18] MEDS: IPRATROPIUM-ALBUTEROL 3 ML NEB INHALATION SCH ×4 (07:05→19:40)
[2019-08-18 07:10] LABS: Eosinophils # (M) 0.16 k/uL (0-0.7); Lymphocytes # (M) 1.64 k/uL (1.0-4.8); Monocytes # (M) 0.42 k/uL (0-1.0); Neutrophils # (M) 3.07 k/uL (1.3-7.7); Neutrophils % (M) 58 %; Nucleated Red Blood Cells 0 /100 WBC (0-0); Total Cells Counted 100
[2019-08-18 07:11] LABS: Anisocytosis (M) Present; Polychromasia Present
[2019-08-18] MEDS: ASPIRIN 325 MG TAB PO SCH ×2 (07:59→19:59)
[2019-08-18] MEDS: MULTIVITAMINS, THERA 1 EACH TAB PO SCH (08:00)
[2019-08-18] MEDS: ACYCLOVIR 200 MG CAP PO SCH ×2 (08:00→19:59)
[2019-08-18] MEDS: HEPARIN SODIUM,PORCINE 5,000 UNIT/ML 1 ML VIAL SQ SCH ×2 (08:00→19:59)
[2019-08-18] MEDS: POTASSIUM CHLORIDE ER 10 MEQ TAB.ER.PRT PO SCH (08:00)
[2019-08-18] MEDS: PANTOPRAZOLE 40 MG TABLET PO SCH (08:00)
[2019-08-18] MEDS: ASPIRIN 81 MG PO SCH (08:01)
[2019-08-18] MEDS: FUROSEMIDE 10 MG/ML 4 ML VIAL IV SCH ×2 (11:37→23:54)
[2019-08-18] MEDS ORDERED: ACETAMINOPHEN TAB 325 MG TAB PO PRN (13:01)
--- NOTE | 2019-08-18 13:03 | P.PN ---
Progress Note - Text Progress Note Date: 08/18/19 Orthopedics: History of present illness: Patient is a very pleasant 79-year-old female who is seen and examined at bedside for follow-up evaluation following irrigation and debridement with wound closure of a large traumatic right lower extremity leg wound performed on 08/13/2019. Her wound VAC was discontinued Monday. She feels her right lower extremity leg pain has been medically controlled. She does not feel she needs narcotic medication at this time and her pain could be controlled with Tylenol as needed. She is not currently complaining of any pain at the right lower extremity. She continues to have some difficulty with mobilization. She has been able to transfer to a bedside chair with the assistance of a walker. She ambulated with a walker at baseline. She is eating and voiding without difficulty. Patient feels her shortness of breath has improved since yesterday. She did receive Lasix. She does continue to have pitting edema of the bilateral lower extremities greater on the right than the left and significant over the left foot. Patient feel she will be ready for discharge to [facility] tomorrow if cleared by medicine and pulmonology. She was consulted on by pulmonology yesterday. Patient does admit to some difficulty anxiety. She has been receiving Xanax as prescribed by medicine. She states this has helped her anxiety. She continues to receive oral Keflex. Physical Exam: Postoperative day #5 Patient is awake, alert, and oriented 3 Vital signs stable Adequate chest excursion with deep inspiration and expiration; patient currently on O2 nasal cannula Dressing with nonstick Telfa, ABDs, Kerlix, and Romero wrap remains intact Dressing is clean and dry over the right lower extremity Dorsiflexion and plantarflexion positive sustained right lower extremity No pain with palpation over the calves bilaterally Neurovascularly intact bilateral lower extremities Evidence of of 2+ pitting edema bilateral lower extremities Evidence of 3+ pitting edema over the right foot Assessment: Status post irrigation and debridement with wound closure for right traumatic right lower extremity wound Right lower extremity leg pain Difficulty with ambulation Shortness of breath Bilateral lower extremity edema History of coronary artery disease COPD Hyperlipidemia History of heart failure Anxiety Plan: 1. Patient will continue with conservative treatment postoperatively following incision and debridement with wound closure over her right lower extremity traumatic wound injury. Wound VAC has been discontinued. Dressing remains intact over the right lower extremity and is clean and dry. She should keep this dressing clean, dry, and intact. Patient may continue to work with therapy to increase mobilization and ambulation. Patient is weightbearing as tolerated on the right lower extremity. She may use a walker to aid in ambulation. We were originally planning for discharge to a rehabilitation facility today, 08/17/2019. Patient has had some increased shortness of breath and evidence of bilateral lower extremity edema. Patient has been seen by medicine and pulmonology. She has received Lasix. She does feel her breathing has improved today. Her lower extremity edema continues to be present. If she continues to improve and is cleared by medicine and pulmonology, we will plan for discharge tomorrow. She will continue with Keflex 500 mg as prescribed prior to her discharge tomorrow. She will continue with aspirin 325 mg daily and will be given a prescription for this medication at discharge. Prescription has been written, signed, and placed in the patient's chart for aspirin. Patient's pain has been adequately controlled. At this time we're not planning for prescribing narcotic medications at time of discharge. Patient may take Tylenol as prescribed as needed for pain control. We will continue to follow the patient closely. Following discharge, we will plan to keep the sutures intact over the wound of the right lower extremity until her follow-up appointment and we will plan to have the sutures removed in the office setting. Patient will follow up at [facility] with Dr. Jacob De La Vega in 2 weeks following discharge. 2. Medicine has been consulted and will see and examine the patient for evaluation of her other medical diagnoses including increased shortness of breath and bilateral lower extremity edema 3. Patient has been experiencing some anxiety and states her symptoms have been controlled with Xanax. We discussed we'll plan have medicine prescribed this medication at discharge. We will plan for medicine to complete the med rec prior to discharge to the rehabilitation facility.
--- NOTE | 2019-08-18 13:04 | P.PN ---
Subjective Progress Note Date: 08/18/19 Principal diagnosis: Shortness of breath likely related to fluid overload and congestive heart failure and agree with Lasix Baseline severe COPD oxygen dependent Morbid obesity Right lower extremity open wound Dyslipidemia Hypertension hypertensive cardiovascular disease Chronic persistent asthma mild to moderate 08/18/2019, patient seen eval examined during the rounds G reviewed medications reviewed care plan discussed respiratory status continued to be stable, patient remains on supplemental oxygen shortness of breath is better, patient remains afebrile, saturation is 94% on 4 L oxygen, chest x-ray shows COPD cardiomegaly no interstitial edema noted, noted bilateral basilar atelectasis, will try to bring oxygen down to baseline 2 L and encourage patient to take deep breathing exercises incentive spirometry, hypoxia appears to be due to hypoventilation and decrease respiratory drive as BNP is within normal limit of 140 This is a 79-year-old morbidly obese female of Dr. ERICA anand patient seen and evaluated examined on fifth floor patient was recently admitted on August 12 for a irrigation and deep abdomen and wound closure of a large traumatic right lower extremity leg wound, wound VAC was discontinued yesterday patient has chronic lower extremity swelling of +3 edema patient has been noted to have slightly increased shortness of breath lower extremity Doppler ultrasound has been negative for DVT computed tomography scan ALAN for pulmonary embolism was also negative chronic interstitial tear changes and the bottom with chronic limited disease was noted patient likely has component of fluid overload responded well with Lasix right now, hemodynamically stable afebrile heart rate is 80, blood pressure is stable, her saturation is 98% on 4 L chest x-ray cardiomegaly interstitial edema, patient at home is 2 L nasal cannula, on stretcher questioning denies any chest pain or sputum production or cough mild shortness of breath is present, she denies any urinary symptoms Objective - Vital Signs Vital signs: Vital Signs Temp 98.3 F 08/18/19 11:19 Pulse 74 08/18/19 11:31 Resp 20 08/18/19 11:19 BP 128/60 08/18/19 11:19 Pulse Ox 94 L 08/18/19 11:19 Intake & Output 08/17/19 08/18/19 08/18/19 18:59 06:59 18:59 Intake Total 400 340 Balance 400 340 Weight 98.6 kg 98.7 kg Intake: Intake, IV Titration 400 Amount Sodium Chloride 0.9% 1, 400 000 ml @ 50 mls/hr IV . Q20H [facility] Rx#:[id number] Oral 340 Other: Voiding Method Bedside Commode Bedside Commode Bedside Commode Diaper Diaper Diaper Incontinent Incontinent # Voids 0 - Exam - Constitutional General appearance: disheveled, mild distress, morbidly obese - EENT Eyes: EOMI, PERRLA Ears: bilateral: normal - Neck Neck: normal ROM Carotids: bilateral: upstroke normal Thyroid: bilateral: normal size - Respiratory Respiratory: bilateral: diminished, rales - Cardiovascular Rhythm: regular Heart sounds: normal: S1, S2 - Gastrointestinal General gastrointestinal: normal bowel sounds - Neurologic Neurologic: CNII-XII intact - Musculoskeletal Musculoskeletal: gait normal, generalized weakness, strength equal bilaterally - Psychiatric Psychiatric: A&O x's 3, appropriate affect, intact judgment & insight (Chronic lower extremity edema with ischemic changes and +3 edema) - Labs CBC & Chem 7: 08/18/19 05:26 08/18/19 05:26 Labs: Abnormal Lab Results - Last 24 Hours (Table) 08/18/19 08/18/19 Range/Units 05:26 05:26 RBC 3.03 L (3.80-5.40) m/uL Hgb 9.7 L (11.4-16.0) gm/dL Hct 31.3 L (34.0-46.0) % MCV 103.2 H (80.0-100.0) fL Sodium 136 L (137-145) mmol/L Chloride 93 L (98-107) mmol/L Carbon Dioxide 39 H (22-30) mmol/L BUN 19 H (7-17) mg/dL Glucose 134 H (74-99) mg/dL Calcium 8.3 L (8.4-10.2) mg/dL Assessment and Plan Assessment: Hypoxia likely related to hypoventilation and reduced ventilation Bilateral basal atelectasis, patient needs aggressive pulmonary toilet deep breathing exercise and I-S Some component may likely related to fluid overload and congestive heart failure and agree with Lasix as needed Baseline severe COPD oxygen dependent Morbid obesity Right lower extremity open wound Dyslipidemia Hypertension hypertensive cardiovascular disease Chronic persistent asthma mild to moderate Plan: Deep breathing exercises and incentive spirometry Agree with diuresis as needed Continue to taper oxygen try to bring it back to 2 L nasal cannula We'll check a BNP level, noted to be within normal limits Continue bronchodilator Hold on steroids Time with Patient: Greater than 30
[2019-08-18] MEDS: ALPRAZolam 0.25 MG TAB PO PRN (14:10)
--- NOTE | 2019-08-18 16:55 | PN ---
PROGRESS NOTE DATE OF SERVICE: 08/18/2019 This 79-year-old woman who was admitted with laceration of the right leg was also found to have shortness of breath which was due to a combination of CHF and COPD. The patient was given diuretics and bronchodilators. Patient is feeling much better. The most recent chest x-ray which was personally reviewed by me showed some improvement. The patient is being closely monitored. The patient's BNP and troponins also within normal limits. Multiple consultants are following the patient closely. PAST MEDICAL HISTORY: Reviewed. REVIEW OF SYSTEMS: CARDIOVASCULAR SYSTEM: As mentioned earlier. GI: No nausea. : No dysuria. NERVOUS SYSTEM: No numbness or weakness. DERMATOLOGY: As mentioned earlier. CURRENT MEDICATIONS: 1. Tylenol p.r.n. 2. Martha 5 mg q.6h p.r.n. 3. Zovirax 400 mg p.o. b.i.d. 4. DuoNeb q.i.d. and p.r.n. 5. Xanax 0.5 b.i.d. 6. Aspirin 81 mg p.o. daily and 320 mg p.o. b.i.d. 7. Lipitor 10 mg q.h.s. 8. Pulmicort 0.5 b.i.d. 9. Rocephin 1 g daily. 10.Lasix. 11.Heparin. 12.Dilaudid. 13.Singulair. 14.Multivitamin. 15.Narcan. 16.Zofran. 17.Protonix. 18.K-Dur. Doses reviewed. PHYSICAL EXAM: Patient is alert oriented x3. Pulse 81, blood pressure 120/60, respiration 20, temperature 98.2, pulse ox 94% on 4 L. HEENT: Conjunctivae normal. Oral mucosa moist. NECK: No jugular venous distention. No lymph node enlargement. CARDIOVASCULAR: S1, S2. RESPIRATORY: Diminished breath sounds at the bases. Scattered rhonchi and crackles. ABDOMEN: Soft, nontender. LEGS: Right leg laceration. NERVOUS SYSTEM: No focal deficits. LAB STUDIES: WBC 5.2, hemoglobin 9.2, sodium 136. ASSESSMENT: 1. Shortness of breath, possibly multifactorial with chronic obstructive pulmonary disease acute exacerbation as well as congestive heart failure acute exacerbation with acute on chronic diastolic dysfunction, ejection fraction 55% to 60%. 2. Possible interstitial pneumonia bilaterally. 3. Anemia, macrocytic, possibly nutritional anemia. 4. Right leg wound, status post debridement and wound VAC. 5. History of coronary artery disease. 6. History of congestive heart failure. 7. Chronic obstructive pulmonary disease. 8. Gastroesophageal reflux disease. 9. Hyperlipidemia. 10.History of back surgery, degenerative joint disease. 11.Remote history of nicotine dependence. 12.Obesity with body mass index of 41.1. 13.FULL CODE. RECOMMEND: Recommend to continue current medications, continue to monitor, continue symptomatic treatment. Otherwise, at this time I recommend continue with current medications. Continue with diuretics. Monitor fluid balance closely. Monitor creatinine closely. Otherwise, possible ECF rehab and Dr. Byrne will follow tomorrow. MMODL / IJN: [id number] /
[2019-08-18] MEDS: ATORVASTATIN 10 MG TAB PO SCH (19:59)
[2019-08-18] MEDS: MONTELUKAST 10 MG TAB PO SCH (19:59)
[2019-08-19] MEDS: IPRATROPIUM-ALBUTEROL 3 ML NEB INHALATION PRN (01:56)
[2019-08-19 06:59] LABS: Basophils % (A) 0 %; Eosinophils # (A) 0.2 k/uL (0-0.7); Eosinophils % (A) 4 %; HCT 31.4 % (34.0-46.0); HGB 9.8 gm/dL (11.4-16.0); Hypochromasia Marked; Lymphocytes # (A) 0.9 k/uL (1.0-4.8); Lymphocytes % (A) 14 %; MCH 31.9 pg (25.0-35.0); MCHC 31.1 g/dL (31.0-37.0); MCV 102.5 fL (80.0-100.0); Macrocytosis Slight; Monocytes # (A) 1.1 k/uL (0-1.0); Monocytes % (A) 17 %; Neutrophils # (A) 4.1 k/uL (1.3-7.7); Neutrophils % (A) 63 %; Platelet Count 285 k/uL (150-450); RBC 3.06 m/uL (3.80-5.40); RDW 14.3 % (11.5-15.5); WBC 6.5 k/uL (3.8-10.6)
[2019-08-19 07:13] LABS: African American GFR (CKD) >90 (>60 ml/min/1.73 sqM); Anion Gap 5 mmol/L; Blood Urea Nitrogen 18 mg/dL (7-17); Calcium 8.4 mg/dL (8.4-10.2); Carbon Dioxide 37 mmol/L (22-30); Chloride 94 mmol/L (98-107); Glucose 103 mg/dL (74-99); Non-African American GFR(CKD) >90 (>60 ml/min/1.73 sqM); Potassium 3.9 mmol/L (3.5-5.1); Sodium 136 mmol/L (137-145)
[2019-08-19] MEDS: IPRATROPIUM-ALBUTEROL 3 ML NEB INHALATION SCH ×3 (07:25→15:16)
[2019-08-19] MEDS: BUDESONIDE 0.5 MG/2 ML NEBU INHALATION SCH (07:25)
[2019-08-19] MEDS: MULTIVITAMINS, THERA 1 EACH TAB PO SCH (07:47)
[2019-08-19] MEDS: ASPIRIN 325 MG TAB PO SCH (07:47)
[2019-08-19] MEDS: HEPARIN SODIUM,PORCINE 5,000 UNIT/ML 1 ML VIAL SQ SCH (07:48)
[2019-08-19] MEDS: ACYCLOVIR 200 MG CAP PO SCH (07:48)
[2019-08-19] MEDS: PANTOPRAZOLE 40 MG TABLET PO SCH (07:48)
[2019-08-19] MEDS: POTASSIUM CHLORIDE ER 10 MEQ TAB.ER.PRT PO SCH (07:48)
[2019-08-19] MEDS: ALPRAZolam 0.25 MG TAB PO PRN ×2 (07:50→15:49)
[2019-08-19] MEDS: ASPIRIN 81 MG PO SCH (07:50)
--- NOTE | 2019-08-19 10:00 | P.PN ---
Subjective Progress Note Date: 08/19/19 Principal diagnosis: Shortness of breath likely related to fluid overload and congestive heart failure and agree with Lasix By basilar atelectasis Hypoventilation Baseline severe COPD oxygen dependent Morbid obesity Right lower extremity open wound Dyslipidemia Hypertension hypertensive cardiovascular disease Chronic persistent asthma mild to moderate 08/19/2019, patient seen eval examined during the rounds labs reviewed medications reviewed, FiO2 is gradually being titrated down and now is on 3-1/2 L saturation is still 98% plan is to bring it down to baseline of 2 L swelling in the lower extremities not much change shortness of breath is there however improving 08/18/2019, patient seen eval examined during the rounds G reviewed medications reviewed care plan discussed respiratory status continued to be stable, patient remains on supplemental oxygen shortness of breath is better, patient remains afebrile, saturation is 94% on 4 L oxygen, chest x-ray shows COPD cardiomegaly no interstitial edema noted, noted bilateral basilar atelectasis, will try to bring oxygen down to baseline 2 L and encourage patient to take deep breathing exercises incentive spirometry, hypoxia appears to be due to hypoventilation and decrease respiratory drive as BNP is within normal limit of 140 This is a 79-year-old morbidly obese female of Dr. ERICA anand patient seen and ev aluated examined on fifth floor patient was recently admitted on August 12 for a irrigation and deep abdomen and wound closure of a large traumatic right lower extremity leg wound, wound VAC was discontinued yesterday patient has chronic lower extremity swelling of +3 edema patient has been noted to have slightly increased shortness of breath lower extremity Doppler ultrasound has been negative for DVT computed tomography scan ALAN for pulmonary embolism was also negative chronic interstitial tear changes and the bottom with chronic limited disease was noted patient likely has component of fluid overload responded well with Lasix right now, hemodynamically stable afebrile heart rate is 80, blood pressure is stable, her saturation is 98% on 4 L chest x-ray cardiomegaly interstitial edema, patient at home is 2 L nasal cannula, on stretcher questioning denies any chest pain or sputum production or cough mild shortness of breath is present, she denies any urinary symptoms Objective - Vital Signs Vital signs: Vital Signs Temp 97.9 F 08/19/19 05:00 Pulse 80 08/19/19 07:50 Resp 19 08/19/19 05:00 BP 126/80 08/19/19 05:00 Pulse Ox 98 08/19/19 05:00 Intake & Output 08/18/19 08/19/19 08/19/19 18:59 06:59 18:59 Intake Total 970 440 240 Output Total 800 Balance 970 -360 240 Intake: Intake, IV Titration 50 Amount cefTRIAXone 1 gm In 50 Sodium Chloride 0.9% 50 ml @ 100 mls/hr IVPB Q24HR [facility] Rx#:[id number] Oral 920 440 240 Output: Urine 800 Other: Voiding Method Bedside Commode Bedside Commode Diaper Diaper # Voids 1 - Exam - Constitutional General appearance: disheveled, mild distress, morbidly obese - EENT Eyes: EOMI, PERRLA Ears: bilateral: normal - Neck Neck: normal ROM Carotids: bilateral: upstroke normal Thyroid: bilateral: normal size - Respiratory Respiratory: bilateral: diminished, rales - Cardiovascular Rhythm: regular Heart sounds: normal: S1, S2 - Gastrointestinal General gastrointestinal: normal bowel sounds - Neurologic Neurologic: CNII-XII intact - Musculoskeletal Musculoskeletal: gait normal, generalized weakness, strength equal bilaterally - Psychiatric Psychiatric: A&O x's 3, appropriate affect, intact judgment & insight (Chronic lower extremity edema with ischemic changes and +3 edema) - Labs CBC & Chem 7: 08/19/19 05:44 08/19/19 05:44 Labs: Abnormal Lab Results - Last 24 Hours (Table) 08/19/19 08/19/19 Range/Units 05:44 05:44 RBC 3.06 L (3.80-5.40) m/uL Hgb 9.8 L (11.4-16.0) gm/dL Hct 31.4 L (34.0-46.0) % MCV 102.5 H (80.0-100.0) fL Lymphocytes # 0.9 L (1.0-4.8) k/uL Monocytes # 1.1 H (0-1.0) k/uL Sodium 136 L (137-145) mmol/L Chloride 94 L (98-107) mmol/L Carbon Dioxide 37 H (22-30) mmol/L BUN 18 H (7-17) mg/dL Glucose 103 H (74-99) mg/dL Assessment and Plan Assessment: Hypoxia likely related to hypoventilation and reduced ventilation Bilateral basal atelectasis, patient needs aggressive pulmonary toilet deep breathing exercise and I-S Some component may likely related to fluid overload and congestive heart failure and agree with Lasix as needed Baseline severe COPD oxygen dependent Morbid obesity Right lower extremity open wound Dyslipidemia Hypertension hypertensive cardiovascular disease Chronic persistent asthma mild to moderate Plan: Deep breathing exercises and incentive spirometry Agree with diuresis as needed Continue to taper oxygen try to bring it back to 2 L nasal cannula Noted BNP level, noted to be within normal limits Continue bronchodilator Hold on steroids Time with Patient: Greater than 30
[2019-08-19] MEDS: FUROSEMIDE 10 MG/ML 4 ML VIAL IV SCH (11:05)
[2019-08-19 12:20] VITALS: BP 126/66; RESP 16; TEMP 97.6
--- NOTE | 2019-08-19 14:38 | P.DS ---
Providers Date of admission: 08/14/19 10:03 Expected date of discharge: 08/19/19 Attending physician: Guido Byrne MD Consults: 08/16/19 19:55 Consult Physician Routine Consulting Provider: Guido Byrne Consult Reason/Comments: Medical Do you want consulting provider notified?: Yes 08/17/19 13:15 Consult Physician Routine Consulting Provider: Joe Rod Consult Reason/Comments: copd Do you want consulting provider notified?: Yes Primary care physician: Lori Cortez [facility] Course: This patient is 79-year-old female that was admitted to [facility] on 08/12/19 after sustaining a large traumatic right lower extremity laceration at home. The wound was initially irrigated in the emergency department, the patient was admitted under the care of Dr. De La Vega for possible surgical intervention. The patient underwent a formal irrigation and debridement with wound closure of the large traumatic right lower extremity laceration on 08/13/[address] De La Vega. He was applied following the procedure, which was removed on Monday08/16/2019. The procedure is performed without complication or sequelae.. The patient did develop increasing shortness of breath and bilateral lower extremity edema. Per internal medicine, chest CTA showed no evidence of pulmonary embolism. Bilateral lower extremity venous doppler study showed no evidence of DVT. Pulmonology was also consulted. Patient was treated per internal medicine and pulmonology and shortness of breath has improved. Vital signs and postoperative labs are stable. The incision looks good with no signs of infection. The patient is ambulating well with a walker. She uses a walker at baseline. The patient is examined bedside this morning. She states she is extensively no pain in the right lower extremity. She is overall feeling less short of breath today. Patient states she feels well today. She has no new complaints today. She denies chest pain, increasing shortness of breath, nausea, vomiting, fevers, chills. She denies numbness or tingling of the right lower extremity. She is eating well. Vital signs stable. On examination, the patient is sitting up in the bedside chair in no apparent distress. She is alert and oriented 3. On inspection of the right lower extremity, there is a dressing in place. Dressing is taken down and reveals a large laceration of the right lower leg, while approximated with nylon sutures. There is no surrounding erythema, warmth, drainage. There are no signs of infection. There is no active drainage from the laceration. The right lower extremity is warm and well-perfused with brisk capillary refill distally. Dorsalis pedis pulse palpable. Motor and sensory function appear to be intact of the right lower extremity. Patient has been seen and cleared for discharge by internal medicine today. The patient is discharged to [facility] this afternoon in good condition. [email or web address] for accurate list of medications, which has been completed by internal medicine. Patient Condition at Discharge: Serious Plan - Discharge Summary Discharge Rx Participant: No New Discharge Prescriptions: New Aspirin 325 mg PO DAILY #14 tab No Action Albuterol Inhaler (Mhu) [Ventolin Hfa Inhaler (Mhu)] 2 puff INHALATION RT-Q6H PRN PRN Reason: Shortness Of Breath Budesonide [Pulmicort] 0.5 mg INHALATION RT-BID Albuterol Nebulized [Ventolin Nebulized] 2.5 mg INHALATION RT-TID Multivitamins, Thera [Multivitamin (formulary)] 1 tab PO DAILY Potassium Chloride ER [K-Dur 10] 10 meq PO DAILY Omeprazole 20 mg PO DAILY Montelukast [Singulair] 10 mg PO DAILY Lovastatin [Mevacor] 20 mg PO HS Furosemide [Lasix] 20 mg PO BID Acyclovir [Zovirax] 400 mg PO BID Aspirin EC [Ecotrin Low Dose] 81 mg PO DAILY Discharge Medication List Acyclovir [Zovirax] 400 mg PO BID 04/12/18 [History] Albuterol Inhaler (Mhu) [Ventolin Hfa Inhaler (Mhu)] 2 puff INHALATION RT-Q6H PRN 04/12/18 [History] Albuterol Nebulized [Ventolin Nebulized] 2.5 mg INHALATION RT-TID 04/12/18 [History] Budesonide [Pulmicort] 0.5 mg INHALATION RT-BID 04/12/18 [History] Furosemide [Lasix] 20 mg PO BID 04/12/18 [History] Lovastatin [Mevacor] 20 mg PO HS 04/12/18 [History] Montelukast [Singulair] 10 mg PO DAILY 04/12/18 [History] Multivitamins, Thera [Multivitamin (formulary)] 1 tab PO DAILY 04/12/18 [History] Omeprazole 20 mg PO DAILY 04/12/18 [History] Potassium Chloride ER [K-Dur 10] 10 meq PO DAILY 04/12/18 [History] Aspirin EC [Ecotrin Low Dose] 81 mg PO DAILY 08/12/19 [History] Aspirin 325 mg PO DAILY #14 tab 08/18/19 [Rx] Follow up Appointment(s)/Referral(s): [facility], [NON-STAFF] - 1 Week Jacob De La Vega DO [Medical Doctor] - 2 Weeks (Patient may follow-up with Dr. Jacob De La Vega at [facility] in 2 weeks following discharge. ) Lori Cortez DO [Primary Care Provider] - 1-2 days Activity/Diet/Wound Care/Special Instructions: 1. Keep dressing over the right lower extremity clean, dry, and intact-adaptic, Telfa, ABD pad, kerlix and grayson wrap. 2. Patient may elevate the right lower extremity for comfort and support as needed 3. Patient may apply ice over the wound for pain control as needed 4. Ambulate as tolerated right lower extremity 5. Patient may use walker to aid in ambulation as needed 6. Take medications as prescribed 7. Keep sutures intact over the wound of the right lower extremity until follow-up appointment with Dr. De La Vega in approximately 2 weeks 8. Work with physical therapy to increase mobility and ambulation Discharge Disposition: TRANSFER TO SNF/ECF
--- NOTE | 2019-08-19 15:54 | XR ---
EXAMINATION TYPE: XR chest 1V portable DATE OF EXAM: 08/19/2019 HISTORY: Shortness of breath. COMPARISON: August 17, 2019 TECHNIQUE: Single view of the chest is submitted. FINDINGS: Demonstrated are scattered senescent parenchymal change. Persistent basilar infiltrates. The heart is stable. Hilar and mediastinal structures are within normal limits. Degenerative changes are seen of the dorsal spine. IMPRESSION: 1. Persistent basilar infiltrates.
[2019-08-19 16:15] VITALS: PULSE 86
== END 2019-08-19 17:11 | DRG 570 ==
LOC: EC 20:43 → 5NMEDONC 23:12 → OBSVTOIN 08-14 10:03
PROVIDERS: ADMIT Family Medicine; ATTEND Family Medicine
PROC: 0JBN0ZZ Excision of Right Lower Leg Subcutaneous Tissue and Fascia, Open Approach (ICD-10-PCS; principal; 2019-08-13 07:30)
PROC: 0JQN0ZZ Repair Right Lower Leg Subcutaneous Tissue and Fascia, Open Approach (ICD-10-PCS; principal; 2019-08-13 07:30)
DX: S81.811A Laceration without foreign body, right lower leg, initial encounter (principal); I50.33 Acute on chronic diastolic (congestive) heart failure; Z68.41 Body mass index [BMI] 40.0-44.9, adult; J98.11 Atelectasis; J44.1 Chronic obstructive pulmonary disease with (acute) exacerbation; J84.9 Interstitial pulmonary disease, unspecified; W26.8XXA Contact with other sharp object(s), not elsewhere classified, initial encounter; Y93.E1 Activity, personal bathing and showering; D53.9 Nutritional anemia, unspecified; E66.01 Morbid (severe) obesity due to excess calories; E78.5 Hyperlipidemia, unspecified; F41.9 Anxiety disorder, unspecified; G89.29 Other chronic pain; I11.0 Hypertensive heart disease with heart failure; I25.10 Atherosclerotic heart disease of native coronary artery without angina pectoris; K21.9 Gastro-esophageal reflux disease without esophagitis; J45.40 Moderate persistent asthma, uncomplicated; R09.02 Hypoxemia; Z20.828 Contact with and (suspected) exposure to other viral communicable diseases; W18.2XXA Fall in (into) shower or empty bathtub, initial encounter; Y92.002 Bathroom of unspecified non-institutional (private) residence as the place of occurrence of the external cause; Z79.82 Long term (current) use of aspirin; Z79.899 Other long term (current) drug therapy; Z80.0 Family history of malignant neoplasm of digestive organs; Z82.49 Family history of ischemic heart disease and other diseases of the circulatory system; Z87.891 Personal history of nicotine dependence; Z99.81 Dependence on supplemental oxygen; Z88.1 Allergy status to other antibiotic agents
CPT/HCPCS: 36415; 71045; 71275; 80048; 80053; 83880; 84484; 85025; 85610; 85730; 87635; 90471; 90715; 93005; 93970; 94640; 94760; 96374; 96375; 99285

== ENCOUNTER 2019-08-25 01:35 | Emergency (ER) | payer MEDICARE, BC ==
[2019-08-25 01:59] VITALS: TEMP 98.2
--- NOTE | 2019-08-25 02:23 | ED ---
SOB HPI - General Chief Complaint: Shortness of Breath Stated Complaint: SOB Time Seen by Provider: 08/25/19 02:00 Source: patient, EMS Mode of arrival: EMS Limitations: no limitations - History of Present Illness Initial Comments: This patient is a 79-year-old woman sent from residential for the complaint of having dyspnea and she was also noted to have pulse oximetry reading of 86% on room air at the facility. The patient states that she has history of asthma and of congestive heart failure. She states that the shortness of breath came on tonight. The patient had not noted fever or chills. Only an occasional cough is noted. No sputum. Patient denying pains. She does note that her legs do seem to be swollen compared with baseline. MD Complaint: shortness of breath -: hour(s) Severity scale (1-10): 0 Consistency: constant Improves With: oxygen Worsens With: lying flat Known History Of: COPD, asthma, congestive heart failure Associated Symptoms: denies other symptoms - Related Data Home Medications Medication Instructions Recorded Confirmed Acyclovir [Zovirax] 400 mg PO BID 04/12/18 08/12/19 Albuterol Inhaler (Mhu) [Ventolin 2 puff INHALATION RT-Q6H PRN 04/12/18 08/12/19 Hfa Inhaler (Mhu)] Albuterol Nebulized [Ventolin 2.5 mg INHALATION RT-TID 04/12/18 08/12/19 Nebulized] Budesonide [Pulmicort] 0.5 mg INHALATION RT-BID 04/12/18 08/12/19 Furosemide [Lasix] 20 mg PO BID 04/12/18 08/12/19 Lovastatin [Mevacor] 20 mg PO HS 04/12/18 08/12/19 Montelukast [Singulair] 10 mg PO DAILY 04/12/18 08/12/19 Multivitamins, Thera [Multivitamin 1 tab PO DAILY 04/12/18 08/12/19 (formulary)] Omeprazole 20 mg PO DAILY 04/12/18 08/12/19 Potassium Chloride ER [K-Dur 10] 10 meq PO DAILY 04/12/18 08/12/19 Previous Rx's Medication Instructions Recorded Aspirin 325 mg PO DAILY #14 tab 08/18/19 ALPRAZolam [Xanax] 0.25 mg PO BID PRN #6 tab 08/19/19 Cefuroxime Axetil [Ceftin] 500 mg PO BID 4 Days #8 tab 08/19/19 predniSONE [Deltasone] 20 mg PO BID #8 tab 08/25/19 Allergies Allergy/AdvReac Type Severity Reaction Status Date / Time naproxen Allergy Unknown Verified 08/13/19 15:06 amoxicillin [From Augmentin] AdvReac Unknown Verified 08/13/19 15:06 clavulanic acid AdvReac Unknown Verified 08/13/19 15:06 [From Augmentin] erythromycin base AdvReac Unknown Verified 08/13/19 15:06 Review of Systems ROS Statement: Those systems with pertinent positive or pertinent negative responses have been documented in the HPI. ROS Other: All systems not noted in ROS Statement are negative. Constitutional: Denies: fever, chills Respiratory: Reports: as per HPI, cough, dyspnea, wheezes. Denies: hemoptysis Cardiovascular: Reports: orthopnea, edema. Denies: chest pain, palpitations, syncope Gastrointestinal: Denies: abdominal pain, vomiting, diarrhea Genitourinary: Denies: dysuria, hematuria Musculoskeletal: Denies: back pain Skin: Denies: rash Neurological: Denies: headache, weakness, numbness Past Medical History Past Medical History: Coronary Artery Disease (CAD), Heart Failure, COPD, GERD/Reflux, Hyperlipidemia History of Any Multi-Drug Resistant Organisms: None Reported Past Surgical History: Back Surgery Past Anesthesia/Blood Transfusion Reactions: No Reported Reaction Past Psychological History: No Psychological Hx Reported Smoking Status: Former smoker Past Alcohol Use History: None Reported Past Drug Use History: None Reported - Past Family History Mother Family Medical History: Myocardial Infarction ([place]) Brother(s) Family Medical History: Cancer, Myocardial Infarction ([place]) Additional Family Medical History / Comment(s): colon ca, 2 brother with ca General Exam Limitations: no limitations General appearance: alert, in no apparent distress Head exam: Present: atraumatic Eye exam: Present: normal appearance Neck exam: Present: normal inspection Respiratory exam: Present: wheezes, decreased breath sounds, prolonged expiratory. Absent: rales, rhonchi, stridor, accessory muscle use Cardiovascular Exam: Present: regular rate, normal rhythm, normal heart sounds, systolic murmur. Absent: diastolic murmur, rubs, gallop GI/Abdominal exam: Present: soft. Absent: distended, tenderness, guarding, rebound, rigid, mass Extremities exam: Present: normal inspection, normal capillary refill, pedal edema. Absent: calf tenderness Back exam: Present: normal inspection, other (Patient does have healing lacera tion lateral aspect of the right lower leg. There is some mild erythema adjacent to the wound margins, but no warmth. There is symmetric edema lower legs to below the knee bilaterally.). Absent: CVA tenderness (R), CVA tenderness (L) Neurological exam: Present: alert Skin exam: Present: warm, dry, intact, normal color. Absent: rash Course Vital Signs 08/25/19 08/25/19 08/25/19 01:51 02:00 02:30 Temperature 98.2 F Pulse Rate 81 82 74 Respiratory 18 18 22 Rate Blood Pressure 141/73 159/74 132/79 O2 Sat by Pulse 99 93 L 90 L Oximetry 08/25/19 08/25/19 08/25/19 03:00 04:00 05:00 Temperature Pulse Rate 72 74 82 Respiratory 18 18 21 Rate Blood Pressure 132/74 135/96 146/79 O2 Sat by Pulse 90 L 98 96 Oximetry 08/25/19 08/25/19 05:27 05:35 Temperature Pulse Rate 78 84 Respiratory Rate Blood Pressure O2 Sat by Pulse Oximetry Medical Decision Making - Lab Data Result diagrams: 08/25/19 02:25 08/25/19 02:25 Lab Results 08/25/19 08/25/19 08/25/19 Range/Units 02:12 02:25 02:25 WBC 8.0 (3.8-10.6) k/uL RBC 3.36 L (3.80-5.40) m/uL Hgb 10.5 L (11.4-16.0) gm/dL Hct 34.6 (34.0-46.0) % MCV 102.9 H (80.0-100.0) fL MCH 31.2 (25.0-35.0) pg MCHC 30.4 L (31.0-37.0) g/dL RDW 15.1 (11.5-15.5) % Plt Count 304 (150-450) k/uL Neutrophils % 74 % Lymphocytes % 9 % Monocytes % 13 % Eosinophils % 2 % Basophils % 1 % Neutrophils # 6.0 (1.3-7.7) k/uL Lymphocytes # 0.8 L (1.0-4.8) k/uL Monocytes # 1.1 H (0-1.0) k/uL Eosinophils # 0.1 (0-0.7) k/uL Basophils # 0.1 (0-0.2) k/uL Hypochromasia Marked Macrocytosis Slight PT 10.1 (9.0-12.0) sec INR 1.0 (<1.2) APTT 22.7 (22.0-30.0) sec D-Dimer 1.70 H (<0.60) mg/L FEU Sodium (137-145) mmol/L Potassium (3.5-5.1) mmol/L Chloride (98-107) mmol/L Carbon Dioxide (22-30) mmol/L Anion Gap mmol/L BUN (7-17) mg/dL Creatinine (0.52-1.04) mg/dL Est GFR (CKD-EPI)AfAm (>60 ml/min/1.73 sqM) Est GFR (CKD-EPI)NonAf (>60 ml/min/1.73 sqM) Glucose (74-99) mg/dL Plasma Lactic Acid Marlo (0.7-2.0) mmol/L Calcium (8.4-10.2) mg/dL Magnesium (1.6-2.3) mg/dL Total Bilirubin (0.2-1.3) mg/dL AST (14-36) U/L ALT (4-34) U/L Alkaline Phosphatase (38-126) U/L Lactate Dehydrogenase (313-618) U/L C-Reactive Protein (<10.0) mg/L NT-Pro-B Natriuret Pep pg/mL Total Protein (6.3-8.2) g/dL Albumin (3.5-5.0) g/dL Coronavirus (PCR) Not Detected (Not Detectd) 08/25/19 08/25/19 08/25/19 Range/Units 02:25 02:25 02:25 WBC (3.8-10.6) k/uL RBC (3.80-5.40) m/uL Hgb (11.4-16.0) gm/dL Hct (34.0-46.0) % MCV (80.0-100.0) fL MCH (25.0-35.0) pg MCHC (31.0-37.0) g/dL RDW (11.5-15.5) % Plt Count (150-450) k/uL Neutrophils % % Lymphocytes % % Monocytes % % Eosinophils % % Basophils % % Neutrophils # (1.3-7.7) k/uL Lymphocytes # (1.0-4.8) k/uL Monocytes # (0-1.0) k/uL Eosinophils # (0-0.7) k/uL Basophils # (0-0.2) k/uL Hypochromasia Macrocytosis PT (9.0-12.0) sec INR (<1.2) APTT (22.0-30.0) sec D-Dimer (<0.60) mg/L FEU Sodium 135 L (137-145) mmol/L Potassium 4.8 (3.5-5.1) mmol/L Chloride 94 L (98-107) mmol/L Carbon Dioxide 37 H (22-30) mmol/L Anion Gap 4 mmol/L BUN 19 H (7-17) mg/dL Creatinine 0.57 (0.52-1.04) mg/dL Est GFR (CKD-EPI)AfAm >90 (>60 ml/min/1.73 sqM) Est GFR (CKD-EPI)NonAf 89 (>60 ml/min/1.73 sqM) Glucose 124 H (74-99) mg/dL Plasma Lactic Acid Marlo 1.1 (0.7-2.0) mmol/L Calcium 8.7 (8.4-10.2) mg/dL Magnesium 2.3 (1.6-2.3) mg/dL Total Bilirubin 0.6 (0.2-1.3) mg/dL AST 30 (14-36) U/L ALT 18 (4-34) U/L Alkaline Phosphatase 75 (38-126) U/L Lactate Dehydrogenase 962 H (313-618) U/L C-Reactive Protein 23.6 H (<10.0) mg/L NT-Pro-B Natriuret Pep 109 pg/mL Total Protein 6.8 (6.3-8.2) g/dL Albumin 3.7 (3.5-5.0) g/dL Coronavirus (PCR) (Not Detectd) - EKG Data -: EKG Interpreted by Me EKG shows normal: sinus rhythm, axis (Indeterminate axis), intervals (KS interval 120 ms, QTC 461 ms, both normal. QRS duration 124 ms, prolonged consistent with a right bundle-branch block.), QRS complexes (There is a right bundle-branch block.) Rate: normal (Rate 77 bpm) Disposition Clinical Impression: Acute exacerbation of chronic obstructive airways disease Disposition: HOME SELF-CARE Condition: Good Instructions (If sedation given, give patient instructions): Chronic Bronchitis (ED) Prescriptions: predniSONE [Deltasone] 20 mg PO BID #8 tab Is patient prescribed a controlled substance at d/c from ED?: No Referrals: Lori Cortez DO [Primary Care Provider] - 1-2 days
--- NOTE | 2019-08-25 02:38 | XR ---
EXAMINATION TYPE: XR chest 1V portable DATE OF EXAM: 08/25/2019 COMPARISON: 08/19/2019 HISTORY: Short of breath TECHNIQUE: Single view FINDINGS: There are interstitial infiltrates in both lower lobes. There is no gross heart failure. He art is slightly enlarged. There are chest leads. Trachea is midline. There are no hilar masses. I see no definite pleural effusion. IMPRESSION: Interstitial infiltrates in the lower lobes probably related to pulmonary fibrosis. No he art failure seen. No change compared to old exam.
[2019-08-25 02:39] LABS: Basophils # (A) 0.1 k/uL (0-0.2); Basophils % (A) 1 %; Eosinophils # (A) 0.1 k/uL (0-0.7); Eosinophils % (A) 2 %; HCT 34.6 % (34.0-46.0); HGB 10.5 gm/dL (11.4-16.0); Hypochromasia Marked; Lymphocytes # (A) 0.8 k/uL (1.0-4.8); Lymphocytes % (A) 9 %; MCH 31.2 pg (25.0-35.0); MCHC 30.4 g/dL (31.0-37.0); MCV 102.9 fL (80.0-100.0); Macrocytosis Slight; Mean Platelet Volume 8.6; Monocytes # (A) 1.1 k/uL (0-1.0); Monocytes % (A) 13 %; Neutrophils % (A) 74 %; Platelet Count 304 k/uL (150-450); RBC 3.36 m/uL (3.80-5.40); RDW 15.1 % (11.5-15.5)
[2019-08-25 02:47] LABS: African American GFR (CKD) >90 (>60 ml/min/1.73 sqM); Albumin 3.7 g/dL (3.5-5.0); Anion Gap 4 mmol/L; C Reactive Protein 23.6 mg/L (<10.0); Calcium 8.7 mg/dL (8.4-10.2); Carbon Dioxide 37 mmol/L (22-30); Chloride 94 mmol/L (98-107); Glucose 124 mg/dL (74-99); LDH 962 U/L (313-618); Non-African American GFR(CKD) 89 (>60 ml/min/1.73 sqM); Sodium 135 mmol/L (137-145); Total Bilirubin 0.6 mg/dL (0.2-1.3); Total Protein 6.8 g/dL (6.3-8.2)
[2019-08-25 02:51] LABS: ALT 18 U/L (4-34); AST 30 U/L (14-36); Alkaline Phosphatase 75 U/L (38-126); Blood Urea Nitrogen 19 mg/dL (7-17); Magnesium 2.3 mg/dL (1.6-2.3); Potassium 4.8 mmol/L (3.5-5.1)
[2019-08-25 02:57] LABS: Partial Thromboplastin Time 22.7 sec (22.0-30.0); Prothrombin Time 10.1 sec (9.0-12.0)
[2019-08-25 03:00] LABS: D-Dimer 1.7 mg/L FEU (<0.60)
--- NOTE | 2019-08-25 04:47 | CT ---
EXAMINATION TYPE: CT chest angio for PE DATE OF EXAM: 08/25/2019 COMPARISON: 08/16/2019 HISTORY: PE CT DLP: 737.9 mGycm Automated exposure control for dose reduction was used. CONTRAST: Performed with IV Contrast, patient injected with 80 mL of Isovue 370. There are 3-D post processed images. Thoracic aorta is atheromatous. There is no aneurysm or dissection. There are no hilar masses. There is no mediastinal adenopathy. There is normal contrast opacification of the pulmonary arteries. There are large pulmonary arteries. I see no filling defect. There is some mild linear infiltrate and atel ectasis at the posterior lung bases. There is no pleural effusion. There is no pericardial effusion. There is spurring in the thoracic spine. I see no bony destructive process. There is 15% wedging of T 10 vertebra unchanged. IMPRESSION: Mild scarring and subsegmental atelectasis at the lung bases. No evidence of pulmonary embolism. Larg e pulmonary arteries consistent with pulmonary hypertension. Lungs appear not significantly different than old exam..
[2019-08-25] MEDS ORDERED: ALBUTEROL NEBULIZED 2.5 MG/3 ML INHALATION STA (05:07)
[2019-08-25] MEDS ORDERED: predniSONE 20 MG TAB PO STA (06:06)
[2019-08-25 06:15] VITALS: BP 136/71; PULSE 79; RESP 18
[2019-08-26 10:10] LABS: Ferritin 60.6 ng/mL (10.0-291.0)
== END 2019-08-25 06:35 | disposition home or self-care (01) ==
LOC: EC 01:35
DX: J44.1 Chronic obstructive pulmonary disease with (acute) exacerbation (principal); S81.811A Laceration without foreign body, right lower leg, initial encounter; I50.9 Heart failure, unspecified; K21.9 Gastro-esophageal reflux disease without esophagitis; E78.5 Hyperlipidemia, unspecified; Z79.51 Long term (current) use of inhaled steroids; Z79.899 Other long term (current) drug therapy; Z88.0 Allergy status to penicillin; Z88.1 Allergy status to other antibiotic agents; Z88.6 Allergy status to analgesic agent; Z87.891 Personal history of nicotine dependence; X58.XXXA Exposure to other specified factors, initial encounter
CPT/HCPCS: 36415; 94640; 93005; 85379; 83880; 80053; 82728; 83605; 83615; 83735; 85025; 85610; 85730; 86140; 87040; 84145; 87635; 71045; 71275; 99285; J7512; Q9967

== ENCOUNTER 2019-10-15 15:37 | Inpatient (IN) | payer MEDICARE, BC ==
[2019-10-15 16:21] LABS: Basophils # (A) 0.1 k/uL (0-0.2); Basophils % (A) 1 %; Eosinophils # (A) 0.2 k/uL (0-0.7); Eosinophils % (A) 2 %; HCT 39.9 % (34.0-46.0); Hypochromasia Marked; Lymphocytes # (A) 0.6 k/uL (1.0-4.8); Lymphocytes % (A) 8 %; MCH 30.1 pg (25.0-35.0); MCHC 30.1 g/dL (31.0-37.0); MCV 100.2 fL (80.0-100.0); Macrocytosis Slight; Mean Platelet Volume 9.6; Monocytes # (A) 0.9 k/uL (0-1.0); Monocytes % (A) 12 %; Neutrophils # (A) 5.7 k/uL (1.3-7.7); Neutrophils % (A) 77 %; Platelet Count 199 k/uL (150-450); RBC 3.98 m/uL (3.80-5.40); RDW 14.8 % (11.5-15.5); WBC 7.4 k/uL (3.8-10.6)
[2019-10-15 16:32] LABS: Albumin 4.1 g/dL (3.5-5.0); Calcium 9.2 mg/dL (8.4-10.2); Potassium 4.1 mmol/L (3.5-5.1); Total Bilirubin 0.5 mg/dL (0.2-1.3); Total Protein 7.1 g/dL (6.3-8.2)
[2019-10-15] MEDS ORDERED: IPRATROPIUM-ALBUTEROL 3 ML NEB INHALATION STA (16:32)
--- NOTE | 2019-10-15 16:35 | ED ---
SOB HPI - General Chief Complaint: Shortness of Breath Stated Complaint: Diff Breathing Time Seen by Provider: 10/15/19 15:45 Source: patient Mode of arrival: ambulatory Limitations: no limitations - History of Present Illness Initial Comments: The patient is a 79-year-old female past medical history of COPD on 3.5 L of home O2, heart failure who presents to the emergency room with reported shortness of breath. States that her breathing got worse for her this morning. She did have a patella visit with Dr. Rod who is her manager application development at 2 PM. S he reported that her pulse ox was in the 70s and therefore he told her going to the emergency room for evaluation. She denies any chest pain or pressure. No cough or hemoptysis. No productive sputum. She denies any sick contacts. No fevers or chills. Denies any nausea or vomiting. Upon arrival to the hospital the patient states she feels much better. She was given a DuoNeb treatment and 50 mg prednisone prior to arrival. Patient has been using her nebulizers at home as directed. Denies any worsening lower extremity edema. There are no alleviating, precipitating or modifying factors - Related Data Home Medications Medication Instructions Recorded Confirmed Acyclovir [Zovirax] 400 mg PO BID 04/12/18 10/15/19 Albuterol Nebulized [Ventolin 2.5 mg INHALATION RT-QID 04/12/18 10/15/19 Nebulized] Budesonide [Pulmicort] 0.5 mg INHALATION RT-BID 04/12/18 10/15/19 Furosemide [Lasix] 40 mg PO QAM 04/12/18 10/15/19 Lovastatin [Mevacor] 20 mg PO HS 04/12/18 10/15/19 Montelukast [Singulair] 10 mg PO HS 04/12/18 10/15/19 Multivitamins, Thera [Multivitamin 1 tab PO DAILY 04/12/18 10/15/19 (formulary)] Omeprazole 20 mg PO DAILY 04/12/18 10/15/19 Potassium Chloride ER [K-Dur 10] 20 meq PO DAILY 04/12/18 10/15/19 ALPRAZolam [Xanax] 0.125 mg PO BID PRN 10/15/19 10/15/19 Albuterol Inhaler [Ventolin Hfa 1 - 2 puff INHALATION RT-Q4H PRN 10/15/19 10/15/19 Inhaler] Aspirin EC [Ecotrin Low Dose] 81 mg PO DAILY 10/15/19 10/15/19 Calcium Carbonate [Calcium] 600 mg PO BID 10/15/19 10/15/19 Allergies Allergy/AdvReac Type Severity Reaction Status Date / Time naproxen Allergy Unknown Verified 10/15/19 18:06 amoxicillin [From Augmentin] AdvReac Unknown Verified 10/15/19 18:06 clavulanic acid AdvReac Unknown Verified 10/15/19 18:06 [From Augmentin] erythromycin base AdvReac Unknown Verified 10/15/19 18:06 Review of Systems ROS Statement: Those systems with pertinent positive or pertinent negative responses have been documented in the HPI. ROS Other: All systems not noted in ROS Statement are negative. Past Medical History Past Medical History: Coronary Artery Disease (CAD), Heart Failure, COPD, GERD/Reflux, Hyperlipidemia History of Any Multi-Drug Resistant Organisms: None Reported Past Surgical History: Back Surgery Past Anesthesia/Blood Transfusion Reactions: No Reported Reaction Past Psychological History: No Psychological Hx Reported Smoking Status: Former smoker Past Alcohol Use History: None Reported Past Drug Use History: None Reported - Past Family History Mother Family Medical History: Myocardial Infarction ([place]) Brother(s) Family Medical History: Cancer, Myocardial Infarction ([place]) Additional Family Medical History / Comment(s): colon ca, 2 brother with ca General Exam Limitations: no limitations General appearance: alert, in no apparent distress Head exam: Present: atraumatic, normocephalic, normal inspection Eye exam: Present: normal appearance, PERRL, EOMI. Absent: scleral icterus, conjunctival injection, periorbital swelling ENT exam: Present: normal exam, mucous membranes moist Neck exam: Present: normal inspection. Absent: tenderness, meningismus, lymphadenopathy Respiratory exam: Present: wheezes, chest wall tenderness, accessory muscle use, decreased breath sounds. Absent: respiratory distress, rales, rhonchi, stridor Cardiovascular Exam: Present: regular rate, normal rhythm, normal heart sounds. Absent: systolic murmur, diastolic murmur, rubs, gallop, clicks GI/Abdominal exam: Present: soft, normal bowel sounds. Absent: distended, tenderness, guarding, rebound, rigid Extremities exam: Present: normal inspection, full ROM, normal capillary refill. Absent: tenderness, pedal edema, joint swelling, calf tenderness Back exam: Present: normal inspection Neurological exam: Present: alert, oriented X3, CN II-XII intact Psychiatric exam: Present: normal affect, normal mood Skin exam: Present: warm, dry, intact, normal color, other (chronic wound right lower extremity). Absent: rash Course Vital Signs 10/15/19 10/15/19 10/15/19 15:44 16:55 17:11 Temperature 98.9 F Pulse Rate 82 79 79 Respiratory 23 Rate Blood Pressure 117/63 O2 Sat by Pulse 97 Oximetry 10/15/19 10/15/19 10/15/19 17:14 20:09 20:33 Temperature Pulse Rate 84 85 Respiratory 15 22 Rate Blood Pressure O2 Sat by Pulse 93 L Oximetry 10/15/19 10/15/19 20:47 21:12 Temperature Pulse Rate 84 87 Respiratory 18 Rate Blood Pressure 100/68 O2 Sat by Pulse 93 L Oximetry Medical Decision Making - Medical Decision Making Upon arrival the patient is placed into room 1. A thorough history and physical exam was performed. The patient has diminished breath sounds. A double DuoNeb breathing treatment was performed. Laboratory studies were conducted. Patient went for chest x-ray. Laboratory studies are remarkable for a CO2 of 38 which is round the patient's baseline. BNP is 93. Troponin is negative. Chest x-ray demonstrates a mild right lower lobe pneumonia unchanged compared to old exam. The patient is reevaluated. Saturating around 90% on 4 L. Patient continues to have diminished breath sounds. At this time she has received 3 breathing treatments and steroids. As her pulse ox is still low I did recommend hospitalization for which the patient did agree. I discussed case with Dr. Fuentes who agreed to hospital admission. Patient is awaiting a bed on the floor - Lab Data Result diagrams: 10/18/19 09:20 10/18/19 09:20 Lab Results 10/15/19 10/15/19 10/15/19 Range/Units 16:08 16:08 16:08 WBC 7.4 (3.8-10.6) k/uL RBC 3.98 (3.80-5.40) m/uL Hgb 12.0 (11.4-16.0) gm/dL Hct 39.9 (34.0-46.0) % MCV 100.2 H (80.0-100.0) fL MCH 30.1 (25.0-35.0) pg MCHC 30.1 L (31.0-37.0) g/dL RDW 14.8 (11.5-15.5) % Plt Count 199 (150-450) k/uL Neutrophils % 77 % Lymphocytes % 8 % Monocytes % 12 % Eosinophils % 2 % Basophils % 1 % Neutrophils # 5.7 (1.3-7.7) k/uL Lymphocytes # 0.6 L (1.0-4.8) k/uL Monocytes # 0.9 (0-1.0) k/uL Eosinophils # 0.2 (0-0.7) k/uL Basophils # 0.1 (0-0.2) k/uL Hypochromasia Marked Macrocytosis Slight PT 9.8 (9.0-12.0) sec INR 0.9 (<1.2) APTT 22.2 (22.0-30.0) sec Sodium 140 (137-145) mmol/L Potassium 4.1 (3.5-5.1) mmol/L Chloride 97 L (98-107) mmol/L Carbon Dioxide 38 H (22-30) mmol/L Anion Gap 5 mmol/L BUN 22 H (7-17) mg/dL Creatinine 0.78 (0.52-1.04) mg/dL Est GFR (CKD-EPI)AfAm 84 (>60 ml/min/1.73 sqM) Est GFR (CKD-EPI)NonAf 73 (>60 ml/min/1.73 sqM) Glucose 109 H (74-99) mg/dL Plasma Lactic Acid Marlo (0.7-2.0) mmol/L Calcium 9.2 (8.4-10.2) mg/dL Total Bilirubin 0.5 (0.2-1.3) mg/dL AST 20 (14-36) U/L ALT 13 (4-34) U/L Alkaline Phosphatase 89 (38-126) U/L Troponin I (0.000-0.034) ng/mL NT-Pro-B Natriuret Pep pg/mL Total Protein 7.1 (6.3-8.2) g/dL Albumin 4.1 (3.5-5.0) g/dL Coronavirus (PCR) (Not Detected) 10/15/19 10/15/19 10/15/19 Range/Units 16:08 16:08 16:08 WBC (3.8-10.6) k/uL RBC (3.80-5.40) m/uL Hgb (11.4-16.0) gm/dL Hct (34.0-46.0) % MCV (80.0-100.0) fL MCH (25.0-35.0) pg MCHC (31.0-37.0) g/dL RDW (11.5-15.5) % Plt Count (150-450) k/uL Neutrophils % % Lymphocytes % % Monocytes % % Eosinophils % % Basophils % % Neutrophils # (1.3-7.7) k/uL Lymphocytes # (1.0-4.8) k/uL Monocytes # (0-1.0) k/uL Eosinophils # (0-0.7) k/uL Basophils # (0-0.2) k/uL Hypochromasia Macrocytosis PT (9.0-12.0) sec INR (<1.2) APTT (22.0-30.0) sec Sodium (137-145) mmol/L Potassium (3.5-5.1) mmol/L Chloride (98-107) mmol/L Carbon Dioxide (22-30) mmol/L Anion Gap mmol/L BUN (7-17) mg/dL Creatinine (0.52-1.04) mg/dL Est GFR (CKD-EPI)AfAm (>60 ml/min/1.73 sqM) Est GFR (CKD-EPI)NonAf (>60 ml/min/1.73 sqM) Glucose (74-99) mg/dL Plasma Lactic Acid Marlo 1.0 (0.7-2.0) mmol/L Calcium (8.4-10.2) mg/dL Total Bilirubin (0.2-1.3) mg/dL AST (14-36) U/L ALT (4-34) U/L Alkaline Phosphatase (38-126) U/L Troponin I <0.012 (0.000-0.034) ng/mL NT-Pro-B Natriuret Pep 93 pg/mL Total Protein (6.3-8.2) g/dL Albumin (3.5-5.0) g/dL Coronavirus (PCR) (Not Detected) 10/15/19 Range/Units 17:41 WBC (3.8-10.6) k/uL RBC (3.80-5.40) m/uL Hgb (11.4-16.0) gm/dL Hct (34.0-46.0) % MCV (80.0-100.0) fL MCH (25.0-35.0) pg MCHC (31.0-37.0) g/dL RDW (11.5-15.5) % Plt Count (150-450) k/uL Neutrophils % % Lymphocytes % % Monocytes % % Eosinophils % % Basophils % % Neutrophils # (1.3-7.7) k/uL Lymphocytes # (1.0-4.8) k/uL Monocytes # (0-1.0) k/uL Eosinophils # (0-0.7) k/uL Basophils # (0-0.2) k/uL Hypochromasia Macrocytosis PT (9.0-12.0) sec INR (<1.2) APTT (22.0-30.0) sec Sodium (137-145) mmol/L Potassium (3.5-5.1) mmol/L Chloride (98-107) mmol/L Carbon Dioxide (22-30) mmol/L Anion Gap mmol/L BUN (7-17) mg/dL Creatinine (0.52-1.04) mg/dL Est GFR (CKD-EPI)AfAm (>60 ml/min/1.73 sqM) Est GFR (CKD-EPI)NonAf (>60 ml/min/1.73 sqM) Glucose (74-99) mg/dL Plasma Lactic Acid Marlo (0.7-2.0) mmol/L Calcium (8.4-10.2) mg/dL Total Bilirubin (0.2-1.3) mg/dL AST (14-36) U/L ALT (4-34) U/L Alkaline Phosphatase (38-126) U/L Troponin I (0.000-0.034) ng/mL NT-Pro-B Natriuret Pep pg/mL Total Protein (6.3-8.2) g/dL Albumin (3.5-5.0) g/dL Coronavirus (PCR) Not Detected (Not Detected) - EKG Data EKG Comments: EKG demonstrates a normal sinus rhythm with a ventricular rate of 76. FL 136. QRS 128. QTC of 454. No acute ST segment elevations or depressions. Right bundle branch block present Disposition Clinical Impression: Acute exacerbation of chronic obstructive airways disease Disposition: ADMITTED IP TO THIS HOSP Condition: Stable Is patient prescribed a controlled substance at d/c from ED?: No Decision to Admit Reason: Admit from EC Decision Date: 10/15/19 Decision Time: 19:01
[2019-10-15 16:38] LABS: INR 0.9 (<1.2); Partial Thromboplastin Time 22.2 sec (22.0-30.0); Prothrombin Time 9.8 sec (9.0-12.0)
--- NOTE | 2019-10-15 16:51 | XR ---
EXAMINATION TYPE: XR chest 2V DATE OF EXAM: 10/15/2019 COMPARISON: 08/25/2019 HISTORY: Short of breath TECHNIQUE: 2 views FINDINGS: There is some patchy infiltrate right lower lobe. There are no hilar masses. There is no he art failure. Bony thorax is intact. There is some osteopenia. IMPRESSION: There is a mild right lower lobe pneumonia unchanged compared to old exam. There is clear ing of some minimal infiltrate left lung base compared to old exam. No heart failure.
[2019-10-15] MEDS ORDERED: NALOXONE 0.4 MG/ML 1 ML VIAL IV PRN (19:01)
[2019-10-15] MEDS: IPRATROPIUM-ALBUTEROL 3 ML NEB INHALATION SCH (20:33)
[2019-10-15] MEDS: ATORVASTATIN 10 MG TAB PO SCH (21:52)
[2019-10-15] MEDS: MONTELUKAST 10 MG TAB PO SCH (21:52)
[2019-10-15] MEDS: ACYCLOVIR 200 MG CAP PO SCH (21:52)
[2019-10-15] MEDS: ALPRAZolam 0.25 MG TAB PO PRN (22:39)
[2019-10-15] MEDS: IPRATROPIUM-ALBUTEROL 3 ML NEB INHALATION PRN (22:57)
[2019-10-16 07:45] LABS: Glucose,Whole Blood 96 mg/dL (75-99)
[2019-10-16 07:52] LABS: Basophils # (A) 0.1 k/uL (0-0.2); Basophils % (A) 1 %; Eosinophils # (A) 0.1 k/uL (0-0.7); Eosinophils % (A) 1 %; HCT 34.2 % (34.0-46.0); HGB 10.4 gm/dL (11.4-16.0); Hypochromasia Marked; Lymphocytes # (A) 0.5 k/uL (1.0-4.8); Lymphocytes % (A) 7 %; MCH 30.5 pg (25.0-35.0); MCHC 30.4 g/dL (31.0-37.0); MCV 100.2 fL (80.0-100.0); Macrocytosis Slight; Mean Platelet Volume 8.9; Monocytes # (A) 0.6 k/uL (0-1.0); Monocytes % (A) 8 %; Neutrophils % (A) 82 %; Platelet Count 172 k/uL (150-450); RBC 3.41 m/uL (3.80-5.40); RDW 14.9 % (11.5-15.5); WBC 7.3 k/uL (3.8-10.6)
[2019-10-16 08:05] LABS: African American GFR (CKD) >90 (>60 ml/min/1.73 sqM); Anion Gap 4 mmol/L; Blood Urea Nitrogen 24 mg/dL (7-17); Calcium 8.6 mg/dL (8.4-10.2); Carbon Dioxide 34 mmol/L (22-30); Chloride 100 mmol/L (98-107); Glucose 92 mg/dL (74-99); Non-African American GFR(CKD) >90 (>60 ml/min/1.73 sqM); Potassium 4.1 mmol/L (3.5-5.1); Sodium 138 mmol/L (137-145)
[2019-10-16] MEDS: IPRATROPIUM-ALBUTEROL 3 ML NEB INHALATION SCH ×4 (08:08→19:21)
[2019-10-16] MEDS: INSULIN ASPART (NovoLOG) 100 UNIT/ML VIAL SQ SCH ×4 (08:21→21:02)
[2019-10-16] MEDS: PANTOPRAZOLE 40 MG TABLET PO SCH (08:44)
[2019-10-16] MEDS: ACYCLOVIR 200 MG CAP PO SCH ×2 (08:44→21:02)
[2019-10-16] MEDS: FUROSEMIDE 40 MG TAB PO SCH (08:44)
[2019-10-16] MEDS: methylPREDNISolone SOD SUCCI 40 MG/ML 1 ML VIAL IV SCH ×3 (08:44→23:19)
[2019-10-16] MEDS: ASPIRIN 81 MG PO SCH (08:44)
[2019-10-16] MEDS: POTASSIUM CHLORIDE ER 20 MEQ TAB.ER PO SCH (08:45)
[2019-10-16] MEDS: AZITHROMYCIN 500 MG in SODIUM CHLORIDE 0.9% 250 ML IVPB SCH (11:13)
[2019-10-16 11:52] LABS: Glucose,Whole Blood 118 mg/dL (75-99)
--- NOTE | 2019-10-16 15:34 | P.CNPUL ---
History of Present Illness Consult date: 10/16/19 Reason for consult: dyspnea, cough, COPD Chief complaint: Acute onset of shortness of breath History of present illness: This is a 79-year-old female with end-stage COPD on home oxygen 3.5 L came into the hospital with acute onset of shortness of breath, oxygen saturation dropped down to 70% in the emergency department however she responded well with steroids. Breathing treatments feeling much better, patient appears to have a right lower lobe pneumonia, currently on Zithromax Review of Systems All systems: negative Past Medical History Past Medical History: Coronary Artery Disease (CAD), Heart Failure, COPD, GERD/Reflux, Hyperlipidemia History of Any Multi-Drug Resistant Organisms: None Reported Past Surgical History: Back Surgery Past Anesthesia/Blood Transfusion Reactions: No Reported Reaction Past Psychological History: No Psychological Hx Reported Smoking Status: Former smoker Past Alcohol Use History: None Reported Past Drug Use History: None Reported - Past Family History Mother Family Medical History: Myocardial Infarction ([place]) Brother(s) Family Medical History: Cancer, Myocardial Infarction ([place]) Additional Family Medical History / Comment(s): colon ca, 2 brother with ca Medications and Allergies Home Medications Medication Instructions Recorded Confirmed Type Acyclovir [Zovirax] 400 mg PO BID 04/12/18 10/15/19 History Albuterol Nebulized [Ventolin 2.5 mg INHALATION RT-QID 04/12/18 10/15/19 History Nebulized] Budesonide [Pulmicort] 0.5 mg INHALATION RT-BID 04/12/18 10/15/19 History Furosemide [Lasix] 40 mg PO QAM 04/12/18 10/15/19 History Lovastatin [Mevacor] 20 mg PO HS 04/12/18 10/15/19 History Montelukast [Singulair] 10 mg PO HS 04/12/18 10/15/19 History Multivitamins, Thera [Multivitamin 1 tab PO DAILY 04/12/18 10/15/19 History (formulary)] Omeprazole 20 mg PO DAILY 04/12/18 10/15/19 History Potassium Chloride ER [K-Dur 10] 20 meq PO DAILY 04/12/18 10/15/19 History ALPRAZolam [Xanax] 0.125 mg PO BID PRN 10/15/19 10/15/19 History Albuterol Inhaler [Ventolin Hfa 1 - 2 puff INHALATION RT-Q4H PRN 10/15/19 10/15/19 History Inhaler] Aspirin EC [Ecotrin Low Dose] 81 mg PO DAILY 10/15/19 10/15/19 History Calcium Carbonate [Calcium] 600 mg PO BID 10/15/19 10/15/19 History Allergies Allergy/AdvReac Type Severity Reaction Status Date / Time naproxen Allergy Unknown Verified 10/15/19 18:06 amoxicillin [From Augmentin] AdvReac Unknown Verified 10/15/19 18:06 clavulanic acid AdvReac Unknown Verified 10/15/19 18:06 [From Augmentin] erythromycin base AdvReac Unknown Verified 10/15/19 18:06 Physical Exam Vitals: Vital Signs Temp Pulse Pulse Resp BP BP Pulse Ox 10/16/19 12:02 80 10/16/19 11:52 80 10/16/19 08:23 84 10/16/19 08:09 80 10/16/19 07:08 97.7 F 74 22 150/82 95 10/16/19 02:35 98.0 F 81 20 137/77 95 10/15/19 23:06 84 10/15/19 22:58 82 10/15/19 21:35 98.4 F 89 24 112/76 91 L 10/15/19 21:12 87 18 100/68 93 L 10/15/19 20:47 84 10/15/19 20:33 85 10/15/19 20:09 84 22 93 L 10/15/19 17:14 15 10/15/19 17:11 79 10/15/19 16:55 79 10/15/19 15:44 98.9 F 82 23 117/63 97 Intake and Output 10/16/19 10/16/19 10/16/19 06:59 14:59 22:59 Intake Total 250 Balance 250 Intake: Intake, IV Titration 250 Amount Azithromycin 500 mg In 250 Sodium Chloride 0.9% 250 ml @ 250 mls/hr IVPB DAILY [facility] Rx#:[id number] Other: # Voids 1 - Constitutional General appearance: average body habitus, cooperative, disheveled - EENT Eyes: abnormal pupil, EOMI, PERRLA Ears: bilateral: normal - Neck Carotids: bilateral: upstroke normal - Respiratory Respiratory: bilateral: diminished - Cardiovascular Rhythm: regular Heart sounds: normal: S1, S2 - Integumentary Integumentary: normal turgor - Neurologic Neurologic: CNII-XII intact - Musculoskeletal Musculoskeletal: gait normal, generalized weakness, strength equal bilaterally - Psychiatric Psychiatric: A&O x's 3, appropriate affect, intact judgment & insight Results - Laboratory Findings CBC and BMP: 10/16/19 07:30 10/16/19 07:30 PT/INR, D-dimer PT 9.8 sec (9.0-12.0) 10/15/19 16:08 INR 0.9 (<1.2) 10/15/19 16:08 Abnormal lab findings: Abnormal Labs 10/15/19 10/15/19 10/15/19 16:08 16:08 19:13 RBC Hgb MCV 100.2 H MCHC 30.1 L Lymphocytes # 0.6 L Chloride 97 L Carbon Dioxide 38 H BUN 22 H Creatinine Glucose 109 H POC Glucose (mg/dL) Procalcitonin 0.10 H 10/16/19 10/16/19 10/16/19 07:30 07:30 11:35 RBC 3.41 L Hgb 10.4 L MCV 100.2 H MCHC 30.4 L Lymphocytes # 0.5 L Chloride Carbon Dioxide 34 H BUN 24 H Creatinine 0.47 L Glucose POC Glucose (mg/dL) 118 H Procalcitonin - Diagnostic Findings Chest x-ray: report reviewed, image reviewed (Right lower lobe infiltrate/pneumonia) Assessment and Plan Assessment: Acute COPD exacerbation Acute on chronic hypoxic respiratory failure End-stage lung disease secondary due to severe COPD and chronic hypoxic respiratory failure Right lower lobe pneumonia Generalized anxiety disorder Plan: Continue antibiotics Add Rocephin Breathing treatments Steroids Increase activity as tolerated Further recommendations pending plan of care as per clinical response of the patient Time with Patient: Greater than 30
[2019-10-16 17:12] LABS: Glucose,Whole Blood 192 mg/dL (75-99)
[2019-10-16] MEDS ORDERED: guaiFENesin-DM 100-10MG/5ML 10 ML CUP PO PRN (17:45)
[2019-10-16 20:59] LABS: Glucose,Whole Blood 196 mg/dL (75-99)
[2019-10-16] MEDS ORDERED: DOCUSATE 100 MG CAP PO PRN (21:00)
[2019-10-16] MEDS: ATORVASTATIN 10 MG TAB PO SCH (21:02)
[2019-10-16] MEDS: MONTELUKAST 10 MG TAB PO SCH (21:02)
[2019-10-16] MEDS: guaiFENesin-DM 100-10MG/5ML 10 ML CUP PO PRN (21:02)
--- NOTE | 2019-10-16 23:33 | P.HPIM ---
History of Present Illness H&P Date: 10/16/19 Shaunna Keys is a 79 yo F with past medical history of COPD, chronic respiratory failure on 3 L home oxygen, chronic diastolic CHF, allergic rhinitis who presented to the ED complaining of worsening shortness of breath and cough. She denies any fever, chills, myalgias. Her cough is productive for clear mucus. Pt states she has not left her house and denies any sick contacts. She has been doing duonebs at home, but after having a virtual visit with her radiator specialist where she complained of O2 reading in the high 70s, she was advised to come to the ED. On presentation she was tachypneic, required 6 L O2, WBC 7.2, trop and BNP unremarkable. CXR with coral lower lobe densities. Pt was given solumedrol and duoneb with symptomatic improvement. Review of Systems All systems: negative Constitutional: Reports malaise, Denies chills, Denies fever Eyes: denies blurred vision, denies pain Ears, nose, mouth and throat: Denies headache, Denies sore throat Cardiovascular: Denies chest pain, Denies shortness of breath Respiratory: Reports cough, Reports cough with sputum, Reports dyspnea, Reports home oxygen Gastrointestinal: Denies abdominal pain, Denies diarrhea, Denies nausea, Denies vomiting Genitourinary: Denies dysuria, Denies hematuria Musculoskeletal: Denies myalgias Integumentary: Denies pruritus, Denies rash Neurological: Denies numbness, Denies weakness Psychiatric: Denies anxiety, Denies depression Endocrine: Denies fatigue, Denies weight change Past Medical History Past Medical History: Coronary Artery Disease (CAD), Heart Failure, COPD, GERD/Reflux, Hyperlipidemia History of Any Multi-Drug Resistant Organisms: None Reported Past Surgical History: Back Surgery Past Anesthesia/Blood Transfusion Reactions: No Reported Reaction Past Psychological History: No Psychological Hx Reported Smoking Status: Former smoker Past Alcohol Use History: None Reported Past Drug Use History: None Reported - Past Family History Mother Family Medical History: Myocardial Infarction ([place]) Brother(s) Family Medical History: Cancer, Myocardial Infarction ([place]) Additional Family Medical History / Comment(s): colon ca, 2 brother with ca Medications and Allergies Home Medications Medication Instructions Recorded Confirmed Type Acyclovir [Zovirax] 400 mg PO BID 04/12/18 10/15/19 History Albuterol Nebulized [Ventolin 2.5 mg INHALATION RT-QID 04/12/18 10/15/19 History Nebulized] Budesonide [Pulmicort] 0.5 mg INHALATION RT-BID 04/12/18 10/15/19 History Furosemide [Lasix] 40 mg PO QAM 04/12/18 10/15/19 History Lovastatin [Mevacor] 20 mg PO HS 04/12/18 10/15/19 History Montelukast [Singulair] 10 mg PO HS 04/12/18 10/15/19 History Multivitamins, Thera [Multivitamin 1 tab PO DAILY 04/12/18 10/15/19 History (formulary)] Omeprazole 20 mg PO DAILY 04/12/18 10/15/19 History Potassium Chloride ER [K-Dur 10] 20 meq PO DAILY 04/12/18 10/15/19 History ALPRAZolam [Xanax] 0.125 mg PO BID PRN 10/15/19 10/15/19 History Albuterol Inhaler [Ventolin Hfa 1 - 2 puff INHALATION RT-Q4H PRN 10/15/19 10/15/19 History Inhaler] Aspirin EC [Ecotrin Low Dose] 81 mg PO DAILY 10/15/19 10/15/19 History Calcium Carbonate [Calcium] 600 mg PO BID 10/15/19 10/15/19 History Allergies Allergy/AdvReac Type Severity Reaction Status Date / Time naproxen Allergy Unknown Verified 10/15/19 18:06 amoxicillin [From Augmentin] AdvReac Unknown Verified 10/15/19 18:06 clavulanic acid AdvReac Unknown Verified 10/15/19 18:06 [From Augmentin] erythromycin base AdvReac Unknown Verified 10/15/19 18:06 Physical Exam Vitals: Vital Signs Temp Pulse Pulse Resp BP BP Pulse Ox 10/16/19 08:23 84 10/16/19 08:09 80 10/16/19 07:08 97.7 F 74 22 150/82 95 10/16/19 02:35 98.0 F 81 20 137/77 95 10/15/19 23:06 84 10/15/19 22:58 82 10/15/19 21:35 98.4 F 89 24 112/76 91 L 10/15/19 21:12 87 18 100/68 93 L 10/15/19 20:47 84 10/15/19 20:33 85 10/15/19 20:09 84 22 93 L 10/15/19 17:14 15 10/15/19 17:11 79 10/15/19 16:55 79 10/15/19 15:44 98.9 F 82 23 117/63 97 Intake and Output 10/15/19 10/16/19 10/16/19 22:59 06:59 14:59 Other: # Voids 1 1 Weight 94.801 kg General: well nourished, well developed, NAD. Vitals reviewed Eyes: PERRL, EOMI, conjunctiva normal HENT: normocephalic, mucus membranes moist. On 4 L O2 Neck: supple, no JVD Lungs: normal respiratory effort. Diminished breath sounds throughout. No wheezing CV: Regular rate and rhythm, no murmur. Peripheral pulses 2+ Abdomen: soft, nondistended, no organomegaly Lymph: no cervical or axillary LAD Skin: warm and dry. Neuro: A&Ox3, normal mood and affect Results CBC & Chem 7: 10/16/19 07:30 10/16/19 07:30 Labs: Abnormal Lab Results - Last 24 Hours (Table) 10/15/19 10/15/19 10/15/19 Range/Units 16:08 16:08 19:13 RBC (3.80-5.40) m/uL Hgb (11.4-16.0) gm/dL MCV 100.2 H (80.0-100.0) fL MCHC 30.1 L (31.0-37.0) g/dL Lymphocytes # 0.6 L (1.0-4.8) k/uL Chloride 97 L (98-107) mmol/L Carbon Dioxide 38 H (22-30) mmol/L BUN 22 H (7-17) mg/dL Creatinine (0.52-1.04) mg/dL Glucose 109 H (74-99) mg/dL Procalcitonin 0.10 H (0.02-0.09) ng/mL 10/16/19 10/16/19 Range/Units 07:30 07:30 RBC 3.41 L (3.80-5.40) m/uL Hgb 10.4 L (11.4-16.0) gm/dL MCV 100.2 H (80.0-100.0) fL MCHC 30.4 L (31.0-37.0) g/dL Lymphocytes # 0.5 L (1.0-4.8) k/uL Chloride (98-107) mmol/L Carbon Dioxide 34 H (22-30) mmol/L BUN 24 H (7-17) mg/dL Creatinine 0.47 L (0.52-1.04) mg/dL Glucose (74-99) mg/dL Procalcitonin (0.02-0.09) ng/mL Thrombosis Risk Factor Assmnt - Choose All That Apply Any of the Below Risk Factors Present?: Yes Each Factor Represents 1 point: Obesity (BMI >25), Swollen legs (current) Other Risk Factors: Yes Each Risk Factor Represents 3 Points: Age 75 years or older Thrombosis Risk Factor Assessment Total Risk Factor Score: 5 Thrombosis Risk Factor Assessment Level: High Risk Assessment and Plan (1) Acute and chronic respiratory failure with hypoxia Current Visit: Yes Status: Acute Code(s): J96.21 - ACUTE AND CHRONIC RESPIRATORY FAILURE WITH HYPOXIA SNOMED Code(s): 93918116 (2) Chronic diastolic CHF (congestive heart failure), NYHA class 2 Current Visit: Yes Status: Acute Code(s): I50.32 - CHRONIC DIASTOLIC (CONGESTIVE) HEART FAILURE SNOMED Code(s): 767317587 (3) Acute exacerbation of chronic obstructive airways disease Current Visit: Yes Status: Acute Code(s): J44.1 - CHRONIC OBSTRUCTIVE PULMONARY DISEASE W (ACUTE) EXACERBATION SNOMED Code(s): 561812873 (4) Anxiety Current Visit: Yes Status: Acute Code(s): F41.9 - ANXIETY DISORDER, UNSPECIFIED SNOMED Code(s): 85240148 Plan: 1. Acute on chronic respiratory failure. Secondary to COPD exacerbation. P ulmonary consult. Await COVID PCR result. Start empiric antibiotics, solumedrol, pulmicort, duonebs 2. Chronic diastolic CHF. No evidence of acute exacerbation. Continue po lasix 3. Allergic rhinitis. Continue zyrtec and singulair 4. Anxiety. Continue xanax prn
[2019-10-17] MEDS: IPRATROPIUM-ALBUTEROL 3 ML NEB INHALATION PRN (04:06)
[2019-10-17] MEDS: guaiFENesin-DM 100-10MG/5ML 10 ML CUP PO PRN ×3 (06:03→22:25)
[2019-10-17 07:11] LABS: Glucose,Whole Blood 147 mg/dL (75-99)
[2019-10-17] MEDS: IPRATROPIUM-ALBUTEROL 3 ML NEB INHALATION SCH ×4 (07:31→20:07)
[2019-10-17] MEDS: methylPREDNISolone SOD SUCCI 40 MG/ML 1 ML VIAL IV SCH (07:43)
[2019-10-17] MEDS: FUROSEMIDE 40 MG TAB PO SCH (07:43)
[2019-10-17] MEDS: POTASSIUM CHLORIDE ER 20 MEQ TAB.ER PO SCH (07:43)
[2019-10-17] MEDS: INSULIN ASPART (NovoLOG) 100 UNIT/ML VIAL SQ SCH ×4 (07:43→21:07)
[2019-10-17] MEDS: PANTOPRAZOLE 40 MG TABLET PO SCH (07:43)
[2019-10-17] MEDS: ACYCLOVIR 200 MG CAP PO SCH ×2 (07:43→21:29)
[2019-10-17] MEDS: ASPIRIN 81 MG PO SCH (07:43)
[2019-10-17] MEDS: AZITHROMYCIN 500 MG in SODIUM CHLORIDE 0.9% 250 ML IVPB SCH (09:24)
[2019-10-17 11:44] LABS: Glucose,Whole Blood 158 mg/dL (75-99)
[2019-10-17] MEDS ORDERED: ACETAMINOPHEN TAB 325 MG TAB PO PRN (11:48)
[2019-10-17] MEDS: ALPRAZolam 0.25 MG TAB PO PRN (12:32)
--- NOTE | 2019-10-17 15:40 | P.PN ---
Subjective Progress Note Date: 10/17/19 Shaunna Keys is a 79 yo F with past medical history of COPD, chronic respiratory failure on 3 L home oxygen, chronic diastolic CHF, allergic rhinitis who presented to the ED complaining of worsening shortness of breath and cough. She denies any fever, chills, myalgias. Her cough is productive for clear mucus. Pt states she has not left her house and denies any sick contacts. She has been doing duonebs at home, but after having a virtual visit with her electronic gluer where she complained of O2 reading in the high 70s, she was advised to come to the ED. On presentation she was tachypneic, required 6 L O2, WBC 7.2, trop and BNP unremarkable. CXR with coral lower lobe densities. Pt was given solumedrol and duoneb with symptomatic improvement. 10/17/2019 breathing significantly improved. Maintaining O2 sats in the 90s on 3 L nasal cannula. Cough improved, reporting minimal clear phlegm. Maintained on IV antibiotics, nebulized bronchodilators, steroids; complains of difficulty sleeping last night. Objective - Vital Signs Vital signs: Vital Signs Temp 97.9 F 10/17/19 07:02 Pulse 84 10/17/19 11:36 Resp 20 10/17/19 07:02 BP 106/73 10/17/19 07:02 Pulse Ox 96 10/17/19 07:02 Intake & Output 10/16/19 10/17/19 10/17/19 18:59 06:59 18:59 Intake Total 1630 Balance 1630 Intake: Intake, IV Titration 250 Amount Azithromycin 500 mg In 250 Sodium Chloride 0.9% 250 ml @ 250 mls/hr IVPB DAILY RADHA Rx#:[id number] Oral 1380 Other: # Voids 3 1 1 - Exam General: well nourished, well developed, NAD. Vitals reviewed Eyes: PERRL, EOMI, conjunctiva normal HENT: normocephalic, mucus membranes moist. On 4 L O2 Neck: supple, no JVD Lungs: normal respiratory effort. Better air entry .Diminished breath sounds throughout. No wheezing CV: Regular rate and rhythm, no murmur. Peripheral pulses 2+ Abdomen: soft, nondistended, no organomegaly Lymph: no cervical or axillary LAD Skin: warm and dry. Right calf scabbed with couple Steri-Strips from prior fall 6 weeks ago in bathroom Neuro: A&Ox3, normal mood and affect - Labs CBC & Chem 7: 10/16/19 07:30 10/16/19 07:30 Labs: Abnormal Lab Results - Last 24 Hours (Table) 10/16/19 10/16/19 10/17/19 Range/Units 16:54 20:58 07:04 POC Glucose (mg/dL) 192 H 196 H 147 H (75-99) mg/dL 10/17/19 Range/Units 11:40 POC Glucose (mg/dL) 158 H (75-99) mg/dL Assessment and Plan Assessment: (1) Acute and chronic respiratory failure with hypoxia Current Visit: Yes Status: Acute Code(s): J96.21 - ACUTE AND CHRONIC RESPIRATORY FAILURE WITH HYPOXIA SNOMED Code(s): 02471702 (2) Chronic diastolic CHF (congestive heart failure), NYHA class 2 Current Visit: Yes Status: Acute Code(s): I50.32 - CHRONIC DIASTOLIC (CONGESTIVE) HEART FAILURE SNOMED Code(s): 182599387 (3) Acute exacerbation of chronic obstructive airways disease Current Visit: Yes Status: Acute Code(s): J44.1 - CHRONIC OBSTRUCTIVE PULMONARY DISEASE W (ACUTE) EXACERBATION SNOMED Code(s): 906900305 (4) Anxiety Current Visit: Yes Status: Acute Code(s): F41.9 - ANXIETY DISORDER, UNSPECIFIED SNOMED Code(s): 53051816 (5) ALLERGIC rhinitis (6) mild right lower lobe pneumonia Plan: Continue on current medication regime ,monitoring and symptomatic treatment. Maintain nebulized bronchodilators, steroids, antibiotics. Decreased IV steroids to twice a day and converted over to oral prednisone in a.m. increase ambulation as tolerated. The impression and plan of care has been dictated as directed. : I performed a history and examination of this patient, discussed the same with the dictator. I agree with the dictator's note ,documented as a scribe. Any additional findings or plans will be noted.
--- NOTE | 2019-10-17 16:46 | P.PCN ---
Date of Procedure: 10/17/19 Preoperative Diagnosis: Nonhealing ulceration to the right lower extremity Limited to skin breakdown Postoperative Diagnosis: Same Procedure(s) Performed: Provider: Britta Pre-and postop diagnosis: Nonhealing ulceration right lower extremity with Limited to skin breakdown Type of debridement: Open Ulcer location right lateral leg Anesthesia: 2% lidocaine gel applied to the ulcer Signs of infection: Minimal redness Other material in the wound that is expected to inhibit healing or promote adjacent tissue breakdown: Eschar and slough Degree of epithelialization: % Method and instrument: Surgical debridement with scissors Character of the wound after debridement: Clean bloody subcutaneous bed Necrotic or nonviable tissue/ Description of tissue removed: Eschar scab and slough Pre-debridement measurement: 7 x 2 x 0.1 cm Postoperative debridement measurement: Cluster of 30.1 x 0.1 x 0.1 cm, 0 x 1 x 0.1 x 0.1 cm, 2 x 0.3 x 0.1 cm Control of bleeding:Bleeding was easily controlled with saline moistened gauze and light pressure Post debridement dressing: Honey alginate Patient tolerated procedure well
--- NOTE | 2019-10-17 16:50 | P.CONS ---
History of Present Illness - Reason for Consult Consult date: 10/17/19 Wound care - History of Present Illness This is a 79-year-old patient being seen on 4 S. for a nonhealing ulcerations to the right lower extremity lateral aspect. Patient fell in her bathroom approximate 6 weeks ago resulting in a laceration to the right lateral leg. Patient received approximately 25 sutures. The sutures have since been removed. She is developed a large eschar scab to the site. Patient denies any pain or discomfort to the ulceration. She's not been utilizing any dressings at this time. Review of Systems Review Of Systems: Constitutional: No fever, no chills, no night sweats. No weight change. No weakness, fatigue or lethargy. No daytime sleepiness. Integumentary:reports wounds, no lesions. No rash or pruritus. No unusual bruising. No change in hair or nails. Past Medical History Past Medical History: Coronary Artery Disease (CAD), Heart Failure, COPD, GERD/Reflux, Hyperlipidemia History of Any Multi-Drug Resistant Organisms: None Reported Past Surgical History: Back Surgery Past Anesthesia/Blood Transfusion Reactions: No Reported Reaction Past Psychological History: No Psychological Hx Reported Smoking Status: Former smoker Past Alcohol Use History: None Reported Past Drug Use History: None Reported - Past Family History Mother Family Medical History: Myocardial Infarction (AL) Brother(s) Family Medical History: Cancer, Myocardial Infarction ([place]) Additional Family Medical History / Comment(s): colon ca, 2 brother with ca Medications and Allergies Home Medications Medication Instructions Recorded Confirmed Type Acyclovir [Zovirax] 400 mg PO BID 04/12/18 10/15/19 History Albuterol Nebulized [Ventolin 2.5 mg INHALATION RT-QID 04/12/18 10/15/19 History Nebulized] Budesonide [Pulmicort] 0.5 mg INHALATION RT-BID 04/12/18 10/15/19 History Furosemide [Lasix] 40 mg PO QAM 04/12/18 10/15/19 History Lovastatin [Mevacor] 20 mg PO HS 04/12/18 10/15/19 History Montelukast [Singulair] 10 mg PO HS 04/12/18 10/15/19 History Multivitamins, Thera [Multivitamin 1 tab PO DAILY 04/12/18 10/15/19 History (formulary)] Omeprazole 20 mg PO DAILY 04/12/18 10/15/19 History Potassium Chloride ER [K-Dur 10] 20 meq PO DAILY 04/12/18 10/15/19 History ALPRAZolam [Xanax] 0.125 mg PO BID PRN 10/15/19 10/15/19 History Albuterol Inhaler [Ventolin Hfa 1 - 2 puff INHALATION RT-Q4H PRN 10/15/19 10/15/19 History Inhaler] Aspirin EC [Ecotrin Low Dose] 81 mg PO DAILY 10/15/19 10/15/19 History Calcium Carbonate [Calcium] 600 mg PO BID 10/15/19 10/15/19 History Allergies Allergy/AdvReac Type Severity Reaction Status Date / Time naproxen Allergy Unknown Verified 10/15/19 18:06 amoxicillin [From Augmentin] AdvReac Unknown Verified 10/15/19 18:06 clavulanic acid AdvReac Unknown Verified 10/15/19 18:06 [From Augmentin] erythromycin base AdvReac Unknown Verified 10/15/19 18:06 Physical Exam Vitals: Vital Signs Temp Pulse Pulse Resp BP Pulse Ox 10/17/19 15:40 86 10/17/19 15:33 84 10/17/19 14:24 98.2 F 85 18 147/76 99 10/17/19 11:36 84 10/17/19 11:23 84 10/17/19 07:42 84 10/17/19 07:31 84 10/17/19 07:02 97.9 F 75 20 106/73 96 10/17/19 04:26 88 10/17/19 04:06 84 10/17/19 01:51 97.9 F 69 147/79 96 10/16/19 19:34 88 10/16/19 19:22 80 10/16/19 18:52 98.4 F 81 133/75 98 Intake and Output 10/17/19 10/17/19 10/17/19 06:59 14:59 22:59 Intake Total 540 Balance 540 Intake: Oral 540 Other: # Voids 1 3 Physical exam: General Appearance: Alert, cooperative, no distress, appears stated age. Skin: Approximate 7 x 4 x 0.1 cm ulceration to the right lateral lower extremity. With a eschar scab in place. No drainage noted from the site. Post debridement shows clustered 3 ulceration at the distal midline and superior portion of the ulceration. Distal ulceration is 2 x 0.3 x 0.1 cm, ulceration has Slough seen throughout minimal granulation, midline and superior ulcerations are 0.1 x 0.1 x 0.1 cm all other Skin color, texture, tugor normal, no rashes or lesions. Neurologic: Alert oriented x3 Results CBC & Chem 7: 10/16/19 07:30 10/16/19 07:30 Labs: Abnormal Lab Results - Last 24 Hours (Table) 10/16/19 10/16/19 10/17/19 Range/Units 16:54 20:58 07:04 POC Glucose (mg/dL) 192 H 196 H 147 H (75-99) mg/dL 10/17/19 Range/Units 11:40 POC Glucose (mg/dL) 158 H (75-99) mg/dL Assessment and Plan (1) Nonhealing ulcer of right lower extremity limited to breakdown of skin Current Visit: Yes Status: Acute Code(s): L97.911 - NON-PRS [facility] UNSP PRT OF R LOW LEG LIMITED TO BRKDWN SKIN SNOMED Code(s): 15123643 Plan: Open debridement performed at bedside timeout completed. Patient tolerated procedure without any difficulties. Apply honey alginate, saline moistened gauze, dry gauze, rolled gauze secured paper tape to the ulcerations only. Change Monday. Patient has home care in place at this time. Wound care orders can continue until healed. Patient is reluctant to come to the wound care center upon discharge. She may call if she has any questions or concerns. Thank you kindly for the consultation. Any questions was contact the wound care center DNP note has been reviewed and discussed with Dr. Blackwood and the impression and plan of care has been directed as dictated.
[2019-10-17 17:01] LABS: Glucose,Whole Blood 158 mg/dL (75-99)
[2019-10-17 20:46] LABS: Glucose,Whole Blood 112 mg/dL (75-99)
[2019-10-17] MEDS ORDERED: methylPREDNISolone SOD SUCCI 40 MG/ML 1 ML VIAL IV SCH (21:00)
[2019-10-17] MEDS: MONTELUKAST 10 MG TAB PO SCH (21:16)
[2019-10-17] MEDS: ATORVASTATIN 10 MG TAB PO SCH (21:16)
[2019-10-18 07:20] LABS: Glucose,Whole Blood 137 mg/dL (75-99)
[2019-10-18] MEDS: INSULIN ASPART (NovoLOG) 100 UNIT/ML VIAL SQ SCH ×4 (07:47→21:05)
[2019-10-18] MEDS: predniSONE 20 MG TAB PO SCH (08:23)
[2019-10-18] MEDS: ACYCLOVIR 200 MG CAP PO SCH ×2 (08:23→21:05)
[2019-10-18] MEDS: ASPIRIN 81 MG PO SCH (08:24)
[2019-10-18] MEDS: PANTOPRAZOLE 40 MG TABLET PO SCH (08:24)
[2019-10-18] MEDS: FUROSEMIDE 40 MG TAB PO SCH (08:24)
[2019-10-18] MEDS: POTASSIUM CHLORIDE ER 20 MEQ TAB.ER PO SCH (08:24)
[2019-10-18] MEDS: AZITHROMYCIN 500 MG in SODIUM CHLORIDE 0.9% 250 ML IVPB SCH ×2 (08:25→08:58)
[2019-10-18] MEDS: ALPRAZolam 0.25 MG TAB PO PRN (08:36)
[2019-10-18] MEDS: IPRATROPIUM-ALBUTEROL 3 ML NEB INHALATION SCH ×4 (09:01→20:17)
--- NOTE | 2019-10-18 10:09 | P.PN ---
Subjective Progress Note Date: 10/18/19 Principal diagnosis: Acute COPD exacerbation Acute on chronic hypoxic respiratory failure End-stage lung disease secondary due to severe COPD and chronic hypoxic respiratory failure Right lower lobe pneumonia Generalized anxiety disorder 10/18/2019, patient seen eval examined during the rounds labs reviewed medications reviewed patient has a development of wound is for details, respiratory standpoint she is doing much better and improve respiratory status, remains on oxygen and bronchodilators and steroids however they can be switched to oral to the time of discharge This is a 79-year-old female with end-stage COPD on home oxygen 3.5 L came into the hospital with acute onset of shortness of breath, oxygen saturation dropped down to 70% in the emergency department however she responded well with steroids. Breathing treatments feeling much better, patient appears to have a right lower lobe pneumonia, currently on Zithromax Objective - Vital Signs Vital signs: Vital Signs Temp 97.9 F 10/18/19 06:49 Pulse 80 10/18/19 09:16 Resp 18 10/18/19 06:49 BP 161/89 10/18/19 06:49 Pulse Ox 96 10/18/19 06:49 Intake & Output 10/17/19 10/18/19 10/18/19 18:59 06:59 18:59 Intake Total 540 Balance 540 Intake: Oral 540 Other: # Voids 2 1 - Exam Constitutional General appearance: average body habitus, cooperative, disheveled - EENT Eyes: abnormal pupil, EOMI, PERRLA Ears: bilateral: normal - Neck Carotids: bilateral: upstroke normal - Respiratory Respiratory: bilateral: diminished - Cardiovascular Rhythm: regular Heart sounds: normal: S1, S2 - Integumentary Integumentary: normal turgor - Neurologic Neurologic: CNII-XII intact - Musculoskeletal Musculoskeletal: gait normal, generalized weakness, strength equal bilaterally - Psychiatric Psychiatric: A&O x's 3, appropriate affect, intact judgment & insight - Labs CBC & Chem 7: 10/16/19 07:30 10/16/19 07:30 Labs: Abnormal Lab Results - Last 24 Hours (Table) 10/17/19 10/17/19 10/17/19 Range/Units 11:40 16:43 20:44 POC Glucose (mg/dL) 158 H 158 H 112 H (75-99) mg/dL 10/18/19 Range/Units 06:51 POC Glucose (mg/dL) 137 H (75-99) mg/dL Assessment and Plan Assessment: Acute COPD exacerbation Acute on chronic hypoxic respiratory failure End-stage lung disease secondary due to severe COPD and chronic hypoxic respiratory failure Right lower lobe pneumonia Generalized anxiety disorder Plan: Continue antibiotics Along with Rocephin, they can be switched to oral at the time of discharge Breathing treatments Steroids, they can be switched to oral at the time of discharge Increase activity as tolerated Further recommendations pending plan of care as per clinical response of the patient Time with Patient: Greater than 30
[2019-10-18 10:29] LABS: African American GFR (CKD) >90 (>60 ml/min/1.73 sqM); Anion Gap 7 mmol/L; Blood Urea Nitrogen 24 mg/dL (7-17); Carbon Dioxide 30 mmol/L (22-30); Chloride 100 mmol/L (98-107); Glucose 148 mg/dL (74-99); Non-African American GFR(CKD) >90 (>60 ml/min/1.73 sqM); Potassium 4.9 mmol/L (3.5-5.1); Sodium 137 mmol/L (137-145)
[2019-10-18 10:38] LABS: Basophils # (A) 0.1 k/uL (0-0.2); Basophils % (A) 1 %; Eosinophils # (A) 0.1 k/uL (0-0.7); Eosinophils % (A) 1 %; HCT 37.6 % (34.0-46.0); HGB 11.8 gm/dL (11.4-16.0); Hypochromasia Moderate; Lymphocytes # (A) 0.4 k/uL (1.0-4.8); Lymphocytes % (A) 5 %; MCH 31.5 pg (25.0-35.0); MCHC 31.5 g/dL (31.0-37.0); MCV 100.1 fL (80.0-100.0); Macrocytosis Slight; Mean Platelet Volume 9.7; Monocytes # (A) 0.5 k/uL (0-1.0); Monocytes % (A) 6 %; Neutrophils % (A) 87 %; Platelet Count 191 k/uL (150-450); RBC 3.75 m/uL (3.80-5.40); RDW 14.9 % (11.5-15.5); WBC 9.3 k/uL (3.8-10.6)
[2019-10-18] MEDS: AZITHROMYCIN 250 MG TAB PO SCH (11:10)
[2019-10-18] MEDS: guaiFENesin-DM 100-10MG/5ML 10 ML CUP PO PRN ×2 (11:10→22:35)
[2019-10-18] MEDS: AMOXIC-POT CLAV 875-125MG 1 EACH TAB PO SCH ×2 (11:10→21:04)
[2019-10-18 11:34] LABS: Glucose,Whole Blood 128 mg/dL (75-99)
[2019-10-18] MEDS ORDERED: FLUTICASONE 50MCG/SPRAY NASAL 16GM EA NOSTRIL PRN (11:44)
[2019-10-18 16:51] LABS: Glucose,Whole Blood 214 mg/dL (75-99)
[2019-10-18 20:20] LABS: Glucose,Whole Blood 155 mg/dL (75-99)
[2019-10-18] MEDS: MONTELUKAST 10 MG TAB PO SCH (21:04)
[2019-10-18] MEDS: ATORVASTATIN 10 MG TAB PO SCH (21:04)
--- NOTE | 2019-10-18 23:54 | P.PN ---
Subjective Progress Note Date: 10/18/19 Shaunna Keys is a 79 yo F with past medical history of COPD, chronic respiratory failure on 3 L home oxygen, chronic diastolic CHF, allergic rhinitis who presented to the ED complaining of worsening shortness of breath and cough. She denies any fever, chills, myalgias. Her cough is productive for clear mucus. Pt states she has not left her house and denies any sick contacts. She has been doing duonebs at home, but after having a virtual visit with her branch administrator where she complained of O2 reading in the high 70s, she was advised to come to the ED. On presentation she was tachypneic, required 6 L O2, WBC 7.2, trop and BNP unremarkable. CXR with coral lower lobe densities. Pt was given solumedrol and duoneb with symptomatic improvement. 10/17/2019 breathing significantly improved. Maintaining O2 sats in the 90s on 3 L nasal cannula. Cough improved, reporting minimal clear phlegm. Maintained on IV antibiotics, nebulized bronchodilators, steroids; complains of difficulty sleeping last night. 10/17. She is improved today and her breathing is returning to baseline. She is tolerating antibiotics, does complain of coughing throughout the night. Objective - Vital Signs Vital signs: Vital Signs Temp 98.1 F 10/18/19 20:00 Pulse 87 10/18/19 20:33 Resp 20 10/18/19 20:00 BP 121/70 10/18/19 20:00 Pulse Ox 97 10/18/19 20:00 Intake & Output 10/18/19 10/18/19 10/19/19 06:59 18:59 06:59 Intake Total 480 Balance 480 Intake: Oral 480 Other: Voiding Method Toilet # Voids 1 1 1 - Exam General: well nourished, well developed, NAD. Vitals reviewed Lungs: normal respiratory effort, no wheezes or rales CV: Regular rate and rhythm, no murmur. Peripheral pulses 2+ Abdomen: soft, nondistended, no organomegaly Skin: warm and dry. - Labs CBC & Chem 7: 10/18/19 09:20 10/18/19 09:20 Labs: Abnormal Lab Results - Last 24 Hours (Table) 10/18/19 10/18/19 10/18/19 Range/Units 06:51 09:20 09:20 RBC 3.75 L (3.80-5.40) m/uL MCV 100.1 H (80.0-100.0) fL Neutrophils # 8.0 H (1.3-7.7) k/uL Lymphocytes # 0.4 L (1.0-4.8) k/uL BUN 24 H (7-17) mg/dL Creatinine 0.51 L (0.52-1.04) mg/dL Glucose 148 H (74-99) mg/dL POC Glucose (mg/dL) 137 H (75-99) mg/dL 10/18/19 10/18/19 10/18/19 Range/Units 11:26 16:47 20:18 RBC (3.80-5.40) m/uL MCV (80.0-100.0) fL Neutrophils # (1.3-7.7) k/uL Lymphocytes # (1.0-4.8) k/uL BUN (7-17) mg/dL Creatinine (0.52-1.04) mg/dL Glucose (74-99) mg/dL POC Glucose (mg/dL) 128 H 214 H 155 H (75-99) mg/dL Assessment and Plan (1) Acute and chronic respiratory failure with hypoxia Current Visit: Yes Status: Acute Code(s): J96.21 - ACUTE AND CHRONIC RESPIRATORY FAILURE WITH HYPOXIA SNOMED Code(s): 98080692 (2) Chronic diastolic CHF (congestive heart failure), NYHA class 2 Current Visit: Yes Status: Acute Code(s): I50.32 - CHRONIC DIASTOLIC (CONGESTIVE) HEART FAILURE SNOMED Code(s): 668955809 (3) Acute exacerbation of chronic obstructive airways disease Current Visit: Yes Status: Acute Code(s): J44.1 - CHRONIC OBSTRUCTIVE PULMONARY DISEASE W (ACUTE) EXACERBATION SNOMED Code(s): 088686936 (4) Anxiety Current Visit: Yes Status: Acute Code(s): F41.9 - ANXIETY DISORDER, UNSPECIFIED SNOMED Code(s): 40932701 Plan: Decrease to PO prednisone and change antibiotics to oral. Add flonase. Anticipate discharge tomorrow with pred taper
[2019-10-19 07:04] LABS: Glucose,Whole Blood 141 mg/dL (75-99)
[2019-10-19] MEDS: IPRATROPIUM-ALBUTEROL 3 ML NEB INHALATION SCH ×4 (08:16→20:30)
[2019-10-19] MEDS: INSULIN ASPART (NovoLOG) 100 UNIT/ML VIAL SQ SCH ×4 (08:53→20:29)
[2019-10-19] MEDS: predniSONE 20 MG TAB PO SCH (09:34)
[2019-10-19] MEDS: FUROSEMIDE 40 MG TAB PO SCH (09:34)
[2019-10-19] MEDS: ALPRAZolam 0.25 MG TAB PO PRN ×2 (09:34→20:25)
[2019-10-19] MEDS: PANTOPRAZOLE 40 MG TABLET PO SCH (09:35)
[2019-10-19] MEDS: AMOXIC-POT CLAV 875-125MG 1 EACH TAB PO SCH ×2 (09:35→20:25)
[2019-10-19] MEDS: ASPIRIN 81 MG PO SCH (09:35)
[2019-10-19] MEDS: POTASSIUM CHLORIDE ER 20 MEQ TAB.ER PO SCH (09:35)
[2019-10-19] MEDS: AZITHROMYCIN 250 MG TAB PO SCH (09:36)
[2019-10-19] MEDS: ACYCLOVIR 200 MG CAP PO SCH ×2 (09:36→20:25)
[2019-10-19 11:46] LABS: Glucose,Whole Blood 108 mg/dL (75-99)
[2019-10-19] MEDS: guaiFENesin-DM 100-10MG/5ML 10 ML CUP PO PRN (15:34)
[2019-10-19 17:07] LABS: Glucose,Whole Blood 308 mg/dL (75-99)
[2019-10-19] MEDS: ATORVASTATIN 10 MG TAB PO SCH (20:24)
[2019-10-19] MEDS: MONTELUKAST 10 MG TAB PO SCH (20:24)
[2019-10-19 20:29] LABS: Glucose,Whole Blood 138 mg/dL (75-99)
--- NOTE | 2019-10-19 21:36 | PN ---
PROGRESS NOTE DATE OF SERVICE: 10/19/2019 This 79-year-old woman who was admitted with chronic obstructive pulmonary disease acute exacerbation is being closely monitored. No chest pain. No palpitations. No fever. PHYSICAL EXAMINATION: Alert and oriented x3. Pulse 81, blood pressure 124/60, respiration 20, temperature 98.2, pulse ox 100% on 3 L. HEENT: Conjunctivae normal. Oral mucosa moist. NECK: No jugular venous distention. No lymph node enlargement. CARDIOVASCULAR: S1, S2, muffled. No S3, no S4, RESPIRATORY: Diminished breath sounds at the bases. A few scattered rhonchi and crackles. ABDOMEN: Soft, nontender. LEGS: No edema, no swelling. NERVOUS SYSTEM: No focal motor or sensory deficits. LAB STUDIES: WBC 10.1, hemoglobin 11.2 sodium 137, potassium 4.9. ASSESSMENT: 1. Chronic obstructive pulmonary disease acute exacerbation with acute purulent tracheobronchitis. 2. Acute on chronic hypoxic respiratory failure. 3. History of lung disease. 4. History of coronary artery disease. 5. History of congestive heart failure, ejection fraction unknown. 6. History of chronic obstructive pulmonary disease. 7. Gastroesophageal reflux disease. 8. Hyperlipidemia. 9. Back surgery. 10.Remote history of nicotine dependence. 11.Increased MCV. 12.Increased CO2. 13.Elevated procalcitonin. RECOMMENDATIONS AND DISCUSSION: Recommend to continue current management, symptomatic treatment. Continue with antibiotics. Continue with tapering steroids. Otherwise, closely monitor. Guarded prognosis. Further recommendations to follow. MMODL / IJN: [id number] /
[2019-10-20 07:43] LABS: Glucose,Whole Blood 103 mg/dL (75-99)
[2019-10-20] MEDS: IPRATROPIUM-ALBUTEROL 3 ML NEB INHALATION SCH ×3 (08:23→15:54)
[2019-10-20] MEDS: INSULIN ASPART (NovoLOG) 100 UNIT/ML VIAL SQ SCH ×3 (09:23→17:48)
[2019-10-20] MEDS: POTASSIUM CHLORIDE ER 20 MEQ TAB.ER PO SCH (09:24)
[2019-10-20] MEDS: AZITHROMYCIN 250 MG TAB PO SCH (09:24)
[2019-10-20] MEDS: AMOXIC-POT CLAV 875-125MG 1 EACH TAB PO SCH (09:25)
[2019-10-20] MEDS: ASPIRIN 81 MG PO SCH (09:25)
[2019-10-20] MEDS: predniSONE 20 MG TAB PO SCH (09:25)
[2019-10-20] MEDS: PANTOPRAZOLE 40 MG TABLET PO SCH (09:25)
[2019-10-20] MEDS: ACYCLOVIR 200 MG CAP PO SCH (09:26)
[2019-10-20] MEDS: FUROSEMIDE 40 MG TAB PO SCH (09:32)
[2019-10-20] MEDS: ALPRAZolam 0.25 MG TAB PO PRN ×2 (09:32→17:48)
--- NOTE | 2019-10-20 11:19 | P.PN ---
Subjective Progress Note Date: 10/20/19 Principal diagnosis: Acute COPD exacerbation Acute on chronic hypoxic respiratory failure End-stage lung disease secondary due to severe COPD and chronic hypoxic respiratory failure Right lower lobe pneumonia Generalized anxiety disorder 10/20/2019, patient seen eval examined during the round labs reviewed medications reviewed patient sitting upright on the chair breathing comfortably she is on 3 L oxygen which she is at home, she remains afebrile with the stable blood pressure saturations 98% on 3 L 10/18/2019, patient seen eval examined during the rounds labs reviewed medications reviewed patient has a development of wound is for details, respiratory standpoint she is doing much better and improve respiratory status, remains on oxygen and bronchodilators and steroids however they can be switched to oral to the time of discharge This is a 79-year-old female with end-stage COPD on home oxygen 3.5 L came into the hospital with acute onset of shortness of breath, oxygen saturation dropped down to 70% in the emergency department however she responded well with steroids. Breathing treatments feeling much better, patient appears to have a right lower lobe pneumonia, currently on Zithromax Objective - Vital Signs Vital signs: Vital Signs Temp 98.4 F 10/20/19 07:09 Pulse 85 10/20/19 08:38 Resp 18 10/20/19 07:09 BP 152/84 10/20/19 07:09 Pulse Ox 98 10/20/19 07:09 Intake & Output 10/19/19 10/20/19 10/20/19 18:59 06:59 18:59 Intake Total 250 Balance 250 Intake: Oral 250 Other: Voiding Method Toilet # Voids 2 3 - Exam Constitutional General appearance: average body habitus, cooperative, disheveled - EENT Eyes: abnormal pupil, EOMI, PERRLA Ears: bilateral: normal - Neck Carotids: bilateral: upstroke normal - Respiratory Respiratory: bilateral: diminished - Cardiovascular Rhythm: regular Heart sounds: normal: S1, S2 - Integumentary Integumentary: normal turgor - Neurologic Neurologic: CNII-XII intact - Musculoskeletal Musculoskeletal: gait normal, generalized weakness, strength equal bilaterally - Psychiatric Psychiatric: A&O x's 3, appropriate affect, intact judgment & insight - Labs CBC & Chem 7: 10/18/19 09:20 10/18/19 09:20 Labs: Abnormal Lab Results - Last 24 Hours (Table) 10/19/19 10/19/19 10/19/19 Range/Units 11:43 17:03 20:28 POC Glucose (mg/dL) 108 H 308 H 138 H (75-99) mg/dL 10/20/19 Range/Units 07:12 POC Glucose (mg/dL) 103 H (75-99) mg/dL Assessment and Plan Assessment: Acute COPD exacerbation Acute on chronic hypoxic respiratory failure End-stage lung disease secondary due to severe COPD and chronic hypoxic respiratory failure Right lower lobe pneumonia Generalized anxiety disorder Plan: Continue antibiotics Along with Rocephin, they can be switched to oral at the time of discharge Breathing treatments Steroids, they can be switched to oral at the time of discharge Increase activity as tolerated Further recommendations pending plan of care as per clinical response of the patient Time with Patient: Greater than 30
[2019-10-20 12:08] LABS: Glucose,Whole Blood 123 mg/dL (75-99)
[2019-10-20] MEDS: guaiFENesin-DM 100-10MG/5ML 10 ML CUP PO PRN (13:28)
[2019-10-20 15:20] VITALS: BP 134/77; RESP 16; TEMP 98.5
[2019-10-20 16:05] VITALS: PULSE 84
[2019-10-20 16:35] LABS: Glucose,Whole Blood 238 mg/dL (75-99)
--- NOTE | 2019-10-21 09:33 | DS ---
DISCHARGE SUMMARY DATE OF SERVICE: 10/20/2019 FINAL DIAGNOSES: 1. Chronic obstructive pulmonary disease acute exacerbation with acute purulent tracheobronchitis. 2. Acute on chronic hypoxic respiratory failure secondary to #1. 3. History of lung disease. 4. History of coronary artery disease. 5. History of congestive heart failure, ejection fraction unknown. 6. History of chronic obstructive pulmonary disease. 7. Gastroesophageal reflux disease. 8. Hyperlipidemia. 9. History of back surgery. 10.Remote history of nicotine dependence. 11.Increased MCV. 12.Decreased CO2. 13.Elevated procalcitonin. DISCHARGE DISPOSITION: The patient will be discharged in a stable condition with guarded prognosis. HISTORY OF PRESENT ILLNESS: This is a 79-year-old woman with a past medical history of multiple medical problems admitted with COPD acute exacerbation. The patient was treated with antibiotics, bronchodilators and steroids. Patient improved significantly. Patient reported to Dr. Lori Cortez in the outpatient setting. Dr. Del Rio saw the patient during the hospitalization. On exam, vitals are stable. CARDIOVASCULAR: S1, S2. ABDOMEN: Soft. RESPIRATION: A few rhonchi. DISCHARGE ADVICE: 1. Diet is cardiac diet. 2. Activity limited until followup. 3. Follow up with Dr. Lori Cortez in 2-3 days. 4. Follow up with Dr. Del Rio as recommended. DISCHARGE MEDICATIONS: 1. Calcium 600 mg p.o. b.i.d. 2. Ecotrin 81 mg p.o. daily. 3. K-Dur 20 mEq p.o. daily. 4. Lasix 40 mg q.a.m. 5. Mevacor 20 mg q.h.s. 6. Multivitamins 1 p.o. daily. 7. Omeprazole 20 mg daily. 8. Pulmicort 0.5 b.i.d. 9. Singulair 10 mg q.h.s. 10.Albuterol p.r.n. 11.Xanax 0.125 mg b.i.d. 12.Zovirax 400 mg p.o. b.i.d. 13.Augmentin 870 one p.o. b.i.d. 14.DuoNeb q.i.d. and p.r.n. 15.Zithromax 250 mg daily for 5 days. MMODL / IJN: [id number] /
--- NOTE | 2019-10-23 19:15 | CDI ---
Documentation Clarification Form Date: 10/23/2019 09:31:00 AM From: Anne Tan RN, CCDS Admit Date: 10/15/2019 07:11:00 PM Patient Name: Shaunna Keys Visit Number: [id number] Discharge Date: 10/20/2019 07:30:00 PM ATTENTION: The Clinical Documentation Specialists (CDI) and [facility] Coding Staff appreciate your assistance in clarifying documentation. Please respond to the clarification below the line at the bottom and electronically sign. The CDI & [facility] Coding staff will review the response and follow-up if needed. Please note: Queries are made part of the Legal Health Record. If you have any questions, please contact the author of this message via ITS. Dr. Oliver Blackwood 10/16 procedure note, a open debridement was performed on a nonhealing ulceration right lower extremity. Request further specificity on the technique use in the procedure to accurately capture the procedure. History/Risk Factors: COPD, CHF, Nonhealing ulcerations right lower extremity Clinical Indicators:79-year-old female who fell in her bathroom per approximate 6 weeks ago resulting in a laceration to the right lateral leg. She developed a large eschar scab to the site. 10/16 procedure note: Open debridement performed at bedside. Treatment: Open Debridement Honey alginate saline moistened gauze Robert Dillard Sat Five elements required for accurate and compliant documentation of a debridement: 1. Technique used (e.g., excisional, excised, cutting, etc.) 2. Instrument(s) used (e.g., scalpel, curette, etc.) 3. Nature of the tissue removed (e.g., necrotic, devitalized tissues, non- viable tissue, etc.) 4. Appearance and size of the wound (e.g., down to fresh bleeding tissue, 7cm x 10cm, etc.) 5. Depth of the debridement* (e.g., skin, subcutaneous tissue, fascia, muscle, bone, etc.) In order to capture the severity of condition and code the appropriate procedure; could you please document the technique used:: Excisional debridement (the removal of necrotic, devitalized tissue or slough by means of cutting away of tissue) Non-excisional debridement (the removal of necrotic, devitalized tissue or slough by means of flushing, brushing, or washing. (Irrigation) Other; please specify Unable to determine MTDD
== END 2019-10-20 19:30 | disposition home or self-care (01) | DRG 166 ==
LOC: EC 15:37 → 4SSUR 19:11
PROVIDERS: ADMIT Family Medicine; ATTEND Family Medicine
PROC: 0JBN0ZZ Excision of Right Lower Leg Subcutaneous Tissue and Fascia, Open Approach (ICD-10-PCS; principal; 2019-10-17)
DX: J44.1 Chronic obstructive pulmonary disease with (acute) exacerbation (principal); J18.9 Pneumonia, unspecified organism; J96.21 Acute and chronic respiratory failure with hypoxia; I50.32 Chronic diastolic (congestive) heart failure; L97.911 Non-pressure chronic ulcer of unspecified part of right lower leg limited to breakdown of skin; J44.0 Chronic obstructive pulmonary disease with (acute) lower respiratory infection; I25.10 Atherosclerotic heart disease of native coronary artery without angina pectoris; E78.5 Hyperlipidemia, unspecified; F41.1 Generalized anxiety disorder; K21.9 Gastro-esophageal reflux disease without esophagitis; J30.9 Allergic rhinitis, unspecified; J20.9 Acute bronchitis, unspecified; Z20.828 Contact with and (suspected) exposure to other viral communicable diseases; Z79.899 Other long term (current) drug therapy; Z79.82 Long term (current) use of aspirin; Z79.52 Long term (current) use of systemic steroids; Z88.1 Allergy status to other antibiotic agents; Z88.8 Allergy status to other drugs, medicaments and biological substances; Z98.890 Other specified postprocedural states; Z87.891 Personal history of nicotine dependence; Z82.49 Family history of ischemic heart disease and other diseases of the circulatory system; Z80.0 Family history of malignant neoplasm of digestive organs; Z99.81 Dependence on supplemental oxygen
CPT/HCPCS: 36415; 71046; 80048; 80053; 83605; 83880; 84145; 84484; 85025; 85610; 85730; 93005; 94640; 99285

== ENCOUNTER 2019-11-04 11:49 | Inpatient (IN) | payer MEDICARE, BC ==
--- NOTE | 2019-11-04 12:37 | ED ---
SOB HPI - General Chief Complaint: Shortness of Breath Stated Complaint: SOB Time Seen by Provider: 11/04/19 12:00 Source: patient, EMS, RN notes reviewed Mode of arrival: EMS Limitations: no limitations - History of Present Illness Initial Comments: This is a 79-year-old female history of COPD and recent pneumonia who states she started developing shortness of breath this morning with cough with a clear phlegm. She denies any chest pain fevers chills nausea vomiting sweats. She states she did have some peripheral edema which has improved recently. No palpitations no other modifying factors or complaints this time. She was brought in by EMS. She is found to be hypoxemic initial encounter but did respond to nebulizer treatment and 6 L of oxygen. She still feels somewhat short of breath but does states she feels somewhat improved from her initial presentation. MD Complaint: shortness of breath, cough - Related Data Home Medications Medication Instructions Recorded Confirmed Acyclovir [Zovirax] 400 mg PO BID 04/12/18 11/04/19 Budesonide [Pulmicort] 0.5 mg INHALATION RT-BID 04/12/18 11/04/19 Furosemide [Lasix] 40 mg PO QAM 04/12/18 11/04/19 Lovastatin [Mevacor] 20 mg PO HS 04/12/18 11/04/19 Montelukast [Singulair] 10 mg PO HS 04/12/18 11/04/19 Multivitamins, Thera [Multivitamin 1 tab PO DAILY 04/12/18 11/04/19 (formulary)] Omeprazole 20 mg PO DAILY 04/12/18 11/04/19 Potassium Chloride ER [K-Dur 10] 20 meq PO DAILY 04/12/18 11/04/19 ALPRAZolam [Xanax] 0.125 mg PO BID PRN 10/15/19 11/04/19 Albuterol Inhaler [Ventolin Hfa 1 - 2 puff INHALATION RT-Q4H PRN 10/15/19 11/04/19 Inhaler] Aspirin EC [Ecotrin Low Dose] 81 mg PO DAILY 10/15/19 11/04/19 Calcium Carbonate [Calcium] 600 mg PO BID 10/15/19 11/04/19 Fexofenadine HCl [Danika Allergy] 180 mg PO DAILY PRN 11/04/19 11/04/19 Fluticasone Nasal [place] [Flonase 1 spray EA NOSTRIL DAILY PRN 11/04/19 11/04/19 Nasal [place]] guaiFENesin [Mucinex] 1,200 mg PO BID PRN 11/04/19 11/04/19 Previous Rx's Medication Instructions Recorded Ipratropium-Albuterol Nebulize 3 ml INHALATION RT-QID #120 ml 10/20/19 [Duoneb 0.5 mg-3 mg/3 ml Soln] Allergies Allergy/AdvReac Type Severity Reaction Status Date / Time naproxen Allergy Unknown Verified 11/04/19 13:53 amoxicillin [From Augmentin] AdvReac Unknown Verified 11/04/19 13:53 clavulanic acid AdvReac Unknown Verified 11/04/19 13:53 [From Augmentin] erythromycin base AdvReac Unknown Verified 11/04/19 13:53 Review of Systems ROS Statement: Those systems with pertinent positive or pertinent negative responses have been documented in the HPI. ROS Other: All systems not noted in ROS Statement are negative. Past Medical History Past Medical History: Coronary Artery Disease (CAD), Heart Failure, COPD, GERD/Reflux, Hyperlipidemia History of Any Multi-Drug Resistant Organisms: None Reported Past Surgical History: Back Surgery Past Anesthesia/Blood Transfusion Reactions: No Reported Reaction Past Psychological History: Anxiety Smoking Status: Former smoker Past Alcohol Use History: None Reported Past Drug Use History: None Reported - Past Family History Mother Family Medical History: Myocardial Infarction ([place]) Brother(s) Family Medical History: Cancer, Myocardial Infarction ([place]) Additional Family Medical History / Comment(s): colon ca, 2 brother with ca General Exam - General Exam Comments Initial Comments: This a well-developed well-nourished awake alert oriented 3 female Limitations: no limitations General appearance: alert, anxious, in distress Head exam: Present: atraumatic, normocephalic, normal inspection Eye exam: Present: normal appearance, PERRL, EOMI. Absent: scleral icterus, conjunctival injection, periorbital swelling ENT exam: Present: mucous membranes dry Neck exam: Present: normal inspection, full ROM, other (No stridor JVD or bruits). Absent: tenderness, meningismus, lymphadenopathy Respiratory exam: Present: accessory muscle use, decreased breath sounds. Absent: respiratory distress, wheezes, rales, rhonchi, stridor Cardiovascular Exam: Present: regular rate, normal rhythm, normal heart sounds. Absent: systolic murmur, diastolic murmur, rubs, gallop, clicks GI/Abdominal exam: Present: soft, normal bowel sounds. Absent: distended, tenderness, guarding, rebound, rigid Extremities exam: Present: normal inspection, full ROM, normal capillary refill. Absent: tenderness, pedal edema, joint swelling, calf tenderness Back exam: Present: normal inspection Neurological exam: Present: alert, oriented X3, CN II-XII intact Psychiatric exam: Present: normal affect, normal mood Skin exam: Present: warm, dry, intact, normal color. Absent: rash Course Vital Signs 11/04/19 11/04/19 12:09 14:13 Temperature 99.7 F H Pulse Rate 86 87 Respiratory 18 18 Rate Blood Pressure 112/69 96/62 O2 Sat by Pulse 99 99 Oximetry - Reevaluation(s) Reevaluation #1: 11/04/19 14:53 I did reevaluate patient does have some improvement in her breathing she still short of breath however she is easily her breath with exertion. Medical Decision Making - Medical Decision Making I did discuss findings with the patient patient still short of breath he does demonstrate evidence of COPD exacerbation with dehydration she did have a low- grade temperature she arrived no definite evidence of pneumonia. I did discuss case with Dr. Byrne. Patient will be admitted with consultation by Dr. Rod. He is a fever the patient will be given 1 dose of antibiotics. - Lab Data Result diagrams: 11/04/19 12:37 11/04/19 12:37 Lab Results 11/04/19 11/04/19 11/04/19 Range/Units 12:37 12:37 12:37 WBC 6.4 (3.8-10.6) k/uL RBC 3.61 L (3.80-5.40) m/uL Hgb 11.0 L (11.4-16.0) gm/dL Hct 36.0 (34.0-46.0) % MCV 99.6 (80.0-100.0) fL MCH 30.3 (25.0-35.0) pg MCHC 30.4 L (31.0-37.0) g/dL RDW 15.0 (11.5-15.5) % Plt Count 181 (150-450) k/uL Neutrophils % 72 % Lymphocytes % 8 % Monocytes % 15 % Eosinophils % 2 % Basophils % 2 % Neutrophils # 4.6 (1.3-7.7) k/uL Lymphocytes # 0.5 L (1.0-4.8) k/uL Monocytes # 0.9 (0-1.0) k/uL Eosinophils # 0.1 (0-0.7) k/uL Basophils # 0.1 (0-0.2) k/uL Hypochromasia Moderate Macrocytosis Slight PT 9.6 (9.0-12.0) sec INR 0.9 (<1.2) APTT 24.4 (22.0-30.0) sec Sodium 137 (137-145) mmol/L Potassium 4.6 (3.5-5.1) mmol/L Chloride 95 L (98-107) mmol/L Carbon Dioxide 38 H (22-30) mmol/L Anion Gap 4 mmol/L BUN 21 H (7-17) mg/dL Creatinine 0.46 L (0.52-1.04) mg/dL Est GFR (CKD-EPI)AfAm >90 (>60 ml/min/1.73 sqM) Est GFR (CKD-EPI)NonAf >90 (>60 ml/min/1.73 sqM) Glucose 134 H (74-99) mg/dL Plasma Lactic Acid Marlo (0.7-2.0) mmol/L Calcium 8.8 (8.4-10.2) mg/dL Magnesium 2.2 (1.6-2.3) mg/dL Total Bilirubin 0.7 (0.2-1.3) mg/dL AST 21 (14-36) U/L ALT 12 (4-34) U/L Alkaline Phosphatase 83 (38-126) U/L Creatine Kinase 33 (30-135) U/L Troponin I (0.000-0.034) ng/mL NT-Pro-B Natriuret Pep pg/mL Total Protein 6.6 (6.3-8.2) g/dL Albumin 3.7 (3.5-5.0) g/dL 11/04/19 11/04/19 11/04/19 Range/Units 12:37 12:37 12:37 WBC (3.8-10.6) k/uL RBC (3.80-5.40) m/uL Hgb (11.4-16.0) gm/dL Hct (34.0-46.0) % MCV (80.0-100.0) fL MCH (25.0-35.0) pg MCHC (31.0-37.0) g/dL RDW (11.5-15.5) % Plt Count (150-450) k/uL Neutrophils % % Lymphocytes % % Monocytes % % Eosinophils % % Basophils % % Neutrophils # (1.3-7.7) k/uL Lymphocytes # (1.0-4.8) k/uL Monocytes # (0-1.0) k/uL Eosinophils # (0-0.7) k/uL Basophils # (0-0.2) k/uL Hypochromasia Macrocytosis PT (9.0-12.0) sec INR (<1.2) APTT (22.0-30.0) sec Sodium (137-145) mmol/L Potassium (3.5-5.1) mmol/L Chloride (98-107) mmol/L Carbon Dioxide (22-30) mmol/L Anion Gap mmol/L BUN (7-17) mg/dL Creatinine (0.52-1.04) mg/dL Est GFR (CKD-EPI)AfAm (>60 ml/min/1.73 sqM) Est GFR (CKD-EPI)NonAf (>60 ml/min/1.73 sqM) Glucose (74-99) mg/dL Plasma Lactic Acid Marlo 1.0 (0.7-2.0) mmol/L Calcium (8.4-10.2) mg/dL Magnesium (1.6-2.3) mg/dL Total Bilirubin (0.2-1.3) mg/dL AST (14-36) U/L ALT (4-34) U/L Alkaline Phosphatase (38-126) U/L Creatine Kinase (30-135) U/L Troponin I <0.012 (0.000-0.034) ng/mL NT-Pro-B Natriuret Pep 115 pg/mL Total Protein (6.3-8.2) g/dL Albumin (3.5-5.0) g/dL - EKG Data -: EKG Interpreted by Me EKG shows normal: sinus rhythm EKG Comments: Sinus rhythm 86. Interval 128 QRS duration 122 QT since QTC 380/434 red bundle- branch block pattern and left posterior fascicular block - Radiology Data Radiology results: report reviewed (Did review the imaging and report evidence of interstitial markings.), image reviewed Critical Care Time Critical Care Time: Yes Total Critical Care Time: 31 Critical Care Time: 31 minutes of critical care time which includes initial presentation with history physical labs x-rays multiple re-evaluations patient response to therapy discuss with the patient regarding findings discussion with the admitting physician admission orders and documentation of the above also did include review of old charting. Disposition Clinical Impression: Acute exacerbation of chronic obstructive pulmonary disease, Acute respiratory distress syndrome in adult, Dehydration, Fever Disposition: ADMITTED IP TO THIS HOSP Condition: Fair Referrals: Tyrese Rod MD [STAFF PHYSICIAN] - 1-2 days
[2019-11-04 12:55] LABS: Basophils # (A) 0.1 k/uL (0-0.2); Basophils % (A) 2 %; Eosinophils # (A) 0.1 k/uL (0-0.7); Eosinophils % (A) 2 %; Hypochromasia Moderate; Lymphocytes # (A) 0.5 k/uL (1.0-4.8); Lymphocytes % (A) 8 %; MCH 30.3 pg (25.0-35.0); MCHC 30.4 g/dL (31.0-37.0); MCV 99.6 fL (80.0-100.0); Macrocytosis Slight; Mean Platelet Volume 9.1; Monocytes # (A) 0.9 k/uL (0-1.0); Monocytes % (A) 15 %; Neutrophils # (A) 4.6 k/uL (1.3-7.7); Neutrophils % (A) 72 %; Platelet Count 181 k/uL (150-450); RBC 3.61 m/uL (3.80-5.40); WBC 6.4 k/uL (3.8-10.6)
[2019-11-04 13:06] LABS: ALT 12 U/L (4-34); African American GFR (CKD) >90 (>60 ml/min/1.73 sqM); Albumin 3.7 g/dL (3.5-5.0); Anion Gap 4 mmol/L; Blood Urea Nitrogen 21 mg/dL (7-17); Calcium 8.8 mg/dL (8.4-10.2); Carbon Dioxide 38 mmol/L (22-30); Chloride 95 mmol/L (98-107); Creatine Kinase 33 U/L (30-135); Glucose 134 mg/dL (74-99); INR 0.9 (<1.2); Non-African American GFR(CKD) >90 (>60 ml/min/1.73 sqM); Partial Thromboplastin Time 24.4 sec (22.0-30.0); Prothrombin Time 9.6 sec (9.0-12.0); Sodium 137 mmol/L (137-145); Total Bilirubin 0.7 mg/dL (0.2-1.3); Total Protein 6.6 g/dL (6.3-8.2)
[2019-11-04 13:07] LABS: AST 21 U/L (14-36); Alkaline Phosphatase 83 U/L (38-126); Magnesium 2.2 mg/dL (1.6-2.3); Potassium 4.6 mmol/L (3.5-5.1)
--- NOTE | 2019-11-04 13:10 | XR ---
EXAMINATION TYPE: XR chest 2V DATE OF EXAM: 11/04/2019 COMPARISON: Prior chest x-ray 10/15/2019 HISTORY: Difficulty breathing TECHNIQUE: Frontal and lateral views of the chest are obtained. FINDINGS: There is no focal air space opacity, pleural effusion, or pneumothorax seen. The cardiac silhouette size is stable. The osseous structures are intact. Is increased AP diameter of the chest . Thoracic spondylosis is present. Interstitium is increased as on prior exam. IMPRESSION: Cardiomegaly. Interstitial lung disease, there may be pulmonary venous hypertension and interstitial edema. Correlate for possible pulmonary artery hypertension.
[2019-11-04] MEDS ORDERED: IPRATROPIUM-ALBUTEROL 3 ML NEB INHALATION STA (14:43)
[2019-11-04] MEDS ORDERED: cefTRIAXone IN SWFI 1,000 MG/10 ML SYRINGE IVP STA (14:58)
[2019-11-04] MEDS ORDERED: FLUTICASONE 50MCG/SPRAY NASAL 16GM EA NOSTRIL PRN (15:03)
[2019-11-04] MEDS ORDERED: LORATADINE 10 MG TAB PO PRN (15:03)
[2019-11-04] MEDS: IPRATROPIUM-ALBUTEROL 3 ML NEB INHALATION SCH ×2 (15:36→19:21)
--- NOTE | 2019-11-04 17:13 | P.CNPUL ---
History of Present Illness Consult date: 11/04/19 Reason for consult: dyspnea, cough, COPD, hypoxemia Chief complaint: Shortness of breath History of present illness: This is a 79-year-old female with end-stage lung disease she has been getting more short of breath started earlier today with intermittent desaturation she is on 4 L oxygen with that her saturation was going down 70-80%, and has been coughing and more short of breath than baseline decided to come into the hospital for further evaluation, patient has a recent diagnosis of pneumonia, his her chest x-ray suggestive of cardiomegaly interstitial edema likely CHF versus fluid overload or cysts COPD cannot be excluded however looking at BNP level of normal of 115 H likely to be CHF Review of Systems All systems: negative Past Medical History Past Medical History: Coronary Artery Disease (CAD), Heart Failure, COPD, GERD/ Reflux, Hyperlipidemia History of Any Multi-Drug Resistant Organisms: None Reported Past Surgical History: Back Surgery Past Anesthesia/Blood Transfusion Reactions: No Reported Reaction Past Psychological History: Anxiety Smoking Status: Former smoker Past Alcohol Use History: None Reported Past Drug Use History: None Reported - Past Family History Mother Family Medical History: Myocardial Infarction ([place]) Brother(s) Family Medical History: Cancer, Myocardial Infarction ([place]) Additional Family Medical History / Comment(s): colon ca, 2 brother with ca Medications and Allergies Home Medications Medication Instructions Recorded Confirmed Type Acyclovir [Zovirax] 400 mg PO BID 04/12/18 11/04/19 History Budesonide [Pulmicort] 0.5 mg INHALATION RT-BID 04/12/18 11/04/19 History Furosemide [Lasix] 40 mg PO QAM 04/12/18 11/04/19 History Lovastatin [Mevacor] 20 mg PO HS 04/12/18 11/04/19 History Montelukast [Singulair] 10 mg PO HS 04/12/18 11/04/19 History Multivitamins, Thera [Multivitamin 1 tab PO DAILY 04/12/18 11/04/19 History (formulary)] Omeprazole 20 mg PO DAILY 04/12/18 11/04/19 History Potassium Chloride ER [K-Dur 10] 20 meq PO DAILY 04/12/18 11/04/19 History ALPRAZolam [Xanax] 0.125 mg PO BID PRN 10/15/19 11/04/19 History Albuterol Inhaler [Ventolin Hfa 1 - 2 puff INHALATION RT-Q4H PRN 10/15/19 11/04/19 History Inhaler] Aspirin EC [Ecotrin Low Dose] 81 mg PO DAILY 10/15/19 11/04/19 History Calcium Carbonate [Calcium] 600 mg PO BID 10/15/19 11/04/19 History Ipratropium-Albuterol Nebulize 3 ml INHALATION RT-QID #120 ml 10/20/19 11/04/19 Rx [Duoneb 0.5 mg-3 mg/3 ml Soln] Fexofenadine HCl [Danika Allergy] 180 mg PO DAILY PRN 11/04/19 11/04/19 History Fluticasone Nasal [place] [Flonase 1 spray EA NOSTRIL DAILY PRN 11/04/19 11/04/19 History Nasal [place]] guaiFENesin [Mucinex] 1,200 mg PO BID PRN 11/04/19 11/04/19 History Allergies Allergy/AdvReac Type Severity Reaction Status Date / Time naproxen Allergy Unknown Verified 11/04/19 13:53 amoxicillin [From Augmentin] AdvReac Unknown Verified 11/04/19 13:53 clavulanic acid AdvReac Unknown Verified 11/04/19 13:53 [From Augmentin] erythromycin base AdvReac Unknown Verified 11/04/19 13:53 Physical Exam Vitals: Vital Signs Temp Pulse Pulse Resp BP BP Pulse Ox 11/04/19 16:10 98.7 F 89 20 138/79 95 11/04/19 15:45 99.7 F H 84 18 134/63 95 11/04/19 15:41 84 18 134/63 95 11/04/19 15:35 84 11/04/19 15:23 86 11/04/19 14:13 87 18 96/62 99 11/04/19 12:09 99.7 F H 86 18 112/69 99 Intake and Output 11/04/19 11/04/19 11/04/19 06:59 14:59 22:59 Other: Voiding Method Bedside Commode Weight 96.615 kg 96.615 kg - Constitutional General appearance: average body habitus, cooperative, disheveled - EENT Eyes: EOMI, PERRLA Ears: bilateral: normal - Neck Neck: normal ROM Carotids: bilateral: upstroke normal - Respiratory Respiratory: bilateral: diminished - Cardiovascular Rhythm: regular Heart sounds: normal: S1, S2 - Gastrointestinal General gastrointestinal: normal bowel sounds - Neurologic Neurologic: CNII-XII intact - Musculoskeletal Musculoskeletal: gait normal, generalized weakness, strength equal bilaterally - Psychiatric Psychiatric: A&O x's 3, appropriate affect, intact judgment & insight Results - Laboratory Findings CBC and BMP: 11/04/19 12:37 11/04/19 12:37 PT/INR, D-dimer PT 9.6 sec (9.0-12.0) 11/04/19 12:37 INR 0.9 (<1.2) 11/04/19 12:37 Abnormal lab findings: Abnormal Labs 11/04/19 11/04/19 12:37 12:37 RBC 3.61 L Hgb 11.0 L MCHC 30.4 L Lymphocytes # 0.5 L Chloride 95 L Carbon Dioxide 38 H BUN 21 H Creatinine 0.46 L Glucose 134 H - Diagnostic Findings Chest x-ray: report reviewed, image reviewed (Findings as noted above) Assessment and Plan Assessment: Acute COPD exacerbation Acute on chronic hypoxic respirator failure History of diastolic heart failure Coronary artery disease Dyslipidemia GERD Plan: Continue home medicines Patient is being placed on IV steroids and bronchodilators and supplemental oxygen Patient likely will stay in the hospital 2 through 3 days will recommend to change his admission from observation to full admit Time with Patient: Greater than 30
[2019-11-04] MEDS: methylPREDNISolone SOD SUCCI 125 MG/2 ML VIAL IV SCH ×2 (17:24→23:08)
[2019-11-04] MEDS ORDERED: BUDESONIDE 0.5 MG/2 ML NEBU INHALATION SCH (20:00)
[2019-11-04] MEDS: ACYCLOVIR 200 MG CAP PO SCH (21:04)
[2019-11-04] MEDS: CALCIUM CARBONATE 500 MG CHEWABLE PO SCH (21:04)
[2019-11-04] MEDS: ATORVASTATIN 10 MG TAB PO SCH (21:04)
[2019-11-04] MEDS: MONTELUKAST 10 MG TAB PO SCH (21:04)
[2019-11-04] MEDS: ACETAMINOPHEN TAB 325 MG TAB PO PRN (23:08)
[2019-11-05] MEDS: ALBUTEROL HFA INHALER INHALATION SCH ×6 (00:59→19:14)
[2019-11-05] MEDS: IPRATROPIUM-ALBUTEROL 3 ML NEB INHALATION SCH (01:32)
[2019-11-05] MEDS: methylPREDNISolone SOD SUCCI 125 MG/2 ML VIAL IV SCH ×4 (05:18→23:40)
[2019-11-05] MEDS: FLUTICASONE 220 MCG INHALER INHALATION SCH ×2 (07:32→19:14)
[2019-11-05] MEDS: TIOTROPIUM 18 MCG/PUFF INHALER INHALATION SCH (07:32)
[2019-11-05] MEDS: PANTOPRAZOLE 40 MG TABLET PO SCH (07:48)
[2019-11-05] MEDS: POTASSIUM CHLORIDE ER 20 MEQ TAB.ER PO SCH (07:48)
[2019-11-05] MEDS: MULTIVITAMINS, THERA 1 EACH TAB PO SCH (07:48)
[2019-11-05] MEDS: CALCIUM CARBONATE 500 MG CHEWABLE PO SCH ×2 (07:48→20:18)
[2019-11-05] MEDS: ASPIRIN 81 MG PO SCH (07:48)
[2019-11-05] MEDS: FUROSEMIDE 40 MG TAB PO SCH (07:48)
[2019-11-05] MEDS: ACYCLOVIR 200 MG CAP PO SCH ×2 (07:50→20:18)
[2019-11-05] MEDS: ALPRAZolam 0.25 MG TAB PO PRN (09:51)
[2019-11-05] MEDS: DOCUSATE 100 MG CAP PO SCH ×2 (10:16→20:18)
[2019-11-05 11:05] LABS: Basophils # (A) 0.2 k/uL (0-0.2); Basophils % (A) 3 %; Eosinophils # (A) 0.1 k/uL (0-0.7); Eosinophils % (A) 2 %; HCT 34.7 % (34.0-46.0); HGB 11.2 gm/dL (11.4-16.0); Hypochromasia Moderate; Lymphocytes # (A) 0.3 k/uL (1.0-4.8); Lymphocytes % (A) 4 %; MCH 32.2 pg (25.0-35.0); MCHC 32.4 g/dL (31.0-37.0); MCV 99.3 fL (80.0-100.0); Macrocytosis Slight; Mean Platelet Volume 9.7; Monocytes # (A) 0.9 k/uL (0-1.0); Monocytes % (A) 14 %; Neutrophils # (A) 5.1 k/uL (1.3-7.7); Neutrophils % (A) 77 %; Platelet Count 242 k/uL (150-450); RBC 3.49 m/uL (3.80-5.40); RDW 14.8 % (11.5-15.5); WBC 6.6 k/uL (3.8-10.6)
[2019-11-05 12:05] LABS: Anisocytosis (M) Present; Poikilocytosis (M) Present
[2019-11-05 12:05] LABS: African American GFR (CKD) >90 (>60 ml/min/1.73 sqM); Anion Gap 5 mmol/L; Blood Urea Nitrogen 20 mg/dL (7-17); Calcium 8.9 mg/dL (8.4-10.2); Carbon Dioxide 36 mmol/L (22-30); Chloride 96 mmol/L (98-107); Glucose 193 mg/dL (74-99); Non-African American GFR(CKD) >90 (>60 ml/min/1.73 sqM); Potassium 4.6 mmol/L (3.5-5.1); Sodium 137 mmol/L (137-145)
--- NOTE | 2019-11-05 12:18 | P.PN ---
Subjective Progress Note Date: 11/05/19 Principal diagnosis: Acute COPD exacerbation Acute on chronic hypoxic respirator failure History of diastolic heart failure Coronary artery disease Dyslipidemia GERD 11/05/2019, patient seen eval examined during the rounds labs reviewed medications reviewed have been slightly short of breath but severity has improved compared to yesterday the saturation have been improved and stable, remains on 4 L oxygen This is a 79-year-old female with end-stage lung disease she has been getting more short of breath started earlier today with intermittent desaturation she is on 4 L oxygen with that her saturation was going down 70-80%, and has been coughing and more short of breath than baseline decided to come into the hospital for further evaluation, patient has a recent diagnosis of pneumonia, his her chest x-ray suggestive of cardiomegaly interstitial edema likely CHF ve rsus fluid overload or cysts COPD cannot be excluded however looking at BNP level of normal of 115 H likely to be CHF Objective - Vital Signs Vital signs: Vital Signs Temp 98.0 F 11/05/19 07:23 Pulse 72 11/05/19 09:10 Resp 20 11/05/19 09:10 BP 158/87 11/05/19 07:23 Pulse Ox 97 11/05/19 07:23 Intake & Output 11/04/19 11/05/19 11/05/19 18:59 06:59 18:59 Intake Total 222 500 Balance 222 500 Weight 96.615 kg Intake: Oral 222 500 Other: Voiding Method Bedside Commode Bedside Commode Bedside Commode # Voids 2 - Exam - Constitutional General appearance: average body habitus, cooperative, disheveled - EENT Eyes: EOMI, PERRLA Ears: bilateral: normal - Neck Neck: normal ROM Carotids: bilateral: upstroke normal - Respiratory Respiratory: bilateral: diminished - Cardiovascular Rhythm: regular Heart sounds: normal: S1, S2 - Gastrointestinal General gastrointestinal: normal bowel sounds - Neurologic Neurologic: CNII-XII intact - Musculoskeletal Musculoskeletal: gait normal, generalized weakness, strength equal bilaterally - Psychiatric Psychiatric: A&O x's 3, appropriate affect, intact judgment & insight - Labs CBC & Chem 7: 11/05/19 10:33 11/05/19 11:38 Labs: Abnormal Lab Results - Last 24 Hours (Table) 11/04/19 11/04/19 11/05/19 Range/Units 12:37 12:37 10:33 RBC 3.61 L 3.49 L (3.80-5.40) m/uL Hgb 11.0 L 11.2 L (11.4-16.0) gm/dL MCHC 30.4 L (31.0-37.0) g/dL Lymphocytes # 0.5 L 0.3 L (1.0-4.8) k/uL Chloride 95 L (98-107) mmol/L Carbon Dioxide 38 H (22-30) mmol/L BUN 21 H (7-17) mg/dL Creatinine 0.46 L (0.52-1.04) mg/dL Glucose 134 H (74-99) mg/dL 11/05/19 Range/Units 11:38 RBC (3.80-5.40) m/uL Hgb (11.4-16.0) gm/dL MCHC (31.0-37.0) g/dL Lymphocytes # (1.0-4.8) k/uL Chloride 96 L (98-107) mmol/L Carbon Dioxide 36 H (22-30) mmol/L BUN 20 H (7-17) mg/dL Creatinine 0.46 L (0.52-1.04) mg/dL Glucose 193 H (74-99) mg/dL Assessment and Plan Assessment: Acute COPD exacerbation Acute on chronic hypoxic respirator failure History of diastolic heart failure Coronary artery disease Dyslipidemia GERD Plan: Continue home medicines Patient is being placed on IV steroids and bronchodilators and supplemental oxygen Further recommendations pending plan of care as per clinical response of the patient Time with Patient: Greater than 30
[2019-11-05] MEDS: guaiFENesin SYRUP 100MG/5ML 200 MG/10 ML CUP PO PRN (20:18)
[2019-11-05] MEDS: MONTELUKAST 10 MG TAB PO SCH (20:18)
[2019-11-05] MEDS: ATORVASTATIN 10 MG TAB PO SCH (20:18)
[2019-11-05] MEDS: guaiFENesin 600 MG TABLET.ER PO PRN (21:33)
--- NOTE | 2019-11-05 22:59 | P.HPIM ---
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 She states that for the past few weeks she has had a cough productive for clear sputum and has required increased O2, although this week she began to feel warm and noticed a fever at home. She complains that she had been coughing and used a pulseox with her SpO2 getting down into the 70s. On presentation T 99.7, SpO2 99 on 4 L, WBC 6.5k CXR with interstital prominence, BNP 115, COVID negative. Review of Systems All systems: negative Constitutional: Reports chills, Reports fever, Reports weakness Eyes: denies blurred vision, denies pain Ears, nose, mouth and throat: Denies headache, Denies sore throat Cardiovascular: Denies chest pain, Denies shortness of breath Respiratory: Reports as per HPI, Reports cough, Reports dyspnea, Reports home oxygen, Reports wheezing Gastrointestinal: Denies abdominal pain, Denies diarrhea, Denies nausea, Denies vomiting Genitourinary: Denies dysuria, Denies hematuria Musculoskeletal: Denies myalgias Integumentary: Denies pruritus, Denies rash Neurological: Denies numbness, Denies weakness Psychiatric: Denies anxiety, Denies depression Endocrine: Denies fatigue, Denies weight change Past Medical History Past Medical History: Coronary Artery Disease (CAD), Heart Failure, COPD, GERD/Reflux, Hyperlipidemia History of Any Multi-Drug Resistant Organisms: None Reported Past Surgical History: Back Surgery Past Anesthesia/Blood Transfusion Reactions: No Reported Reaction Past Psychological History: Anxiety Smoking Status: Former smoker Past Alcohol Use History: None Reported Past Drug Use History: None Reported - Past Family History Mother Family Medical History: Myocardial Infarction (SD) Brother(s) Family Medical History: Cancer, Myocardial Infarction (SD) Additional Family Medical History / Comment(s): colon ca, 2 brother with ca Medications and Allergies Home Medications Medication Instructions Recorded Confirmed Type Acyclovir [Zovirax] 400 mg PO BID 04/12/18 11/04/19 History Budesonide [Pulmicort] 0.5 mg INHALATION RT-BID 04/12/18 11/04/19 History Furosemide [Lasix] 40 mg PO QAM 04/12/18 11/04/19 History Lovastatin [Mevacor] 20 mg PO HS 04/12/18 11/04/19 History Montelukast [Singulair] 10 mg PO HS 04/12/18 11/04/19 History Multivitamins, Thera [Multivitamin 1 tab PO DAILY 04/12/18 11/04/19 History (formulary)] Omeprazole 20 mg PO DAILY 04/12/18 11/04/19 History Potassium Chloride ER [K-Dur 10] 20 meq PO DAILY 04/12/18 11/04/19 History ALPRAZolam [Xanax] 0.125 mg PO BID PRN 10/15/19 11/04/19 History Albuterol Inhaler [Ventolin Hfa 1 - 2 puff INHALATION RT-Q4H PRN 10/15/19 11/04/19 History Inhaler] Aspirin EC [Ecotrin Low Dose] 81 mg PO DAILY 10/15/19 11/04/19 History Calcium Carbonate [Calcium] 600 mg PO BID 10/15/19 11/04/19 History Ipratropium-Albuterol Nebulize 3 ml INHALATION RT-QID #120 ml 10/20/19 11/04/19 Rx [Duoneb 0.5 mg-3 mg/3 ml Soln] Fexofenadine HCl [Danika Allergy] 180 mg PO DAILY PRN 11/04/19 11/04/19 History Fluticasone Nasal [place] [Flonase 1 spray EA NOSTRIL DAILY PRN 11/04/19 11/04/19 History Nasal [place]] guaiFENesin [Mucinex] 1,200 mg PO BID PRN 11/04/19 11/04/19 History Allergies Allergy/AdvReac Type Severity Reaction Status Date / Time naproxen Allergy Unknown Verified 11/04/19 13:53 amoxicillin [From Augmentin] AdvReac Unknown Verified 11/04/19 13:53 clavulanic acid AdvReac Unknown Verified 11/04/19 13:53 [From Augmentin] erythromycin base AdvReac Unknown Verified 11/04/19 13:53 Physical Exam Vitals: Vital Signs Temp Pulse Resp BP Pulse Ox 11/05/19 18:48 98.6 F 81 147/70 100 11/05/19 14:58 98.2 F 80 20 146/78 98 11/05/19 12:23 97.8 F 77 18 137/84 97 11/05/19 09:10 72 20 11/05/19 07:23 98.0 F 72 20 158/87 97 11/05/19 01:00 98.6 F 80 20 150/71 99 Intake and Output 11/05/19 11/05/19 11/05/19 06:59 14:59 22:59 Intake Total 100 190 Balance 100 190 Intake: Oral 100 190 Other: Voiding Method Bedside Commode # Voids 2 3 1 # Bowel Movements 1 1 General: well nourished, well developed, NAD. Vitals reviewed Eyes: PERRL, EOMI, conjunctiva normal HENT: normocephalic, mucus membranes moist. On 4 L O2 Neck: supple, no JVD Lungs: diminished breath sounds throughout, scattered wheezing CV: Regular rate and rhythm, no murmur. Peripheral pulses 2+ Abdomen: soft, nondistended, no organomegaly Lymph: no cervical or axillary LAD Skin: warm and dry. Neuro: A&Ox3, normal mood and affect Results CBC & Chem 7: 11/05/19 10:33 11/05/19 11:38 Labs: Abnormal Lab Results - Last 24 Hours (Table) 11/05/19 11/05/19 Range/Units 10:33 11:38 RBC 3.49 L (3.80-5.40) m/uL Hgb 11.2 L (11.4-16.0) gm/dL Lymphocytes # 0.3 L (1.0-4.8) k/uL Chloride 96 L (98-107) mmol/L Carbon Dioxide 36 H (22-30) mmol/L BUN 20 H (7-17) mg/dL Creatinine 0.46 L (0.52-1.04) mg/dL Glucose 193 H (74-99) mg/dL Microbiology - Last 24 Hours (Table) 11/04/19 12:37 Blood Culture - Preliminary Blood No Growth after 24 hours Thrombosis Risk Factor Assmnt - Choose All That Apply Each Factor Represents 1 point: Abnormal pulmonary function (COPD), Medical pt on bed rest, Obesity (BMI >25), Serious lung disease incl. pneumonia (< 1month), Swollen legs (current) Each Risk Factor Represents 3 Points: Age 75 years or older Thrombosis Risk Factor Assessment Total Risk Factor Score: 8 Thrombosis Risk Factor Assessment Level: High Risk Assessment and Plan (1) Fever Current Visit: Yes Status: Acute Code(s): R50.9 - FEVER, UNSPECIFIED SNOMED Code(s): 378761510 (2) Acute and chronic respiratory failure with hypoxia Current Visit: No Status: Acute Code(s): J96.21 - ACUTE AND CHRONIC RESPIR ATORY FAILURE WITH HYPOXIA SNOMED Code(s): 62225624 (3) Acute exacerbation of chronic obstructive airways disease Current Visit: No Status: Acute Code(s): J44.1 - CHRONIC OBSTRUCTIVE PULMONARY DISEASE W (ACUTE) EXACERBATION SNOMED Code(s): 699201381 (4) Chronic diastolic CHF (congestive heart failure), NYHA class 2 Current Visit: No Status: Acute Code(s): I50.32 - CHRONIC DIASTOLIC (CONGESTIVE) HEART FAILURE SNOMED Code(s): 488413801 Plan: 1. Acute on chronic respiratory failure, secondary to COPD exacerbation. Pulmonary consult. Start IV steroids and antibiotics. Continue claritin and s ingulair 2. Chronic diastolic CHF. No evidence of fluid overload, continue home lasix 40 mg daily 3. General anxiety. Xanax bid prn
[2019-11-06] MEDS: ALBUTEROL HFA INHALER INHALATION SCH ×6 (00:25→20:31)
[2019-11-06] MEDS: methylPREDNISolone SOD SUCCI 125 MG/2 ML VIAL IV SCH ×4 (05:54→23:51)
[2019-11-06] MEDS: TIOTROPIUM 18 MCG/PUFF INHALER INHALATION SCH (07:54)
[2019-11-06] MEDS: FLUTICASONE 220 MCG INHALER INHALATION SCH ×2 (07:54→20:31)
[2019-11-06] MEDS: POTASSIUM CHLORIDE ER 20 MEQ TAB.ER PO SCH (08:19)
[2019-11-06] MEDS: MULTIVITAMINS, THERA 1 EACH TAB PO SCH (08:19)
[2019-11-06] MEDS: ACYCLOVIR 200 MG CAP PO SCH ×2 (08:20→20:53)
[2019-11-06] MEDS: DOCUSATE 100 MG CAP PO SCH ×2 (08:21→20:53)
[2019-11-06] MEDS: PANTOPRAZOLE 40 MG TABLET PO SCH (08:21)
[2019-11-06] MEDS: FUROSEMIDE 40 MG TAB PO SCH (08:22)
[2019-11-06] MEDS: ASPIRIN 81 MG PO SCH (08:23)
[2019-11-06] MEDS: CALCIUM CARBONATE 500 MG CHEWABLE PO SCH ×2 (08:23→20:53)
[2019-11-06] MEDS: guaiFENesin SYRUP 100MG/5ML 200 MG/10 ML CUP PO PRN ×3 (10:53→20:53)
[2019-11-06] MEDS: ALPRAZolam 0.25 MG TAB PO PRN ×2 (11:06→20:56)
--- NOTE | 2019-11-06 14:37 | P.PN ---
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 She states that for the past few weeks she has had a cough productive for clear sputum and has required increased O2, although this week she began to feel warm and noticed a fever at home. She complains that she had been coughing and used a pulseox with her SpO2 getting down into the 70s. On presentation T 99.7, SpO2 99 on 4 L, WBC 6.5k CXR with interstital prominence, BNP 115, COVID negative. 11/06/2019 maintained on nebulized bronchodilators, IV steroids and antibiotics. Afebrile, normal WBC. Maintaining O2 sats in the high 90s on 4 L nasal cannula which can be tapered down. States shortness of breath improving. Denies chest pain, palpitations or increasing shortness of breath. Objective - Vital Signs Vital signs: Vital Signs Temp 98.0 F 11/06/19 07:07 Pulse 72 11/06/19 07:07 Resp 18 11/06/19 07:07 BP 159/83 11/06/19 07:07 Pulse Ox 99 11/06/19 07:07 Intake & Output 11/05/19 11/06/19 11/06/19 18:59 06:59 18:59 Intake Total 190 Balance 190 Weight 97.2 kg Intake: Oral 190 Other: Voiding Method Bedside Commode Bedside Commode # Voids 1 1 # Bowel Movements 1 1 - Exam General: Sitting up in chair,NAD Eyes: PERRL, EOMI, conjunctiva normal HENT: normocephalic, mucus membranes moist. Neck: supple, no JVD Lungs: diminished breath sounds throughout. CV: Regular rate and rhythm, no murmur. Peripheral pulses 2+ Abdomen: soft, nondistended, no organomegaly, positive bowel sounds Skin: warm and dry. No rash. Neuro: A&Ox3, normal mood and affect - Labs CBC & Chem 7: 11/05/19 10:33 11/05/19 11:38 Labs: Abnormal Lab Results - Last 24 Hours (Table) 11/05/19 11/05/19 Range/Units 10:33 11:38 RBC 3.49 L (3.80-5.40) m/uL Hgb 11.2 L (11.4-16.0) gm/dL Lymphocytes # 0.3 L (1.0-4.8) k/uL Chloride 96 L (98-107) mmol/L Carbon Dioxide 36 H (22-30) mmol/L BUN 20 H (7-17) mg/dL Creatinine 0.46 L (0.52-1.04) mg/dL Glucose 193 H (74-99) mg/dL Microbiology - Last 24 Hours (Table) 11/04/19 12:37 Blood Culture - Preliminary Blood No Growth after 24 hours Assessment and Plan Assessment: (1) Fever Current Visit: Yes Status: Acute Code(s): R50.9 - FEVER, UNSPECIFIED SNOMED Code(s): 720134699 (2) Acute and chronic respiratory failure with hypoxia Current Visit: No Status: Acute Code(s): J96.21 - ACUTE AND CHRONIC RESPIRATORY FAILURE WITH HYPOXIA SNOMED Code(s): 09807722 (3) Acute exacerbation of chronic obstructive airways disease Current Visit: No Status: Acute Code(s): J44.1 - CHRONIC OBSTRUCTIVE PULMONARY DISEASE W (ACUTE) EXACERBATION SNOMED Code(s): 465944959 (4) Chronic diastolic CHF (congestive heart failure), NYHA class 2 Current Visit: No Status: Acute Code(s): I50.32 - CHRONIC DIASTOLIC (CONGESTIVE) HEART FAILURE SNOMED Code(s): 366643126 (5) anxiety Plan: Continue on current medication regime ,monitoring and symptomatic treatment. Maintain nebulized bronchodilators, IV steroids, antibiotics. Wean down O2 .Increase ambulation as tolerated. The impression and plan of care has been dictated as directed. : I performed a history and examination of this patient, discussed the same with the dictator. I agree with the dictator's note ,documented as a scribe. Any additional findings or plans will be noted.
--- NOTE | 2019-11-06 15:56 | P.PN ---
Subjective Progress Note Date: 11/06/19 Principal diagnosis: Acute COPD exacerbation Acute on chronic hypoxic respirator failure History of diastolic heart failure Coronary artery disease Dyslipidemia GERD 11/06/2019, patient seen eval reexamined during the rounds labs reviewed medications reviewed care plan discussed, still have ongoing shortness breath cough and white sputum production denies any chest pain, breathing status continued to be marginal to short of breath on activity and exertion 11/05/2019, patient seen eval examined during the rounds labs reviewed medications reviewed have been slightly short of breath but severity has improved compared to yesterday the saturation have been improved and stable, remains on 4 L oxygen This is a 79-year-old female with end-stage lung disease she has been getting more short of breath started earlier today with intermittent desaturation she is on 4 L oxygen with that her saturation was going down 70-80%, and has been coughing and more short of breath than baseline decided to come into the hospital for further evaluation, patient has a recent diagnosis of pneumonia, his her chest x-ray suggestive of cardiomegaly interstitial edema likely CHF versus fluid overload or cysts COPD cannot be excluded however looking at BNP level of normal of 115 H likely to be CHF Objective - Vital Signs Vital signs: Vital Signs Temp 97.9 F 11/06/19 14:46 Pulse 78 11/06/19 14:46 Resp 16 11/06/19 14:46 BP 147/81 11/06/19 14:46 Pulse Ox 99 11/06/19 14:46 Intake & Output 11/05/19 11/06/19 11/06/19 18:59 06:59 18:59 Intake Total 190 Balance 190 Weight 97.2 kg Intake: Oral 190 Other: Voiding Method Bedside Commode Bedside Commode Bedside Commode # Voids 1 1 3 # Bowel Movements 1 1 - Exam - Constitutional General appearance: average body habitus, cooperative, disheveled - EENT Eyes: EOMI, PERRLA Ears: bilateral: normal - Neck Neck: normal ROM Carotids: bilateral: upstroke normal - Respiratory Respiratory: bilateral: diminished - Cardiovascular Rhythm: regular Heart sounds: normal: S1, S2 - Gastrointestinal General gastrointestinal: normal bowel sounds - Neurologic Neurologic: CNII-XII intact - Musculoskeletal Musculoskeletal: gait normal, generalized weakness, strength equal bilaterally - Psychiatric Psychiatric: A&O x's 3, appropriate affect, intact judgment & insight - Labs CBC & Chem 7: 11/05/19 10:33 11/05/19 11:38 Labs: Microbiology - Last 24 Hours (Table) 11/04/19 12:37 Blood Culture - Preliminary Blood No Growth after 48 hours Assessment and Plan Assessment: Acute COPD exacerbation Acute on chronic hypoxic respirator failure History of diastolic heart failure Coronary artery disease Dyslipidemia GERD Plan: Continue home medicines Patient to be continued on IV steroids and bronchodilators and supplemental o xygen Further recommendations pending plan of care as per clinical response of the patient Time with Patient: Greater than 30
[2019-11-06] MEDS: guaiFENesin 600 MG TABLET.ER PO PRN (18:09)
[2019-11-06] MEDS: ATORVASTATIN 10 MG TAB PO SCH (20:53)
[2019-11-06] MEDS: MONTELUKAST 10 MG TAB PO SCH (21:53)
[2019-11-07] MEDS: ALBUTEROL HFA INHALER INHALATION SCH ×5 (00:18→19:56)
[2019-11-07] MEDS: methylPREDNISolone SOD SUCCI 125 MG/2 ML VIAL IV SCH (06:04)
[2019-11-07] MEDS: FLUTICASONE 220 MCG INHALER INHALATION SCH (07:46)
[2019-11-07] MEDS: TIOTROPIUM 18 MCG/PUFF INHALER INHALATION SCH (07:46)
[2019-11-07] MEDS: PANTOPRAZOLE 40 MG TABLET PO SCH (08:19)
[2019-11-07] MEDS: MULTIVITAMINS, THERA 1 EACH TAB PO SCH (08:19)
[2019-11-07] MEDS: ASPIRIN 81 MG PO SCH (08:19)
[2019-11-07] MEDS: FUROSEMIDE 40 MG TAB PO SCH (08:19)
[2019-11-07] MEDS: CALCIUM CARBONATE 500 MG CHEWABLE PO SCH ×2 (08:19→20:33)
[2019-11-07] MEDS: DOCUSATE 100 MG CAP PO SCH ×2 (08:19→20:33)
[2019-11-07] MEDS: POTASSIUM CHLORIDE ER 20 MEQ TAB.ER PO SCH (08:19)
[2019-11-07] MEDS: ACYCLOVIR 200 MG CAP PO SCH ×2 (08:20→20:33)
[2019-11-07] MEDS: ALPRAZolam 0.25 MG TAB PO PRN ×2 (08:22→20:37)
[2019-11-07] MEDS: guaiFENesin SYRUP 100MG/5ML 200 MG/10 ML CUP PO PRN ×3 (09:12→20:33)
[2019-11-07] MEDS: guaiFENesin 600 MG TABLET.ER PO PRN (09:13)
[2019-11-07] MEDS: BUDESONIDE 0.5 MG/2 ML NEBU INHALATION SCH ×2 (12:52→20:14)
--- NOTE | 2019-11-07 13:18 | P.PN ---
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 She states that for the past few weeks she has had a cough productive for clear sputum and has required increased O2, although this week she began to feel warm and noticed a fever at home. She complains that she had been coughing and used a pulseox with her SpO2 getting down into the 70s. On presentation T 99.7, SpO2 99 on 4 L, WBC 6.5k CXR with interstital prominence, BNP 115, COVID negative. 11/06/2019 maintained on nebulized bronchodilators, IV steroids and antibiotics. Afebrile, normal WBC. Maintaining O2 sats in the high 90s on 4 L nasal cannula which can be tapered down. States shortness of breath improving. Denies chest pain, palpitations or increasing shortness of breath. 11/07/2019 feels worse today, complaining of productive cough, clear mucus production, runny eyes and nose. Continues on 4 L, maintaining O2 sats in the 90s. Denies chest pain, palpitations. Afebrile. Objective - Vital Signs Vital signs: Vital Signs Temp 98.4 F 11/07/19 07:00 Pulse 78 11/07/19 07:00 Resp 19 11/07/19 07:00 BP 155/81 11/07/19 07:00 Pulse Ox 99 11/07/19 07:00 Intake & Output 11/06/19 11/07/19 11/07/19 18:59 06:59 18:59 Intake Total 320 Output Total 125 Balance 195 Weight 97.4 kg Intake: Oral 320 Output: Urine 125 Other: Voiding Method Bedside Commode Bedside Commode Bedside Commode # Voids 5 1 - Exam General: Sitting up in chair,NAD Eyes: PERRL, EOMI, conjunctiva normal HENT: normocephalic, mucus membranes moist. Neck: supple, no JVD Lungs: diminished breath sounds throughout. CV: Regular rate and rhythm, no murmur. Peripheral pulses 2+ Abdomen: soft, nondistended, no organomegaly, positive bowel sounds Skin: warm and dry. No rash. Neuro: A&Ox3, normal mood and affect - Labs CBC & Chem 7: 11/05/19 10:33 11/05/19 11:38 Labs: Microbiology - Last 24 Hours (Table) 11/04/19 12:37 Blood Culture - Preliminary Blood No Growth after 48 hours Assessment and Plan Assessment: (1) Fever Current Visit: Yes Status: Acute Code(s): R50.9 - FEVER, UNSPECIFIED SNOMED Code(s): 678664189 (2) Acute and chronic respiratory failure with hypoxia Current Visit: No Status: Acute Code(s): J96.21 - ACUTE AND CHRONIC RESP IRATORY FAILURE WITH HYPOXIA SNOMED Code(s): 65317905 (3) Acute exacerbation of chronic obstructive airways disease Current Visit: No Status: Acute Code(s): J44.1 - CHRONIC OBSTRUCTIVE PULMONARY DISEASE W (ACUTE) EXACERBATION SNOMED Code(s): 951762476 (4) Chronic diastolic CHF (congestive heart failure), NYHA class 2 Current Visit: No Status: Acute Code(s): I50.32 - CHRONIC DIASTOLIC (CONGESTIVE) HEART FAILURE SNOMED Code(s): 081339467 (5) anxiety Plan: Continue on current medication regime ,monitoring and symptomatic treatment. Steroids tapered, Pulmicort added to med regime in addition to patient on Singulair and Claritin. Maintain nebulized bronchodilators, steroids, antibiotics. Wean down O2 .Increase ambulation as tolerated. Discharge planning in progress for tomorrow. The impression and plan of care has been dictated as directed. : I performed a history and examination of this patient, discussed the same with the dictator. I agree with the dictator's note ,documented as a scribe. Any additional findings or plans will be noted.
--- NOTE | 2019-11-07 16:22 | P.PN ---
Subjective Progress Note Date: 11/07/19 Principal diagnosis: Acute COPD exacerbation Acute on chronic hypoxic respirator failure History of diastolic heart failure Coronary artery disease Dyslipidemia GERD 11/07/2019, patient seen eval examined during the rounds as reviewed medications reviewed care plan discussed, denies any chest pain, still have intermittent dry nonproductive cough, patient has been getting a cough medicine, remains on steroids breathing treatments congestion slightly improved patient remains on supplemental oxygen 11/06/2019, patient seen eval reexamined during the rounds labs reviewed medications reviewed care plan discussed, still have ongoing shortness breath cough and white sputum production denies any chest pain, breathing status continued to be marginal to short of breath on activity and exertion 11/05/2019, patient seen eval examined during the rounds labs reviewed medicat ions reviewed have been slightly short of breath but severity has improved compared to yesterday the saturation have been improved and stable, remains on 4 L oxygen This is a 79-year-old female with end-stage lung disease she has been getting more short of breath started earlier today with intermittent desaturation she is on 4 L oxygen with that her saturation was going down 70-80%, and has been coughing and more short of breath than baseline decided to come into the hospital for further evaluation, patient has a recent diagnosis of pneumonia, his her chest x-ray suggestive of cardiomegaly interstitial edema likely CHF versus fluid overload or cysts COPD cannot be excluded however looking at BNP level of normal of 115 H likely to be CHF Objective - Vital Signs Vital signs: Vital Signs Temp 98.1 F 11/07/19 15:00 Pulse 77 11/07/19 15:00 Resp 16 11/07/19 15:00 BP 140/82 11/07/19 15:00 Pulse Ox 100 11/07/19 15:00 Intake & Output 11/06/19 11/07/19 11/07/19 18:59 06:59 18:59 Intake Total 320 Output Total 125 Balance 195 Weight 97.4 kg Intake: Oral 320 Output: Urine 125 Other: Voiding Method Bedside Commode Bedside Commode Bedside Commode # Voids 5 1 2 - Exam - Constitutional General appearance: average body habitus, cooperative, disheveled - EENT Eyes: EOMI, PERRLA Ears: bilateral: normal - Neck Neck: normal ROM Carotids: bilateral: upstroke normal - Respiratory Respiratory: bilateral: diminished - Cardiovascular Rhythm: regular Heart sounds: normal: S1, S2 - Gastrointestinal General gastrointestinal: normal bowel sounds - Neurologic Neurologic: CNII-XII intact - Musculoskeletal Musculoskeletal: gait normal, generalized weakness, strength equal bilaterally - Psychiatric Psychiatric: A&O x's 3, appropriate affect, intact judgment & insight - Labs CBC & Chem 7: 11/05/19 10:33 11/05/19 11:38 Labs: Microbiology - Last 24 Hours (Table) 11/04/19 12:37 Blood Culture - Preliminary Blood No Growth after 72 hours Assessment and Plan Assessment: Acute COPD exacerbation Acute on chronic hypoxic respirator failure History of diastolic heart failure Coronary artery disease Dyslipidemia GERD Plan: Continue home medicines Patient to be continued on IV steroids and bronchodilators and supplemental oxygen Further recommendations pending plan of care as per clinical response of the patient Time with Patient: Greater than 30
[2019-11-07] MEDS: methylPREDNISolone SOD SUCCI 40 MG/ML 1 ML VIAL IV SCH ×2 (16:25→23:32)
[2019-11-07] MEDS: ALBUTEROL NEBULIZED 2.5 MG/3 ML INHALATION SCH ×2 (16:30→20:14)
[2019-11-07] MEDS ORDERED: ALBUTEROL NEBULIZED 2.5 MG/3 ML INHALATION PRN (16:37)
[2019-11-07] MEDS: ACETAMINOPHEN TAB 325 MG TAB PO PRN (18:16)
[2019-11-07] MEDS: ATORVASTATIN 10 MG TAB PO SCH (20:33)
[2019-11-07] MEDS: MONTELUKAST 10 MG TAB PO SCH (20:33)
[2019-11-08 07:31] LABS: Glucose,Whole Blood 231 mg/dL (75-99)
[2019-11-08] MEDS: ALBUTEROL NEBULIZED 2.5 MG/3 ML INHALATION SCH ×4 (08:05→20:16)
[2019-11-08] MEDS: TIOTROPIUM 18 MCG/PUFF INHALER INHALATION SCH ×2 (08:05→08:29)
[2019-11-08] MEDS: BUDESONIDE 0.5 MG/2 ML NEBU INHALATION SCH ×2 (08:05→20:19)
[2019-11-08] MEDS: methylPREDNISolone SOD SUCCI 40 MG/ML 1 ML VIAL IV SCH ×3 (08:24→23:00)
[2019-11-08 08:35] LABS: HGB 10.3 gm/dL (11.4-16.0); Hypochromasia Marked; MCHC 30.1 g/dL (31.0-37.0); MCV 99.5 fL (80.0-100.0); Macrocytosis Slight; Mean Platelet Volume 8.9; Platelet Count 243 k/uL (150-450); RBC 3.42 m/uL (3.80-5.40); RDW 14.7 % (11.5-15.5); WBC 9.5 k/uL (3.8-10.6)
[2019-11-08 08:54] LABS: African American GFR (CKD) >90 (>60 ml/min/1.73 sqM); Anion Gap 4 mmol/L; Blood Urea Nitrogen 29 mg/dL (7-17); Calcium 8.6 mg/dL (8.4-10.2); Carbon Dioxide 38 mmol/L (22-30); Chloride 94 mmol/L (98-107); Glucose 229 mg/dL (74-99); Non-African American GFR(CKD) >90 (>60 ml/min/1.73 sqM); Sodium 136 mmol/L (137-145)
[2019-11-08 09:04] LABS: Potassium 5.6 mmol/L (3.5-5.1)
[2019-11-08] MEDS: ASPIRIN 81 MG PO SCH (09:13)
[2019-11-08] MEDS: PANTOPRAZOLE 40 MG TABLET PO SCH (09:13)
[2019-11-08] MEDS: FUROSEMIDE 40 MG TAB PO SCH (09:13)
[2019-11-08] MEDS: ACYCLOVIR 200 MG CAP PO SCH ×2 (09:13→22:01)
[2019-11-08] MEDS: MULTIVITAMINS, THERA 1 EACH TAB PO SCH (09:13)
[2019-11-08] MEDS: POTASSIUM CHLORIDE ER 20 MEQ TAB.ER PO SCH (09:13)
[2019-11-08] MEDS: DOCUSATE 100 MG CAP PO SCH ×2 (09:13→22:00)
[2019-11-08] MEDS: CALCIUM CARBONATE 500 MG CHEWABLE PO SCH ×2 (09:13→22:00)
--- NOTE | 2019-11-08 10:05 | P.PN ---
Subjective Progress Note Date: 11/08/19 Principal diagnosis: Acute COPD exacerbation Acute on chronic hypoxic respirator failure History of diastolic heart failure Coronary artery disease Dyslipidemia GERD 11/08/2019, patient seen eval examined during the rounds labs reviewed medications reviewed care plan discussed with the patient, cough is still there severity has improved, less short of breath patient able to get good quality sleep last night some of the anxiety is present associated with the steroid overall breathing pattern continued to improve patient back on basal oxygen at home agree with discharge planning in next 24 hours if remains stable 11/07/2019, patient seen eval examined during the rounds as reviewed medications reviewed care plan discussed, denies any chest pain, still have intermittent dry nonproductive cough, patient has been getting a cough medicine, remains on steroids breathing treatments congestion slightly improved patient remains on supplemental oxygen 11/06/2019, patient seen eval reexamined during the rounds labs reviewed medications reviewed care plan discussed, still have ongoing shortness breath cough and white sputum production denies any chest pain, breathing status continued to be marginal to short of breath on activity and exertion 11/05/2019, patient seen eval examined during the rounds labs reviewed medications reviewed have been slightly short of breath but severity has improved compared to yesterday the saturation have been improved and stable, rem ains on 4 L oxygen This is a 79-year-old female with end-stage lung disease she has been getting m ore short of breath started earlier today with intermittent desaturation she is on 4 L oxygen with that her saturation was going down 70-80%, and has been coughing and more short of breath than baseline decided to come into the hospital for further evaluation, patient has a recent diagnosis of pneumonia, his her chest x-ray suggestive of cardiomegaly interstitial edema likely CHF versus fluid overload or cysts COPD cannot be excluded however looking at BNP level of normal of 115 H likely to be CHF Objective - Vital Signs Vital signs: Vital Signs Temp 98.8 F 11/08/19 07:11 Pulse 88 11/08/19 08:21 Resp 22 11/08/19 07:11 BP 156/77 11/08/19 07:11 Pulse Ox 97 11/08/19 07:11 Intake & Output 11/07/19 11/08/19 11/08/19 18:59 06:59 18:59 Intake Total 500 200 Balance 500 200 Weight 97.5 kg Intake: Oral 500 200 Other: Voiding Method Bedside Commode Bedside Commode Bedside Commode Diaper Diaper Incontinent Incontinent # Voids 2 2 # Bowel Movements 1 - Exam - Constitutional General appearance: average body habitus, cooperative, disheveled - EENT Eyes: EOMI, PERRLA Ears: bilateral: normal - Neck Neck: normal ROM Carotids: bilateral: upstroke normal - Respiratory Respiratory: bilateral: diminished - Cardiovascular Rhythm: regular Heart sounds: normal: S1, S2 - Gastrointestinal General gastrointestinal: normal bowel sounds - Neurologic Neurologic: CNII-XII intact - Musculoskeletal Musculoskeletal: gait normal, generalized weakness, strength equal bilaterally - Psychiatric Psychiatric: A&O x's 3, appropriate affect, intact judgment & insight - Labs CBC & Chem 7: 11/08/19 07:59 11/08/19 07:59 Labs: Abnormal Lab Results - Last 24 Hours (Table) 11/08/19 11/08/19 11/08/19 Range/Units 07:18 07:59 07:59 RBC 3.42 L (3.80-5.40) m/uL Hgb 10.3 L (11.4-16.0) gm/dL MCHC 30.1 L (31.0-37.0) g/dL Sodium 136 L (137-145) mmol/L Potassium 5.6 H (3.5-5.1) mmol/L Chloride 94 L (98-107) mmol/L Carbon Dioxide 38 H (22-30) mmol/L BUN 29 H (7-17) mg/dL Creatinine 0.41 L (0.52-1.04) mg/dL Glucose 229 H (74-99) mg/dL POC Glucose (mg/dL) 231 H (75-99) mg/dL Microbiology - Last 24 Hours (Table) 11/04/19 12:37 Blood Culture - Preliminary Blood No Growth after 72 hours Assessment and Plan Assessment: Acute COPD exacerbation Acute on chronic hypoxic respirator failure History of diastolic heart failure Coronary artery disease Dyslipidemia GERD Plan: Continue home medicines Patient to be continued on IV steroids and bronchodilators and supplemental oxyg en Further recommendations pending plan of care as per clinical response of the patient Time with Patient: Greater than 30
--- NOTE | 2019-11-08 10:30 | P.PN ---
Subjective Progress Note Date: 11/08/19 Shaunna Keys is a 79 yo F with PMH of COPD on 3-4 L home O2 who presented to the ED on the advice of her huc ob after complaining of worsening cough. She states that for the past few weeks she has had a cough productive for clear sputum and has required increased O2, although this week she began to feel warm and noticed a fever at home. She complains that she had been coughing and used a pulseox with her SpO2 getting down into the 70s. On presentation T 99.7, SpO2 99 on 4 L, WBC 6.5k CXR with interstital prominence, BNP 115, COVID negative. 11/06/2019 maintained on nebulized bronchodilators, IV steroids and antibiotics. Afebrile, normal WBC. Maintaining O2 sats in the high 90s on 4 L nasal cannula which can be tapered down. States shortness of breath improving. Denies chest pain, palpitations or increasing shortness of breath. 11/07/2019 feels worse today, complaining of productive cough, clear mucus production, runny eyes and nose. Continues on 4 L, maintaining O2 sats in the 90s. Denies chest pain, palpitations. Afebrile. 11/08/2019 Pulmicort added to med regimen yesterday with significant clinical improvement. Better air exchange. Continues to have significant productive cough with clear sputum, runny nose, runny eyes. Continue O2 sats in the 90s on 4 L which is patient's baseline but patient states does not feel ready for discharge. Good diet intake with no nausea vomiting or diarrhea. Denies abdominal pain. Positive bowel movement yesterday. Ambulating with walker, tolerated exertion well. Denies chest pain, palpitations or shortness of alexi th. Objective - Vital Signs Vital signs: Vital Signs Temp 98.8 F 11/08/19 07:11 Pulse 88 11/08/19 08:21 Resp 22 11/08/19 07:11 BP 156/77 11/08/19 07:11 Pulse Ox 97 11/08/19 07:11 Intake & Output 11/07/19 11/08/19 11/08/19 18:59 06:59 18:59 Intake Total 500 200 Balance 500 200 Weight 97.5 kg Intake: Oral 500 200 Other: Voiding Method Bedside Commode Bedside Commode Bedside Commode Diaper Diaper Incontinent Incontinent # Voids 2 2 # Bowel Movements 1 - Exam General: Sitting up in chair,NAD Eyes: PERRL, EOMI, conjunctiva normal HENT: normocephalic, oral mucosa moist. Neck: supple, no JVD Lungs: Improved air entry, bilateral bases diminished CV: Regular rate and rhythm, no murmur. Peripheral pulses 2+ Abdomen: soft, nondistended, no organomegaly, positive bowel sounds Skin: warm and dry. No rash. Neuro: A&Ox3, normal mood and affect - Labs CBC & Chem 7: 11/08/19 07:59 11/08/19 07:59 Labs: Abnormal Lab Results - Last 24 Hours (Table) 11/08/19 11/08/19 11/08/19 Range/Units 07:18 07:59 07:59 RBC 3.42 L (3.80-5.40) m/uL Hgb 10.3 L (11.4-16.0) gm/dL MCHC 30.1 L (31.0-37.0) g/dL Sodium 136 L (137-145) mmol/L Potassium 5.6 H (3.5-5.1) mmol/L Chloride 94 L (98-107) mmol/L Carbon Dioxide 38 H (22-30) mmol/L BUN 29 H (7-17) mg/dL Creatinine 0.41 L (0.52-1.04) mg/dL Glucose 229 H (74-99) mg/dL POC Glucose (mg/dL) 231 H (75-99) mg/dL Microbiology - Last 24 Hours (Table) 11/04/19 12:37 Blood Culture - Preliminary Blood No Growth after 72 hours Assessment and Plan Assessment: (1) Fever Current Visit: Yes Status: Acute Code(s): R50.9 - FEVER, UNSPECIFIED SNOMED Code(s): 278827170 (2) Acute and chronic respiratory failure with hypoxia Current Visit: No Status: Acute Code(s): J96.21 - ACUTE AND CHRONIC RESPIRATORY FAILURE WITH HYPOXIA SNOMED Code(s): 75435219 (3) Acute exacerbation of chronic obstructive airways disease Current Visit: No Status: Acute Code(s): J44.1 - CHRONIC OBSTRUCTIVE PULMONARY DISEASE W (ACUTE) EXACERBATION SNOMED Code(s): 071097238 (4) Chronic diastolic CHF (congestive heart failure), NYHA class 2 Current Visit: No Status: Acute Code(s): I50.32 - CHRONIC DIASTOLIC (CONGESTIVE) HEART FAILURE SNOMED Code(s): 624457091 (5) anxiety Plan: Continue on current medication regime ,monitoring and symptomatic treatment. Maintain nebulized bronchodilators, Pulmicort, IV steroids, Singulair, Claritin, IV antibiotics. Increase ambulation as tolerated. Discharge planning in progress for tomorrow. The impression and plan of care has been dictated as directed. : I performed a history and examination of this patient, discussed the same with the dictator. I agree with the dictator's note ,documented as a scribe. Any additional findings or plans will be noted.
[2019-11-08] MEDS: ALPRAZolam 0.25 MG TAB PO PRN ×2 (10:48→19:17)
[2019-11-08] MEDS: guaiFENesin 600 MG TABLET.ER PO PRN ×2 (10:48→22:00)
[2019-11-08 11:44] LABS: Glucose,Whole Blood 278 mg/dL (75-99)
[2019-11-08 12:03] LABS: Lymphocytes # (M) 0.38 k/uL (1.0-4.8); Monocytes # (M) 0.57 k/uL (0-1.0); Neutrophils # (M) 8.55 k/uL (1.3-7.7); Neutrophils % (M) 90 %; Nucleated Red Blood Cells 0 /100 WBC (0-0); Total Cells Counted 100
[2019-11-08 12:07] LABS: Anisocytosis (M) Present; Poikilocytosis (M) Present
[2019-11-08] MEDS: guaiFENesin SYRUP 100MG/5ML 200 MG/10 ML CUP PO PRN ×2 (12:20→22:10)
[2019-11-08] MEDS ORDERED: INSULIN ASPART (NovoLOG) 100 UNIT/ML VIAL SQ ONE (12:26)
[2019-11-08] MEDS: INSULIN ASPART (NovoLOG) 100 UNIT/ML VIAL SQ SCH ×3 (12:27→21:59)
[2019-11-08 17:16] LABS: Glucose,Whole Blood 259 mg/dL (75-99)
[2019-11-08 20:55] LABS: Glucose,Whole Blood 243 mg/dL (75-99)
[2019-11-08] MEDS: MONTELUKAST 10 MG TAB PO SCH (22:00)
[2019-11-08] MEDS: ATORVASTATIN 10 MG TAB PO SCH (22:00)
[2019-11-09 07:11] LABS: Glucose,Whole Blood 216 mg/dL (75-99)
[2019-11-09] MEDS: ALBUTEROL NEBULIZED 2.5 MG/3 ML INHALATION SCH ×3 (08:00→16:40)
[2019-11-09] MEDS: TIOTROPIUM 18 MCG/PUFF INHALER INHALATION SCH (08:00)
[2019-11-09] MEDS: BUDESONIDE 0.5 MG/2 ML NEBU INHALATION SCH (08:00)
[2019-11-09] MEDS: MULTIVITAMINS, THERA 1 EACH TAB PO SCH (08:35)
[2019-11-09] MEDS: DOCUSATE 100 MG CAP PO SCH (08:35)
[2019-11-09] MEDS: CALCIUM CARBONATE 500 MG CHEWABLE PO SCH (08:35)
[2019-11-09] MEDS: ASPIRIN 81 MG PO SCH (08:35)
[2019-11-09] MEDS: ACYCLOVIR 200 MG CAP PO SCH (08:35)
[2019-11-09] MEDS: methylPREDNISolone SOD SUCCI 40 MG/ML 1 ML VIAL IV SCH ×2 (08:35→15:39)
[2019-11-09] MEDS: PANTOPRAZOLE 40 MG TABLET PO SCH (08:35)
[2019-11-09] MEDS: FUROSEMIDE 40 MG TAB PO SCH (08:35)
[2019-11-09] MEDS: INSULIN ASPART (NovoLOG) 100 UNIT/ML VIAL SQ SCH ×3 (08:35→16:39)
[2019-11-09] MEDS: POTASSIUM CHLORIDE ER 20 MEQ TAB.ER PO SCH (08:36)
[2019-11-09] MEDS: guaiFENesin SYRUP 100MG/5ML 200 MG/10 ML CUP PO PRN (08:40)
[2019-11-09] MEDS: ALPRAZolam 0.25 MG TAB PO PRN ×2 (08:41→16:53)
--- NOTE | 2019-11-09 09:15 | P.PN ---
Subjective Progress Note Date: 11/09/19 Principal diagnosis: Acute COPD exacerbation Acute on chronic hypoxic respirator failure History of diastolic heart failure Coronary artery disease Dyslipidemia GERD 11/09/2019, patient seen eval examined during the rounds labs reviewed medications reviewed care plan discussed, denies any chest pain or shortness of breath history status significantly improved, cough is better now patient wishes to go home agree with discharge planning on oral antibiotics and oral tapering steroids 11/08/2019, patient seen eval examined during the rounds labs reviewed medications reviewed care plan discussed with the patient, cough is still there severity has improved, less short of breath patient able to get good quality sleep last night some of the anxiety is present associated with the steroid overall breathing pattern continued to improve patient back on basal oxygen at home agree with discharge planning in next 24 hours if remains stable 11/07/2019, patient seen eval examined during the rounds as reviewed medications reviewed care plan discussed, denies any chest pain, still have intermittent dry nonproductive cough, patient has been getting a cough medicine, remains on steroids breathing treatments congestion slightly improved patient remains on supplemental oxygen 11/06/2019, patient seen eval reexamined during the rounds labs reviewed medications reviewed care plan discussed, still have ongoing shortness breath cough and white sputum production denies any chest pain, breathing status continued to be marginal to short of breath on activity and exertion 11/05/2019, patient seen eval examined during the rounds labs reviewed medications reviewed have been slightly short of breath but severity has improved compared to yesterday the saturation have been improved and stable, remains on 4 L oxygen This is a 79-year-old female with end-stage lung disease she has been getting more short of breath started earlier today with intermittent desaturation she is on 4 L oxygen with that her saturation was going down 70-80%, and has been coughing and more short of breath than baseline decided to come into the hospital for further evaluation, patient has a recent diagnosis of pneumonia, his her chest x-ray suggestive of cardiomegaly interstitial edema likely CHF versus fluid overload or cysts COPD cannot be excluded however looking at BNP level of normal of 115 H likely to be CHF Objective - Vital Signs Vital signs: Vital Signs Temp 98.1 F 11/09/19 01:22 Pulse 76 11/09/19 08:19 Resp 16 11/09/19 04:00 BP 151/74 11/09/19 01:22 Pulse Ox 100 11/09/19 01:22 Intake & Output 11/08/19 11/09/19 11/09/19 18:59 06:59 18:59 Intake Total 400 Output Total 300 Balance 100 Weight 96.6 kg Intake: Oral 400 Output: Stool 300 Other: Voiding Method Bedside Commode Diaper Incontinent # Voids 2 1 # Bowel Movements 1 - Exam - Constitutional General appearance: average body habitus, cooperative, disheveled - EENT Eyes: EOMI, PERRLA Ears: bilateral: normal - Neck Neck: normal ROM Carotids: bilateral: upstroke normal - Respiratory Respiratory: bilateral: diminished - Cardiovascular Rhythm: regular Heart sounds: normal: S1, S2 - Gastrointestinal General gastrointestinal: normal bowel sounds - Neurologic Neurologic: CNII-XII intact - Musculoskeletal Musculoskeletal: gait normal, generalized weakness, strength equal bilaterally - Psychiatric Psychiatric: A&O x's 3, appropriate affect, intact judgment & insight - Labs CBC & Chem 7: 11/08/19 07:59 11/08/19 07:59 Labs: Abnormal Lab Results - Last 24 Hours (Table) 11/08/19 11/08/19 11/08/19 Range/Units 07:59 11:38 16:47 RBC 3.42 L (3.80-5.40) m/uL Hgb 10.3 L (11.4-16.0) gm/dL MCHC 30.1 L (31.0-37.0) g/dL Neutrophils # (Manual) 8.55 H (1.3-7.7) k/uL Lymphocytes # (Manual) 0.38 L (1.0-4.8) k/uL POC Glucose (mg/dL) 278 H 259 H (75-99) mg/dL 11/08/19 11/09/19 Range/Units 20:54 07:06 RBC (3.80-5.40) m/uL Hgb (11.4-16.0) gm/dL MCHC (31.0-37.0) g/dL Neutrophils # (Manual) (1.3-7.7) k/uL Lymphocytes # (Manual) (1.0-4.8) k/uL POC Glucose (mg/dL) 243 H 216 H (75-99) mg/dL Microbiology - Last 24 Hours (Table) 11/04/19 12:37 Blood Culture - Preliminary Blood No Growth after 96 hours Assessment and Plan Assessment: Acute COPD exacerbation Acute on chronic hypoxic respirator failure History of diastolic heart failure Coronary artery disease Dyslipidemia GERD Plan: Continue home medicines Patient can be switched to oral prednisone and antibiotics and continue supplemental oxygen Further recommendations pending plan of care as per clinical response of the patient Agree with discharge planning Time with Patient: Greater than 30
[2019-11-09 09:44] LABS: Basophils # (A) 0.3 k/uL (0-0.2); Basophils % (A) 3 %; Eosinophils # (A) 0.1 k/uL (0-0.7); Eosinophils % (A) 1 %; HCT 34.7 % (34.0-46.0); HGB 10.8 gm/dL (11.4-16.0); Hypochromasia Marked; Lymphocytes # (A) 0.5 k/uL (1.0-4.8); Lymphocytes % (A) 5 %; MCH 31.7 pg (25.0-35.0); MCHC 31.1 g/dL (31.0-37.0); MCV 101.8 fL (80.0-100.0); Macrocytosis Slight; Mean Platelet Volume 8.7; Monocytes # (A) 0.6 k/uL (0-1.0); Monocytes % (A) 6 %; Neutrophils # (A) 8.9 k/uL (1.3-7.7); Neutrophils % (A) 85 %; Platelet Count 284 k/uL (150-450); RBC 3.41 m/uL (3.80-5.40); RDW 14.5 % (11.5-15.5); WBC 10.5 k/uL (3.8-10.6)
[2019-11-09 09:47] LABS: African American GFR (CKD) >90 (>60 ml/min/1.73 sqM); Blood Urea Nitrogen 24 mg/dL (7-17); Calcium 8.7 mg/dL (8.4-10.2); Chloride 89 mmol/L (98-107); Glucose 311 mg/dL (74-99); Non-African American GFR(CKD) >90 (>60 ml/min/1.73 sqM); Potassium 4.2 mmol/L (3.5-5.1); Sodium 135 mmol/L (137-145)
[2019-11-09 09:56] LABS: Anion Gap 3 mmol/L
[2019-11-09 10:06] LABS: Carbon Dioxide 43 mmol/L (22-30)
[2019-11-09 12:07] LABS: Glucose,Whole Blood 218 mg/dL (75-99)
[2019-11-09] MEDS: guaiFENesin 600 MG TABLET.ER PO PRN (13:40)
[2019-11-09 17:10] VITALS: BP 152/67; PULSE 82; RESP 18; TEMP 97.7
--- NOTE | 2019-11-11 11:46 | P.DS ---
Providers Date of admission: 11/04/19 16:49 Expected date of discharge: 11/09/19 Attending physician: Guido Byrne MD Consults: 11/04/19 14:58 Consult Physician Routine Consulting Provider: Joe Rod Consult Reason/Comments: COPD exacerbation Do you want consulting provider notified?: Yes Primary care physician: [facility] Course: final diagnosis fever Acute on chronic respiratory failure with hypoxia Obstructive pulmonary disease with acute exacerbation Chest of heart failure with chronic diastolic dysfunction Discharge disposition Patient is being discharged in a stable condition with guarded prognosis to home. Patient will follow-up with Dr. Rod upon discharge. patient will continue with home care in the outpatient setting. Patient will continue on oral antibiotics in the form of Ceftin for the next 5 days along with a prednisone taper. Total time taken is 35 minutes. History of present illness This is an 79-year-old female who was recently admitted with COPD acute exacerbation along with worsening cough and was being closely monitored. patient was seen and evaluated by pulmonary and was continued on antibiotics along with IV steroids and bronchodilators. Patient will continue on oral antibiotics in the form of Ceftin twice daily for the next 5 days to complete the course. Patient will also continue on a prednisone taper. patient states she is feeling much better and would like to go home today. Currently no reports of chest pain, worsening shortness of breath, or palpitations. Patient is afebrile. No reports of nausea or vomiting and patient is tolerating diet. please refer to previous dictation from Dr. Byrne as we were covering. On exam vital signs are stable. Temp is 97.9F, pulse is 80, respirations are 18, blood pressure is 125/77, oxygen saturation is 97% on room air. Cardio S1, S2 are muffled. Respiratory shows diminished breath sounds at the bases with no wheezing or rhonchi noted. Abdomen is soft and nontender. Nervous system shows no focal deficits. Please refer to medication reconciliation sheet for a list of medications. Patient Condition at Discharge: Fair Plan - Discharge Summary Discharge Rx Participant: No New Discharge Prescriptions: New Cefuroxime Axetil [Ceftin] 500 mg PO BID 5 Days #10 tab predniSONE 10 mg PO DIRECTED #30 tab guaiFENesin SYRUP 100MG/5ML [Robitussin] 100 mg PO Q4H PRN #120 ml PRN Reason: Congestion Tiotropium 18 Mcg/Puff [Spiriva] 1 puff INHALATION RT-DAILY 30 Days #1 inhaler Albuterol Nebulized [Ventolin Nebulized] 2.5 mg INHALATION RT-Q2H PRN 30 Days #90 ml PRN Reason: Shortness Of Breath Or Wheezing Continue Budesonide [Pulmicort] 0.5 mg INHALATION RT-BID Multivitamins, Thera [Multivitamin (formulary)] 1 tab PO DAILY Potassium Chloride ER [K-Dur 10] 20 meq PO DAILY Omeprazole 20 mg PO DAILY Montelukast [Singulair] 10 mg PO HS Lovastatin [Mevacor] 20 mg PO HS Furosemide [Lasix] 40 mg PO QAM Acyclovir [Zovirax] 400 mg PO BID Albuterol Inhaler [Ventolin Hfa Inhaler] 1 - 2 puff INHALATION RT-Q4H PRN PRN Reason: Shortness Of Breath ALPRAZolam [Xanax] 0.125 mg PO BID PRN PRN Reason: Anxiety Aspirin EC [Ecotrin Low Dose] 81 mg PO DAILY Calcium Carbonate [Calcium] 600 mg PO BID Ipratropium-Albuterol Nebulize [Duoneb 0.5 mg-3 mg/3 ml Soln] 3 ml INHALATION RT-QID #120 ml Fluticasone Nasal [place] [Flonase Nasal [place]] 1 spray EA NOSTRIL DAILY PRN PRN Reason: Allergy Symptoms Fexofenadine HCl [Danika Allergy] 180 mg PO DAILY PRN PRN Reason: Allergy Symptoms guaiFENesin [Mucinex] 1,200 mg PO BID PRN PRN Reason: Cold Symptoms Discharge Medication List Acyclovir [Zovirax] 400 mg PO BID 04/12/18 [History] Budesonide [Pulmicort] 0.5 mg INHALATION RT-BID 04/12/18 [History] Furosemide [Lasix] 40 mg PO QAM 04/12/18 [History] Lovastatin [Mevacor] 20 mg PO HS 04/12/18 [History] Montelukast [Singulair] 10 mg PO HS 04/12/18 [History] Multivitamins, Thera [Multivitamin (formulary)] 1 tab PO DAILY 04/12/18 [History] Omeprazole 20 mg PO DAILY 04/12/18 [History] Potassium Chloride ER [K-Dur 10] 20 meq PO DAILY 04/12/18 [History] ALPRAZolam [Xanax] 0.125 mg PO BID PRN 10/15/19 [History] Albuterol Inhaler [Ventolin Hfa Inhaler] 1 - 2 puff INHALATION RT-Q4H PRN 10/15/19 [History] Aspirin EC [Ecotrin Low Dose] 81 mg PO DAILY 10/15/19 [History] Calcium Carbonate [Calcium] 600 mg PO BID 10/15/19 [History] Ipratropium-Albuterol Nebulize [Duoneb 0.5 mg-3 mg/3 ml Soln] 3 ml INHALATION RT-QID #120 ml 10/20/19 [Rx] Fexofenadine HCl [Danika Allergy] 180 mg PO DAILY PRN 11/04/19 [History] Fluticasone Nasal [place] [Flonase Nasal [place]] 1 spray EA NOSTRIL DAILY PRN 11/04/19 [History] guaiFENesin [Mucinex] 1,200 mg PO BID PRN 11/04/19 [History] Albuterol Nebulized [Ventolin Nebulized] 2.5 mg INHALATION RT-Q2H PRN 30 Days #90 ml 11/09/19 [Rx] Cefuroxime Axetil [Ceftin] 500 mg PO BID 5 Days #10 tab 11/09/19 [Rx] Tiotropium 18 Mcg/Puff [Spiriva] 1 puff INHALATION RT-DAILY 30 Days #1 inhaler 11/09/19 [Rx] guaiFENesin SYRUP 100MG/5ML [Robitussin] 100 mg PO Q4H PRN #120 ml 11/09/19 [Rx] predniSONE 10 mg PO DIRECTED #30 tab 11/09/19 [Rx] Follow up Appointment(s)/Referral(s): Tyrese Rod MD [STAFF PHYSICIAN] - 1-2 days [facility], [NON-STAFF] - As Needed Patient Instructions/Handouts: COPD (Chronic Obstructive Pulmonary Disease) (DC) Activity/Diet/Wound Care/Special Instructions: activity Limited until follow-up follow up with primary care provider upon discharge continue current diet Continue with antibiotics until finished continue with prednisone taper Discharge Disposition: HOME WITH HOME HEALTH SERVICES
== END 2019-11-09 18:48 | disposition home health service (06) | DRG 190 ==
LOC: EC 11:49 → 1SOBS 14:58 → OBSVTOIN 16:49 → 4SSUR 18:13
PROVIDERS: ADMIT Family Medicine; ATTEND Family Medicine
PROC: 05HY33Z Insertion of Infusion Device into Upper Vein, Percutaneous Approach (ICD-10-PCS; principal; 2019-11-06 12:50)
DX: J44.1 Chronic obstructive pulmonary disease with (acute) exacerbation (principal); J96.21 Acute and chronic respiratory failure with hypoxia; I50.32 Chronic diastolic (congestive) heart failure; Z87.01 Personal history of pneumonia (recurrent); I25.10 Atherosclerotic heart disease of native coronary artery without angina pectoris; K21.9 Gastro-esophageal reflux disease without esophagitis; Z20.828 Contact with and (suspected) exposure to other viral communicable diseases; Z79.52 Long term (current) use of systemic steroids; Z79.82 Long term (current) use of aspirin; Z79.899 Other long term (current) drug therapy; Z80.0 Family history of malignant neoplasm of digestive organs; Z82.49 Family history of ischemic heart disease and other diseases of the circulatory system; Z87.891 Personal history of nicotine dependence; F41.1 Generalized anxiety disorder; Z88.6 Allergy status to analgesic agent; Z88.0 Allergy status to penicillin; Z88.1 Allergy status to other antibiotic agents; Z99.81 Dependence on supplemental oxygen; E78.5 Hyperlipidemia, unspecified
CPT/HCPCS: 36410; 36415; 71046; 76937; 80048; 80053; 82550; 83605; 83735; 83880; 84145; 84484; 85025; 85610; 85730; 87040; 93005; 94640; 94760; 96374; 99291

== ENCOUNTER 2020-07-06 15:00 | Inpatient (IN) | payer MEDICARE, BC ==
[2020-07-06] MEDS ORDERED: FUROSEMIDE 10 MG/ML 4 ML VIAL IV STA (15:44)
[2020-07-06] MEDS ORDERED: ALBUTEROL HFA INHALER INHALATION STA (15:44)
[2020-07-06 16:11] LABS: Anisocytosis Slight; Basophils # (A) 0.2 k/uL (0-0.2); Basophils % (A) 2 %; Eosinophils % (A) 1 %; HCT 36.3 % (34.0-46.0); Hypochromasia Marked; Lymphocytes # (A) 0.1 k/uL (1.0-4.8); Lymphocytes % (A) 1 %; MCH 29.4 pg (25.0-35.0); MCHC 30.4 g/dL (31.0-37.0); MCV 96.6 fL (80.0-100.0); Macrocytosis Slight; Mean Platelet Volume 10.1; Monocytes # (A) 0.5 k/uL (0-1.0); Monocytes % (A) 6 %; Neutrophils % (A) 90 %; Platelet Count 164 k/uL (150-450); RBC 3.75 m/uL (3.80-5.40); RDW 17.9 % (11.5-15.5); WBC 8.8 k/uL (3.8-10.6)
--- NOTE | 2020-07-06 16:18 | ED ---
General Adult HPI - General Chief complaint: Shortness of Breath Stated complaint: SOB Time Seen by Provider: 07/06/20 15:29 Source: EMS, RN notes reviewed Mode of arrival: EMS Limitations: no limitations - History of Present Illness Initial comments: 79-year-old female with a past medical history of CAD, heart failure, COPD requiring 4 L of oxygen at home, GERD, hyperlipidemia presents to the emergency room for bilateral leg swelling. Patient states her legs have been swollen for quite some time but have been getting worse and worse. States she has been taking Lasix but it does not help. Today patient had an episode of shortness of breath. States that her daughter called the ambulance because of this. Patient denies chest pain. States that the shortness of breath has since resolved.Patient has no other complaints at this time including shortness of breath, chest pain, abdominal pain, nausea or vomiting, headache, or visual changes. - Related Data Home Medications Medication Instructions Recorded Confirmed Acyclovir [Zovirax] 400 mg PO BID 04/12/18 07/06/20 Budesonide [Pulmicort] 0.5 mg INHALATION RT-QID PRN 04/12/18 07/06/20 Furosemide [Lasix] 20 mg PO BID 04/12/18 07/06/20 Lovastatin [Mevacor] 20 mg PO HS 04/12/18 07/06/20 Montelukast [Singulair] 10 mg PO HS 04/12/18 07/06/20 Multivitamins, Thera [Multivitamin 1 tab PO DAILY 04/12/18 07/06/20 (formulary)] Potassium Chloride ER [K-Dur 10] 20 meq PO DAILY 04/12/18 07/06/20 Albuterol Inhaler [Ventolin Hfa 1 - 2 puff INHALATION RT-Q4H PRN 10/15/19 07/06/20 Inhaler] Aspirin EC [Ecotrin Low Dose] 81 mg PO DAILY 10/15/19 07/06/20 Fluticasone Nasal [place] [Flonase 1 spray EA NOSTRIL DAILY PRN 11/04/19 07/06/20 Nasal [place]] ALPRAZolam [Xanax] 0.25 mg PO DAILY PRN 07/06/20 07/06/20 Albuterol Nebulized [Ventolin 2.5 mg INHALATION RT-TID PRN 07/06/20 07/06/20 Nebulized] Pantoprazole [Protonix] 40 mg PO DAILY 07/06/20 07/06/20 guaiFENesin SYRUP 100MG/5ML 200 mg PO Q4H PRN 07/06/20 07/06/20 [Robitussin] predniSONE [Deltasone] 40 mg PO DAILY 07/06/20 07/06/20 Allergies Allergy/AdvReac Type Severity Reaction Status Date / Time naproxen Allergy Unknown Verified 07/06/20 17:07 amoxicillin [From Augmentin] AdvReac Unknown Verified 07/06/20 17:07 clavulanic acid AdvReac Unknown Verified 07/06/20 17:07 [From Augmentin] erythromycin base AdvReac Unknown Verified 07/06/20 17:07 Review of Systems ROS Statement: Those systems with pertinent positive or pertinent negative responses have been documented in the HPI. ROS Other: All systems not noted in ROS Statement are negative. Past Medical History Past Medical History: Coronary Artery Disease (CAD), Heart Failure, COPD, GERD/Reflux, Hyperlipidemia History of Any Multi-Drug Resistant Organisms: None Reported Past Surgical History: Back Surgery Past Anesthesia/Blood Transfusion Reactions: No Reported Reaction Past Psychological History: Anxiety Smoking Status: Former smoker Past Alcohol Use History: None Reported Past Drug Use History: None Reported - Past Family History Mother Family Medical History: Myocardial Infarction ([place]) Brother(s) Family Medical History: Cancer, Myocardial Infarction ([place]) Additional Family Medical History / Comment(s): colon ca, 2 brother with ca General Exam Limitations: no limitations General appearance: alert, in no apparent distress Head exam: Present: atraumatic, normocephalic, normal inspection Eye exam: Present: normal appearance, PERRL, EOMI. Absent: scleral icterus, conjunctival injection, periorbital swelling ENT exam: Present: normal exam, mucous membranes moist Neck exam: Present: normal inspection, full ROM. Absent: tenderness, meningismus, lymphadenopathy Respiratory exam: Present: other (Diminished bilaterally). Absent: respiratory distress, wheezes, rales, rhonchi, stridor Cardiovascular Exam: Present: regular rate, normal rhythm, normal heart sounds. Absent: systolic murmur, diastolic murmur, rubs, gallop, clicks Extremities exam: Present: pedal edema (2+ pitting edema noted bilaterally) Neurological exam: Present: alert Course Vital Signs 07/06/20 07/06/20 15:02 17:47 Temperature 98.0 F Pulse Rate 85 85 Respiratory 20 23 Rate Blood Pressure 128/77 132/90 O2 Sat by Pulse 95 Oximetry EKG Findings - EKG Comments: EKG Findings:: Normal sinus rhythm, right bundle branch block, ventricular rate 83, [place] interval 120, QTC 455, compared to previous EKG from October 2019 which is similar. Medical Decision Making - Medical Decision Making Vitals are stable. Patient is well-appearing. She does have significant edema noted of the bilateral lower extremities. Patient is satting at 95% on 4 L which is normal for her at home. CBC CMP unremarkable. No leukocytosis. BNP is 4600 which is significantly elevated above baseline for patient. Chest x-ray does show moderate interstitial edema with superimposed infiltrate is not excluded. Patient is denying cough fever or leukocytosis. Patient symptoms are consistent with a CHF exacerbation. Patient will be given IV Lasix. I did discuss his case with Dr. Dumont who recommends Nitropaste and aspirin as well. Case was di scussed with Dr. Kamara who does accept this admission. - Lab Data Result diagrams: 07/06/20 15:55 07/06/20 15:55 Lab Results 07/06/20 07/06/20 07/06/20 Range/Units 15:55 15:55 15:55 WBC 8.8 (3.8-10.6) k/uL RBC 3.75 L (3.80-5.40) m/uL Hgb 11.0 L (11.4-16.0) gm/dL Hct 36.3 (34.0-46.0) % MCV 96.6 (80.0-100.0) fL MCH 29.4 (25.0-35.0) pg MCHC 30.4 L (31.0-37.0) g/dL RDW 17.9 H (11.5-15.5) % Plt Count 164 (150-450) k/uL MPV 10.1 Neutrophils % 90 % Lymphocytes % 1 % Monocytes % 6 % Eosinophils % 1 % Basophils % 2 % Neutrophils # 8.0 H (1.3-7.7) k/uL Lymphocytes # 0.1 L (1.0-4.8) k/uL Monocytes # 0.5 (0-1.0) k/uL Eosinophils # 0.0 (0-0.7) k/uL Basophils # 0.2 (0-0.2) k/uL Hypochromasia Marked Anisocytosis Slight Macrocytosis Slight PT 11.7 (9.0-12.0) sec INR 1.1 (<1.2) APTT 20.1 L (22.0-30.0) sec Sodium 140 (137-145) mmol/L Potassium 4.2 (3.5-5.1) mmol/L Chloride 96 L (98-107) mmol/L Carbon Dioxide 34 H (22-30) mmol/L Anion Gap 10 mmol/L BUN 34 H (7-17) mg/dL Creatinine 0.61 (0.52-1.04) mg/dL Est GFR (CKD-EPI)AfAm >90 (>60 ml/min/1.73 sqM) Est GFR (CKD-EPI)NonAf 87 (>60 ml/min/1.73 sqM) Glucose 168 H (74-99) mg/dL Calcium 8.9 (8.4-10.2) mg/dL Total Bilirubin 1.4 H (0.2-1.3) mg/dL AST 25 (14-36) U/L ALT 24 (4-34) U/L Alkaline Phosphatase 97 (38-126) U/L Troponin I (0.000-0.034) ng/mL NT-Pro-B Natriuret Pep pg/mL Total Protein 7.2 (6.3-8.2) g/dL Albumin 3.9 (3.5-5.0) g/dL 07/06/20 07/06/20 Range/Units 15:55 15:55 WBC (3.8-10.6) k/uL RBC (3.80-5.40) m/uL Hgb (11.4-16.0) gm/dL Hct (34.0-46.0) % MCV (80.0-100.0) fL MCH (25.0-35.0) pg MCHC (31.0-37.0) g/dL RDW (11.5-15.5) % Plt Count (150-450) k/uL MPV Neutrophils % % Lymphocytes % % Monocytes % % Eosinophils % % Basophils % % Neutrophils # (1.3-7.7) k/uL Lymphocytes # (1.0-4.8) k/uL Monocytes # (0-1.0) k/uL Eosinophils # (0-0.7) k/uL Basophils # (0-0.2) k/uL Hypochromasia Anisocytosis Macrocytosis PT (9.0-12.0) sec INR (<1.2) APTT (22.0-30.0) sec Sodium (137-145) mmol/L Potassium (3.5-5.1) mmol/L Chloride (98-107) mmol/L Carbon Dioxide (22-30) mmol/L Anion Gap mmol/L BUN (7-17) mg/dL Creatinine (0.52-1.04) mg/dL Est GFR (CKD-EPI)AfAm (>60 ml/min/1.73 sqM) Est GFR (CKD-EPI)NonAf (>60 ml/min/1.73 sqM) Glucose (74-99) mg/dL Calcium (8.4-10.2) mg/dL Total Bilirubin (0.2-1.3) mg/dL AST (14-36) U/L ALT (4-34) U/L Alkaline Phosphatase (38-126) U/L Troponin I 0.019 (0.000-0.034) ng/mL NT-Pro-B Natriuret Pep 4690 pg/mL Total Protein (6.3-8.2) g/dL Albumin (3.5-5.0) g/dL Disposition Clinical Impression: Congestive heart failure, Elevated brain natriuretic peptide (BNP) level Disposition: ADMITTED IP TO THIS HOSP Is patient prescribed a controlled substance at d/c from ED?: No Referrals: Lori Cortez DO [Primary Care Provider] - 1-2 days Time of Disposition: 18:00
[2020-07-06 16:20] LABS: ALT 24 U/L (4-34); AST 25 U/L (14-36); African American GFR (CKD) >90 (>60 ml/min/1.73 sqM); Albumin 3.9 g/dL (3.5-5.0); Alkaline Phosphatase 97 U/L (38-126); Anion Gap 10 mmol/L; Blood Urea Nitrogen 34 mg/dL (7-17); Calcium 8.9 mg/dL (8.4-10.2); Carbon Dioxide 34 mmol/L (22-30); Chloride 96 mmol/L (98-107); Glucose 168 mg/dL (74-99); Non-African American GFR(CKD) 87 (>60 ml/min/1.73 sqM); Potassium 4.2 mmol/L (3.5-5.1); Sodium 140 mmol/L (137-145); Total Bilirubin 1.4 mg/dL (0.2-1.3); Total Protein 7.2 g/dL (6.3-8.2)
[2020-07-06 16:32] LABS: INR 1.1 (<1.2); Partial Thromboplastin Time 20.1 sec (22.0-30.0); Prothrombin Time 11.7 sec (9.0-12.0)
--- NOTE | 2020-07-06 16:33 | XR ---
EXAMINATION TYPE: XR chest 2V DATE OF EXAM: 07/06/2020 COMPARISON: 11/04/2019. HISTORY: Shortness of breath. TECHNIQUE: Frontal and lateral views of the chest are obtained. FINDINGS: There is moderate interstitial edema with superimposed diffuse mild to moderate opacities. No significant pleural effusion, or pneumothorax seen. The cardiac silhouette size is enlarged. T he osseous structures are intact. IMPRESSION: Moderate interstitial edema with superimposed infiltrates not excluded..
[2020-07-06] MEDS ORDERED: ACETAMINOPHEN TAB 325 MG TAB PO STA (17:26)
[2020-07-06] MEDS ORDERED: FUROSEMIDE 10 MG/ML 10 ML VIAL IV STA (17:58)
[2020-07-06] MEDS ORDERED: BUDESONIDE 0.5 MG/2 ML NEBU INHALATION PRN (18:03)
[2020-07-06] MEDS ORDERED: ALBUTEROL NEBULIZED 2.5 MG/3 ML INHALATION PRN (18:03)
[2020-07-06] MEDS: BUDESONIDE 0.5 MG/2 ML NEBU INHALATION SCH (19:51)
[2020-07-06] MEDS: ALBUTEROL NEBULIZED 2.5 MG/3 ML INHALATION PRN (19:51)
[2020-07-06] MEDS: guaiFENesin SYRUP 100MG/5ML 200 MG/10 ML CUP PO PRN ×2 (20:06→20:07)
[2020-07-06] MEDS: NITROGLYCERIN OINT 1 INCH/GM PACKET TOPICAL SCH ×3 (20:19→22:35)
[2020-07-06] MEDS: ASPIRIN 325 MG TAB PO SCH (20:19)
[2020-07-06] MEDS: ATORVASTATIN 10 MG TAB PO SCH (22:38)
[2020-07-06] MEDS: MONTELUKAST 10 MG TAB PO SCH (22:38)
[2020-07-07] MEDS: ACETAMINOPHEN TAB 325 MG TAB PO PRN ×4 (00:07→22:53)
[2020-07-07] MEDS: ALPRAZolam 0.25 MG TAB PO PRN ×2 (00:26→18:01)
[2020-07-07] MEDS: guaiFENesin SYRUP 100MG/5ML 200 MG/10 ML CUP PO PRN ×4 (00:26→22:52)
[2020-07-07] MEDS: ALBUTEROL NEBULIZED 2.5 MG/3 ML INHALATION PRN ×2 (01:03→23:09)
[2020-07-07] MEDS: FUROSEMIDE 10 MG/ML 4 ML VIAL IV SCH ×2 (06:45→18:01)
[2020-07-07] MEDS: ALBUTEROL NEBULIZED 2.5 MG/3 ML INHALATION SCH ×3 (08:10→19:16)
[2020-07-07] MEDS: BUDESONIDE 0.5 MG/2 ML NEBU INHALATION SCH ×2 (08:10→19:16)
[2020-07-07] MEDS: ASPIRIN 325 MG TAB PO SCH (08:37)
[2020-07-07] MEDS: PANTOPRAZOLE 40 MG TABLET PO SCH (08:40)
[2020-07-07] MEDS: MULTIVITAMINS, THERA 1 EACH TAB PO SCH (08:40)
[2020-07-07] MEDS: POTASSIUM CHLORIDE ER 20 MEQ TAB.ER PO SCH (08:40)
[2020-07-07] MEDS: NITROGLYCERIN OINT 1 INCH/GM PACKET TOPICAL SCH ×4 (08:40→19:48)
[2020-07-07] MEDS: lisinopriL 5 MG TAB PO SCH (12:49)
[2020-07-07] MEDS: SPIRONOLACTONE 25 MG TAB PO SCH (12:49)
--- NOTE | 2020-07-07 12:50 | ECHOF ---
Referral Reason:elevated BNP, BLE edema MEASUREMENTS -------- HEIGHT: 154.9 cm WEIGHT: 88.0 kg BP: 126/74 RVIDd: 4.1 cm (< 3.3) IVSd: 0.9 cm (0.6 - 1.1) LVIDd: 2.9 cm (3.9 - 5.3) LVPWd: 1.0 cm (0.6 - 1.1) IVSs: 1.2 cm LVIDs: 1.8 cm LVPWs: 1.3 cm LA Diam: 3.1 cm (2.7 - 3.8) Ao Diam: 3.4 cm (2.0 - 3.7) AV Cusp: 2.0 cm (1.5 - 2.6) MV EXCURSION: 17.332 mm (> 18.000) MV EF SLOPE: 59 mm/s (70 - 150) EPSS: 0.3 cm MV E [place]: 0.66 m/s MV DecT: 232 ms MV A [place]: 0.81 m/s MV E/A Ratio: 0.82 RAP: 5.00 mmHg RVSP: 57.92 mmHg FINDINGS -------- Sinus rhythm. This was a technically adequate study. The left ventricular size is normal. Left ventricular wall thickness is normal. Overall left vent ricular systolic function is low-normal with, an EF between 50 - 55 %. The right ventricle is severely enlarged. The left atrium is normal in size. The right atrium is normal in size. There is mild aortic valve sclerosis. Mild mitral annular calcification present. Mild mitral regurgitation is present. Mild tricuspid regurgitation present. There is severe pulmonary hypertension. The right ventricul ar systolic pressure, as measured by Doppler, is 57.92mmHg. There is no pulmonic regurgitation present. The aortic root size is normal. IVC Not well visulized. There is no pericardial effusion. CONCLUSIONS -------- 1. The left ventricular size is normal. 2. Left ventricular wall thickness is normal. 3. Overall left ventricular systolic function is low-normal with, an EF between 50 - 55 %. 4. The right ventricle is severely enlarged. 5. There is mild aortic valve sclerosis. 6. Mild mitral annular calcification present. 7. Mild mitral regurgitation is present. 8. Mild tricuspid regurgitation present. 9. There is severe pulmonary hypertension. 10. The right ventricular systolic pressure, as measured by Doppler, is 57.92mmHg. 11. There is no pulmonic regurgitation present. 12. There is no pericardial effusion. [employer] COACH: Maylin Lemus RDCS
--- NOTE | 2020-07-07 13:43 | P.CRDCN ---
History of Present Illness History of present illness: HISTORY OF PRESENTING ILLNESS This is a pleasant 79-year-old female past medical history significant for chronic diastolic heart failure, COPD, dyslipidemia. She follows in the office with Dr. Lyman. Last seen in the office in 2019. We have been asked to see in consultation for bilateral lower extremity edema, congestive heart failure. Patient states that over the past week she's been having worsening lower extremity edema and shortness of breath. She states that she is always has ch ronic lower extremity edema but its been getting worse. She also noticed and increase in her weight. She denies any changes in fluid intake or diet change. She denies any chest pain, palpitations, lightheadedness, weakness or dizziness. She states her daughter brought her to the emergency department. She does where oxygen at home. She endorses shortness of breath when lying flat. Patient is seen and examined in the emergency department appears short of breath and on 6L nasal cannula. Laboratory data reviewed, WBC 8.8, hemoglobin 11, platelets 164, sodium 140, potassium 4.2, creatinine 0.61, glucose 168, BNP elevated at 4690, troponin negative 3, Covid 19 PCR negative. Vital signs blood pressure 120/71, heart rate 70s, afebrile, 97% on 6 L nasal cannula. EKG normal sinus rhythm with RBBB, T wave inversion in the inferolateral leads, no significant change from prior. Most recent Echo 2019 EF of 5560 percent, aortic valve is mildly thickened, mitral valve mildly thickened, trace MR, trace TR right ventricular systolic pressure is 15.9 mmHg. Chest xray moderate interstitial edema superimposed diffuse mild to moderate opacities, cardiac silhouette size is enlarged. Current cardiac medications include aspirin 81 mg daily, atorvastatin 10mg nightly, Lasix 20 mg twice a day, potassium chloride 20 mEq daily. 2D echo obtained today revealed EF 50-55%, RV is severely enlarged, mild , mild MR, mild TR, Severe pulmonary hypertension, RV systolic pressure measured 57.9 mmHg. REVIEW OF SYSTEMS At the time of my exam: CONSTITUTIONAL: Denies fever or chills. CARDIOVASCULAR: +shortness of breath +orthopnea,+ lower extremity edema Denies chest pain, PND or palpitations. RESPIRATORY: +cough GASTROINTESTINAL: Denies abdominal pain, diarrhea, constipation, nausea or vomiting. MUSCULOSKELETAL: Denies myalgias. NEUROLOGIC: Denies numbness, tingling, headacbe or weakness. ENDOCRINE: Denies fatigue, weight change, polydipsia or polyurina. GENITOURINARY: Denies burning, hematuria or urgency with micturation. HEMATOLOGIC: Denies history of anemia or bleeding. PHYSICAL EXAMINATION CONSTITUTIONAL: No apparent distress. HEENT: Head is normocephalic. Pupils are equal, round. Sclerae anicteric. Mucous membranes of the mouth are moist. No JVD. No carotid bruit. CHEST EXAMINATION: Lungs are diminished in bilateral bases to auscultation. No chest wall tenderness is noted on palpation or with deep breathing. HEART EXAMINATION: Regular rate and rhythm. S1, S2 heard. No murmurs, gallops or rub. ABDOMEN: Soft, nontender. Positive bowel sounds. EXTREMITIES: 2+ peripheral pulses, +4 pitting bilateral lower extremity and pedal edema, lower extremity pain with palpation SKIN: intact NEUROLOGIC EXAMINATION: Patient is awake, alert and oriented x3. ASSESSMENT Shortness of breath Lower extremity edema Acute exacerbation of diastolic Heart failure with preserved EF Severe pulmonary hypertension COPD Dyslipidemia PLAN -Will start aldactone 25mg daily, lisinopril 5mg daily -Continue IV Lasix 40mg BID for now, will reassess IV diuretic dose tomorrow -Heart Healthy Diet, I/Os, Daily Weights Nurse Practitioner note has been reviewed, I agree with a documented findings and plan of care. Patient was seen and examined. Past Medical History Past Medical History: Coronary Artery Disease (CAD), Heart Failure, COPD, GERD/Reflux, Hyperlipidemia History of Any Multi-Drug Resistant Organisms: None Reported Past Surgical History: Back Surgery Past Anesthesia/Blood Transfusion Reactions: No Reported Reaction Past Psychological History: Anxiety Smoking Status: Former smoker Past Alcohol Use History: None Reported Past Drug Use History: None Reported - Past Family History Mother Family Medical History: Myocardial Infarction ([place]) Brother(s) Family Medical History: Cancer, Myocardial Infarction ([place]) Additional Family Medical History / Comment(s): colon ca, 2 brother with ca Medications and Allergies Home Medications Medication Instructions Recorded Confirmed Type Acyclovir [Zovirax] 400 mg PO BID 04/12/18 07/06/20 History Budesonide [Pulmicort] 0.5 mg INHALATION RT-QID PRN 04/12/18 07/06/20 History Furosemide [Lasix] 20 mg PO BID 04/12/18 07/06/20 History Lovastatin [Mevacor] 20 mg PO HS 04/12/18 07/06/20 History Montelukast [Singulair] 10 mg PO HS 04/12/18 07/06/20 History Multivitamins, Thera [Multivitamin 1 tab PO DAILY 04/12/18 07/06/20 History (formulary)] Potassium Chloride ER [K-Dur 10] 20 meq PO DAILY 04/12/18 07/06/20 History Albuterol Inhaler [Ventolin Hfa 1 - 2 puff INHALATION RT-Q4H PRN 10/15/19 07/06/20 History Inhaler] Aspirin EC [Ecotrin Low Dose] 81 mg PO DAILY 10/15/19 07/06/20 History Fluticasone Nasal [place] [Flonase 1 spray EA NOSTRIL DAILY PRN 11/04/19 07/06/20 History Nasal [place]] ALPRAZolam [Xanax] 0.25 mg PO DAILY PRN 07/06/20 07/06/20 History Albuterol Nebulized [Ventolin 2.5 mg INHALATION RT-TID PRN 07/06/20 07/06/20 History Nebulized] Pantoprazole [Protonix] 40 mg PO DAILY 07/06/20 07/06/20 History guaiFENesin SYRUP 100MG/5ML 200 mg PO Q4H PRN 07/06/20 07/06/20 History [Robitussin] predniSONE [Deltasone] 40 mg PO DAILY 07/06/20 07/06/20 History Allergies Allergy/AdvReac Type Severity Reaction Status Date / Time naproxen Allergy Unknown Verified 07/06/20 17:07 amoxicillin [From Augmentin] AdvReac Unknown Verified 07/06/20 17:07 clavulanic acid AdvReac Unknown Verified 07/06/20 17:07 [From Augmentin] erythromycin base AdvReac Unknown Verified 07/06/20 17:07 Physical Exam Vitals: Vital Signs Temp Pulse Resp BP Pulse Ox 07/07/20 13:00 98.4 F 78 22 128/71 97 07/07/20 11:30 98.4 F 85 24 137/78 96 07/07/20 08:26 84 07/07/20 08:11 81 07/07/20 04:45 97.7 F 85 18 126/74 97 07/07/20 01:15 82 07/07/20 01:03 88 07/06/20 23:00 23 95 07/06/20 20:23 98.0 F 92 20 118/69 94 L 07/06/20 20:03 88 07/06/20 19:52 84 07/06/20 19:00 22 96 07/06/20 17:47 85 23 132/90 07/06/20 17:00 24 95 07/06/20 15:45 24 07/06/20 15:02 98.0 F 85 20 128/77 95 Intake and Output 07/06/20 07/07/20 07/07/20 22:59 06:59 14:59 Output Total 191 952 1870 Balance -500 -600 -1000 Output: Urine 159 266 8162 Other: Weight 87.997 kg Results 07/06/20 15:55 07/06/20 15:55 Cardiac Enzymes 07/06/20 07/06/20 07/06/20 Range/Units 15:55 15:55 18:58 AST 25 (14-36) U/L Troponin I 0.019 0.026 (0.000-0.034) ng/mL 07/06/20 Range/Units 21:39 AST (14-36) U/L Troponin I 0.024 (0.000-0.034) ng/mL Coagulation 07/06/20 Range/Units 15:55 PT 11.7 (9.0-12.0) sec APTT 20.1 L (22.0-30.0) sec CBC 07/06/20 Range/Units 15:55 WBC 8.8 (3.8-10.6) k/uL RBC 3.75 L (3.80-5.40) m/uL Hgb 11.0 L (11.4-16.0) gm/dL Hct 36.3 (34.0-46.0) % Plt Count 164 (150-450) k/uL Comprehensive Metabolic Panel 07/06/20 Range/Units 15:55 Sodium 140 (137-145) mmol/L Potassium 4.2 (3.5-5.1) mmol/L Chloride 96 L (98-107) mmol/L Carbon Dioxide 34 H (22-30) mmol/L BUN 34 H (7-17) mg/dL Creatinine 0.61 (0.52-1.04) mg/dL Glucose 168 H (74-99) mg/dL Calcium 8.9 (8.4-10.2) mg/dL AST 25 (14-36) U/L ALT 24 (4-34) U/L Alkaline Phosphatase 97 (38-126) U/L Total Protein 7.2 (6.3-8.2) g/dL Albumin 3.9 (3.5-5.0) g/dL Current Medications Generic Name Dose Route Start Last Admin Trade Name Freq PRN Reason Stop Dose Admin Acetaminophen 650 mg 07/06/20 23:41 07/07/20 09:47 Acetaminophen Tab 325 Mg Tab PO 650 mg Q4HR PRN Administration Fever and/ or Pain Albuterol Sulfate 2.5 mg 07/06/20 18:03 07/07/20 01:03 Albuterol Nebulized 2.5 Mg/3 Ml INHALATION 2.5 mg RT-Q4H PRN Administration Shortness Of Breath Albuterol Sulfate 2.5 mg 07/07/20 08:00 07/07/20 08:10 Albuterol Nebulized 2.5 Mg/3 Ml INHALATION 2.5 mg RT-TID RADHA Administration Alprazolam 0.25 mg 07/06/20 18:03 07/07/20 00:26 Alprazolam 0.25 Mg Tab PO 0.25 mg DAILY PRN Administration Anxiety Aspirin 325 mg 07/06/20 18:15 07/07/20 08:37 Aspirin 325 Mg Tab PO Not Given DAILY RADHA Atorvastatin Calcium 10 mg 07/06/20 21:00 07/06/20 22:38 Atorvastatin 10 Mg Tab PO 10 mg HS RADHA Administration Budesonide 0.5 mg 07/06/20 20:00 07/07/20 08:10 Budesonide 0.5 Mg/2 Ml Nebu INHALATION 0.5 mg RT-BID RADHA Administration Furosemide 40 mg 07/07/20 07:00 07/07/20 06:45 Furosemide 10 Mg/Ml 4 Ml Vial IV 40 mg Q12H RADHA Administration Guaifenesin 200 mg 07/06/20 18:03 07/07/20 04:08 Guaifenesin Syrup 100mg/5ml 200 Mg/10 Ml Cup PO 200 mg Q4H PRN Administration Congestion Lisinopril 5 mg 07/07/20 12:15 07/07/20 12:49 Lisinopril 5 Mg Tab PO 5 mg DAILY RADHA Administration Montelukast Sodium 10 mg 07/06/20 21:00 07/06/20 22:38 Montelukast 10 Mg Tab PO 10 mg HS RADHA Administration Multivitamins 1 each 07/07/20 09:00 07/07/20 08:40 Multivitamins, Thera 1 Each Tab PO 1 each DAILY RADHA Administration Nitroglycerin 0.5 inch 07/06/20 18:00 07/07/20 12:48 Nitroglycerin Oint 1 Inch/Gm Packet TOPICAL 0.5 inch QID RADHA Administration Pantoprazole Sodium 40 mg 07/07/20 09:00 07/07/20 08:40 Pantoprazole 40 Mg Tablet PO 40 mg DAILY RADHA Administration Potassium Chloride 20 meq 07/07/20 09:00 07/07/20 08:40 Potassium Chloride Er 20 Meq Tab.Er PO 20 meq DAILY RADHA Administration Spironolactone 25 mg 07/07/20 12:15 07/07/20 12:49 Spironolactone 25 Mg Tab PO 25 mg DAILY RADHA Administration Intake and Output 07/06/20 07/07/20 07/07/20 22:59 06:59 14:59 Output Total 726 157 9618 Balance -500 -600 -1000 Output: Urine 783 235 7847 Other: Weight 87.997 kg 07/06/20 15:55 07/06/20 15:55
[2020-07-07 13:55] VITALS: BMI 36.6
[2020-07-07] MEDS: HYDROcodone/APAP 5-325MG 1 EACH TAB PO PRN ×2 (15:34→23:13)
[2020-07-07] MEDS: FLUTICASONE 50MCG/SPRAY NASAL 16GM EA NOSTRIL SCH (17:38)
[2020-07-07] MEDS: ATORVASTATIN 10 MG TAB PO SCH (19:49)
[2020-07-07] MEDS: MONTELUKAST 10 MG TAB PO SCH (19:49)
[2020-07-08] MEDS: ALPRAZolam 0.25 MG TAB PO PRN ×2 (02:01→12:35)
[2020-07-08] MEDS: ALBUTEROL NEBULIZED 2.5 MG/3 ML INHALATION PRN ×2 (05:10→08:41)
[2020-07-08] MEDS: HYDROcodone/APAP 5-325MG 1 EACH TAB PO PRN ×3 (06:25→16:42)
[2020-07-08] MEDS: ALBUTEROL NEBULIZED 2.5 MG/3 ML INHALATION SCH ×2 (07:37→11:11)
[2020-07-08] MEDS: BUDESONIDE 0.5 MG/2 ML NEBU INHALATION SCH ×2 (07:37→19:53)
--- NOTE | 2020-07-08 09:00 | P.HPIM ---
History of Present Illness H&P Date: 07/08/20 Chief Complaint: shortness of breath Shaunna Keys is a 79 yo female with PMH for chronic diastolic heart failure, COPD, dyslipidemia who presented to the ED with worsening lower extremity edema and shortness of breath. She states that she is always has chronic lower extremity edema but its been getting worse. She also noticed and increase in her weight. She denies any changes in fluid intake or diet change. She is also complaining of orthopnea. She denies any chest pain, palpitations, lightheadedness, weakness or dizziness. She states her daughter brought her to the emergency department. She does wear oxygen at home. On presentation she was hypoxic requiring 6 LPM O2; WBC 8.8, hemoglobin 11, creatinine 0.61, glucose 168, BNP elevated at 4690, troponin negative 3, Covid 19 PCR negative. EKG normal sinus rhythm with RBBB. CXR with interstitial infiltrates. Review of Systems All systems: negative Constitutional: Reports malaise, Reports weakness, Reports weight gain, Denies chills, Denies fever Eyes: denies blurred vision, denies pain Ears, nose, mouth and throat: Denies headache, Denies sore throat Cardiovascular: Reports dyspnea on exertion, Reports edema, Reports leg edema, Denies chest pain, Denies shortness of breath Respiratory: Denies cough Gastrointestinal: Denies abdominal pain, Denies diarrhea, Denies nausea, Denies vomiting Genitourinary: Denies dysuria, Denies hematuria Musculoskeletal: Denies myalgias Integumentary: Denies pruritus, Denies rash Neurological: Denies numbness, Denies weakness Psychiatric: Denies anxiety, Denies depression Endocrine: Denies fatigue, Denies weight change Past Medical History Past Medical History: Coronary Artery Disease (CAD), Heart Failure, COPD, GERD/Reflux, Hyperlipidemia History of Any Multi-Drug Resistant Organisms: None Reported Past Surgical History: Back Surgery Past Anesthesia/Blood Transfusion Reactions: No Reported Reaction Past Psychological History: Anxiety Smoking Status: Former smoker Past Alcohol Use History: None Reported Past Drug Use History: None Reported - Past Family History Mother Family Medical History: Myocardial Infarction ([place]) Brother(s) Family Medical History: Cancer, Myocardial Infarction ([place]) Additional Family Medical History / Comment(s): colon ca, 2 brother with ca Medications and Allergies Home Medications Medication Instructions Recorded Confirmed Type Acyclovir [Zovirax] 400 mg PO BID 04/12/18 07/06/20 History Budesonide [Pulmicort] 0.5 mg INHALATION RT-QID PRN 04/12/18 07/06/20 History Furosemide [Lasix] 20 mg PO BID 04/12/18 07/06/20 History Lovastatin [Mevacor] 20 mg PO HS 04/12/18 07/06/20 History Montelukast [Singulair] 10 mg PO HS 04/12/18 07/06/20 History Multivitamins, Thera [Multivitamin 1 tab PO DAILY 04/12/18 07/06/20 History (formulary)] Potassium Chloride ER [K-Dur 10] 20 meq PO DAILY 04/12/18 07/06/20 History Albuterol Inhaler [Ventolin Hfa 1 - 2 puff INHALATION RT-Q4H PRN 10/15/19 07/06/20 History Inhaler] Aspirin EC [Ecotrin Low Dose] 81 mg PO DAILY 10/15/19 07/06/20 History Fluticasone Nasal [place] [Flonase 1 spray EA NOSTRIL DAILY PRN 11/04/19 07/06/20 History Nasal [place]] ALPRAZolam [Xanax] 0.25 mg PO DAILY PRN 07/06/20 07/06/20 History Albuterol Nebulized [Ventolin 2.5 mg INHALATION RT-TID PRN 07/06/20 07/06/20 History Nebulized] Pantoprazole [Protonix] 40 mg PO DAILY 07/06/20 07/06/20 History guaiFENesin SYRUP 100MG/5ML 200 mg PO Q4H PRN 07/06/20 07/06/20 History [Robitussin] predniSONE [Deltasone] 40 mg PO DAILY 07/06/20 07/06/20 History Allergies Allergy/AdvReac Type Severity Reaction Status Date / Time naproxen Allergy Unknown Verified 07/06/20 17:07 amoxicillin [From Augmentin] AdvReac Unknown Verified 07/06/20 17:07 clavulanic acid AdvReac Unknown Verified 07/06/20 17:07 [From Augmentin] erythromycin base AdvReac Unknown Verified 07/06/20 17:07 Physical Exam Vitals: Vital Signs Temp Pulse Pulse Resp BP BP Pulse Ox 07/08/20 08:41 78 07/08/20 07:55 77 07/08/20 07:37 76 07/08/20 07:00 98.3 F 85 16 91/46 85 L 07/08/20 05:18 84 07/08/20 05:10 84 07/08/20 02:00 89 16 07/08/20 01:25 98.0 F 89 16 104/64 91 L 07/07/20 23:17 88 07/07/20 23:09 84 07/07/20 19:54 98.3 F 84 16 79/49 94 L 07/07/20 19:32 92 18 07/07/20 19:16 88 18 07/07/20 15:26 88 18 07/07/20 15:16 85 18 07/07/20 15:07 98.1 F 92 18 104/62 92 L 07/07/20 13:41 98.1 F 87 18 104/62 91 L 07/07/20 13:00 98.4 F 78 22 128/71 97 07/07/20 11:30 98.4 F 85 24 137/78 96 Intake and Output 07/07/20 07/08/20 07/08/20 22:59 06:59 14:59 Output Total 150 Balance -150 Output: Urine 150 Other: Voiding Method Indwelling Catheter Weight 87.97 kg General: well developed, well nourished, NAD HEENT: normocephalic, on 6 LPM O2 Neck: supple, no thyromegaly. JVD present CV: RRR, no murmur. Pulses 2+ Lungs: Normal effort. Rales at bases Abd: soft, nontender, non distended Neuro: alert and oriented x3, no focal deficits Skin: warm and dry Results CBC & Chem 7: 07/06/20 15:55 07/06/20 15:55 Thrombosis Risk Factor Assmnt - Choose All That Apply Each Risk Factor Represents 3 Points: Age 75 years or older Thrombosis Risk Factor Assessment Total Risk Factor Score: 3 Thrombosis Risk Factor Assessment Level: Moderate Risk Assessment and Plan Plan: 1. Acute on chronic diastolic CHF. Admit, start IV lasix. Cardiology consult. Continue with aldactone, lipitor. Continue lisinopril. Daily weights 2. COPD. Continue with albuterol, singulair
[2020-07-08] MEDS: FUROSEMIDE 10 MG/ML 4 ML VIAL IV SCH ×2 (09:21→19:33)
[2020-07-08] MEDS: NITROGLYCERIN OINT 1 INCH/GM PACKET TOPICAL SCH ×3 (09:21→19:30)
[2020-07-08] MEDS: POTASSIUM CHLORIDE ER 20 MEQ TAB.ER PO SCH (09:21)
[2020-07-08] MEDS: SPIRONOLACTONE 25 MG TAB PO SCH (09:22)
[2020-07-08] MEDS: MULTIVITAMINS, THERA 1 EACH TAB PO SCH (09:22)
[2020-07-08] MEDS: PANTOPRAZOLE 40 MG TABLET PO SCH (09:22)
[2020-07-08] MEDS: ASPIRIN 325 MG TAB PO SCH (09:23)
[2020-07-08] MEDS: FLUTICASONE 50MCG/SPRAY NASAL 16GM EA NOSTRIL SCH (09:24)
[2020-07-08] MEDS: lisinopriL 5 MG TAB PO SCH (09:25)
--- NOTE | 2020-07-08 11:16 | P.PN ---
Subjective This is a pleasant 79-year-old female past medical history significant for chronic diastolic heart failure, COPD, dyslipidemia. She follows in the office with Dr. Lyman. Last seen in the office in 2019. We have been asked to see in consultation for bilateral lower extremity edema, congestive heart failure. Patient states that over the past week she's been having worsening lower extremity edema and shortness of breath. She states that she is always has chronic lower extremity edema but its been getting worse. She also noticed and increase in her weight. She denies any changes in fluid intake or diet change. She denies any chest pain, palpitations, lightheadedness, weakness or dizziness. She states her daughter brought her to the emergency department. She does where oxygen at home. She endorses shortness of breath when lying flat. Patient is seen and examined in the emergency department appears short of breath and on 6L nasal cannula. Laboratory data reviewed, WBC 8.8, hemoglobin 11, platelets 164, sodium 140, potassium 4.2, creatinine 0.61, glucose 168, BNP elevated at 4690, troponin negative 3, Covid 19 PCR negative. Vital signs blood pressure 120/71, heart rate 70s, afebrile, 97% on 6 L nasal cannula. EKG normal sinus rhythm with RBBB, T wave inversion in the inferolateral leads, no significant change from prior. Most recent Echo 2019 EF of 5560 percent, aortic valve is mildly thickened, mitral valve mildly thickened, trace MR, trace TR right ventricular systolic pressure is 15.9 mmHg. Chest xray moderate interstitial edema superimposed diffuse mild to moderate opacities, cardiac silhouette size is enlarged. Current home cardiac medications include aspirin 81 mg daily, atorvastatin 10mg nightly, Lasix 20 mg twice a day, potassium chloride 20 mEq daily. 07/08/20: 2D echo on 07/07 obtained today revealed EF 50-55%, RV is severely enlarged, mild , mild MR, mild TR, Severe pulmonary hypertension, RV systolic pressure measured 57.9 mmHg. Patient seen and examined at bedside. Sitting up in chair, appears labored breathing. Does endorse some shortness of breath. Denies chest pain, palpitations, lightheadedness, dizziness, feelings of syncope. Blood pressure 91/46, heart rate 85, afebrile, patient needing 5-6 L nasal cannula to maintain oxygen saturations. Telemetry reviewed, patient in sinus mechanism h eart rate 8890s. PHYSICAL EXAMINATION CONSTITUTIONAL: No apparent distress CHEST EXAMINATION: Crackles noted in bilateral bases to auscultation. No chest wall tenderness is noted on palpation or with deep breathing. HEART EXAMINATION: Regular rate and rhythm. S1, S2 heard. No murmurs, gallops or rub. ABDOMEN: Soft, nontender. Positive bowel sounds. : Indwelling mendieta catheter with dark yellow urine draining EXTREMITIES: 2+ peripheral pulses, +4 pitting bilateral lower extremity and pedal edema, lower extremity pain with palpation SKIN: intact NEUROLOGIC EXAMINATION: Patient is awake, alert and oriented x3. ASSESSMENT Shortness of breath Lower extremity edema Acute exacerbation of diastolic Heart failure with preserved EF Severe pulmonary hypertension COPD Dyslipidemia PLAN -Will increase IV Lasix to 40mg Q8hr -Continue to monitor renal function and electrolytes with BMP daily -Continue aldactone 25mg daily, lisinopril 5mg daily -Heart Healthy Diet, I/Os, Daily Weights Nurse Practitioner note has been reviewed, I agree with a documented findings and plan of care. Patient was seen and examined. Objective - Vital Signs Vital signs: Vital Signs Temp 98.3 F 07/08/20 07:00 Pulse 78 07/08/20 08:50 Resp 18 07/08/20 08:00 BP 91/46 07/08/20 07:00 Pulse Ox 85 L 07/08/20 07:00 Intake & Output 07/07/20 07/08/20 07/08/20 18:59 06:59 18:59 Output Total 1000 150 Balance -1000 -150 Weight 87.97 kg Output: Urine 1000 150 Other: Voiding Method Indwelling Catheter - Labs CBC & Chem 7: 07/06/20 15:55 07/06/20 15:55
[2020-07-08 11:37] LABS: African American GFR (CKD) 55 (>60 ml/min/1.73 sqM); Anion Gap 6 mmol/L; Blood Urea Nitrogen 40 mg/dL (7-17); Calcium 8.5 mg/dL (8.4-10.2); Carbon Dioxide 33 mmol/L (22-30); Chloride 95 mmol/L (98-107); Glucose 158 mg/dL (74-99); Magnesium 2.2 mg/dL (1.6-2.3); Non-African American GFR(CKD) 48 (>60 ml/min/1.73 sqM); Potassium 4.3 mmol/L (3.5-5.1); Sodium 134 mmol/L (137-145)
--- NOTE | 2020-07-08 14:57 | P.PN ---
Subjective Progress Note Date: 07/08/20 Shaunna Keys is a 79 yo female with PMH for chronic diastolic heart failure, COPD, dyslipidemia who presented to the ED with worsening lower extremity edema and shortness of breath. She states that she is always has chronic lower extremity edema but its been getting worse. She also noticed and increase in her weight. She denies any changes in fluid intake or diet change. She is also complaining of orthopnea. She denies any chest pain, palpitations, lightheadedness, weakness or dizziness. She states her daughter brought her to the emergency department. She does wear oxygen at home. On presentation she was hypoxic requiring 6 LPM O2; WBC 8.8, hemoglobin 11, creatinine 0.61, glucose 168, BNP elevated at 4690, troponin negative 3, Covid 19 PCR negative. EKG normal sinus rhythm with RBBB. CXR with interstitial infiltrates. 07/08/2020 sitting up in chair, maintaining O2 sats in the 90s on 6 L nasal cannula. Extremely weak with limited reserve upon minimal exertion. Congested nonproductive cough. Diuresing well on Lasix IV push with 24-hour I&O reflecting a negative fluid balance. Renal function worsening, BUN 40, creatinine up to 1.11. Echo reporting low normal LV function, EF 50-55%, severe pulmonary hypertension. Denies chest pain, palpitations. Telemetry sinus rhythm. Objective - Vital Signs Vital signs: Vital Signs Temp 98.3 F 07/08/20 07:00 Pulse 82 07/08/20 11:23 Resp 18 07/08/20 08:00 BP 91/46 07/08/20 07:00 Pulse Ox 85 L 07/08/20 07:00 Intake & Output 07/07/20 07/08/20 07/08/20 18:59 06:59 18:59 Output Total 1000 150 Balance -1000 -150 Weight 87.97 kg Output: Urine 1000 150 Other: Voiding Method Indwelling Catheter - Exam General: Sitting up in chair, NAD, respiratory effort increased HEENT: normocephalic, on 6 LPM O2 Neck: supple, no thyromegaly. JVD present CV: RRR, no murmur. Pulses 2+, positive edema Lungs: Normal effort. Rales at bases, scattered expiratory wheezing Abd: soft, nontender, non distended, positive bowel sounds. Neuro: alert and oriented x3, no focal deficits Skin: warm and dry - Labs CBC & Chem 7: 07/06/20 15:55 07/08/20 10:31 Labs: Abnormal Lab Results - Last 24 Hours (Table) 07/08/20 Range/Units 10:31 Sodium 134 L (137-145) mmol/L Chloride 95 L (98-107) mmol/L Carbon Dioxide 33 H (22-30) mmol/L BUN 40 H (7-17) mg/dL Creatinine 1.11 H (0.52-1.04) mg/dL Glucose 158 H (74-99) mg/dL Assessment and Plan Assessment: 1. Acute on chronic diastolic CHF. Admit, start IV lasix. Cardiology consult. Continue with aldactone, lipitor. Continue lisinopril. Daily weights 2. COPD. Continue with albuterol, singulair 3. Severe pulmonary hypertension Plan: Continue on current medication regime ,monitoring and symptomatic treatment. Diuretics as per cardiology. Close monitoring of renal function,with repeat labs ordered for a.m. Aggressive pulmonary toileting, duo nebs, Pulmicort. Extremely weak, PT/OT consulted. Possible subacute rehab at discharge. The impression and plan of care has been dictated as directed. : I performed a history and examination of this patient, discussed the same with the dictator. I agree with the dictator's note ,documented as a scribe. Any additional findings or plans will be noted.
[2020-07-08] MEDS: IPRATROPIUM-ALBUTEROL 3 ML NEB INHALATION SCH ×2 (15:55→19:50)
[2020-07-08] MEDS ORDERED: FUROSEMIDE 10 MG/ML 4 ML VIAL IV SCH (16:00)
[2020-07-08] MEDS: guaiFENesin SYRUP 100MG/5ML 200 MG/10 ML CUP PO PRN (16:42)
[2020-07-08] MEDS: MONTELUKAST 10 MG TAB PO SCH (19:31)
[2020-07-08] MEDS: ACETAMINOPHEN TAB 325 MG TAB PO PRN (19:32)
[2020-07-08] MEDS: ATORVASTATIN 10 MG TAB PO SCH (19:33)
[2020-07-09] MEDS: IPRATROPIUM-ALBUTEROL 3 ML NEB INHALATION PRN (00:47)
[2020-07-09] MEDS: NITROGLYCERIN OINT 1 INCH/GM PACKET TOPICAL SCH ×5 (00:53→22:42)
[2020-07-09] MEDS: ACETAMINOPHEN TAB 325 MG TAB PO PRN ×3 (02:12→14:43)
[2020-07-09] MEDS: guaiFENesin SYRUP 100MG/5ML 200 MG/10 ML CUP PO PRN ×2 (06:12→14:43)
[2020-07-09] MEDS: BUDESONIDE 0.5 MG/2 ML NEBU INHALATION SCH ×2 (07:22→19:41)
[2020-07-09] MEDS: IPRATROPIUM-ALBUTEROL 3 ML NEB INHALATION SCH ×4 (07:23→19:34)
[2020-07-09] MEDS: ASPIRIN 81 MG PO SCH (08:27)
[2020-07-09] MEDS: PANTOPRAZOLE 40 MG TABLET PO SCH (08:27)
[2020-07-09] MEDS: MULTIVITAMINS, THERA 1 EACH TAB PO SCH (08:27)
[2020-07-09] MEDS: FLUTICASONE 50MCG/SPRAY NASAL 16GM EA NOSTRIL SCH (08:30)
[2020-07-09] MEDS: lisinopriL 5 MG TAB PO SCH (08:30)
[2020-07-09] MEDS: FUROSEMIDE 10 MG/ML 4 ML VIAL IV SCH (08:30)
[2020-07-09] MEDS: POTASSIUM CHLORIDE ER 20 MEQ TAB.ER PO SCH ×2 (08:31→09:37)
[2020-07-09 09:28] LABS: African American GFR (CKD) 35.2 (60.0-200.0); Anion Gap 11.3 mmol/L (4.00-12.00); BUN/Creat Ratio 28.13 Ratio (12.00-20.00); Calcium 8.6 mg/dL (8.7-10.3); Carbon Dioxide 30.7 mmol/L (21.6-31.8); Magnesium 2.3 mg/dL (1.5-2.4); Non-African American GFR(CKD) 30.3 (60.0-200.0); Potassium 4.6 mmol/L (3.5-5.5)
[2020-07-09] MEDS: SPIRONOLACTONE 25 MG TAB PO SCH (09:37)
--- NOTE | 2020-07-09 10:14 | P.PN ---
Subjective This is a pleasant 79-year-old female past medical history significant for chronic diastolic heart failure, COPD, dyslipidemia. She follows in the office with Dr. Lyman. Last seen in the office in 2019. We have been asked to see in consultation for bilateral lower extremity edema, congestive heart failure. Patient states that over the past week she's been having worsening lower extremity edema and shortness of breath. She states that she is always has chronic lower extremity edema but its been getting worse. She also noticed and increase in her weight. She denies any changes in fluid intake or diet change. She denies any chest pain, palpitations, lightheadedness, weakness or dizziness. She states her daughter brought her to the emergency department. She does where oxygen at home. She endorses shortness of breath when lying flat. Patient is seen and examined in the emergency department appears short of breath and on 6L nasal cannula. Laboratory data reviewed, sodium 140, potassium 4.2, creatinine 0.61, glucose 168, BNP elevated at 4690, troponin negative 3, Covid 19 PCR negative. Vital signs blood pressure 120/71, heart rate 70s, afebrile, 97% on 6 L nasal cannula. EKG normal sinus rhythm with RBBB, T wave inversion in the inf erolateral leads, no significant change from prior. Most recent Echo 2019 EF of 5560 percent, aortic valve is mildly thickened, mitral valve mildly thickened, trace MR, trace TR right ventricular systolic pressure is 15.9 mmHg. Chest xray moderate interstitial edema superimposed diffuse mild to moderate opacities, cardiac silhouette size is enlarged. Current home cardiac medications include aspirin 81 mg daily, atorvastatin 10mg nightly, Lasix 20 mg twice a day, potassium chloride 20 mEq daily. 2D echo on 07/07 obtained today revealed EF 50-55%, RV is severely enlarged, mild , mild MR, mild TR, Severe pulmonary hypertension, RV systolic pressure measured 57.9 mmHg. 07/09/20: Patient seen and examined at bedside. Sitting up in chair, appears to have shallow breathing, however patient denies shortness of breath or worsening breath. Yesterday, with 1150mL urine output. Per RN Mendieta catheter was removed per patient request, but then re-inserted. Unsure of how much was urinated between that time. Patient did have 200mL urine output this morning from 5am to 8am. Denies chest pain, palpitations, lightheadedness, dizziness, feelings of syncope. Patient hypotensive, however asmptomatic. Blood pressure 70/42, heart rate 84, afebrile, patient needing 5-6 L nasal cannula to maintain oxygen saturations. Laboratory data reviewed, sodium 135, potassium 4.6, creatinine 1.6, BUN 45, magnesium 2.3. Patient is currently being maintained on IV Lasix 40 mg twice a day, spironolactone 25 mg daily, lisinopril 5 mg daily, aspirin 81 mg daily. PHYSICAL EXAMINATION CONSTITUTIONAL: Shallow breathing noted, on 6L nasal cannula, No acute distress CHEST EXAMINATION: Crackles noted in bilateral bases to auscultation. No chest wall tenderness is noted on palpation or with deep breathing. HEART EXAMINATION: Regular rate and rhythm. S1, S2 heard. No murmurs, gallops or rub. ABDOMEN: Soft, nontender. Positive bowel sounds. : Indwelling mendieta catheter with dark yellow cloudy urine draining EXTREMITIES: 2+ peripheral pulses, Severe +4 pitting bilateral lower extremity up to patient's thighs and pedal edema, lower extremity pain with palpation SKIN: intact NEUROLOGIC EXAMINATION: Patient is awake, alert and oriented x3. ASSESSMENT Acute Kidney Injury serum creatinine trend 0.6-->1.11-->1.6 Shortness of breath Lower extremity edema Acute exacerbation of diastolic Heart failure with preserved EF Severe pulmonary hypertension COPD Dyslipidemia PLAN -Will hold IV lasix today -Decrease spironolactone to 12.5mg daily -Hold Lisinopril for hypotension today -Continue to monitor renal function and electrolytes with BMP daily -Heart Healthy Diet, I/Os, Daily Weights Nurse Practitioner note has been reviewed, I agree with a documented findings and plan of care. Patient was seen and examined. Objective - Vital Signs Vital signs: Vital Signs Temp 97.5 F L 07/09/20 00:45 Pulse 84 07/09/20 07:38 Resp 20 07/09/20 07:54 BP 70/42 07/09/20 05:46 Pulse Ox 93 L 07/09/20 00:45 Intake & Output 07/08/20 07/09/20 07/09/20 18:59 06:59 18:59 Weight 99.5 kg Other: Voiding Method Indwelling Catheter Indwelling Catheter - Labs CBC & Chem 7: 07/06/20 15:55 07/09/20 05:44 Labs: Abnormal Lab Results - Last 24 Hours (Table) 07/08/20 07/09/20 Range/Units 10:31 05:44 Sodium 134 L (137-145) mmol/L Chloride 95 L 93 L (98-107) mmol/L Carbon Dioxide 33 H (22-30) mmol/L BUN 40 H 45.0 H (7-17) mg/dL Creatinine 1.11 H 1.6 H (0.52-1.04) mg/dL Est GFR (CKD-EPI)AfAm 35.2 L (60.0-200.0) Est GFR (CKD-EPI)NonAf 30.3 L (60.0-200.0) BUN/Creatinine Ratio 28.13 H (12.00-20.00) Ratio Glucose 158 H (74-99) mg/dL Calcium 8.6 L (8.7-10.3) mg/dL
[2020-07-09] MEDS: MIDODRINE 5 MG TAB PO SCH ×2 (13:15→17:38)
[2020-07-09] MEDS: ALPRAZolam 0.25 MG TAB PO PRN (14:58)
--- NOTE | 2020-07-09 15:01 | P.PN ---
Subjective Progress Note Date: 07/09/20 Shaunna Keys is a 79 yo female with PMH for chronic diastolic heart failure, COPD, dyslipidemia who presented to the ED with worsening lower extremity edema and shortness of breath. She states that she is always has chronic lower extremity edema but its been getting worse. She also noticed and increase in her weight. She denies any changes in fluid intake or diet change. She is also complaining of orthopnea. She denies any chest pain, palpitations, lightheadedness, weakness or dizziness. She states her daughter brought her to the emergency department. She does wear oxygen at home. On presentation she was hypoxic requiring 6 LPM O2; WBC 8.8, hemoglobin 11, creatinine 0.61, glucose 168, BNP elevated at 4690, troponin negative 3, Covid 19 PCR negative. EKG normal sinus rhythm with RBBB. CXR with interstitial infiltrates. 07/08/2020 sitting up in chair, maintaining O2 sats in the 90s on 6 L nasal cannula. Extremely weak with limited reserve upon minimal exertion. Congested nonproductive cough. Diuresing well on Lasix IV push with 24-hour I&O reflecting a negative fluid balance. Renal function worsening, BUN 40, creatinine up to 1.11. Echo reporting low normal LV function, EF 50-55%, severe pulmonary hypertension. Denies chest pain, palpitations. Telemetry sinus rhythm. 07/09/2020 Moya discontinued yesterday ,developed urinary retention, Moya replaced. Hypotensive throughout the night and this morning, asymptomatic. Renal function worsening, BUN 45, creatinine 1.6. Lisinopril, Lasix held. Aldactone decreased. Denies chest pain, palpitations or increased shortness of breath. Patient declined PT both yesterday and today. Objective - Vital Signs Vital signs: Vital Signs Temp 97.9 F 07/09/20 07:00 Pulse 96 07/09/20 11:30 Resp 20 07/09/20 07:54 BP 77/47 07/09/20 07:00 Pulse Ox 92 L 07/09/20 07:00 Intake & Output 07/08/20 07/09/20 07/09/20 18:59 06:59 18:59 Intake Total 240 Balance 240 Weight 99.5 kg Intake: Oral 240 Other: Voiding Method Indwelling Catheter Indwelling Catheter - Exam General: Sitting up in chair, NAD HEENT: normocephalic, on 6 LPM O2 Neck: supple, no thyromegaly. JVD present CV: RRR, no murmur. Pulses 2+, positive edema Lungs: Normal effort. Rales at bases Abd: soft, nontender, non distended, positive bowel sounds. Neuro: alert and oriented x3, no focal deficits Skin: warm and dry - Labs CBC & Chem 7: 07/06/20 15:55 07/09/20 05:44 Labs: Abnormal Lab Results - Last 24 Hours (Table) 07/09/20 Range/Units 05:44 Chloride 93 L (96-109) mmol/L BUN 45.0 H (9.0-27.0) mg/dL Creatinine 1.6 H (0.6-1.5) mg/dL Est GFR (CKD-EPI)AfAm 35.2 L (60.0-200.0) Est GFR (CKD-EPI)NonAf 30.3 L (60.0-200.0) BUN/Creatinine Ratio 28.13 H (12.00-20.00) Ratio Calcium 8.6 L (8.7-10.3) mg/dL Assessment and Plan Assessment: 1. Acute on chronic diastolic CHF. Admit, start IV lasix. Cardiology consult. Continue with aldactone, lipitor. Continue lisinopril. Daily weights 2. Acute renal failure 3. Hypotension 4. COPD 5. Severe pulmonary hypertension Plan: Continue on current medication regime ,monitoring and symptomatic treatme nt. Antihypertensives and Lasix on hold . Midodrin if ok with cardiology. Aggressive pulmonary toileting with nebulized bronchodilators/Pulmicort. Close monitoring of renal function with repeat labs ordered for a.m. PT/OT.Possible subacute rehab at discharge. The impression and plan of care has been dictated as directed. : I performed a history and examination of this patient, discussed the same with the dictator. I agree with the dictator's note ,documented as a scribe. Any additional findings or plans will be noted.
[2020-07-09] MEDS: HYDROcodone/APAP 5-325MG 1 EACH TAB PO PRN (21:22)
[2020-07-09] MEDS: MONTELUKAST 10 MG TAB PO SCH (21:22)
[2020-07-09] MEDS: ATORVASTATIN 10 MG TAB PO SCH (21:22)
[2020-07-10] MEDS: BUDESONIDE 0.5 MG/2 ML NEBU INHALATION SCH ×2 (07:27→19:57)
[2020-07-10] MEDS: IPRATROPIUM-ALBUTEROL 3 ML NEB INHALATION SCH ×4 (07:27→19:57)
[2020-07-10] MEDS: SPIRONOLACTONE 25 MG TAB PO SCH (07:50)
[2020-07-10] MEDS: HYDROcodone/APAP 5-325MG 1 EACH TAB PO PRN ×2 (07:51→18:21)
[2020-07-10] MEDS: MULTIVITAMINS, THERA 1 EACH TAB PO SCH (07:51)
[2020-07-10] MEDS: ASPIRIN 81 MG PO SCH (07:51)
[2020-07-10] MEDS: PANTOPRAZOLE 40 MG TABLET PO SCH (07:51)
[2020-07-10] MEDS: FLUTICASONE 50MCG/SPRAY NASAL 16GM EA NOSTRIL SCH (07:53)
[2020-07-10] MEDS: ALPRAZolam 0.25 MG TAB PO PRN (07:57)
[2020-07-10] MEDS: MIDODRINE 5 MG TAB PO SCH ×2 (09:03→16:55)
[2020-07-10] MEDS: NITROGLYCERIN OINT 1 INCH/GM PACKET TOPICAL SCH ×4 (10:13→20:55)
[2020-07-10 10:54] LABS: HGB 9.1 g/dL (12.0-15.0); MCH 28.5 pg (27.0-32.0); MCHC 28.4 g/dL (32.0-37.0); MCV 100.3 fL (80.0-97.0); Mean Platelet Volume 11.2 fL (9.5-12.2); Platelet Count 223 X 10*3/uL (140-440); RBC 3.19 X 10*6/uL (4.10-5.20); RDW 18.5 % (11.5-14.5); WBC 12.72 X 10*3/uL (4.50-10.00)
[2020-07-10 11:30] LABS: Anisocytosis (M) 2+; Basophils # (M) 0 X 10*3/uL (0.00-0.10); Eosinophils # (M) 0 X 10*3/uL (0.04-0.35); Lymphocytes # (M) 0.38 X 10*3/uL (0.90-5.00); Monocytes # (M) 1.65 X 10*3/uL (0.20-1.00); Neutrophils # (M) 10.68 X 10*3/uL (2.00-8.90); Neutrophils % (M) 84 %
--- NOTE | 2020-07-10 12:37 | P.DS ---
Providers Date of admission: 07/07/20 15:20 Expected date of discharge: 07/10/20 Attending physician: Guido Byrne MD Consults: 07/06/20 18:00 Consult Physician Routine Consulting Provider: [facility] Consult Reason/Comments: CHF exacerbation Do you want consulting provider notified?: Yes Primary care physician: [facility] Course: Patient leaving AMA Final Diagnoses: 1. Acute on chronic diastolic CHF. 2. Acute on chronic hypoxic respiratory failure 3. Acute renal failure 4. Hypotension, improved 4. COPD 5. Severe pulmonary hypertension 6. Anxiety Shaunna Keys is a 79 yo female with PMH for chronic diastolic heart failure, COPD, dyslipidemia who presented to the ED with worsening lower extremity edema and shortness of breath. She states that she is always has chronic lower extremity edema but its been getting worse. She also noticed and increase in her weight. She denies any changes in fluid intake or diet change. She is also complaining of orthopnea. She denies any chest pain, palpitations, lightheadedness, weakness or dizziness. She states her daughter brought her to the emergency department. She does wear oxygen at home. On presentation she was hypoxic requiring 6 LPM O2; WBC 8.8, hemoglobin 11, creatinine 0.61, glucose 168, BNP elevated at 4690, troponin negative 3, Covid 19 PCR negative. EKG normal sinus rhythm with RBBB. CXR with interstitial infiltrates. 07/08/2020 sitting up in chair, maintaining O2 sats in the 90s on 6 L nasal cannula. Extremely weak with limited reserve upon minimal exertion. Congested nonproductive cough. Diuresing well on Lasix IV push with 24-hour I&O reflecting a negative fluid balance. Renal function worsening, BUN 40, creatinine up to 1.11. Echo reporting low normal LV function, EF 50-55%, severe pulmonary hypertension. Denies chest pain, palpitations. Telemetry sinus rhythm. 07/09/2020 Moya discontinued yesterday ,developed urinary retention, Moya replaced. Hypotensive throughout the night and this morning, asymptomatic. Renal function worsening, BUN 45, creatinine 1.6. Lisinopril, Lasix held. Aldactone decreased. Denies chest pain, palpitations or increased shortness of breath. Patient declined PT both yesterday and today. Patient is not ready for discharge. Expounded on plan of care, patient insisting on leaving AMA.Continues to have bibasilar crackles, significant edema. Patient continues to decline PT/OT, refuses to use hospital bed, refuses to move out of bedside recliner despite daily discussion regarding risk of skin breakdown and encouragement. Patient reports she has visiting nurses and visiting physician at home. The impression and plan of care has been dictated as directed. : I performed a history and examination of this patient, discussed the same with the dictator. I agree with the dictator's note ,documented as a scribe. Any additional findings or plans will be noted. Plan - Discharge Summary Discharge Rx Participant: Yes New Discharge Prescriptions: No Action Budesonide [Pulmicort] 0.5 mg INHALATION RT-QID PRN PRN Reason: Shortness Of Breath Multivitamins, Thera [Multivitamin (formulary)] 1 tab PO DAILY Potassium Chloride ER [K-Dur 10] 20 meq PO DAILY Montelukast [Singulair] 10 mg PO HS Lovastatin [Mevacor] 20 mg PO HS Furosemide [Lasix] 20 mg PO BID Acyclovir [Zovirax] 400 mg PO BID Albuterol Inhaler [Ventolin Hfa Inhaler] 1 - 2 puff INHALATION RT-Q4H PRN PRN Reason: Shortness Of Breath Aspirin EC [Ecotrin Low Dose] 81 mg PO DAILY Fluticasone Nasal [place] [Flonase Nasal [place]] 1 spray EA NOSTRIL DAILY PRN PRN Reason: Allergy Symptoms ALPRAZolam [Xanax] 0.25 mg PO DAILY PRN PRN Reason: Anxiety guaiFENesin SYRUP 100MG/5ML [Robitussin] 200 mg PO Q4H PRN PRN Reason: Congestion predniSONE [Deltasone] 40 mg PO DAILY Albuterol Nebulized [Ventolin Nebulized] 2.5 mg INHALATION RT-TID PRN PRN Reason: Shortness Of Breath Or Wheezing Pantoprazole [Protonix] 40 mg PO DAILY Discharge Medication List Acyclovir [Zovirax] 400 mg PO BID 04/12/18 [History] Budesonide [Pulmicort] 0.5 mg INHALATION RT-QID PRN 04/12/18 [History] Furosemide [Lasix] 20 mg PO BID 04/12/18 [History] Lovastatin [Mevacor] 20 mg PO HS 04/12/18 [History] Montelukast [Singulair] 10 mg PO HS 04/12/18 [History] Multivitamins, Thera [Multivitamin (formulary)] 1 tab PO DAILY 04/12/18 [History] Potassium Chloride ER [K-Dur 10] 20 meq PO DAILY 04/12/18 [History] Albuterol Inhaler [Ventolin Hfa Inhaler] 1 - 2 puff INHALATION RT-Q4H PRN 10/15/19 [History] Aspirin EC [Ecotrin Low Dose] 81 mg PO DAILY 10/15/19 [History] Fluticasone Nasal [place] [Flonase Nasal [place]] 1 spray EA NOSTRIL DAILY PRN 11/04/19 [History] ALPRAZolam [Xanax] 0.25 mg PO DAILY PRN 07/06/20 [History] Albuterol Nebulized [Ventolin Nebulized] 2.5 mg INHALATION RT-TID PRN 07/06/20 [History] Pantoprazole [Protonix] 40 mg PO DAILY 07/06/20 [History] guaiFENesin SYRUP 100MG/5ML [Robitussin] 200 mg PO Q4H PRN 07/06/20 [History] predniSONE [Deltasone] 40 mg PO DAILY 07/06/20 [History] Follow up Appointment(s)/Referral(s): Lori Cortez DO [REFERRING] - 1-2 days Franki Lyman MD [STAFF PHYSICIAN] - 2 Weeks [facility] Visiting Nurse, [NON-STAFF] - 1-2 Days
--- NOTE | 2020-07-10 14:22 | P.PN ---
Subjective This is a pleasant 79-year-old female past medical history significant for chronic diastolic heart failure, COPD, dyslipidemia. She follows in the office with Dr. Lyman. Last seen in the office in 2019. We have been asked to see in consultation for bilateral lower extremity edema, congestive heart failure. Patient states that over the past week she's been having worsening lower extremity edema and shortness of breath. She states that she is always has chronic lower extremity edema but its been getting worse. She also noticed and increase in her weight. She denies any changes in fluid intake or diet change. She denies any chest pain, palpitations, lightheadedness, weakness or dizziness. She states her daughter brought her to the emergency department. She does where oxygen at home. She endorses shortness of breath when lying flat. Patient is seen and examined in the emergency department appears short of breath and on 6L nasal cannula. Laboratory data reviewed, sodium 140, potassium 4.2, creatinine 0.61, glucose 168, BNP elevated at 4690, troponin negative 3, Covid 19 PCR negative. Vital signs blood pressure 120/71, heart rate 70s, afebrile, 97% on 6 L nasal cannula. EKG normal sinus rhythm with RBBB, T wave inversion in the inf erolateral leads, no significant change from prior. Most recent Echo 2019 EF of 5560 percent, aortic valve is mildly thickened, mitral valve mildly thickened, trace MR, trace TR right ventricular systolic pressure is 15.9 mmHg. Chest xray moderate interstitial edema superimposed diffuse mild to moderate opacities, cardiac silhouette size is enlarged. Current home cardiac medications include aspirin 81 mg daily, atorvastatin 10mg nightly, Lasix 20 mg twice a day, potassium chloride 20 mEq daily. 2D echo on 07/07 obtained today revealed EF 50-55%, RV is severely enlarged, mild , mild MR, mild TR, Severe pulmonary hypertension, RV systolic pressure measured 57.9 mmHg. 07/10/20: Patient seen and examined at bedside, in no acute distress. Patient wanting to leave AMA. Yesterday we were holding patient's IV Lasix due to STEVEN, patient was also hypotensive. Denies chest pain, palpitations, lightheadedness, dizziness, feelings of syncope. Blood pressure 102/67 , heart rate 84, afebrile, patient needing 4-6 L nasal cannula to maintain oxygen saturations. Laboratory data reviewed, sodium 135, potassium 4.6, creatinine 1.6, BUN 45, magnesium 2.3. Patient is currently being maintained on spironolactone 25 mg daily, lisinopril 5 mg daily (held yesterday due to hypotension), aspirin 81 mg daily. PHYSICAL EXAMINATION CONSTITUTIONAL: Shallow breathing noted, on 4L nasal cannula, No acute distress CHEST EXAMINATION: Crackles noted in bilateral bases to auscultation. No chest wall tenderness is noted on palpation or with deep breathing. HEART EXAMINATION: Regular rate and rhythm. S1, S2 heard. No murmurs, gallops or rub. ABDOMEN: Soft, nontender. Positive bowel sounds. : Indwelling mendieta catheter with dark yellow cloudy urine draining EXTREMITIES: 2+ peripheral pulses, Severe +4 pitting bilateral lower extremity up to patient's thighs and pedal edema, lower extremity pain with palpation NEUROLOGIC EXAMINATION: Patient is awake, alert and oriented x3. ASSESSMENT Acute Kidney Injury serum creatinine trend 0.6-->1.11-->1.6 Shortness of breath Lower extremity edema Acute exacerbation of diastolic Heart failure with preserved EF Severe pulmonary hypertension COPD Dyslipidemia PLAN -Told that patient wants to leave AMA. Discussed the risk of leaving AMA with the patient. Patient is decisional and is still adamant about leaving the hospital. -We will not make changes to patient's home dose of Lasix due to acute kidney injury at this time. Still awaiting for repeat BMP results to return. -Decreased sprionolactone to 12.5mg daily. -Patient should follow up in the office with Dr. Lyman Nurse Practitioner note has been reviewed, I agree with a documented findings and plan of care. Patient was seen and examined. Objective - Vital Signs Vital signs: Vital Signs Temp 98.2 F 07/10/20 07:00 Pulse 84 07/10/20 11:36 Resp 16 07/10/20 08:00 BP 102/67 07/10/20 07:00 Pulse Ox 91 L 07/10/20 07:00 Intake & Output 07/09/20 07/10/20 07/10/20 18:59 06:59 18:59 Intake Total 240 Output Total 725 Balance -485 Intake: Oral 240 Output: Urine 725 Other: Voiding Method Indwelling Catheter Indwelling Catheter Indwelling Catheter # Bowel Movements 0 - Labs CBC & Chem 7: 07/10/20 08:04 07/09/20 05:44 Labs: Abnormal Lab Results - Last 24 Hours (Table) 07/10/20 Range/Units 08:04 WBC 12.72 H (4.50-10.00) X 10*3/uL RBC 3.19 L (4.10-5.20) X 10*6/uL Hgb 9.1 L (12.0-15.0) g/dL Hct 32.0 L (37.2-46.3) % MCV 100.3 H (80.0-97.0) fL MCHC 28.4 L (32.0-37.0) g/dL RDW 18.5 H (11.5-14.5) % Absolute Nucleated RBC 0.02 H (0.00-0.00) X 10*3/uL Neutrophils # (Manual) 10.68 H (2.00-8.90) X 10*3/uL Lymphocytes # (Manual) 0.38 L (0.90-5.00) X 10*3/uL Monocytes # (Manual) 1.65 H (0.20-1.00) X 10*3/uL Eosinophils # (Manual) 0 L (0.04-0.35) X 10*3/uL NRBC/100 WBC Diff 0.2 H (0.0-0.0) /100 WBCS
[2020-07-10 14:33] LABS: African American GFR (CKD) 70.5 (60.0-200.0); Anion Gap 10.5 mmol/L (4.00-12.00); BUN/Creat Ratio 43.33 Ratio (12.00-20.00); Calcium 9.1 mg/dL (8.7-10.3); Carbon Dioxide 31.5 mmol/L (21.6-31.8); Non-African American GFR(CKD) 60.8 (60.0-200.0); Potassium 4.9 mmol/L (3.5-5.5)
[2020-07-10] MEDS: guaiFENesin SYRUP 100MG/5ML 200 MG/10 ML CUP PO PRN ×2 (15:13→20:44)
[2020-07-10] MEDS: MONTELUKAST 10 MG TAB PO SCH (20:44)
[2020-07-10] MEDS: ATORVASTATIN 10 MG TAB PO SCH (20:44)
[2020-07-10] MEDS: ACETAMINOPHEN TAB 325 MG TAB PO PRN (20:44)
[2020-07-11] MEDS: HYDROcodone/APAP 5-325MG 1 EACH TAB PO PRN ×3 (02:01→17:50)
[2020-07-11] MEDS: guaiFENesin SYRUP 100MG/5ML 200 MG/10 ML CUP PO PRN ×3 (02:01→20:19)
[2020-07-11] MEDS: ALPRAZolam 0.25 MG TAB PO PRN ×2 (02:01→18:02)
[2020-07-11] MEDS: IPRATROPIUM-ALBUTEROL 3 ML NEB INHALATION PRN ×2 (03:09→23:34)
[2020-07-11] MEDS: BUDESONIDE 0.5 MG/2 ML NEBU INHALATION SCH ×2 (07:52→19:25)
[2020-07-11] MEDS: IPRATROPIUM-ALBUTEROL 3 ML NEB INHALATION SCH ×4 (07:52→19:25)
[2020-07-11] MEDS: MULTIVITAMINS, THERA 1 EACH TAB PO SCH (09:31)
[2020-07-11] MEDS: PANTOPRAZOLE 40 MG TABLET PO SCH (09:31)
[2020-07-11] MEDS: ASPIRIN 81 MG PO SCH (09:31)
[2020-07-11] MEDS: MIDODRINE 5 MG TAB PO SCH ×2 (09:32→17:50)
[2020-07-11] MEDS: SPIRONOLACTONE 25 MG TAB PO SCH (09:32)
[2020-07-11] MEDS: FLUTICASONE 50MCG/SPRAY NASAL 16GM EA NOSTRIL SCH (09:33)
[2020-07-11] MEDS: NITROGLYCERIN OINT 1 INCH/GM PACKET TOPICAL SCH ×4 (09:39→20:29)
[2020-07-11 09:57] LABS: African American GFR (CKD) >90 (>60 ml/min/1.73 sqM); Anion Gap 8 mmol/L; Blood Urea Nitrogen 33 mg/dL (7-17); Calcium 9.1 mg/dL (8.4-10.2); Carbon Dioxide 30 mmol/L (22-30); Chloride 94 mmol/L (98-107); Glucose 94 mg/dL (74-99); Non-African American GFR(CKD) >90 (>60 ml/min/1.73 sqM); Potassium 5.3 mmol/L (3.5-5.1); Sodium 132 mmol/L (137-145)
[2020-07-11] MEDS ORDERED: FUROSEMIDE 10 MG/ML 2 ML VIAL IV ONE (11:45)
--- NOTE | 2020-07-11 12:23 | P.PN ---
Subjective Progress Note Date: 07/11/20 The patient is a 79-year-old female who follows in the office with Dr. Lyman. She was then admitted to the hospital for increased shortness of breath and lower extremity swelling. She was noted to have an acute kidney injury as well as an exacerbation of diastolic heart failure. Yesterday, she mentioned she would be leaving AGAINST MEDICAL ADVICE, however she continues to be admitted to the hospital. This morning she was quite tired at the time of my examination. She denies any chest pain or chest pressure. She also denies any shortness of breath and states she slept well. I asked her if her swelling had improved and she said it had. GENERAL: Well-appearing, well-nourished and in no acute distress. LUNGS: Breath sounds diminished to auscultation bilaterally. Respiration equal and unlabored. No wheezes, rales or rhonchi. HEART: Regular rate and rhythm without murmurs, rubs or gallops. S1 and S2 heard. EXTREMITIES: Normal range of motion. +4 lower extremity pitting edema, with edema up through thigh and abdomen. No clubbing or cyanosis. Peripheral pulses intact and strong. VITALS: Blood pressure 112/64, pulse rate 82, respiratory rate 16, temperature 97.6F, oxygen 92% on 4 L nasal cannula TELEMETRY: Sinus rhythm. No ectopy overnight LABS: WBC 12.72, hemoglobin 9.1, hematocrit 32.0, platelet 223, sodium 135, potassium 4.9, BUN 39, creatinine 0.9, IMPRESSION: Diastolic heart failure, preserved ejection fraction Anasarca, resume diuretics Acute kidney injury, improved Pulmonary hypertension COPD Dyslipidemia PLAN: Resume loop diuretics, 40 mg daily Continue spironolactone Recommend leg elevation and compression pumps Further recommendations based upon clinical course Objective - Vital Signs Vital signs: Vital Signs Temp 97.6 F 07/11/20 07:00 Pulse 84 07/11/20 11:31 Resp 16 07/11/20 07:00 BP 112/64 07/11/20 07:00 Pulse Ox 92 L 07/11/20 07:00 Intake & Output 07/10/20 07/11/20 07/11/20 18:59 06:59 18:59 Other: Voiding Method Incontinent Incontinent Incontinent - Labs CBC & Chem 7: 07/10/20 08:04 07/11/20 08:28 Labs: Abnormal Lab Results - Last 24 Hours (Table) 07/10/20 07/11/20 Range/Units 08:04 08:28 Sodium 132 L (137-145) mmol/L Potassium 5.3 H (3.5-5.1) mmol/L Chloride 93 L 94 L (96-109) mmol/L BUN 39.0 H 33 H (9.0-27.0) mg/dL Creatinine 0.51 L (0.52-1.04) mg/dL BUN/Creatinine Ratio 43.33 H (12.00-20.00) Ratio Glucose 145 H (70-110) mg/dL
[2020-07-11] MEDS: FUROSEMIDE 40 MG TAB PO SCH (13:20)
[2020-07-11] MEDS: ATORVASTATIN 10 MG TAB PO SCH (20:19)
[2020-07-11] MEDS: MONTELUKAST 10 MG TAB PO SCH (20:19)
--- NOTE | 2020-07-12 00:15 | P.PN ---
Subjective Progress Note Date: 07/11/20 Principal diagnosis: CHF exacerbation Covering for Dr. Byrne over the weekend Shaunna Keys is a 79 yo female with PMH for chronic diastolic heart failure, COPD, dyslipidemia who presented to the ED with worsening lower extremity edema and shortness of breath. She states that she is always has chronic lower extremity edema but its been getting worse. She also noticed and increase in her weight. She denies any changes in fluid intake or diet change. She is also complaining of orthopnea. She denies any chest pain, palpitations, lightheadedness, weakness or dizziness. She states her daughter brought her to the emergency department. She does wear oxygen at home. On presentation she was hypoxic requiring 6 LPM O2; WBC 8.8, hemoglobin 11, creatinine 0.61, glucose 168, BNP elevated at 4690, troponin negative 3, Covid 19 PCR negative. EKG normal sinus rhythm with RBBB. CXR with interstitial infiltrates. On 07/11/2020 -patient was seen and examined at the bedside. Patient wanted to leave AGAINST MEDICAL ADVICE yesterday, but decided to stay. Today she is sitting up in a chair at the bedside stating that she still has lower extremity swelling. She denies having any chest pain or palpitations. She complains of mild difficulty in breathing. On reviewing the vitals temperature of 97.8, heart rate 69, respiratory rate 18, blood pressure 106/59 and saturating at 92% on 4 L of nasal cannula. Reviewing her labs white count of 12.7, hemoglobin 9. 1, platelets 223. Sodium 132, potassium 5.3, chloride 94, bicarb 30, BUN 33, creatinine 0.51. Active Medications Acetaminophen (Acetaminophen Tab 325 Mg Tab) 650 mg PO Q4HR PRN PRN Reason: Fever and/ or Pain Last Admin: 07/10/20 20:44 Dose: 650 mg Documented by: Hydrocodone Bitart/Acetaminophen (Hydrocodone/Apap 5-325mg 1 Each Tab) 1 each PO Q6H PRN PRN Reason: Pain Last Admin: 07/11/20 17:50 Dose: 1 each Documented by: Albuterol/Ipratropium (Ipratropium-Albuterol 3 Ml Neb) 3 ml INHALATION RT-QID RADHA Last Admin: 07/11/20 19:25 Dose: 3 ml Documented by: Albuterol/Ipratropium (Ipratropium-Albuterol 3 Ml Neb) 3 ml INHALATION RT-Q2H PRN PRN Reason: Shortness Of Breath Or Wheezing Last Admin: 07/11/20 23:34 Dose: 3 ml Documented by: Alprazolam (Alprazolam 0.25 Mg Tab) 0.25 mg PO DAILY PRN PRN Reason: Anxiety Last Admin: 07/11/20 18:02 Dose: 0.25 mg Documented by: Aspirin (Aspirin 81 Mg) 81 mg PO DAILY [facility] Last Admin: 07/11/20 09:31 Dose: 81 mg Documented by: Atorvastatin Calcium (Atorvastatin 10 Mg Tab) 10 mg PO HS [facility] Last Admin: 07/11/20 20:19 Dose: 10 mg Documented by: Budesonide (Budesonide 0.5 Mg/2 Ml Nebu) 0.5 mg INHALATION RT-BID [facility] Last Admin: 07/11/20 19:25 Dose: 0.5 mg Documented by: Fluticasone Propionate (Fluticasone 50mcg/[place] Nasal 16gm) 2 spray EA NOSTRIL DAILY [facility] Last Admin: 07/11/20 09:33 Dose: 2 spray Documented by: Furosemide (Furosemide 40 Mg Tab) 40 mg PO DAILY [facility] Last Admin: 07/11/20 13:20 Dose: 40 mg Documented by: Guaifenesin (Guaifenesin Syrup 100mg/5ml 200 Mg/10 Ml Cup) 200 mg PO Q4H PRN PRN Reason: Congestion Last Admin: 07/11/20 20:19 Dose: 200 mg Documented by: Midodrine (Midodrine 5 Mg Tab) 5 mg PO AC-BID [facility] Last Admin: 07/11/20 17:50 Dose: 5 mg Documented by: Montelukast Sodium (Montelukast 10 Mg Tab) 10 mg PO HS [facility] Last Admin: 07/11/20 20:19 Dose: 10 mg Documented by: Multivitamins (Multivitamins, Thera 1 Each Tab) 1 each PO DAILY [facility] Last Admin: 07/11/20 09:31 Dose: 1 each Documented by: Nitroglycerin (Nitroglycerin Oint 1 Inch/Gm Packet) 0.5 inch TOPICAL QID [facility] Last Admin: 07/11/20 20:29 Dose: Not Given Documented by: Pantoprazole Sodium (Pantoprazole 40 Mg Tablet) 40 mg PO DAILY [facility] Last Admin: 07/11/20 09:31 Dose: 40 mg Documented by: Spironolactone (Spironolactone 25 Mg Tab) 12.5 mg PO DAILY [facility] Last Admin: 07/11/20 09:32 Dose: 12.5 mg Documented by: Objective - Vital Signs Vital signs: Vital Signs Temp 97.6 F 07/11/20 07:00 Pulse 84 07/11/20 11:31 Resp 16 07/11/20 07:00 BP 112/64 07/11/20 07:00 Pulse Ox 92 L 07/11/20 07:00 Intake & Output 07/10/20 07/11/20 07/11/20 18:59 06:59 18:59 Other: Voiding Method Incontinent Incontinent Incontinent - Exam General: Sitting up in chsir, No acute distress HEENT: normocephalic, on 6 LPM O2 Neck: supple, no thyromegaly. JVD present CV: RRR, no murmur. Pulses 2+, Edema up to the knees,pitting Lungs: Normal effort. Rales at bases, scattered expiratory wheezing Abd: soft, nontender, non distended, positive bowel sounds. Neuro: alert and oriented x3, no focal deficits Skin: warm and dry - Labs CBC & Chem 7: 07/10/20 08:04 07/11/20 08:28 Labs: Abnormal Lab Results - Last 24 Hours (Table) 07/10/20 07/11/20 Range/Units 08:04 08:28 Sodium 132 L (137-145) mmol/L Potassium 5.3 H (3.5-5.1) mmol/L Chloride 93 L 94 L (96-109) mmol/L BUN 39.0 H 33 H (9.0-27.0) mg/dL Creatinine 0.51 L (0.52-1.04) mg/dL BUN/Creatinine Ratio 43.33 H (12.00-20.00) Ratio Glucose 145 H (70-110) mg/dL Assessment and Plan Assessment: ASSESSMENT Acute on chronic diastolic congestive heart failure Severe pulmonary hypertension Acute kidney injury improving COPD Hyperlipidemia GERD History of coronary artery disease Morbid obesity with BMI 41.4 PLAN: Patient's Lasix was on hold yesterday as she was having acute kidney injur y. This morning creatinine is back to her baseline. Patient complains of difficulty in breathing so we will give her 20 mg of IV Lasix. She will be continued on spironolactone. Continue with rest of her current medication regimen and further recommendations to follow depending on the progress of patient.
[2020-07-12] MEDS: HYDROcodone/APAP 5-325MG 1 EACH TAB PO PRN ×2 (00:54→08:14)
[2020-07-12] MEDS: IPRATROPIUM-ALBUTEROL 3 ML NEB INHALATION PRN (04:34)
[2020-07-12] MEDS: BUDESONIDE 0.5 MG/2 ML NEBU INHALATION SCH ×2 (07:53→19:59)
[2020-07-12] MEDS: IPRATROPIUM-ALBUTEROL 3 ML NEB INHALATION SCH ×4 (07:53→19:59)
[2020-07-12] MEDS: ASPIRIN 81 MG PO SCH (08:13)
[2020-07-12] MEDS: SPIRONOLACTONE 25 MG TAB PO SCH (08:13)
[2020-07-12] MEDS: FUROSEMIDE 40 MG TAB PO SCH (08:14)
[2020-07-12] MEDS: MULTIVITAMINS, THERA 1 EACH TAB PO SCH (08:14)
[2020-07-12] MEDS: MIDODRINE 5 MG TAB PO SCH ×2 (08:14→17:41)
[2020-07-12] MEDS: PANTOPRAZOLE 40 MG TABLET PO SCH (08:14)
[2020-07-12] MEDS: FLUTICASONE 50MCG/SPRAY NASAL 16GM EA NOSTRIL SCH (08:15)
[2020-07-12 08:56] LABS: HCT 35.6 % (37.2-46.3); HGB 9.9 g/dL (12.0-15.0); MCHC 27.8 g/dL (32.0-37.0); MCV 100.8 fL (80.0-97.0); Mean Platelet Volume 11.9 fL (9.5-12.2); Platelet Count 217 X 10*3/uL (140-440); RBC 3.53 X 10*6/uL (4.10-5.20); RDW 18.4 % (11.5-14.5); WBC 9.47 X 10*3/uL (4.50-10.00)
[2020-07-12 09:03] LABS: African American GFR (CKD) 100.5 (60.0-200.0); Anion Gap 8.2 mmol/L (4.00-12.00); BUN/Creat Ratio 41.67 Ratio (12.00-20.00); Calcium 8.8 mg/dL (8.7-10.3); Carbon Dioxide 29.8 mmol/L (21.6-31.8); Non-African American GFR(CKD) 86.7 (60.0-200.0); Potassium 5.3 mmol/L (3.5-5.5)
[2020-07-12] MEDS: ALPRAZolam 0.25 MG TAB PO PRN (09:04)
[2020-07-12 09:32] LABS: Anisocytosis (M) 2+; Basophils # (M) 0 X 10*3/uL (0.00-0.10); Eosinophils # (M) 0 X 10*3/uL (0.04-0.35); Lymphocytes # (M) 0.57 X 10*3/uL (0.90-5.00); Monocytes # (M) 0.76 X 10*3/uL (0.20-1.00); Myelocytes % 1 % (0-0); Neutrophils # (M) 8.05 X 10*3/uL (2.00-8.90); Neutrophils % (M) 85 %
[2020-07-12] MEDS: NITROGLYCERIN OINT 1 INCH/GM PACKET TOPICAL SCH ×4 (09:57→23:22)
[2020-07-12] MEDS: ACETAMINOPHEN TAB 325 MG TAB PO PRN ×2 (10:40→20:42)
--- NOTE | 2020-07-12 13:03 | P.PN ---
Subjective Progress Note Date: 07/12/20 The patient is a 79-year-old female who follows in the office with Dr. Lyman. She was then admitted to the hospital for increased shortness of breath and lower extremity swelling. She was noted to have an acute kidney injury as well as an exacerbation of diastolic heart failure. On exam this morning, she is quite agitated in the recliner chair. She states she "hurts all over." She states her legs are very painful, especially to the touch therefore she does not want to wear the SCDs. She doesn't have any chest pain or chest pressure. She does have some shortness of breath. No palpitations, dizziness, or lightheadedness. GENERAL: Well-appearing, well-nourished and in no acute distress. LUNGS: Breath sounds diminished to auscultation bilaterally. Respiration equal and unlabored. No wheezes, rales or rhonchi. HEART: Regular rate and rhythm without murmurs, rubs or gallops. S1 and S2 heard. EXTREMITIES: Normal range of motion. +4 lower extremity pitting edema, with ed jacinto up through thigh and abdomen. No clubbing or cyanosis. Peripheral pulses intact and strong. VITALS: Blood pressure 120/73, SpO2 98% on 4 L nasal cannula, pulse rate 88, respiratory rate 20, temperature 97.8F TELEMETRY: Sinus rhythm. No ectopy overnight LABS: WBC 9.4, hemoglobin 9.9, hematocrit 35.6, sodium 132, potassium 5.3, chloride 94, BUN 25, creatinine 0.6 IMPRESSION: Diastolic heart failure, preserved ejection fraction Anasarca, resume diuretics Acute kidney injury, improved Pulmonary hypertension COPD Dyslipidemia Hyponatremia PLAN: Resume loop diuretics, 40 mg daily Continue spironolactone Recommend leg elevation and compression pumps Strict I and O, as well as daily weights Further recommendations based upon clinical course The patient has been seen and evaluated. Plan of care has been reviewed and agreed upon by Dr Gaona. Objective - Vital Signs Vital signs: Vital Signs Temp 97.8 F 07/12/20 07:00 Pulse 88 07/12/20 11:49 Resp 20 07/12/20 07:00 BP 120/73 07/12/20 07:00 Pulse Ox 98 07/12/20 07:00 Intake & Output 07/11/20 07/12/20 07/12/20 18:59 06:59 18:59 Other: Voiding Method Incontinent Incontinent Incontinent External Catheter External Catheter - Labs CBC & Chem 7: 07/12/20 06:15 07/12/20 06:15 Labs: Abnormal Lab Results - Last 24 Hours (Table) 07/12/20 07/12/20 Range/Units 06:15 06:15 RBC 3.53 L (4.10-5.20) X 10*6/uL Hgb 9.9 L (12.0-15.0) g/dL Hct 35.6 L (37.2-46.3) % MCV 100.8 H (80.0-97.0) fL MCHC 27.8 L (32.0-37.0) g/dL RDW 18.4 H (11.5-14.5) % Myelocytes % 1 H (0-0) % Lymphocytes # (Manual) 0.57 L (0.90-5.00) X 10*3/uL Eosinophils # (Manual) 0 L (0.04-0.35) X 10*3/uL Sodium 132 L (135-145) mmol/L Chloride 94 L (96-109) mmol/L BUN/Creatinine Ratio 41.67 H (12.00-20.00) Ratio Glucose 127 H (70-110) mg/dL
[2020-07-12] MEDS: guaiFENesin SYRUP 100MG/5ML 200 MG/10 ML CUP PO PRN ×2 (13:21→20:43)
[2020-07-12] MEDS: HYDROcodone/APAP 7.5-325MG 1 EACH TAB PO PRN (14:10)
--- NOTE | 2020-07-12 16:23 | P.PN ---
Subjective Progress Note Date: 07/12/20 Principal diagnosis: CHF exacerbation Covering for Dr. Byrne over the weekend Shaunna Keys is a 79 yo female with PMH for chronic diastolic heart failure, COPD, dyslipidemia who presented to the ED with worsening lower extremity edema and shortness of breath. She states that she is always has chronic lower extremity edema but its been getting worse. She also noticed and increase in her weight. She denies any changes in fluid intake or diet change. She is also complaining of orthopnea. She denies any chest pain, palpitations, lightheadedness, weakness or dizziness. She states her daughter brought her to the emergency department. She does wear oxygen at home. On presentation she was hypoxic requiring 6 LPM O2; WBC 8.8, hemoglobin 11, creatinine 0.61, glucose 168, BNP elevated at 4690, troponin negative 3, Covid 19 PCR negative. EKG normal sinus rhythm with RBBB. CXR with interstitial infiltrates. On 07/11/2020 -patient was seen and examined at the bedside. Patient wanted to leave AGAINST MEDICAL ADVICE yesterday, but decided to stay. Today she is sitting up in a chair at the bedside stating that she still has lower extremity swelling. She denies having any chest pain or palpitations. She complains of mild difficulty in breathing. On reviewing the vitals temperature of 97.8, heart rate 69, respiratory rate 18, blood pressure 106/59 and saturating at 92% on 4 L of nasal cannula. Reviewing her labs white count of 12.7, hemoglobin 9. 1, platelets 223. Sodium 132, potassium 5.3, chloride 94, bicarb 30, BUN 33, creatinine 0.51. On 07/04/2020 - patient is seen and examined at bedside. She is comfortably sitting in the chair by the bedside. Patient complains of swelling in her lower extremities. She states that her difficulty in breathing is improving. She also complains of rash in her inguinal area that is itchy. She denies having any fevers chills or rigors. No cough or difficulty in breathing. No abdominal pain nausea vomiting or diarrhea. No dysuria or hematuria. On reviewing vitals temperature 98.3, heart rate 94, respiratory 18, blood pressure 05/12/2017 and saturating at 93% on 4 L of oxygen. Reviewing the labs white count of 9.7, hemoglobin 9.9, MCV 100.8, platelets 217. Sodium 132, rotation 5.3, chloride 94, bicarb 29, BUN 25, creatinine 0.6. Active Medications Acetaminophen (Acetaminophen Tab 325 Mg Tab) 650 mg PO Q4HR PRN PRN Reason: Fever and/ or Pain Last Admin: 07/12/20 10:40 Dose: 650 mg Documented by: Hydrocodone Bitart/Acetaminophen (Hydrocodone/Apap 7.5-325mg 1 Each Tab) 1 each PO Q6H PRN PRN Reason: Pain Last Admin: 07/12/20 14:10 Dose: 1 each Documented by: Albuterol/Ipratropium (Ipratropium-Albuterol 3 Ml Neb) 3 ml INHALATION RT-QID [facility] Last Admin: 07/12/20 11:39 Dose: 3 ml Documented by: Albuterol/Ipratropium (Ipratropium-Albuterol 3 Ml Neb) 3 ml INHALATION RT-Q2H PRN PRN Reason: Shortness Of Breath Or Wheezing Last Admin: 07/12/20 04:34 Dose: 3 ml Documented by: Alprazolam (Alprazolam 0.25 Mg Tab) 0.25 mg PO DAILY PRN PRN Reason: Anxiety Last Admin: 07/12/20 09:04 Dose: 0.25 mg Documented by: Aspirin (Aspirin 81 Mg) 81 mg PO DAILY [facility] Last Admin: 07/12/20 08:13 Dose: 81 mg Documented by: Atorvastatin Calcium (Atorvastatin 10 Mg Tab) 10 mg PO HS [facility] Last Admin: 07/11/20 20:19 Dose: 10 mg Documented by: Budesonide (Budesonide 0.5 Mg/2 Ml Nebu) 0.5 mg INHALATION RT-BID [facility] Last Admin: 07/12/20 07:53 Dose: 0.5 mg Documented by: Fluticasone Propionate (Fluticasone 50mcg/[place] Nasal 16gm) 2 spray EA NOSTRIL DAILY [facility] Last Admin: 07/12/20 08:15 Dose: 2 spray Documented by: Furosemide (Furosemide 40 Mg Tab) 40 mg PO DAILY [facility] Last Admin: 07/12/20 08:14 Dose: 40 mg Documented by: Guaifenesin (Guaifenesin Syrup 100mg/5ml 200 Mg/10 Ml Cup) 200 mg PO Q4H PRN PRN Reason: Congestion Last Admin: 07/12/20 13:21 Dose: 200 mg Documented by: Midodrine (Midodrine 5 Mg Tab) 5 mg PO AC-BID [facility] Last Admin: 07/12/20 08:14 Dose: 5 mg Documented by: Montelukast Sodium (Montelukast 10 Mg Tab) 10 mg PO HS [facility] Last Admin: 07/11/20 20:19 Dose: 10 mg Documented by: Multivitamins (Multivitamins, Thera 1 Each Tab) 1 each PO DAILY [facility] Last Admin: 07/12/20 08:14 Dose: 1 each Documented by: Nitroglycerin (Nitroglycerin Oint 1 Inch/Gm Packet) 0.5 inch TOPICAL QID [facility] Last Admin: 07/12/20 12:04 Dose: Not Given Documented by: Pantoprazole Sodium (Pantoprazole 40 Mg Tablet) 40 mg PO DAILY [facility] Last Admin: 07/12/20 08:14 Dose: 40 mg Documented by: Spironolactone (Spironolactone 25 Mg Tab) 12.5 mg PO DAILY [facility] Last Admin: 07/12/20 08:13 Dose: 12.5 mg Documented by: Objective - Vital Signs Vital signs: Vital Signs Temp 97.8 F 07/12/20 07:00 Pulse 88 07/12/20 11:49 Resp 20 07/12/20 07:00 BP 120/73 07/12/20 07:00 Pulse Ox 98 07/12/20 07:00 Intake & Output 07/11/20 07/12/20 07/12/20 18:59 06:59 18:59 Other: Voiding Method Incontinent Incontinent Incontinent External Catheter External Catheter - Exam General: Sitting up in chsir, No acute distress HEENT: normocephalic, on 6 LPM O2 Neck: supple, no thyromegaly. JVD present CV: RRR, no murmur. Pulses 2+, Edema up to the knees,pitting Lungs: Normal effort. Rales at bases, scattered expiratory wheezing Abd: soft, nontender, non distended, positive bowel sounds. Intertrigo Neuro: alert and oriented x3, no focal deficits Skin: warm and dry - Labs CBC & Chem 7: 07/12/20 06:15 07/12/20 06:15 Labs: Abnormal Lab Results - Last 24 Hours (Table) 07/12/20 07/12/20 Range/Units 06:15 06:15 RBC 3.53 L (4.10-5.20) X 10*6/uL Hgb 9.9 L (12.0-15.0) g/dL Hct 35.6 L (37.2-46.3) % MCV 100.8 H (80.0-97.0) fL MCHC 27.8 L (32.0-37.0) g/dL RDW 18.4 H (11.5-14.5) % Myelocytes % 1 H (0-0) % Lymphocytes # (Manual) 0.57 L (0.90-5.00) X 10*3/uL Eosinophils # (Manual) 0 L (0.04-0.35) X 10*3/uL Sodium 132 L (135-145) mmol/L Chloride 94 L (96-109) mmol/L BUN/Creatinine Ratio 41.67 H (12.00-20.00) Ratio Glucose 127 H (70-110) mg/dL Assessment and Plan Assessment: ASSESSMENT Acute on chronic diastolic congestive heart failure Severe pulmonary hypertension Intertrigo Acute kidney injury improving COPD Hyperlipidemia GERD History of coronary artery disease Morbid obesity with BMI 41.4 PLAN: Patient received IV 20 mg of Lasix yesterday, creatinine this morning is stable at 0.6. She is being continued on 40 mg by mouth daily of her home dose Lasix. Continue with Aldactone, aspirin and statin. Nystatin powder for intertrigo started. Continue with rest of her current medication regimen and Dr. Byrne's team to follow the patient from tomorrow
[2020-07-12] MEDS: MONTELUKAST 10 MG TAB PO SCH (20:42)
[2020-07-12] MEDS: ATORVASTATIN 10 MG TAB PO SCH (20:42)
[2020-07-12] MEDS: NYSTATIN 100,000 UNIT/GM POWD 15 GM TOPICAL SCH (23:24)
[2020-07-13] MEDS: ALPRAZolam 0.25 MG TAB PO PRN (00:12)
[2020-07-13] MEDS: IPRATROPIUM-ALBUTEROL 3 ML NEB INHALATION PRN ×2 (00:21→04:25)
[2020-07-13] MEDS: HYDROcodone/APAP 7.5-325MG 1 EACH TAB PO PRN ×2 (02:05→08:19)
[2020-07-13] MEDS: guaiFENesin SYRUP 100MG/5ML 200 MG/10 ML CUP PO PRN (02:11)
[2020-07-13] MEDS: IPRATROPIUM-ALBUTEROL 3 ML NEB INHALATION SCH ×2 (07:17→11:02)
[2020-07-13] MEDS: BUDESONIDE 0.5 MG/2 ML NEBU INHALATION SCH (07:17)
[2020-07-13 07:54] VITALS: BP 116/66; PULSE 90; RESP 18; TEMP 97.8
[2020-07-13] MEDS: NYSTATIN 100,000 UNIT/GM POWD 15 GM TOPICAL SCH (08:19)
[2020-07-13] MEDS: PANTOPRAZOLE 40 MG TABLET PO SCH (08:19)
[2020-07-13] MEDS: MIDODRINE 5 MG TAB PO SCH (08:19)
[2020-07-13] MEDS: MULTIVITAMINS, THERA 1 EACH TAB PO SCH (08:19)
[2020-07-13] MEDS: SPIRONOLACTONE 25 MG TAB PO SCH (08:19)
[2020-07-13] MEDS: FUROSEMIDE 40 MG TAB PO SCH (08:19)
[2020-07-13] MEDS: ASPIRIN 81 MG PO SCH (08:19)
[2020-07-13] MEDS: NITROGLYCERIN OINT 1 INCH/GM PACKET TOPICAL SCH (08:20)
[2020-07-13] MEDS: FLUTICASONE 50MCG/SPRAY NASAL 16GM EA NOSTRIL SCH (08:20)
[2020-07-13 11:05] LABS: African American GFR (CKD) 105.9 (60.0-200.0); Calcium 8.5 mg/dL (8.7-10.3); Non-African American GFR(CKD) 91.4 (60.0-200.0); Potassium 4.5 mmol/L (3.5-5.5)
== END 2020-07-13 11:45 | disposition home health service (06) | DRG 291 ==
LOC: EC 15:00 → 6NMEDSUR 18:09 → OBSVTOIN 07-07 15:20
PROVIDERS: ADMIT Family Medicine; ATTEND Family Medicine
DX: I50.33 Acute on chronic diastolic (congestive) heart failure (principal); J96.21 Acute and chronic respiratory failure with hypoxia; Z68.41 Body mass index [BMI] 40.0-44.9, adult; E87.1 Hypo-osmolality and hyponatremia; N17.9 Acute kidney failure, unspecified; I95.9 Hypotension, unspecified; I27.20 Pulmonary hypertension, unspecified; E66.01 Morbid (severe) obesity due to excess calories; J44.9 Chronic obstructive pulmonary disease, unspecified; Z20.822 Contact with and (suspected) exposure to COVID-19; I25.10 Atherosclerotic heart disease of native coronary artery without angina pectoris; I45.10 Unspecified right bundle-branch block; E78.5 Hyperlipidemia, unspecified; K21.9 Gastro-esophageal reflux disease without esophagitis; F41.9 Anxiety disorder, unspecified; R33.9 Retention of urine, unspecified; R32 Unspecified urinary incontinence; L30.4 Erythema intertrigo; Z99.81 Dependence on supplemental oxygen; Z79.82 Long term (current) use of aspirin; Z79.51 Long term (current) use of inhaled steroids; Z79.899 Other long term (current) drug therapy; Z87.891 Personal history of nicotine dependence; Z71.3 Dietary counseling and surveillance; Z88.6 Allergy status to analgesic agent; Z88.1 Allergy status to other antibiotic agents; Z88.0 Allergy status to penicillin; Z82.49 Family history of ischemic heart disease and other diseases of the circulatory system; Z80.0 Family history of malignant neoplasm of digestive organs
CPT/HCPCS: 36415; 71046; 80048; 80053; 83735; 83880; 84484; 85025; 85610; 85730; 87635; 93005; 93306; 94640; 96374; 96376; 99285